=== PATIENT | male | born 1950 | race Caucasian/White ===

== ENCOUNTER 2020-04-14 08:44 | Outpatient (CLI) | payer MEDICARE, SELFPAY | END 2020-04-14 08:45 | disposition home or self-care (01) | LOC: CHSLAB 08:48 | PROVIDERS: PCP Family Medicine; Visit Provider Specialist | DX: C44.629 Squamous cell carcinoma of skin of left upper limb, including shoulder (principal) | CPT/HCPCS: 88305 ==

== ENCOUNTER 2020-05-12 08:43 | Outpatient (CLI) | payer MEDICARE, SELFPAY | END 2020-05-12 08:44 | disposition home or self-care (01) | LOC: CHSLAB 08:45 | PROVIDERS: PCP Family Medicine; Visit Provider Specialist | DX: C44.49 Other specified malignant neoplasm of skin of scalp and neck (principal) | CPT/HCPCS: 88305; 88342 ==

== ENCOUNTER 2020-07-10 10:28 | Outpatient (CLI) | payer MEDICARE, SELFPAY | END 2020-07-10 10:29 | disposition home or self-care (01) | PROVIDERS: PCP Family Medicine; Visit Provider Specialist | DX: C44.622 Squamous cell carcinoma of skin of right upper limb, including shoulder (principal) | CPT/HCPCS: 88305 ==

== ENCOUNTER 2020-11-24 13:17 | Outpatient (CLI) | payer MEDICARE, SELFPAY | END 2020-11-24 13:18 | disposition home or self-care (01) | LOC: CHSLAB 13:20 | PROVIDERS: PCP Family Medicine; Visit Provider Specialist | DX: C44.629 Squamous cell carcinoma of skin of left upper limb, including shoulder (principal) | CPT/HCPCS: 88305 ==

== ENCOUNTER 2021-01-12 12:44 | Outpatient (CLI) | payer MEDICARE, SELFPAY | END 2021-01-12 12:45 | disposition home or self-care (01) | PROVIDERS: PCP Family Medicine; Visit Provider Specialist | DX: C44.629 Squamous cell carcinoma of skin of left upper limb, including shoulder (principal); C44.622 Squamous cell carcinoma of skin of right upper limb, including shoulder | CPT/HCPCS: 88305 ==

== ENCOUNTER 2021-03-30 10:26 | Outpatient (CLI) | payer MEDICARE, SELFPAY | END 2021-03-30 10:27 | disposition home or self-care (01) | LOC: CHSLAB 10:43 | PROVIDERS: PCP Family Medicine; Visit Provider Specialist | DX: C44.629 Squamous cell carcinoma of skin of left upper limb, including shoulder (principal) | CPT/HCPCS: 88305 ==

== ENCOUNTER 2021-05-18 16:34 | Outpatient (CLI) | payer MEDICARE, SELFPAY | END 2021-05-18 16:35 | disposition home or self-care (01) | LOC: CHSOUTPT 16:47 | PROVIDERS: PCP Family Medicine; Visit Provider Specialist | DX: C44.629 Squamous cell carcinoma of skin of left upper limb, including shoulder (principal) | CPT/HCPCS: 88305 ==

== ENCOUNTER 2021-09-14 16:09 | Outpatient (CLI) | payer MEDICARE, SELFPAY | END 2021-09-14 16:10 | disposition home or self-care (01) | LOC: CHSOUTPT 16:11 | PROVIDERS: PCP Family Medicine; Visit Provider Specialist | DX: C44.622 Squamous cell carcinoma of skin of right upper limb, including shoulder (principal) | CPT/HCPCS: 88305 ==

== ENCOUNTER 2021-11-16 16:10 | Outpatient (CLI) | payer MEDICARE, SELFPAY | END 2021-11-16 16:11 | disposition home or self-care (01) | LOC: CHSLAB 16:26 | PROVIDERS: PCP Family Medicine; Visit Provider Specialist | DX: C44.629 Squamous cell carcinoma of skin of left upper limb, including shoulder (principal) | CPT/HCPCS: 88305 ==

== ENCOUNTER 2022-01-11 16:09 | Outpatient (CLI) | payer MEDICARE, SELFPAY | END 2022-01-11 16:10 | disposition home or self-care (01) | LOC: CHSLAB 16:11 | PROVIDERS: PCP Family Medicine; Visit Provider Specialist | DX: C44.622 Squamous cell carcinoma of skin of right upper limb, including shoulder (principal) | CPT/HCPCS: 88305 ==

== ENCOUNTER 2022-08-16 08:49 | Outpatient (CLI) | payer MEDICARE, SELFPAY | END 2022-08-16 08:50 | disposition home or self-care (01) | PROVIDERS: PCP Family Medicine; Visit Provider Specialist | DX: C44.629 Squamous cell carcinoma of skin of left upper limb, including shoulder (principal) | CPT/HCPCS: 88305 ==

== ENCOUNTER 2022-12-27 15:28 | Outpatient (CLI) | payer MEDICARE, SELFPAY | END 2022-12-27 15:29 | disposition home or self-care (01) | LOC: CHSLAB 15:30 | PROVIDERS: PCP Family Medicine; Visit Provider Specialist | DX: L98.8 Other specified disorders of the skin and subcutaneous tissue (principal); L57.0 Actinic keratosis | CPT/HCPCS: 88305 ==

== ENCOUNTER 2023-02-14 15:35 | Outpatient (CLI) | payer MEDICARE, SELFPAY | END 2023-02-14 15:36 | disposition home or self-care (01) | PROVIDERS: PCP Family Medicine; Visit Provider Specialist | DX: C44.622 Squamous cell carcinoma of skin of right upper limb, including shoulder (principal); C44.629 Squamous cell carcinoma of skin of left upper limb, including shoulder | CPT/HCPCS: 88305 ==

== ENCOUNTER 2023-04-18 15:06 | Outpatient (CLI) | payer MEDICARE, SELFPAY | END 2023-04-18 15:07 | disposition home or self-care (01) | LOC: CHSLAB 15:08 | PROVIDERS: PCP Family Medicine; Visit Provider Specialist | DX: C44.629 Squamous cell carcinoma of skin of left upper limb, including shoulder (principal) | CPT/HCPCS: 88305 ==

== ENCOUNTER 2023-05-16 14:42 | Outpatient (CLI) | payer MEDICARE, SELFPAY | END 2023-05-16 14:43 | disposition home or self-care (01) | LOC: CHSLAB 14:46 | PROVIDERS: PCP Family Medicine; Visit Provider Specialist | DX: C44.622 Squamous cell carcinoma of skin of right upper limb, including shoulder (principal) | CPT/HCPCS: 88305 ==

== ENCOUNTER 2023-06-13 15:06 | Outpatient (CLI) | payer MEDICARE, SELFPAY | END 2023-06-13 15:07 | disposition home or self-care (01) | LOC: CHSLAB 15:08 | PROVIDERS: PCP Family Medicine; Visit Provider Specialist | DX: C44.722 Squamous cell carcinoma of skin of right lower limb, including hip (principal) | CPT/HCPCS: 88305 ==

== ENCOUNTER 2023-07-18 14:49 | Outpatient (CLI) | payer MEDICARE, SELFPAY | END 2023-07-18 14:50 | disposition home or self-care (01) | PROVIDERS: PCP Family Medicine; Visit Provider Specialist | DX: C44.622 Squamous cell carcinoma of skin of right upper limb, including shoulder (principal) | CPT/HCPCS: 88305 ==

== ENCOUNTER 2024-02-13 14:23 | Outpatient (CLI) | payer MEDICARE, SELFPAY | END 2024-02-13 14:24 | disposition home or self-care (01) | LOC: CHSLAB 14:28 | PROVIDERS: PCP Family Medicine; Visit Provider Specialist | DX: C44.329 Squamous cell carcinoma of skin of other parts of face (principal); C44.629 Squamous cell carcinoma of skin of left upper limb, including shoulder | CPT/HCPCS: 88305 ==

== ENCOUNTER 2024-09-10 14:53 | Outpatient (CLI) | payer MEDICARE, SELFPAY ==
--- OUTSIDE RECORDS SUMMARY | 2024-09-10 16:25 | XMS_ITS | Encounter Summary ---
Author Name [facility] [place] Organization [facility] [place] Address [address] [place] [address] Care Team Providers Care Mergers And Acquisitions Consultant Name Role Phone BRIGITTE SHI Primary Care Provider Unavailmichael e Insurance Providers: All historical and current Section Date Range: From patient's date of to the date document was created. This section includes the names of all active insurance providers for the patient. Insurance Provider Type of Coverage Plan Name Start of Policy Coverage End of Policy Coverage Group Number Member ID Insurance Provider's Telephone Number Policy Alva's Name Patient's Relationship to Policy Alva [facility] ([facility]) MEDICARE ADVANTAGE MCR ([facility]) Jun 12, 2022 [phone] [id number] REGAN,IVÁN ID [facility]) MEDICARE ADVANTAGE MCR ([facility]) Jun 12, 2022 [id number] [id number] REGAN,IVÁN ID PATIENT Selected Encounter This section includes the information on record at [place] for the Encounter. Date/Time Encounter Type Encounter Description Reason Provider Source Dec 19, 2023 03:00 PM OFFICE O/P EST MOD 30 MIN GERIPACT ICD-10-CM M54.2 Cervicalgia BRIGITTE SHI IHKishore Encounter Template Text not used by [facility] Assessments - Encounter Diagnoses This section includes the primary and secondary diagnoses documented for the Encounter. 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 BRIGITTE SHI [facility] Dec 19, 2023 12:13 PM SECONDARY Depression, unspecified BRIGITTE SHI [facility] Dec 19, 2023 12:13 PM SECONDARY Emphysema, unspecified BRIGITTE SHI [facility] Dec 19, 2023 12:13 PM SECONDARY Essential (primary) hypertension BRIGITTE SHI [facility] Dec 19, 2023 12:13 PM SECONDARY Gastro-esophageal reflux disease without esophagitis BRIGITTE SHI [facility] Dec 19, 2023 12:13 PM SECONDARY Hypothyroidism, unspecified BRIGITTE SHI [facility] Dec 19, 2023 12:13 PM SECONDARY Idiopathic gout, multiple sites BRIGITTE SHI [facility] Dec 19, 2023 12:13 PM SECONDARY Low back pain, unspecified BRIGITTE SHI [facility] Dec 19, 2023 12:13 PM SECONDARY Mild persistent asthma, uncomplicated BRIGITTE SHI [facility] Dec 19, 2023 12:13 PM SECONDARY Other insomnia BRIGITTE SHI [facility] Dec 19, 2023 12:13 PM SECONDARY Personal history of malignant carcinoid tumor of kidney BRIGITTE SHI [facility] Dec 19, 2023 12:13 PM SECONDARY Primary stabbing headache BRIGITTE SHI [facility] Dec 19, 2023 12:13 PM SECONDARY Radiculopathy, cervical region BRIGITTE SHI [facility] Dec 19, 2023 12:13 PM SECONDARY Type 2 diabetes mellitus with diabetic neuropathy, unsp BRIGITTE SHI [facility] Dec 19, 2023 12:13 PM SECONDARY Vitamin D deficiency, unspecified BRIGITTE SHI E [facility] Social History: Smoking Status (Most current) and Tobacco Use (All prior to encounter date) This section includes the most current, and the historical, smoking and tobacco- related health factors from the [place] facility where the Encounter took place. Current Smoking Status This section includes the most current smoking, or tobacco-related health factor, from the [place] facility where the Encounter took place. Date/Time Current Smoking Status Comment Atul styles Aug 04, 2023 09:00 AM VA-TOBACCO FORMER USER [facility] Tobacco Use History This section includes a history of the smoking, or tobacco-related health factors, that were collected on or before the date of the Encounter. The data comes from the [place] facility where the Encounter took place. Date/Time Smoking Status/Tobacco Use Comment Gayle nelson Aug 04, 2023 09:00 AM VA-TOBACCO QUIT 15 YRS OR MORE [facility] Feb 01, 2022 09:00 AM VA-TOBACCO FORMER USER [facility] Feb 01, 2022 09:00 AM VA-TOBACCO QUIT 15 YRS OR MORE [facility] Jan 29, 2021 09:00 AM VA-TOBACCO FORMER USER [facility] Jan 29, 2021 09:00 AM VA-TOBACCO QUIT 15 YRS OR MORE [facility] October 29, 2019 03:20 PM VA-TOBACCO FORMER USER [facility] October 29, 2019 03:20 PM VA-TOBACCO QUIT 15 YRS OR MORE [facility] Mar 12, 2018 01:47 PM VA-TOBACCO FORMER USER [facility] Mar 12, 2018 01:47 PM VA-TOBACCO QUIT 15 YRS OR MORE [facility] Feb 02, 2018 11:02 AM QUIT TOBACCO >7 YEARS AGO [facility] Aug 03, 2017 09:58 AM TOBACCO REFUSED SCREEN V15 [facility] Jan 27, 2017 09:01 AM QUIT TOBACCO >7 YEARS AGO [facility] Jan 21, 2016 09:13 AM QUIT TOBACCO >7 YEARS AGO [facility] Encounter Notes: All associated encounter notes This section contains the clinical notes associated to the Encounter. Date/Time Encounter Note(s) Provider Source Dec 19, 2023 11:13 AM TELEHEALTH NOTE: LOCAL TITLE: GERIPACT VIDEO CONNECT ST STANDARD TITLE: TELEHEALTH NOTE DATE OF NOTE: DEC 19, 2023@11:13 ENTRY DATE: DEC 19, 2023@11:13:58 AUTHOR: BRIGITTE SHI EXP COSIGNER: URGENCY: STATUS: COMPLETED Type of Evaluation: Geriatric Follow-up : Apr KADEN SPEARS was contacted today for a video visit. He agreed to the video visit. CC: Neck pain HPI: KADEN SPEARS is a 73 yo well-groomed functionally independent, cognitively intact MALE who was contacted via video for his medical check up and medication review/renewal: HTN, Type 2 DM, Primary stabbing headache, Asthma/emphysema/pulm nodules/allergies, GERD, ED, Gout, Maddox syndrome, Anemia & Bilateral hearing loss. He continues to follow routinely with his community pcp, principal cloud architect, GI/oncologist, software test manager, warehouse consultant, life skills specialist & day porter. He [facility] also [facility]. C/o today of recent pain from his neck to his shoulders & left arm. The pain is like a mild electrical current but is more shocking type pain w/ certain movements. Rates pain 8/10. He reports having xray w/ osh pcp, was told he has quite a bit of arthritis & maybe an impingement. He is planning to start outpatient PT and has been referred to a local pattern painter. ROS: BP running 110s/50s, denies recio/dizziness/cp/sob/palpitations , denies n/v, reports recent diarrhea that has resolved when he restarted creon, reports increasing heartburn as well despite daily ppi, ambulating w/o difficulty, denies falls, urine stream has improved, nocturia x1-2, denies dysuria or hematuria, reports improvement of depressed mood, sleep and appetite, denies si/hi. PAST SURGICAL HISTORY Left partial nephrectomy, renal cell CA thyroidectomy, thyroid ca head injury/left hand injury war injury left prosthetic eye (war injury) left sinus shrapnel removal right thumb joint replacement left knee replacement lap choley FAMILY HISTORY: Dad CHF Mom brain ca brother lung ca brother colon ca brother pancreatic ca sister cad sister cad sister ovarian cancer son colon cancer son colon cancer son healthy SOCIO-ECONOMIC HISTORY: Had one 1 year tour [place], [employer] Retired, state/[employer] go[employer] employment field Living at home alone, , he remains ind w/ adls tob use quit '82 after 15 pack years etoh, rare illicit drugs, none Cognitive Impairment Warning Signs: none ADL/IADL: independent Adherence to medications: good Allergies/ADR: CARLYN INHIBITORS, FINASTERIDE Last Vitals: BP: 144/70 (08/04/2023 09:32) Pulse: 45 (08/04/2023 08:51) Temp: 97.6 F [36.4 C] (08/04/2023 08:51) RR: 20 (08/04/2023 08:51) Pain: 0 (08/04/2023 08:51) Weight: 187.1 lb [84.87 kg] (08/04/2023 08:51) Height: 71 in [180.3 cm] (08/04/2023 08:51) PHYSICAL EXAMINATION: General: wd/wn male sitting comfortably in his home, nad, AOx3 PSY:cooperative & converses well, pleasant and smiling Assessment and Plan for each problem: 1.Cervicalgia w/ radiculopathy -being worked up by osh pcp -planning to start outpt PT and has appt w/ osh pain management -enc to cont voltaren, apap, heat, topicals/patches 2.Depression/bereavement/insomni a -denies si/hi -completed treatments w/ [facility]y-pact psychologist w/ great results -encouraged him to continue support group w/ his yazdanism -cont mirtazapine 15mg bedtime along w/ melatonin 3.Left shoulder pain -managed by osh ortho 4.Cough/Asthma/emphysema/pulm nodules/allergies -cont singulair, Breo & prn albuterol, zyrtec -fu osh pulm Dr. Rosenthal at [facility] & [facility]sman 5.Primary stabbing headache -05/03/22 CT head: No acute process. Mild age-appropriate volume loss and mild findings of chronic white matter disease. Unchanged posttraumatic findings in the left orbit and left maxillary sinus. 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 -Covid-19 primary prevention/precautions reviewed -Covid-19 vaccination: booster ' -colonoscopy: 08/30: 2 benign polyps, fu due 2022, he is still considering -PSA 1.54 ng/mL 12/18/2023 -Flu shot: 2022 -Prevnar-13: 2015 -Pneumovax 23: 2017 -Tdap: 2016 -Shingrix series: 2020 -Firearm safety -Smoke detectors -Hot water heater to <120-130 degrees F -discussed routine exercise and healthy diet Medications have been reconciled and plan of care has been reviewed with pt/family/caregiver including expected therapeutic benefits and potential side effects of treatments. Pt/caregiver/family verbalizes understanding, concurs with the current plan of care, and agrees to contact this provider or [facility]y-Pact case finisher with any problems prior to next visit. RTC:6mo or sooner prn Time spent: 58 min Active Outpatient Medications (including Supplies): Active Outpatient Medications Status ========= 1) ALLOPURINOL 100MG TAB TAKE ONE TABLET BY MOUTH ONCE A ACTIVE (S) DAY FOR GOUT. TAKE WITH PLENTY OF WATER. 2) AMLODIPINE BESYLATE 2.5MG TAB TAKE ONE TABLET BY ACTIVE (S) MOUTH ONCE A DAY 3) ASPIRIN 81MG EC TAB TAKE ONE TABLET BY MOUTH ONCE A ACTIVE (S) DAY FOR HEART OR CIRCULATION. TAKE WITH FOOD. 4) ATORVASTATIN CALCIUM 10MG TAB TAKE ONE TABLET BY ACTIVE (S) MOUTH EVERY EVENING TO LOWER CHOLESTEROL 5) AZELASTINE 137MCG/SPRAY 200D NASAL INHL SPRAY 2 ACTIVE (S) SPRAYS IN NOSTRIL(S) TWICE DAILY NEEDED FOR ALLERGIC RHINITIS. *PRIME BEFORE USE* 6) BRIMONIDINE 0.2%/BRINZOLAMID 1% OPH SUSP INSTILL 1 ACTIVE DROP IN BOTH EYES THREE TIMES A DAY FOR GLAUCOMA 7) CARBOXYMETHYLCELLULOSE 1% OPH GEL 0.4ML INSTILL 1 ACTIVE (S) DROP INTO LEFT EYE FOUR TIMES A DAY NEEDED 8) CARBOXYMETHYLCELLULOSE NA 1% OPH GEL INSTILL 1 DROP ACTIVE (S) INTO BOTH EYES FOUR TIMES A DAY NEEDED FOR DRY EYES 9) CETIRIZINE HCL 10MG TAB TAKE ONE TABLET BY MOUTH ONCE ACTIVE (S) A DAY FOR ALLERGY SYMPTOMS. 10) CYANOCOBALAMIN 1000MCG/ML INJ INJECT 1000MCG/1ML ACTIVE (S) INTRAMUSCULARLY EVERY MONTH FOR B12 SUPPLEMENTATION 11) LATANOPROST 0.005% OPH SOLN INSTILL 1 DROP IN RIGHT ACTIVE EYE EVERY EVENING KEEP REFRIGERATED UNTIL READY TO USE, THEN STORE AT ROOM TEMPERATURE FOR MAXIMUM OF 42 DAYS. 12) LEVOTHYROXINE NA (SYNTHROID) 112MCG TAB TAKE ONE ACTIVE (S) TABLET BY MOUTH EVERY MORNING BEFORE A MEAL FOR HYPOTHYROIDISM TAKE 30 MINUTES BEFORE FOOD. TAKE SEPARATELY FROM ALL OTHER MEDICATIONS. 13) LIDOCAINE 5% PATCH APPLY 1 PATCH TO SKIN SITE ONCE A ACTIVE DAY APPLY PATCH AND PRESS FIRMLY FOR 10-15 SECONDS. KEEP ON FOR 12 HOURS THEN REMOVE PATCH FOR 12 HOURS. 14) MELATONIN 5MG CAP/TAB TAKE TWO CAP/TAB BY MOUTH AT ACTIVE (S) BEDTIME 15) MIRTAZAPINE 15MG TAB TAKE ONE TABLET BY MOUTH AT ACTIVE (S) BEDTIME FOR MOOD AND SLEEP 16) MONTELUKAST NA 10MG TAB TAKE ONE TABLET BY MOUTH ACTIVE (S) EVERY EVENING 17) MULTIVITAMIN/MINERALS CAP/TAB TAKE 1 CAP/TAB BY MOUTH ACTIVE (S) ONCE A DAY FOR SUPPLEMENTATION. 18) OMEPRAZOLE 40MG EC CAP TAKE ONE CAPSULE BY MOUTH ACTIVE (S) EVERY MORNING BEFORE A MEAL TAKE 30 MINUTES PRIOR TO FOOD. 19) PEG 400 0.4%/PROP GLYCOL 0.3% OPH SOLN INSTILL 1 DROP ACTIVE (S) IN AFFECTED EYE(S) FOUR TIMES A DAY FOR DRY EYE(S) 20) POTASSIUM CL 20MEQ SA TAB (DISPERSIBLE) TAKE ONE ACTIVE (S) TABLET BY MOUTH ONCE A DAY FOR POTASSIUM SUPPLEMENTATION TAKE WITH FOOD 21) SILDENAFIL CITRATE 100MG TAB TAKE ONE TABLET BY MOUTH ACTIVE (S) EVERY WEEK NEEDED FOR ERECTILE DYSFUNCTION (TAKE 60 MINUTES PRIOR TO SEXUAL ACTIVITY) - LIMIT 4 DOSES PER 30 DAYS 22) TUBERCULIN SYRINGE 1ML 25G 5/8IN USE 1 SYRINGE ACTIVE (S) INTRAMUSCULARLY EVERY MONTH FOR INJECTION Active Non-VA Medications Status ========= 1) Non-VA LUTEIN CAP/TAB 1 CAP/TAB BY MOUTH ONCE A DAY ACTIVE 2) Non-VA MAGNESIUM OXIDE 400MG TAB 400MG BY MOUTH ONCE ACTIVE A DAY 3) Non-VA NEBIVOLOL 10MG TAB 10MG BY MOUTH ONCE A DAY ACTIVE 4) Non-VA PROBIOTIC COMBINATION CAP/TAB 1 CAPSULE BY ACTIVE MOUTH ONCE A DAY V15-VA Video Connect/Video to Home: VA Video Connect (VVC)/Video to home template v1.5 Visit conducted by synchronous telehealth. [place] Location/emergency number confirmed. Environment surveyed and all participants identified. Virtual conference room locked. VVC/Video to home appointment information: The following items were reviewed: - The nature of telehealth, its benefits, and risks. - Confidentiality and its limits. - The importance of having a confidential location for the service. - The emergency plan. - The appointment should be treated like an in person appointment (no smoking or driving during session, showing up fully dressed, etc.) *The Virtual Medical Room was locked for this encounter. *A survey of the environment was conducted and it is appropriate to conduct a VVC appointment. *Confirmed [place]'s Non-VA location for this appointment: 's Home [address] [address] Address and phone number verified with [place]. Address: Phone: does not have an emergency contact. *[place] was notified of right to decline Telehealth services and eligibility for other options. consented to be seen via VVC. EMERGENCY PLAN In the event of an emergency, the or family will call emergency services, if capable. The Teleprovider will remain in the virtual medical room until emergency response arrives and handoff to emergency services is complete. If [place] is unable to make emergency call, the Teleprovider is to call the national E911 service at [phone] and ask to be connected to emergency services for the 's location. 's Crisis Line: Dial 988 then press 1, or text [phone] Office of Connected Care Helpdesk (OCC): [phone] or [phone] Verified Provider's location and contact information for this appointment: [address] [phone] Cystatin C with eGFR Screen: The patient has a condition that may benefit from obtaining a Cystatin C test for accurate assessment of renal function. Other reason Cystatin C not ordered: Comment: vvc appt COVID-19 Immunization: Virtual/Telehealth Visit - Patient educated on the need for receiving COVID-19 (SARS-CoV-2) immunization either at [facility] or outside facility. HIV Screening (Routine): Patient has been offered HIV testing and has declined. I have explained that HIV testing is recommended for all adults, even if all risk factors are absent. WHAT MATTERS What Matters was addressed at this visit. Comment: neck pain MEDICATION Medications were addressed at this visit. Comment: reviewed, reconciled MENTATION Depression was addressed at this visit. Comment: sig improvement MENTATION Dementia was addressed at this visit. MOBILITY -------- Mobility was not addressed at this visit. Indicate reason Mobility was not addressed: Other Comment: [facility] appt /es/ BRIGITTE SHI [facility]- NURSE PRACTITIONER, KATY-PACT Signed: 12/19/2023 12:15 BRIGITTE SHI [facility]
--- OUTSIDE RECORDS SUMMARY | 2024-09-10 16:25 | XMS_ITS ---
Author Name [facility] [place] Address [address] [place] [address] Care Team Providers Care City Dispatcher Name Role Phone BRIGITTE SHI Primary Care Provider Latoya hayes Insurance Providers: All historical and current Section Date Range: From patient's date of to the date document was created. This section includes the names of all active insurance providers for the patient. Insurance Provider Type of Coverage Plan Name Start of Policy Coverage End of Policy Coverage Group Number Member ID Insurance Provider's Telephone Number Policy Alva's Name Patient's Relationship to Policy Alva [facility] MEDICARE ADVANTAGE MCR ([facility]) Jun 12, 2022 [phone] [id number] [phone] REGAN,IVÁN ID PATIENT [facility] (WNR) MEDICARE ADVANTAGE [facility] ([facility]) Jun 12, 2022 [id number] [id number] REGAN,IVÁN ID PATIENT Selected Encounter This section includes the information on record at [place] for the Encounter. Date/Time Encounter Type Encounter Description Reason Provider Source Jul 04, 2024 08:52 AM Outpatient Encounter ADMIN PAT ACTIVTIES (MASNONCT) MEGHAN MCCURDY Encounter Template Text not used by [place] Plan of Treatment: Future Appointments (+ 6 months) and Future Tests (+/- 45 days) The Plan of Treatment section includes future care activities for the patient from all VA treatmentfacilities. This section includes future appointments and future orders which are active, pending or scheduled. Future Appointments This section includes appointments that were scheduled to occur 6 months from the date of the Encounter, up to a maximum of 20 appointments. The data comes from all [place] treatment facilities. Appointment Date/Time Appointment Type Appointme nt Facility Name Aug 22, 2024 09:00 AM AMBULATORY - REHAB MEDICIN E [facility] Social History: Smoking Status (Most current) and Tobacco Use (All prior to encounter date) This section includes the most current, and the historical, smoking and tobacco- related health factors from the [place] facility where the Encounter took place. Current Smoking Status This section includes the most current smoking, or tobacco-related health factor, from the [place] facility where the Encounter took place. Date/Time Current Smoking Status Comment Facil ity Aug 04, 2023 09:00 AM VA-TOBACCO FORMER USER [facility] Tobacco Use History This section includes a history of the smoking, or tobacco-related health factors, that were collected on or before the date of the Encounter. The data comes from the [place] facility where the Encounter took place. Date/Time Smoking Status/Tobacco Use Comment F acility Aug 04, 2023 09:00 AM VA-TOBACCO QUIT 15 YRS OR MORE [facility] Feb 01, 2022 09:00 AM VA-TOBACCO FORMER USER [facility] Feb 01, 2022 09:00 AM VA-TOBACCO QUIT 15 YRS OR MORE [facility] Jan 29, 2021 09:00 AM VA-TOBACCO FORMER USER [facility] Jan 29, 2021 09:00 AM VA-TOBACCO QUIT 15 YRS OR MORE [facility] October 29, 2019 03:20 PM VA-TOBACCO FORMER USER [facility] October 29, 2019 03:20 PM VA-TOBACCO QUIT 15 YRS OR MORE [facility] Mar 12, 2018 01:47 PM VA-TOBACCO FORMER USER [facility] Mar 12, 2018 01:47 PM VA-TOBACCO QUIT 15 YRS OR MORE [facility] Feb 02, 2018 11:02 AM QUIT TOBACCO >7 YEARS AGO [facility] Aug 03, 2017 09:58 AM TOBACCO REFUSED SCREEN V15 [facility] Jan 27, 2017 09:01 AM QUIT TOBACCO >7 YEARS AGO [facility] Jan 21, 2016 09:13 AM QUIT TOBACCO >7 YEARS AGO [facility] Encounter Notes: All associated encounter notes This section contains the clinical notes associated to the Encounter. Date/Time Encounter Note(s) Provider Source Jul 04, 2024 08:52 AM PHARMACY MEDICATION MGT DISCHARGE NOTE: LOCAL TITLE: PHARMACY COMMUNITY CARE PRESCRIPTION PROCESSING NOT STANDARD TITLE: PHARMACY MEDICATION MGT DISCHARGE NOTE DATE OF NOTE: JUL 04, 2024@08:52 ENTRY DATE: JUL 04, 2024@08:52:48 AUTHOR: MEGHAN MCCURDY WHI EXP COSIGNER: URGENCY: STATUS: COMPLETED Pharmacy service received prescription(s) via: Inbound ERx ELIGIBILITY: Pharmacy service cannot accept this prescription because the patient is not CCN (Care in the Community) eligible. PRESCRIPTION INFORMATION: Provider Information:MARISABEL FOWLER, [facility], [address] [place] [id number] phone: [phone] fax: [phone] 1) eRx Drug : carboxymethylcellulose sodium 0.5 % eye drops in a dropperette (REFRESH PLUS), SIG : Administer 1 drop into both eyes continuously as needed for dry eyes #180 each, 3 refills DISPOSITION: Ineligible. Pt has actvie RX on file for this medication from [place] provider /sarah/ MEGHAN MCCURDY PharmD [facility] Pharmacist, Pharmacy Signed: 07/04/2024 09:30 MEGHAN MCCURDY [facility]
--- OUTSIDE RECORDS SUMMARY | 2024-09-10 16:25 | XMS_ITS | Clinical Summary ---
Author Organization [facility] Address [address], [place] [address] Phone Care Team Providers Care Scientific Systems Analyst Name Role Phone Zachary Harris MD Primary Care Provider [phone] Allergies Active Allergy Reactions Criticality Noted Date Comments Dhiraj Inhibitors Other (see Comments) 04/22/2015 Medications aspirin EC 81 MG Tablet Delayed Response Take 81 mg by mouth 2 times daily. Active acetaminophen (TYLENOL) 325 MG Tablet Take 1 Tab by mouth every 6 hours as needed for Pain or Fever (for temperature greater than 100.4 F). Do not exceed 4000 mg of acetaminophen in 24 hour from all sources. 5 Active acebutolol (SECTRAL) 200 MG Capsule Take 1 Cap by mouth 2 times daily. 180 Cap 4 6 Active allopurinol (ZYLOPRIM) 100 MG Tablet Take 1 Tab by mouth daily. 90 Tab 4 6 Active omeprazole (PRILOSEC) 20 MG CAPSULE DELAYED RELEASE Take 1 Cap by mouth daily. 90 Cap 4 6 Active azelastine (ASTELIN) 0.1 % Solution 2 Sprays by Nasal route 2 times daily. Use in each nostril as directed 3 Bottle 3 6 Active amLODIPine (NORVASC) 10 MG Tablet Take 1 Tab by mouth daily. 90 Tab 3 6 Active albuterol (PROVENTIL HFA, VENTOLIN HFA) 108 (90 BASE) MCG/ACT Aerosol Solution take 2 Puffs by inhalation every 4 hours as needed for Wheezing. 3 Inhaler 3 6 Active budesonide (PULMICORT FLEXHALER) 180 MCG/ACT AEROSOL POWDER, BREATH ACTIVATED take 1 Puff by inhalation 2 times daily. 3 Each 3 6 Active cetirizine (ZYRTEC ALLERGY) 10 MG Tablet Take 1 Tab by mouth daily as needed for Allergies or Rhinitis. 30 Tab 6 Active HYDROcodone-ac etaminophen (NORCO) 5-325 MG Tablet 6 Active losartan (COZAAR) 100 MG Tablet Take 100 mg by mouth daily. Active mometasone (ASMANEX 120 METERED DOSES) 220 MCG/INH AEROSOL POWDER, BREATH ACTIVATED take 1 Puff by inhalation daily. Active BENICAR HCT 40-25 MG Tablet 6 Active Active Problems Problem Noted Date Diagnosed Date Hyperglycemia 02/22/2016 Malignant neoplasm of left kidney 02/04/2016 Hypokalemia 12/11/2015 Pancreatic cyst 11/17/2015 HTN (hypertension) 08/06/2015 Arthritis 08/06/2015 Asthma 08/06/2015 Chronic gout of multiple sites 08/06/2015 Physical exam 08/06/2015 Otitis externa 08/06/2015 Pain of right sacroiliac joint 04/29/2015 Resolved Problems Problem Noted Date Diagnosed Date Resolved Date Hyponatremia 12/11/2015 12/13/2015 Small bowel obstruction due to postoperative adhesions 12/11/2015 12/13/2015 Small bowel perforation 12/11/2015 07/0 08/2015 Family History Medical History Relation Name Comments Asthma Father Heart Attack Father Hypertension Father Osteoarthritis Father Cancer Mother Osteoarthritis Mother Relation Name Status Comments Father Mother Social History Tobacco Use Types Packs/Day Years Used Date Smoking Tobacco: Former Cigarettes Q uit: 12/10/1981 Smokeless Tobacco: Former Quit: 12/10/1984 Tobacco Cessation:Counseling Given: No Alcohol Use Standard Drinks/Week Comments Yes 0 (1 standard drink = 0.6 oz pur e alcohol) rarely Sex and Gender Information Value Date Recorded Sex Assigned at Not on file Legal Sex Male 10:28 PM CDT Gender Identity Not on file Sexual Orientation Not on file Last Filed Vital Signs Vital Sign Reading Time Taken Comments Blood Pressure 136/74 02/04/2016 9:10 AM CDT Pulse 68 02/04/2016 8:56 AM CDT Temperature 36.9 C (98.4 F) 02/04/2016 8:56 AM CDT Respiratory Rate 18 02/04/2016 8:56 AM CDT Oxygen Saturation 98% 02/04/2016 8:56 AM CDT Inhaled Oxygen Concentration - - Weight 111.6 kg (246 lb) 02/04/2016 8:56 AM CDT Height 177.8 cm (5' 10 ) 02/04/2016 8:56 AM CDT Body Mass Index 35.3 02/04/2016 8:56 AM CDT Plan of Treatment Health Maintenance Due Date Last Done Comments Hepatitis C Virus (HCV) Screening 1950 TdaP Immunization 1950 SARS-COV-2 Immunization (#1) 1954 Pneumococcal Immunization (5 0+ years) (1 of 2 - PCV) 1968 Zoster Immunization (1 of 2) 1968 Colonoscopy 1994 Colorectal Cancer Screening 1994 Cologuard 1999 Immunochemical Fecal Occult Blood 1999 Influenza Immunization (#1) 2024 Respiratory Syncytial Virus (RSV) Immunization (Adult) (1 - 1-dose 75+ series) 2024 AAA Screening Ultrasound Discontinued 03/11/2016 Hepatitis B Immunization Aged Out No longer eligible based on patient's age to complete this topic Meningococcal Immunization (ACWY) Aged Out No longer eligible based on patient's age to complete this topic Rotavirus Immunization Aged Out No lo nger eligible based on patient's age to complete this topic Procedures Procedure Name Priority Date/Time Associated Diagnosis Comments CT ABDOMEN W/WO CONTRAST Routine 03/11/2016 from Last 3 Months or Most Recently Relevant to Health Maintenance Results * CT ABDOMEN W/WO CONTRAST (03/11/2016) Anatomical Region Laterality Modality Abdomen N/A Other us Holly Dumont MD IMG CT ORDERABLES Final Resu lt from Last 3 Months or Most Recently Relevant to Health Maintenance Advance Directives * Full Code (Latest Code Status on File) Date Activated Date Inactivated Comments 12/11/2015 8:43 AM 12/13/2015 3:33 PM CPR-Full Treat ment: FULL ARREST: Attempt Resuscitation/CPR wit intubation and mechanical ventilation. PRE-ARREST: Use entire range of life support measures to stabilize the patient. * Full Code Date Activated Date Inactivated Comments 11/12/2015 2:08 PM 11/13/2015 8:27 PM CPR-Full Treat ment: FULL ARREST: Attempt Resuscitation/CPR wit intubation and mechanical ventilation. PRE-ARREST: Use entire range of life support measures to stabilize the patient. Care Teams Scientific Systems Analyst Relationship Specialty Start Date End Date Zachary [place] [address] PCP - General Internal Medicine 07/23/19
--- OUTSIDE RECORDS SUMMARY | 2024-09-10 16:25 | XMS_ITS | Encounter Summary ---
Author Name [facility] [place] Organization [facility] [place] Address [address] [place] [id number] Care Team Providers Care Junior Manufacturing Engineer Name Role Phone BRIGITTE SHI Primary Care [...] Alva's Name Patient's Relationship to Policy Alva [facility] MEDIC[facility]ANT[facility] ([facility]) Jun 12, 2022 [phone] [id number] REGAN,IVÁN ID PATIENT [facility] ([facility]) MEDICARE ADVANTAGE MCR ([facility]) Jun 12, 2022 [phone] REGAN,IVÁN ID PATIENT Selected Encounter This section includes the information on record at [place] for the Encounter. Date/Time Encounter Type Encounter Description Reason Provider Source October 26, 2023 08:00 AM OFFICE O/P EST MOD 30 MIN NEUROLOGY ICD-10-CM G44.85 Primary stabbing headache RUCHI STOLL Encounter Template Text not used by VA Assessments - Encounter Diagnoses This section includes the primary and secondary diagnoses documented for the Encounter. Date/Time Primary/Secondary Diagnosis Diagnosis Name Provider Source October 26, 2023 08:20 AM PRIMARY Primary stabbing headache ALONZODINO STONE [facility] October 26, 2023 08:20 AM SECONDARY Other insomnia NIKIDINO GIBSON [facility] Plan of Treatment: Future Appointments (+ 6 months) and Future Tests (+/- 45 days) The Plan of Treatment section includes future care activities for the [facility] [place] [facility] This section includes future appointments and future orders which are active, pending or scheduled. Future Appointments This section includes appointments that were scheduled to occur 6 months from the date of the Encounter, up to a maximum of 20 appointments. The data comes from all [facility]. Appointment Date/Time Appointment Type Appointme nt Facility Name October 30, 2023 10:00 AM AMBULATORY - MEDICINE [facility] November 07, 2023 01:00 PM AMBULATORY - MEDICINE [facility] Nov 15, 2023 01:00 PM AMBULATORY - MEDICINE [facility] Nov 28, 2023 01:00 PM AMBULATORY - MEDICINE [facility] Dec 19, 2023 03:00 PM AMBULATORY - REHAB [facility]IC[facility] Encounter Notes: All associated encounter notes This section contains the clinical notes associated to the Encounter. Date/Time Encounter Note(s) Provider Source October 26, 2023 10:11 AM ADDENDUM: LOCAL TITLE: Addendum STANDARD TITLE: ADDENDUM DATE OF NOTE: OCTOBER 26, 2023@10:11:33 ENTRY DATE: OCTOBER 26, 2023@10:11:34 AUTHOR: BRIGITTE SHI COSIGNER: URGENCY: STATUS: COMPLETED Dr. Hein, Can you please reach out to Mr. Avery re: insomnia? Thanks! /sarah/ BRIGITTE SHI [facility]- NURSE PRACTITIONER, MARIAMA-PACT Signed: 10/26/2023 10:12 Receipt Acknowledged By: 10/27/2023 14:41 /sarah/ Annamaria Hein, PhD Psychologist --- Original Document --- 10/26/23 NEUROLOGY OUTPATIENT FOLLOW UP [facility]: Followup of primary stabbing headches. Actually had one very quickly this AM but cannot recall the alst one. They are few and far between. The meletonin continues to work very well. He is very pleased with the meletnin. Taking Meletonin 9mg qHS. He is OK to be d/hollie back to his PCP's care. One issue is that he has been having trouble sleeping. His PCP Rx'ed mirtazapine but it doesn't seem to be helping. The issue is that he has trouble falling asleep. He'll be watching TV and then fall asleep and when he tries to go into his bed he cannot fall asleep. He has tried to medicate himself w/ oxycodoine (from prior surgeryies) which he took w/ a couple of muscle relaxants which puts him out very quickly but he kale't like doing that. He general starts watching TV at about 7pm till 10pm and he falls asleep at 8pm and then sleeps for 30 minutes and continues watching. He takse the meletonin 45 min before bed but then he has too many thought about his passed and he cannot fall asleep. He has never seen a psychologits. His PCP has mentioned this to him but he has not done it. He had a scarry episode several months ago. He went to [employer] and he kept driving and din't know where he was at and was seeing things that were not there, such as a water tower that was not there. This may have been around the time he first started taking the mirtazapine. He has not had any further hallucinations since. 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 ACTIVE VA MEDICATIONS Active Outpatient Medications (including Supplies): Active Outpatient Medications Status ========= 1) ALBUTEROL 90MCG (CFC-F) 200D ORAL INHL INHALE 2 PUFFS ACTIVE BY ORAL INHALATION FOUR TIMES A DAY NEEDED FOR BREATHING. SHAKE WELL. RINSE MOUTHPIECE FREQUENTLY TO PREVENT CLOGGING. 2) ALLOPURINOL 100MG TAB TAKE ONE TABLET BY MOUTH ONCE A ACTIVE DAY FOR GOUT. TAKE WITH PLENTY OF WATER. 3) AMLODIPINE BESYLATE 2.5MG TAB TAKE ONE TABLET BY ACTIVE MOUTH ONCE A DAY 4) ASPIRIN 81MG EC TAB TAKE ONE TABLET BY MOUTH ONCE A ACTIVE DAY FOR HEART OR CIRCULATION. TAKE WITH FOOD. 5) ATORVASTATIN CALCIUM 10MG TAB TAKE ONE TABLET BY ACTIVE MOUTH EVERY EVENING TO LOWER CHOLESTEROL 6) AZELASTINE 137MCG/SPRAY 200D NASAL INHL SPRAY 2 ACTIVE SPRAYS IN NOSTRIL(S) TWICE DAILY NEEDED FOR ALLERGIC RHINITIS. *PRIME BEFORE USE* 7) BRIMONIDINE 0.2%/BRINZOLAMID 1% OPH SUSP INSTILL 1 ACTIVE (S) DROP IN BOTH EYES THREE TIMES A DAY FOR GLAUCOMA 8) CARBOXYMETHYLCELLULOSE 1% OPH GEL 0.4ML INSTILL 1 ACTIVE DROP INTO LEFT EYE FOUR TIMES A DAY NEEDED 9) CARBOXYMETHYLCELLULOSE NA 1% OPH GEL INSTILL 1 DROP ACTIVE INTO BOTH EYES FOUR TIMES A DAY NEEDED FOR DRY EYES 10) CETIRIZINE HCL 10MG TAB TAKE ONE TABLET BY MOUTH ONCE ACTIVE A DAY FOR ALLERGY SYMPTOMS. 11) CHOLECALCIF 50MCG (D3-2,000UNIT) TAB TAKE TWO TABLETS ACTIVE BY MOUTH ONCE A DAY FOR VITAMIN D DEFICIENCY. 12) CYANOCOBALAMIN 1000MCG/ML INJ INJECT 1000MCG/1ML ACTIVE INTRAMUSCULARLY EVERY MONTH FOR B12 SUPPLEMENTATION 13) DICLOFENAC NA 75MG EC TAB TAKE ONE TABLET BY MOUTH ACTIVE EVERY MORNING AND EVENING NEEDED FOR PAIN - TAKE WITH FOOD 14) FLUTIC 200/VILANTEROL 25MCG 30D ORAL INH INHALE 1 ACTIVE PUFF ORAL INHL ONCE A DAY FOR BREATHING. RINSE MOUTH WITH WATER AND SPIT AFTER USE. USE AT SAME TIME EACH DAY. MAX OF 1 PUFF PER 24 HOURS. 15) HCTZ 50/TRIAMTERENE 75MG TAB TAKE ONE-HALF TABLET BY ACTIVE MOUTH EVERY MORNING FOR BLOOD PRESSURE 16) HYDROCORTISONE 10MG TAB TAKE ONE TABLET BY MOUTH ACTIVE TWICE A DAY 17) LATANOPROST 0.005% OPH SOLN INSTILL 1 DROP IN RIGHT ACTIVE (S) EYE EVERY EVENING KEEP REFRIGERATED UNTIL READY TO USE, THEN STORE AT ROOM TEMPERATURE FOR MAXIMUM OF 42 DAYS. 18) LEVOTHYROXINE NA (SYNTHROID) 112MCG TAB TAKE ONE ACTIVE (S) TABLET BY MOUTH EVERY MORNING BEFORE A MEAL FOR HYPOTHYROIDISM TAKE 30 MINUTES BEFORE FOOD. TAKE SEPARATELY FROM ALL OTHER MEDICATIONS. 19) LIDOCAINE 5% PATCH APPLY 1 PATCH TO SKIN SITE ONCE A ACTIVE DAY APPLY PATCH AND PRESS FIRMLY FOR 10-15 SECONDS. KEEP ON FOR 12 HOURS THEN REMOVE PATCH FOR 12 HOURS. 20) MELATONIN 5MG CAP/TAB TAKE TWO CAP/TAB BY MOUTH AT ACTIVE BEDTIME 21) MIRTAZAPINE 15MG TAB TAKE ONE TABLET BY MOUTH AT ACTIVE (S) BEDTIME FOR MOOD AND SLEEP 22) MONTELUKAST NA 10MG TAB TAKE ONE TABLET BY MOUTH ACTIVE EVERY EVENING 23) MULTIVITAMIN/MINERALS CAP/TAB TAKE 1 CAP/TAB BY MOUTH ACTIVE ONCE A DAY FOR SUPPLEMENTATION. 24) OMEPRAZOLE 40MG EC CAP TAKE ONE CAPSULE BY MOUTH ACTIVE EVERY MORNING BEFORE A MEAL TAKE 30 MINUTES PRIOR TO FOOD. 25) PEG 400 0.4%/PROP GLYCOL 0.3% OPH SOLN INSTILL 1 DROP ACTIVE IN AFFECTED EYE(S) FOUR TIMES A DAY FOR DRY EYE(S) 26) POTASSIUM CL 20MEQ SA TAB (DISPERSIBLE) TAKE ONE ACTIVE TABLET BY MOUTH ONCE A DAY FOR POTASSIUM SUPPLEMENTATION TAKE WITH FOOD 27) SILDENAFIL CITRATE 100MG TAB TAKE ONE TABLET BY MOUTH ACTIVE EVERY WEEK NEEDED FOR ERECTILE DYSFUNCTION (TAKE 60 MINUTES PRIOR TO SEXUAL ACTIVITY) - LIMIT 4 DOSES PER 30 DAYS 28) TAMSULOSIN HCL 0.4MG CAP TAKE TWO CAPSULES BY MOUTH ACTIVE EVERY EVENING APPROXIMATELY 30 MINUTES AFTER THE SAME MEAL EACH DAY (FOR PROSTATE) 29) TUBERCULIN SYRINGE 1ML 25G 5/8IN USE 1 SYRINGE ACTIVE INTRAMUSCULARLY EVERY MONTH FOR INJECTION 30) VITAMIN B COMPLEX CAP TAKE 1 CAPSULE BY MOUTH EVERY ACTIVE MORNING FOR VITAMIN SUPPLEMENTATION. Active Non-VA Medications Status ========= 1) Non-VA LUTEIN CAP/TAB 1 CAP/TAB BY MOUTH ONCE A DAY ACTIVE 2) Non-VA MAGNESIUM OXIDE 400MG TAB 400MG BY MOUTH ONCE ACTIVE A DAY 3) Non-VA NEBIVOLOL 10MG TAB 10MG BY MOUTH ONCE A DAY ACTIVE 4) Non-VA PROBIOTIC COMBINATION CAP/TAB 1 CAPSULE BY ACTIVE MOUTH ONCE A DAY 34 Total Medications ON EXAM: Kaden Avery is alert, fluent and oriented. There is no abnormality in speech or language. Cognition and thought process are normal. There is no evidence for dysarthria. There is no dyspnea with speaking. Impression: [place] with primary stabbing headache. He has responded extremely well to melatonin 9 mg nightly. No significant side effects. To his primary, we are discharging him back to your care. You can continue the melatonin 9 mg nightly. This is in order to treat his primary stabbing headache. As an aside, we did discuss the difficulties he has been having falling asleep. These seem to be related to the loss of his as well as his prior experiences in [place]. He did have 1 episode that was sort of a disassociative state with a possible hallucination. No evidence of a primary neurological process. This seems to have been around the time he started the mirtazapine but has not recurred. By the way, he says the mirtazapine is not really helping him. We discussed referring him to mental health and he says that you have suggest this as well. I think he would be willing to see a psychologist or psychiatrist at this point in time. Thank you for allowing me to participate in your patient's care. If you have questions please do not hesitate to ask. I have not scheduled follow-up but should something arise in the future he has our contact information and can schedule an appointment or go through you to reach out to us to have him seen in follow-up. /es/ Dino Stoll MD Neurology Staff Physician Signed: 10/26/2023 08:20 Receipt Acknowledged By: 10/26/2023 10:11 /es/ BRIGITTE SHI [facility] NURSE PRACTITIONER, BRIGITTE [facility] October 26, 2023 08:00 AM NEUROLOGY OUTPATIENT NOTE: LOCAL TITLE: NEUROLOGY OUTPATIENT FOLLOW UP [facility] STANDARD TITLE: NEUROLOGY OUTPATIENT NOTE DATE OF NOTE: OCTOBER 26, 2023@08:00 ENTRY DATE: OCTOBER 26, 2023@08:01:04 AUTHOR: DINO STOLL COSIGNER: URGENCY: STATUS: COMPLETED NEUROLOGY OUTPATIENT FOLLOW UP [facility] Has ADDENDA Followup of primary stabbing headches. Actually had one very quickly this AM but cannot recall the alst one. They are few and far between. The meletonin continues to work very well. He is very pleased with the meletnin. Taking Meletonin 9mg qHS. He is OK to be d/hollie back to his PCP's care. One issue is that he has been having trouble sleeping. His PCP Rx'ed mirtazapine but it doesn't seem to be helping. The issue is that he has trouble falling asleep. He'll be watching TV and then fall asleep and when he tries to go into his bed he cannot fall asleep. He has tried to medicate himself w/ oxycodoine (from prior surgeryies) which he took w/ a couple of muscle relaxants which puts him out very quickly but he kale't like doing that. He general starts watching TV at about 7pm till 10pm and he falls asleep at 8pm and then sleeps for 30 minutes and continues watching. He takse the meletonin 45 min before bed but then he has too many thought about his passed and he cannot fall asleep. He has never seen a psychologits. His PCP has mentioned this to him but he has not done it. He had a scarry episode several months ago. He went to [employer] and he kept driving and din't know where he was at and was seeing things that were not there, such as a water tower that was not there. This may have been around the time he first started taking the mirtazapine. He has not had any further hallucinations since. 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 ACTIVE VA MEDICATIONS Active Outpatient Medications (including Supplies): Active Outpatient Medications Status ========= 1) ALBUTEROL 90MCG (CFC-F) 200D ORAL INHL INHALE 2 PUFFS ACTIVE BY ORAL INHALATION FOUR TIMES A DAY NEEDED FOR BREATHING. SHAKE WELL. RINSE MOUTHPIECE FREQUENTLY TO PREVENT CLOGGING. 2) ALLOPURINOL 100MG TAB TAKE ONE TABLET BY MOUTH ONCE A ACTIVE DAY FOR GOUT. TAKE WITH PLENTY OF WATER. 3) AMLODIPINE BESYLATE 2.5MG TAB TAKE ONE TABLET BY ACTIVE MOUTH ONCE A DAY 4) ASPIRIN 81MG EC TAB TAKE ONE TABLET BY MOUTH ONCE A ACTIVE DAY FOR HEART OR CIRCULATION. TAKE WITH FOOD. 5) ATORVASTATIN CALCIUM 10MG TAB TAKE ONE TABLET BY ACTIVE MOUTH EVERY EVENING TO LOWER CHOLESTEROL 6) AZELASTINE 137MCG/SPRAY 200D NASAL INHL SPRAY 2 ACTIVE SPRAYS IN NOSTRIL(S) TWICE DAILY NEEDED FOR ALLERGIC RHINITIS. *PRIME BEFORE USE* 7) BRIMONIDINE 0.2%/BRINZOLAMID 1% OPH SUSP INSTILL 1 ACTIVE (S) DROP IN BOTH EYES THREE TIMES A DAY FOR GLAUCOMA 8) CARBOXYMETHYLCELLULOSE 1% OPH GEL 0.4ML INSTILL 1 ACTIVE DROP INTO LEFT EYE FOUR TIMES A DAY NEEDED 9) CARBOXYMETHYLCELLULOSE NA 1% OPH GEL INSTILL 1 DROP ACTIVE INTO BOTH EYES FOUR TIMES A DAY NEEDED FOR DRY EYES 10) CETIRIZINE HCL 10MG TAB TAKE ONE TABLET BY MOUTH ONCE ACTIVE A DAY FOR ALLERGY SYMPTOMS. 11) CHOLECALCIF 50MCG (D3-2,000UNIT) TAB TAKE TWO TABLETS ACTIVE BY MOUTH ONCE A DAY FOR VITAMIN D DEFICIENCY. 12) CYANOCOBALAMIN 1000MCG/ML INJ INJECT 1000MCG/1ML ACTIVE INTRAMUSCULARLY EVERY MONTH FOR B12 SUPPLEMENTATION 13) DICLOFENAC NA 75MG EC TAB TAKE ONE TABLET BY MOUTH ACTIVE EVERY MORNING AND EVENING NEEDED FOR PAIN - TAKE WITH FOOD 14) FLUTIC 200/VILANTEROL 25MCG 30D ORAL INH INHALE 1 ACTIVE PUFF ORAL INHL ONCE A DAY FOR BREATHING. RINSE MOUTH WITH WATER AND SPIT AFTER USE. USE AT SAME TIME EACH DAY. MAX OF 1 PUFF PER 24 HOURS. 15) HCTZ 50/TRIAMTERENE 75MG TAB TAKE ONE-HALF TABLET BY ACTIVE MOUTH EVERY MORNING FOR BLOOD PRESSURE 16) HYDROCORTISONE 10MG TAB TAKE ONE TABLET BY MOUTH ACTIVE TWICE A DAY 17) LATANOPROST 0.005% OPH SOLN INSTILL 1 DROP IN RIGHT ACTIVE (S) EYE EVERY EVENING KEEP REFRIGERATED UNTIL READY TO USE, THEN STORE AT ROOM TEMPERATURE FOR MAXIMUM OF 42 DAYS. 18) LEVOTHYROXINE NA (SYNTHROID) 112MCG TAB TAKE ONE ACTIVE (S) TABLET BY MOUTH EVERY MORNING BEFORE A MEAL FOR HYPOTHYROIDISM TAKE 30 MINUTES BEFORE FOOD. TAKE SEPARATELY FROM ALL OTHER MEDICATIONS. 19) LIDOCAINE 5% PATCH APPLY 1 PATCH TO SKIN SITE ONCE A ACTIVE DAY APPLY PATCH AND PRESS FIRMLY FOR 10-15 SECONDS. KEEP ON FOR 12 HOURS THEN REMOVE PATCH FOR 12 HOURS. 20) MELATONIN 5MG CAP/TAB TAKE TWO CAP/TAB BY MOUTH AT ACTIVE BEDTIME 21) MIRTAZAPINE 15MG TAB TAKE ONE TABLET BY MOUTH AT ACTIVE (S) BEDTIME FOR MOOD AND SLEEP 22) MONTELUKAST NA 10MG TAB TAKE ONE TABLET BY MOUTH ACTIVE EVERY EVENING 23) MULTIVITAMIN/MINERALS CAP/TAB TAKE 1 CAP/TAB BY MOUTH ACTIVE ONCE A DAY FOR SUPPLEMENTATION. 24) OMEPRAZOLE 40MG EC CAP TAKE ONE CAPSULE BY MOUTH ACTIVE EVERY MORNING BEFORE A MEAL TAKE 30 MINUTES PRIOR TO FOOD. 25) PEG 400 0.4%/PROP GLYCOL 0.3% OPH SOLN INSTILL 1 DROP ACTIVE IN AFFECTED EYE(S) FOUR TIMES A DAY FOR DRY EYE(S) 26) POTASSIUM CL 20MEQ SA TAB (DISPERSIBLE) TAKE ONE ACTIVE TABLET BY MOUTH ONCE A DAY FOR POTASSIUM SUPPLEMENTATION TAKE WITH FOOD 27) SILDENAFIL CITRATE 100MG TAB TAKE ONE TABLET BY MOUTH ACTIVE EVERY WEEK NEEDED FOR ERECTILE DYSFUNCTION (TAKE 60 MINUTES PRIOR TO SEXUAL ACTIVITY) - LIMIT 4 DOSES PER 30 DAYS 28) TAMSULOSIN HCL 0.4MG CAP TAKE TWO CAPSULES BY MOUTH ACTIVE EVERY EVENING APPROXIMATELY 30 MINUTES AFTER THE SAME MEAL EACH DAY (FOR PROSTATE) 29) TUBERCULIN SYRINGE 1ML 25G 5/8IN USE 1 SYRINGE ACTIVE INTRAMUSCULARLY EVERY MONTH FOR INJECTION 30) VITAMIN B COMPLEX CAP TAKE 1 CAPSULE BY MOUTH EVERY ACTIVE MORNING FOR VITAMIN SUPPLEMENTATION. Active Non-VA Medications Status ========= 1) Non-VA LUTEIN CAP/TAB 1 CAP/TAB BY MOUTH ONCE A DAY ACTIVE 2) Non-VA MAGNESIUM OXIDE 400MG TAB 400MG BY MOUTH ONCE ACTIVE A DAY 3) Non-VA NEBIVOLOL 10MG TAB 10MG BY MOUTH ONCE A DAY ACTIVE 4) Non-VA PROBIOTIC COMBINATION CAP/TAB 1 CAPSULE BY ACTIVE MOUTH ONCE A DAY 34 Total Medications ON EXAM: Kaden Avery is alert, fluent and oriented. There is no abnormality in speech or language. Cognition and thought process are normal. There is no evidence for dysarthria. There is no dyspnea with speaking. Impression: [place] with primary stabbing headache. He has responded extremely well to melatonin 9 mg nightly. No significant side effects. To his primary, we are discharging him back to your care. You can continue the melatonin 9 mg nightly. This is in order to treat his primary stabbing headache. As an aside, we did discuss the difficulties he has been having falling asleep. These seem to be related to the loss of his as well as his prior experiences in [place]. He did have 1 episode that was sort of a disassociative state with a possible hallucination. No evidence of a primary neurological process. This seems to have been around the time he started the mirtazapine but has not recurred. By the way, he says the mirtazapine is not really helping him. We discussed referring him to mental health and he says that you have suggest this as well. I think he would be willing to see a psychologist or psychiatrist at this point in time. Thank you for allowing me to participate in your patient's care. If you have questions please do not hesitate to ask. I have not scheduled follow-up but should something arise in the future he has our contact information and can schedule an appointment or go through you to reach out to us to have him seen in follow-up. /es/ Dino Stoll MD Neurology Staff Physician Signed: 10/26/2023 08:20 Receipt Acknowledged By: 10/26/2023 10:11 /sarah/ [facility] 10/26/2023 ADDENDUM STATUS: COMPLETED Dr. Hein, Can you please reach out to Mr. Avery re: insomnia? Thanks! /sarah/ BRIGITTE CONCEPCION NURSE PRACTITIONER, MARIAMA-STEPHANIE Signed: 10/26/2023 10:12 Receipt Acknowledged By: * AWAITING SIGNATURE * ANNAMARIA HEIN,DINO Lopez [facility]
--- OUTSIDE RECORDS SUMMARY | 2024-09-10 16:25 | XMS_ITS | Continuity of Care Document ---
Author Name [facility] Organization [facility] Care Team Providers Care Band Lining Bander Name Role Phone [facility] Unavailable Unavailable Problems Combined list of problems from Department of Defense and Veterans Affairs facilities. It does not include entries that were removed or entered in error. Problem Status Onset Date Problem Type Date of Resolution Comments Source Avulsion of eye (SNOMED CT [id number]) Active Condition [facility] Benign essential hypertension Active Condition [facility] Benign prostatic hyperplasia Active Condition [facility] Bilateral hearing loss Active Condition [facility] Chronic back pain Active Condition [facility] Chronic pain Active Condition [facility] Depression Active Condition [facility] Emphysema of lung Active Condition [facility] Erectile dysfunction (SNOMED CT [id number]) Active Condition [facility] Exposure to potentially hazardous substance Active Condition [facility] Gastroesophageal reflux disease without esophagitis Active Condition [facility] Gout Active Condition [facility] History of eye enucleation Active Condition [facility] Hypothyroidism Active Condition [facility] Idiopathic stabbing headache Active Condition [facility] Insomnia Active Condition [facility] Mild persistent allergic asthma controlled Active Condition [facility] Multiple nodules of lung Active Condition [facility] Pancreatic cyst Active Condition Mar 12, 2018 Entered By: CAREY AN Comment: see [facility] for report [facility] Papillary thyroid carcinoma Active Condition Mar 13, 2018 Entered By: CAREY AN Comment: s/p thyroidectomy [facility] Renal cell carcinoma Active Condition [facility] Type 2 diabetes mellitus without complication Active Condition [facility] Vitamin D Deficiency ([facility] [id number]) Active Condition [facility] Malignant neoplasms of independent Inactive Condition 10/31/2022 [facility] Diagnosis: ICD-10-CM R00.1 Bradycardia, unspecified Active Diagnosis [facility] Diagnosis: ICD-10-CM M54.2 Cervicalgia Active Diagnosis [facility] Diagnosis: ICD-10-CM G47.09 Other insomnia Active Diagnosis [facility] Diagnosis: ICD-10-CM G44.85 Primary stabbing headache Active Diagnosis [facility] Diagnosis: ICD-10-CM F32.A Depression, unspecified Active Diagnosis [facility] Diagnosis: ICD-10-CM H40.1212 Low-tension glaucoma, right eye, moderate stage Active Diagnosis [facility] Diagnosis: ICD-10-CM H40.013 Open angle with borderline findings, low risk, bilateral Active Diagnosis [facility] Medications Combined list of outpatient medications from Department of Defense and [facility] facilities.Medications provided include 1) outpatient medications from the last 15 months, and 2) patient-reported medications. Medication Details Route Status Patient Instructions Prescription Expires Prescription Number Last Dispense Date Ordering Provider Order Date Order Qty Source ALBUTEROL SO4 90MCG/ACTUA T (CFC-F) INHL,ORAL,8 .5GM INHALE 2 PUFFS BY ORAL INHALATI ON FOUR TIMES A DAY NEEDED FOR BREATHIN G. SHAKE WELL. RINSE MOUTHPIE CE FREQUENT LY TO PREVENT CLOGGING . RESPIR ATORY (INHAL ATION) SUSPEND ED 08/23/2025 [id number] Shira SHI E 2024 3 [facility] ALBUTEROL SO4 90MCG/ACTUA T (CFC-F) INHL,ORAL,8 .5GM INHALE 2 PUFFS BY ORAL INHALATI ON FOUR TIMES A DAY NEEDED FOR BREATHIN G. SHAKE WELL. RINSE MOUTHPIE CE FREQUENT LY TO PREVENT CLOGGING . RESPIR ATORY (INHAL ATION) DISCONT INUED 12/19/2024 [id number] 5 Shira SHI 2023 1 [facility] DIV[facility]IO N ALBUTEROL SO4 90MCG/ACTUA T (CFC-F) INHL,ORAL,8 .5GM INHALE 2 PUFFS BY ORAL INHALATI ON FOUR TIMES A DAY NEEDED FOR BREATHIN G. SHAKE WELL. RINSE MOUTHPIE CE FREQUENT LY TO PREVENT CLOGGING . RESPIR ATORY (INHAL ATION) DISCONT INUED 11/01/2023 [id number] 4 Shira SHI 2022 1 [facility] N ALLOPURINOL 100MG TAB TAKE ONE TABLET BY MOUTH ONCE A DAY FOR GOUT. TAKE WITH PLENTY OF WATER. ORAL SUSPEND ED 08/23/2025 [id number] 5 Shira SHI 2024 90 [facility] N ALLOPURINOL 100MG TAB TAKE ONE TABLET BY MOUTH ONCE A DAY FOR GOUT. TAKE WITH PLENTY OF WATER. ORAL DISCONT INUED 11/17/2024 [id number] 5 ZURI MCKEE ACE 2023 90 [facility] N ALLOPURINOL 100MG TAB TAKE ONE TABLET BY MOUTH ONCE A DAY FOR GOUT. TAKE WITH PLENTY OF WATER. ORAL DISCONT INUED 11/01/2023 [id number] 4 Shira SHI 2022 90 [facility] N AMLODIPINE BESYLATE 2.5MG TAB TAKE ONE TABLET BY MOUTH ONCE A DAY ORAL SUSPEND ED 08/23/2025 [id number] 5 Shira SHI [address] [place] [address] DIVISIO N AMLODIPINE BESYLATE 2.5MG TAB TAKE ONE TABLET BY MOUTH ONCE A DAY ORAL DISCONT INUED 07/03/2025 [id number] 5 Shira SHI 2024 90 [facility] N AMLODIPINE BESYLATE 2.5MG TAB TAKE ONE TABLET BY MOUTH ONCE A DAY ORAL DISCONT INUED 08/04/2024 [id number] 4 Shira SHI 2023 90 [facility] N AMYLASE 180,000UNIT /LIPASE 36,000UNIT/ PROTEAS 114,000UNIT CAP,EC TAKE 2 CAPSULES BY MOUTH THREE TIMES A DAY BEFORE MEALS AND TAKE 1 CAPSULE THREE TIMES A DAY NEEDED FOR PANCREAT IC ENZYME REPLACEM ENT. TAKE WITH FOOD DIRECTED . ORAL DISCONT INUED BY FORREST R 12/19/2024 [id number] 4 Shira SHI 2023 800 [facility] DIVISIO N ASPIRIN 81MG TAB,EC TAKE ONE TABLET BY MOUTH ONCE A DAY FOR HEART OR CIRCULAT ION. TAKE WITH FOOD. ORAL ACTIVE 08/23/2025 [id number] 5 Shira SHI 2024 120 [facility] N ASPIRIN 81MG TAB,EC TAKE ONE TABLET BY MOUTH ONCE A DAY FOR HEART OR CIRCULAT ION. TAKE WITH FOOD. ORAL DISCONT INUED 11/17/2024 [id number] 4 ZURI MCKEE ACE 2023 120 [facility] N ASPIRIN 81MG TAB,EC TAKE ONE TABLET BY MOUTH ONCE A DAY FOR HEART OR CIRCULAT ION. TAKE WITH FOOD. ORAL DISCONT INUED 11/01/2023 [id number] 4 Shira HSI 2022 120 [facility] DIVISIO N ATORVASTATI N CA 10MG TAB TAKE ONE TABLET BY MOUTH EVERY EVENING TO LOWER CHOLESTE ROL ORAL ACTIVE 08/23/2025 [id number] 5 Shira SHI 2024 90 [facility] DIV[facility] N ATORVASTATI N CA 10MG TAB TAKE ONE TABLET BY MOUTH EVERY EVENING TO LOWER CHOLESTE ROL ORAL DISCONT INUED 11/16/2024 [id number] 5 ZURI MCKEE CARLYN M 2023 90 [facility] DIVISIO N ATORVASTATI N CA 10MG TAB TAKE ONE TABLET BY MOUTH EVERY EVENING TO LOWER CHOLESTE ROL ORAL DISCONT INUED 11/01/2023 [id number] 4 Shira SHI 2022 90 [facility] N AZELASTINE HCL 137MCG/SPRA Y INHL,NASAL, 30ML SPRAY 2 SPRAYS IN NOSTRIL( S) TWICE DAILY NEEDED FOR ALLERGIC RHINITIS . *PRIME BEFORE USE* NASAL PROVIDE R HOLD 11/17/2024 [id number] 5 ZURI MCKEE ACE M 2023 3 [facility] N AZELASTINE HCL 137MCG/SPRA Y INHL,NASAL, 30ML SPRAY 2 SPRAYS IN NOSTRIL( S) TWICE DAILY NEEDED FOR ALLERGIC RHINITIS . *PRIME BEFORE USE* NASAL DISCONT INUED 11/01/2023 [id number] 4 Shira SHI 2022 3 [facility] N BRIMONIDINE 0.2%/BRINZO LAMIDE 1% SUSP,OPH INSTILL 1 DROP IN BOTH EYES THREE TIMES A DAY FOR GLAUCOMA OPHTHA LMIC DISCONT INUED BY PROVIDE R 02/25/2024 [id number] 4 Tay SCOTT 2022 32 [facility] DIV[facility] N CARBOXYMETH YLCELLULOSE NA 0.5% (PF) SOLN,OPH,UD INSTILL 2 DROPS IN BOTH EYES FOUR TIMES A DAY NEEDED FOR DRY EYE(S) OPHTHA LMIC ACTIVE 07/03/2025 [id number] 5 Shira SHI 2024 150 [facility] DIVISIO N CARBOXYMETH YLCELLULOSE NA 0.5% (PF) SOLN,OPH,UD INSTILL 1 DROP IN RIGHT EYE FOUR TIMES A DAY NEEDED FOR DRY EYE(S) OPHTHA LMIC DISCONT INUED (EDIT) 02/02/2025 [id number] 4 Shira SHI [address] [place] [address] DIVISIO N CARBOXYMETH YLCELLULOSE NA 1% GEL,OPH INSTILL 1 DROP INTO BOTH EYES FOUR TIMES A DAY NEEDED FOR DRY EYES OPHTHA LMIC DISCONT INUED BY PROVIDE R 11/17/2024 [id number] 4 RYLEE,HOR CARLYN M [address] [place] [address] DIVISIO N CARBOXYMETH YLCELLULOSE NA 1% GEL,OPH INSTILL 1 DROP INTO BOTH EYES FOUR TIMES A DAY NEEDED FOR DRY EYES OPHTHA LMIC DISCONT INUED 11/01/2023 [id number] 4 Shira SHI [address] [place] [address] DIVISIO N CARBOXYMETH YLCELLULOSE NA 1% GEL,OPH 0.4ML INSTILL 1 DROP INTO LEFT EYE FOUR TIMES A DAY NEEDED OPHTHA LMIC DISCONT INUED BY PROVIDE R 11/17/2024 [id number] 4 RYLEE,HOR CARLYN M [address] [place] [address] DIVISIO N CARBOXYMETH YLCELLULOSE NA 1% GEL,OPH 0.4ML INSTILL 1 DROP INTO LEFT EYE FOUR TIMES A DAY NEEDED OPHTHA LMIC DISCONT INUED 11/01/2023 [id number] 4 Shira SHI [address] [place] [address] DIVISIO N CETIRIZINE HCL 10MG TAB TAKE ONE TABLET BY MOUTH ONCE A DAY FOR ALLERGY SYMPTOMS . ORAL SUSPEND ED 08/23/2025 [id number] 5 Shira SHI [address] [place] [address] DIVISIO N CETIRIZINE HCL 10MG TAB TAKE ONE TABLET BY MOUTH ONCE A DAY FOR ALLERGY SYMPTOMS . ORAL DISCONT INUED 11/17/2024 [id number] 5 RYLEE,HOR CARLYN M [address] [place] [address] DIVISIO N CETIRIZINE HCL 10MG TAB TAKE ONE TABLET BY MOUTH ONCE A DAY FOR ALLERGY SYMPTOMS . ORAL DISCONT INUED 11/01/2023 [id number] 4 Shira SHI 2022 90 [facility] DIVISIO N CHOLECALCIF NIXON 50MCG (2,000UNIT) TAB TAKE TWO TABLETS BY MOUTH ONCE A DAY FOR VITAMIN D DEFICIEN CY. ORAL ACTIVE 08/23/2025 [id number] 5 Shira SHI 2024 200 [facility] DIVISIO N CHOLECALCIF NIXON 50MCG (2,000UNIT) TAB TAKE TWO TABLETS BY MOUTH ONCE A DAY FOR VITAMIN D DEFICIEN CY. ORAL DISCONT INUED 12/19/2024 [id number] 5 Shira SHI 2023 200 [facility] DIVISIO N CHOLECALCIF NIXON 50MCG (2,000UNIT) TAB TAKE TWO TABLETS BY MOUTH ONCE A DAY FOR VITAMIN D DEFICIEN CY. ORAL DISCONT INUED 11/01/2023 [id number] 4 Shira SHI 2022 200 [facility] DIVISIO N CYANOCOBALA MIN 1000MCG/ML INJ INJECT 1000MCG/ 1ML INTRAMUS CULARLY EVERY MONTH FOR B12 SUPPLEME NTATION INTRAM USCULA R ACTIVE 08/23/2025 [id number] 5 Shira SHI 2024 3 [facility] DIVISIO N CYANOCOBALA MIN 1000MCG/ML INJ INJECT 1000MCG/ 1ML INTRAMUS CULARLY EVERY MONTH FOR B12 SUPPLEME NTATION INTRAM USCULA R DISCONT INUED 11/27/2024 [id number] 5 Shira SHI 2023 3 [facility] DIV[facility] N CYANOCOBALA MIN 1000MCG/ML INJ INJECT 1000MCG/ 1ML INTRAMUS CULARLY EVERY MONTH FOR B12 SUPPLEME NTATION INTRAM USCULA R DISCONT INUED 11/01/2023 [id number] 4 Shira SHI 2022 3 [facility] DIVISIO N DICLOFENAC NA 75MG TAB,EC TAKE ONE TABLET BY MOUTH EVERY MORNING AND EVENING NEEDED FOR PAIN - TAKE WITH FOOD ORAL ACTIVE 08/23/2025 [id number] 5 Shira SHI E 2024 180 [facility] DIVISIO N DICLOFENAC NA 75MG TAB,EC TAKE ONE TABLET BY MOUTH EVERY MORNING AND EVENING NEEDED FOR PAIN - TAKE WITH FOOD ORAL DISCONT INUED 12/19/2024 [id number] 5 Shira SHI 2023 180 [facility] DIVISIO N DICLOFENAC NA 75MG TAB,EC TAKE ONE TABLET BY MOUTH EVERY MORNING AND EVENING NEEDED FOR PAIN - TAKE WITH FOOD ORAL DISCONT INUED 11/01/2023 [id number] 4 Shira SHI 2022 180 [facility] DIVISIO N FLUTICASONE 200MCG/TAMERA NTEROL 25MCG INHL,ORAL,3 0D INHALE 1 PUFF ORAL INHL ONCE A DAY FOR BREATHIN G. RINSE MOUTH WITH WATER AND SPIT AFTER USE. USE AT SAME TIME EACH DAY. MAX OF 1 PUFF PER 24 HOURS. RESPIR ATORY (INHAL ATION) ACTIVE 08/23/2025 [id number] 5 Shira SHI 2024 3 [facility] DIVISIO N FLUTICASONE 200MCG/TAMERA NTEROL 25MCG INHL,ORAL,3 0D INHALE 1 PUFF ORAL INHL ONCE A DAY FOR BREATHIN G. RINSE MOUTH WITH WATER AND SPIT AFTER USE. USE AT SAME TIME EACH DAY. MAX OF 1 PUFF PER 24 HOURS. RESPIR ATORY (INHAL ATION) DISCONT INUED 12/19/2024 [id number] 5 Shira SHI 2023 3 [facility] DIVISIO N FLUTICASONE 200MCG/TAMERA NTEROL 25MCG INHL,ORAL,3 0D INHALE 1 PUFF ORAL INHL ONCE A DAY FOR BREATHIN G. RINSE MOUTH WITH WATER AND SPIT AFTER USE. USE AT SAME TIME EACH DAY. MAX OF 1 PUFF PER 24 HOURS. RESPIR ATORY (INHAL ATION) DISCONT INUED 11/01/2023 [id number] 4 Shira SHI E 2022 3 [facility] DIVISIO N HYDROCHLORO THIAZIDE 50MG/TRIAMT ERENE 75MG TAB TAKE ONE-HALF TABLET BY MOUTH EVERY MORNING FOR BLOOD PRESSURE ORAL ACTIVE 08/23/2025 [id number] 5 Shira SHI E 2024 45 [facility] DIVISIO N HYDROCHLORO THIAZIDE 50MG/TRIAMT ERENE 75MG TAB TAKE ONE-HALF TABLET BY MOUTH EVERY MORNING FOR BLOOD PRESSURE ORAL DISCONT INUED 12/19/2024 [id number] 4 Shira SHI 2023 45 [facility] DIVISIO N HYDROCHLORO THIAZIDE 50MG/TRIAMT ERENE 75MG TAB TAKE ONE-HALF TABLET BY MOUTH EVERY MORNING FOR BLOOD PRESSURE ORAL DISCONT INUED 11/01/2023 [id number] 4 Shira SHI 2022 45 [facility] DIVISIO N HYDROCORTIS ONE 10MG TAB TAKE ONE TABLET BY MOUTH TWICE A DAY ORAL ACTIVE 08/23/2025 [id number] 5 Shira SHI E 2024 180 [facility] DIVISIO N HYDROCORTIS ONE 10MG TAB TAKE ONE TABLET BY MOUTH TWICE A DAY ORAL DISCONT INUED 12/19/2024 [id number] 5 Shira SHI E 2023 180 [facility] DIVISIO N HYDROCORTIS ONE 10MG TAB TAKE ONE TABLET BY MOUTH TWICE A DAY ORAL DISCONT INUED 11/01/2023 [id number] 4 Shira SHI 2022 180 [facility] DIV[facility]IO N LATANOPROST 0.005% SOLN,OPH INSTILL 1 DROP IN RIGHT EYE EVERY EVENING KEEP REFRIGER ATED UNTIL READY TO USE, THEN STORE AT ROOM TEMPERAT URE FOR MAXIMUM OF 42 DAYS. OPHTHA LMIC ACTIVE 08/23/2025 [id number] 5 Shira SHI E 2024 10 [facility] DIVISIO N LATANOPROST 0.005% SOLN,OPH INSTILL 1 DROP IN RIGHT EYE EVERY EVENING KEEP REFRIGER ATED UNTIL READY TO USE, THEN STORE AT ROOM TEMPERAT URE FOR MAXIMUM OF 42 DAYS. OPHTHA LMIC DISCONT INUED 10/09/2024 [id number] Winifred SCHNEIDER 2023 10 [facility] DIVISIO N LEVOTHYROXI NE NA 112MCG TAB TAKE ONE TABLET BY MOUTH EVERY MORNING BEFORE A MEAL FOR HYPOTHYR OIDISM TAKE 30 MINUTES BEFORE FOOD. TAKE SEPARATE LY FROM ALL OTHER MEDICATI ONS. ORAL ACTIVE 08/23/2025 [id number] 5 Shira SHI 2024 90 [facility] DIVISIO N LEVOTHYROXI NE NA 112MCG TAB TAKE ONE TABLET BY MOUTH EVERY MORNING BEFORE A MEAL FOR HYPOTHYR OIDISM TAKE 30 MINUTES BEFORE FOOD. TAKE SEPARATE LY FROM ALL OTHER MEDICATI ONS. ORAL DISCONT INUED 09/08/2024 [id number] Shira SHI 2023 90 [facility] DIVISIO N LEVOTHYROXI NE NA 125MCG TAB (SYNTHROID) TAKE ONE TABLET BY MOUTH EVERY MORNING BEFORE A MEAL FOR HYPOTHYR OIDISM TAKE 30 MINUTES BEFORE FOOD. TAKE SEPARATE LY FROM ALL OTHER MEDICATI ONS. ORAL DISCONT INUED (EDIT) 09/28/2023 [id number] Shira SHI 2022 90 [facility] DIVISIO N LIDOCAINE 5% PATCH APPLY 1 PATCH TO SKIN SITE ONCE A DAY APPLY PATCH AND PRESS FIRMLY FOR 10-15 SECONDS. KEEP ON FOR 12 HOURS THEN REMOVE PATCH FOR 12 HOURS. TRANSD ERMAL ACTIVE 08/23/2025 [id number] 5 Shira SHI 2024 30 [facility] DIV[facility] N LIDOCAINE 5% PATCH APPLY 1 PATCH TO SKIN SITE ONCE A DAY APPLY PATCH AND PRESS FIRMLY FOR 10-15 SECONDS. KEEP ON FOR 12 HOURS THEN REMOVE PATCH FOR 12 HOURS. TRANSD ERMAL DISCONT INUED 09/08/2024 [id number] Shira SHI 2023 30 [facility] DIVISIO N MAGNESIUM OXIDE 400MG TAB TAKE ONE TABLET BY MOUTH ONCE A DAY ORAL ACTIVE Shira SHI 2022 [facility] DIVISIO N MELATONIN 5MG CAP/TAB TAKE TWO CAP/TAB BY MOUTH AT BEDTIME ORAL ACTIVE 08/23/2025 [id number] 5 Shira SHI 2024 180 [facility] DIVISIO N MELATONIN 5MG CAP/TAB TAKE TWO CAP/TAB BY MOUTH AT BEDTIME ORAL 2024 [id number] 4 JOSE JARQUIN 2023 180 [facility] DIVISIO N MIRTAZAPINE 15MG TAB TAKE ONE TABLET BY MOUTH AT BEDTIME FOR MOOD AND SLEEP ORAL ACTIVE 08/23/2025 [id number] 5 Shira SHI 2024 90 [facility] DIVISIO N MIRTAZAPINE 15MG TAB TAKE ONE TABLET BY MOUTH AT BEDTIME FOR MOOD AND SLEEP ORAL DISCONT INUED 09/08/2024 [id number] Shira SHI 2023 90 [facility] DIVISIO N MIRTAZAPINE 15MG TAB TAKE ONE-HALF TABLET BY MOUTH AT BEDTIME ORAL DISCONT INUED (EDIT) 08/04/2024 [id number] 4 Shira SHI 2023 15 [facility] DIVISIO N MONTELUKAST NA 10MG TAB TAKE ONE TABLET BY MOUTH EVERY EVENING ORAL SUSPEND ED 08/23/2025 [id number] 5 Shira SHI 2024 90 [facility] DIVISIO N MONTELUKAST NA 10MG TAB TAKE ONE TABLET BY MOUTH EVERY EVENING ORAL DISCONT INUED 11/17/2024 [id number] 5 ZURI MCKEE CARLYN M 2023 90 [facility] DIVISIO N MONTELUKAST NA 10MG TAB TAKE ONE TABLET BY MOUTH EVERY EVENING ORAL DISCONT INUED 11/01/2023 [id number] 4 Shira SHI 2022 90 [facility] DIVISIO N MULTIVITAMI NS W/MINERALS CAP/TAB TAKE 1 CAP/TAB BY MOUTH ONCE A DAY FOR SUPPLEME NTATION. ORAL ACTIVE 08/23/2025 [id number] 5 Shira SHI 2024 100 [facility] DIVISIO N MULTIVITAMI NS W/MINERALS CAP/TAB TAKE 1 CAP/TAB BY MOUTH ONCE A DAY FOR SUPPLEME NTATION. ORAL DISCONT INUED 11/17/2024 [id number] 5 ZURI MCKEE CARLYN M 2023 100 [facility] DIVISIO N MULTIVITAMI NS W/MINERALS CAP/TAB TAKE 1 CAP/TAB BY MOUTH ONCE A DAY FOR SUPPLEME NTATION. ORAL DISCONT INUED 11/01/2023 [id number] 4 Shira SHI 2022 130 [facility] DIVISIO N NEBIVOLOL 10MG TAB TAKE ONE TABLET BY MOUTH ONCE A DAY ORAL ACTIVE Shira SHI 2022 [facility] DIVISIO N OMEPRAZOLE 40MG CAP,EC TAKE ONE CAPSULE BY MOUTH TWO TIMES A DAY BEFORE MEALS TAKE 30 MINUTES PRIOR TO FOOD. ORAL SUSPEND ED 08/23/2025 [id number] 5 Shira SHI 2024 180 [facility] DIVISIO N OMEPRAZOLE 40MG CAP,EC TAKE ONE CAPSULE BY MOUTH TWO TIMES A DAY BEFORE MEALS TAKE 30 MINUTES PRIOR TO FOOD. ORAL DISCONT INUED 12/19/2024 [id number] 5 Shira SHI E 2023 180 [facility] DIVISIO N OMEPRAZOLE 40MG CAP,EC TAKE ONE CAPSULE BY MOUTH EVERY MORNING BEFORE A MEAL TAKE 30 MINUTES PRIOR TO FOOD. ORAL DISCONT INUED (EDIT) 11/17/2024 [id number] 4 ZURI MCKEE CARLYN M 2023 90 [facility] DIVISIO N OMEPRAZOLE 40MG CAP,EC TAKE ONE CAPSULE BY MOUTH EVERY MORNING BEFORE A MEAL TAKE 30 MINUTES PRIOR TO FOOD. ORAL DISCONT INUED 11/01/2023 [id number] Shira SHI E 2022 90 [facility] DIVISIO N PEG-400 0.4%/PROPYL IBIS GLYCOL 0.3% SOLN,OPH INSTILL 1 DROP IN AFFECTED EYE(S) FOUR TIMES A DAY FOR DRY EYE(S) OPHTHA LMIC DISCONT INUED BY PROVIDE R 11/17/2024 [id number] 4 ZURI MCKEE ACE M 2023 45 [facility] DIVISIO N PEG-400 0.4%/PROPYL IBIS GLYCOL 0.3% SOLN,OPH INSTILL 1 DROP IN AFFECTED EYE(S) FOUR TIMES A DAY FOR DRY EYE(S) OPHTHA LMIC DISCONT INUED 12/24/2023 [id number] Tay SCOTT 2022 45 [facility] DIVISIO N POTASSIUM CHLORIDE 20MEQ TAB,SA (DISPERSIBL E) TAKE ONE TABLET BY MOUTH ONCE A DAY FOR ABBIE M SUPPLEME NTATION TAKE WITH FOOD ORAL SUSPEND ED 08/23/2025 [id number] 5 Shira SHI 2024 90 [facility] DIVISIO N POTASSIUM CHLORIDE 20MEQ TAB,SA (DISPERSIBL E) TAKE ONE TABLET BY MOUTH ONCE A DAY FOR POTASSIU M SUPPLEME NTATION TAKE WITH FOOD ORAL DISCONT INUED 11/17/2024 [id number] 5 ZURI MCKEE CARLYN M 2023 90 [facility] DIVISIO N POTASSIUM CHLORIDE 20MEQ TAB,SA (DISPERSIBL E) TAKE ONE TABLET BY MOUTH ONCE A DAY FOR POTASSIU M SUPPLEME NTATION TAKE WITH FOOD ORAL DISCONT INUED 11/01/2023 [id number] 4 [facility]I 2022 90 [facility] CAP/TAB TAKE 1 CAPSULE BY MOUTH ONCE A DAY ORAL ACTIVE Shira SHI 2021 [facility] DIVISIO N SILDENAFIL CITRATE 100MG TAB TAKE ONE TABLET BY MOUTH ONE HOUR PRIOR TO SEXUAL ACTIVITY - LIMIT 6 DOSES PER 30 DAYS ORAL ACTIVE 08/23/2025 [id number] 5 Shira SHI 2024 18 [facility] DIVISIO N SILDENAFIL CITRATE 100MG TAB TAKE ONE TABLET BY MOUTH EVERY WEEK NEEDED FOR ERECTILE DYSFUNCT ION (TAKE 60 MINUTES PRIOR TO SEXUAL ACTIVITY ) - LIMIT 4 DOSES PER 30 DAYS ORAL DISCONT INUED (EDIT) 08/23/2025 [id number] 5 Shira SHI 2024 18 [facility] DIVISIO N SILDENAFIL CITRATE 100MG TAB TAKE ONE TABLET BY MOUTH EVERY WEEK NEEDED FOR ERECTILE DYSFUNCT ION (TAKE 60 MINUTES PRIOR TO SEXUAL ACTIVITY ) - LIMIT 4 DOSES PER 30 DAYS ORAL DISCONT INUED 11/17/2024 [id number] 5 ZURI MCKEE CARLYN M 2023 18 [facility] DIVISIO N SILDENAFIL CITRATE 100MG TAB TAKE ONE TABLET BY MOUTH EVERY WEEK NEEDED FOR ERECTILE DYSFUNCT ION (TAKE 60 MINUTES PRIOR TO SEXUAL ACTIVITY ) - LIMIT 4 DOSES PER 30 DAYS ORAL DISCONT INUED 11/01/2023 [id number] 4 Shira SHI 2022 18 [facility] DIVISIO N TAMSULOSIN HCL 0.4MG CAP TAKE TWO CAPSULES BY MOUTH EVERY EVENING APPROXIM ATELY 30 MINUTES AFTER THE SAME MEAL EACH DAY (FOR PROSTATE ) ORAL ACTIVE 08/23/2025 [id number] 5 Shira SHI 2024 180 [facility] DIVISIO N TAMSULOSIN HCL 0.4MG CAP TAKE TWO CAPSULES BY MOUTH EVERY EVENING APPROXIM ATELY 30 MINUTES AFTER THE SAME MEAL EACH DAY (FOR PROSTATE ) ORAL DISCONT INUED 12/19/2024 [id number] 5 Shira SHI 2023 180 [facility] DIVISIO N TAMSULOSIN HCL 0.4MG CAP TAKE TWO CAPSULES BY MOUTH EVERY EVENING APPROXIM ATELY 30 MINUTES AFTER THE SAME MEAL EACH DAY (FOR PROSTATE ) ORAL DISCONT INUED 11/01/2023 [id number] 4 Shira SHI 2023 180 [facility] TAMSULOSIN HCL 0.4MG CAP TAKE TWO CAPSULES BY MOUTH EVERY EVENING APPROXIM ATELY 30 MINUTES AFTER THE SAME MEAL EACH DAY (FOR PROSTATE ) ORAL DISCONT INUED 11/01/2023 [id number] Shira SHI 2022 60 [facility] VITAMIN B COMPLEX CAP TAKE 1 CAPSULE BY MOUTH EVERY MORNING FOR VITAMIN SUPPLEME NTATION. ORAL ACTIVE 08/23/2025 [id number] 5 Shira SHI 2024 100 [facility] VITAMIN B COMPLEX CAP TAKE 1 CAPSULE BY MOUTH EVERY MORNING FOR VITAMIN SUPPLEME NTATION. ORAL DISCONT INUED 12/19/2024 [id number] 5 Sh[facility]I 2023 [facility] TAKE 1 CAPSULE BY MOUTH EVERY MORNING FOR VITAMIN SUPPLEME NTATION. ORAL DISCONT INUED 11/01/2023 [id number] 4 Shira SHI ARRY E 2022 100 [facility] Allergies, Adverse Reactions, Alerts Combined list of allergies from Department of Defense and Veterans Affairs facilities. It does not include entries that were removed or entered in error. Substance Category Reaction Severity Reaction type Status Date Reported Comments Source CARLYN INHIBITORS Propensity to adverse reactions to drug (finding) Cough active 6 [facility] FINASTERIDE Propensity to adverse reactions to drug (finding) Gynecomasti a active 3 [facility] Immunizations Combined list of available immunizations from the Department of Defense and Veterans Affairs facilities. Immunization Series Date Given Administered By Site Reaction Lot Number CVX Code Drug Dietetic Tech Status Comments Source INFLUENZA, UNSPECIFIED FORMULATION 2023 88 complet ed [facility] INFLUENZA, UNSPECIFIED FORMULATION 2023 88 complet ed [facility] INFLUENZA, UNSPECIFIED FORMULATION 2022 88 complet ed [facility] INFLUENZA, UNSPECIFIED FORMULATION 2021 88 complet ed [facility] COVID-19 ([employer]), MRNA, LNP-S, PF, 30 MCG/0.3 ML DOSE 2020 208 complet ed [facility] INFLUENZA, UNSPECIFIED FORMULATION 2020 88 complet ed [facility] COVID-[facility] ([employer]), MRNA, LNP-S, PF, 30 MCG/0.3 ML DOSE 2 2020 208 complet ed PFR; [id number]; 1 [facility] COVID-19 ([employer]), MRNA, LNP-S, PF, 30 MCG/0.3 ML DOSE 1 2020 208 complet ed PFR; [id number]; 1 [facility] [facility] INFLUENZA, UNSPECIFIED FORMULATION 2019 88 complet ed [facility] ZOSTER RECOMBINANT 2 2019 187 complet ed PER PT REPORT [facility] INFLUENZA, UNSPECIFIED FORMULATION 2018 88 complet ed high dose [facility] ZOSTER RECOMBINANT 1 2018 187 complet ed [facility] INFLUENZA, UNSPECIFIED FORMULATION 2018 88 complet ed [facility] PNEUMOCOCCAL CONJUGATE PCV 13 2 2018 133 complet ed [facility] INFLUENZA, INJECTABLE, QUADRIVALENT, PRESERVATIVE FREE 2017 150 complet ed [facility] INFLUENZA, UNSPECIFIED FORMULATION 1 2016 88 complet ed [facility] INFLUENZA, INJECTABLE, QUADRIVALENT, PRESERVATIVE FREE 2016 150 complet ed [facility] PNEUMOCOCCAL POLYSACCHARID E PPV23 2016 33 complet ed [facility] INFLUENZA, UNSPECIFIED FORMULATION 2015 88 complet ed [facility] TDAP 2015 115 complet ed Right Deltoid [facility] LIVE 2015 121 complet ed [facility] TDAP 1 2015 115 complet ed [facility] PNEUMOCOCCAL POLYSACCHARID E PPV23 1 2014 33 complet ed [facility] INFLUENZA, UNSPECIFIED FORMULATION 2014 88 complet ed [facility] PNEUMOCOCCAL CONJUGATE PCV 13 2014 133 complet ed VERBAL [facility] Results Combined list of recent chemistry, hematology and other laboratory results from Department of Defense and [facility], ranging from 15 months to all on record, depending upon the facility. Order Name Results Value Reference Range Date Interpretation Specimen Comments Source TSH (MA-PB) THYROTROPIN [UNITS/VOLU ME] IN SERUM OR PLASMA 1.849 u[IU]/ mL 0.470 - 5.000 08/22 Specimen Type: SERUM Comment: The listed sex of this patient may not be a typical indication for this test. Therefore, reference ranges or interpretiv e criteria listed may not be valid. Clinical correlation suggested. Ordering Provider: SHAN SHI Report Released Date/Time: Jul 02, 2024 03:35 PM Reporting Lab: [facility] [place] [address] Performing Lab: [facility] DIVISION PROST. SPECIFIC AG.(PB-ST L) PROSTATE SPECIFIC AG [MASS/VOLUM E] IN SERUM OR PLASMA 1.807 ng/mL 0.000 - 4.000 08/22 Specimen Type: SERUM Comment: The listed sex of this patient may not be a typical indication for this test. Therefore, reference ranges or interpretiv e criteria listed may not be valid. Clinical correlation suggested. Ordering Provider: SHAN SHI Report Released Date/Time: Jul 02, 2024 03:35 PM Reporting Lab: [facility] [place] [address] Performing Lab: [facility] DIVISION HGA1C HEMOGLOBIN A1C/HEMOGLO BIN.TOTAL IN BLOOD 5.8 4.0 - 6.0 08/22 Specimen Type: BLOOD No comment entered. Ordering Provider: SHAN SHI Report Released Date/Time: Jul 02, 2024 03:35 PM Reporting Lab: [facility] [place] [address] Performing Lab: [facility] DIVISION LIPID PANEL (STL) CHOLESTEROL [MASS/VOLUM E] IN SERUM OR PLASMA 113 mg/dL 0 - 200 08/22 Specimen Type: PLASMA Comment: No hemolysis noted. Ordering Provider: SHAN SHI Report Released Date/Time: Jul 02, 2024 03:35 PM Reporting Lab: [facility] [place] [address] Performing Lab: [facility] DIVISION LIPID PANEL (STL) TRIGLYCERID E [MASS/VOLUM E] IN SERUM OR PLASMA 72 mg/dL 0 - 150 08/22 Specimen Type: PLASMA Comment: No hemolysis noted. Ordering Provider: SHAN SIH Report Released Date/Time: Jul 02, 2024 03:35 PM Reporting Lab: [facility] [place] [address] Performing Lab: [facility] LIPID PANEL (STL) CHOLESTEROL IN LDL [MASS/VOLUM E] IN SERUM OR PLASMA BY CALCULATION 48 mg/dL 08/22 Specimen Type: PLASMA Comment: No hemolysis noted. Ordering Provider: SHAN SHI Report Released Date/Time: Jul 02, 2024 03:35 PM Reporting Lab: [facility] [place] [address] Performing Lab: [facility] LIPID PANEL (STL) CHOLESTEROL IN HDL [MASS/VOLUM E] IN SERUM OR PLASMA 51 mg/dL 40 08/22 Specimen Type: PLASMA Comment: No hemolysis noted. Ordering Provider: SHAN SHI Report Released Date/Time: Jul 02, 2024 03:35 PM Reporting Lab: [facility] [place] [address] Performing Lab: [facility] URIC ACID URATE [MASS/VOLUM E] IN SERUM OR PLASMA 6.7 mg/dL 3.5 - 7.2 08/22 Specimen Type: PLASMA Comment: No hemolysis noted. Ordering Provider: SHAN SHI Report Released Date/Time: Jul 02, 2024 03:35 PM Reporting Lab: [facility] [place] [address] Performing Lab: [facility] MAGNESIUM MAGNESIUM [MASS/VOLUM E] IN SERUM OR PLASMA 2.1 mg/dL 1.6 - 2.6 08/22 Specimen Type: PLASMA Comment: No hemolysis noted. Ordering Provider: SHAN SHI Report Released Date/Time: Jul 02, 2024 03:35 PM Reporting Lab: [facility] [place] [address] Performing Lab: [facility] B12 COBALAMIN (VITAMIN B12) [MASS/VOLUM E] IN SERUM OR PLASMA 447 pg/mL 213 - 816 08/22 Specimen Type: SERUM Comment: The listed sex of this patient may not be a typical indication for this test. Therefore, reference ranges or interpretiv e criteria listed may not be valid. Clinical correlation suggested. Ordering Provider: SHAN SHI Report Released Date/Time: Jul 02, 2024 03:35 PM Reporting Lab: [facility] [place] [address] Performing Lab: [facility] VITAMIN D, 25-HYDROX Y 25-HYDROXYV ITAMIN D3 [MASS/VOLUM E] IN SERUM OR PLASMA 37.3 ng/mL 30 - 96 08/22 Specimen Type: SERUM Comment: The listed sex of this patient may not be a typical indication for this test. Therefore, reference ranges or interpretiv e criteria listed may not be valid. Clinical correlation suggested. Ordering Provider: SHAN SHI Report Released Date/Time: Jul 02, 2024 03:35 PM Reporting Lab: [facility] [place] [address] Performing Lab: [facility] DIVISION COMPREHEN SIVE METABOLIC PANEL CREATININE [MASS/VOLUM E] IN SERUM OR PLASMA 1.38 mg/dL 0.70 - 1.30 08/22 H Specimen Type: PLASMA Comment: No hemolysis noted. Ordering Provider: SHAN SHI Report Released Date/Time: Jul 02, 2024 03:35 PM Reporting Lab: [facility] [place] [address] Performing Lab: [facility] DIVISION COMPREHEN SIVE METABOLIC PANEL UREA NITROGEN [MASS/VOLUM E] IN SERUM OR PLASMA 30.2 mg/dL 9.0 - 25.0 08/22 H Specimen Type: PLASMA Comment: No hemolysis noted. Ordering Provider: SHAN SHI Report Released Date/Time: Jul 02, 2024 03:35 PM Reporting Lab: [facility] [place] [address] Performing Lab: [facility] DIVISION COMPREHEN SIVE METABOLIC PANEL GLUCOSE [MASS/VOLUM E] IN SERUM OR PLASMA 133 mg/dL 72 - 99 08/22 H Specimen Type: PLASMA Comment: No hemolysis noted. Ordering Provider: SHAN SHI Report Released Date/Time: Jul 02, 2024 03:35 PM Reporting Lab: [facility] [place] [address] Performing Lab: [facility] DIVISION COMPREHEN SIVE METABOLIC PANEL SODIUM [MOLES/VOLU ME] IN SERUM OR PLASMA 141 meq/L 136 - 145 08/22 Specimen Type: PLASMA Comment: No hemolysis noted. Ordering Provider: SHAN SHI Report Released Date/Time: Jul 02, 2024 03:35 PM Reporting Lab: [facility] [place] [address] Performing Lab: [facility] DIVISION COMPREHEN SIVE METABOLIC PANEL POTASSIUM [MOLES/VOLU ME] IN SERUM OR PLASMA 3.9 meq/L 3.5 - 5.0 08/22 Specimen Type: PLASMA Comment: No hemolysis noted. Ordering Provider: SHAN SHI Report Released Date/Time: Jul 02, 2024 03:35 PM Reporting Lab: [facility] [place] [address] Performing Lab: [facility] DIVISION COMPREHEN SIVE METABOLIC PANEL CHLORIDE [MOLES/VOLU ME] IN SERUM OR PLASMA 103 meq/L 98 - 107 08/22 Specimen Type: PLASMA Comment: No hemolysis noted. Ordering Provider: SHAN SHI Report Released Date/Time: Jul 02, 2024 03:35 PM Reporting Lab: [facility] [place] [address] Performing Lab: [facility] DIVISION COMPREHEN SIVE METABOLIC PANEL CARBON DIOXIDE, TOTAL [MOLES/VOLU ME] IN SERUM OR PLASMA 29 meq/L 22 - 31 08/22 Specimen Type: PLASMA Comment: No hemolysis noted. Ordering Provider: SHAN SHI Report Released Date/Time: Jul 02, 2024 03:35 PM Reporting Lab: [facility] [place] [address] Performing Lab: [facility] DIVISION COMPREHEN SIVE METABOLIC PANEL CALCIUM [MASS/VOLUM E] IN SERUM OR PLASMA 9.2 mg/dL 8.4 - 10.4 08/22 Specimen Type: PLASMA Comment: No hemolysis noted. Ordering Provider: SHAN SHI Report Released Date/Time: Jul 02, 2024 03:35 PM Reporting Lab: [facility] [place] [address] Performing Lab: [facility] COMPREHEN SIVE METABOLIC PANEL PROTEIN [MASS/VOLUM E] IN SERUM OR PLASMA 7.2 g/dL 6.0 - 8.6 08/22 Specimen Type: PLASMA Comment: No hemolysis noted. Ordering Provider: SHAN SHI Report Released Date/Time: Jul 02, 2024 03:35 PM Reporting Lab: [facility] [place] [address] Performing Lab: [facility] COMPREHEN SIVE METABOLIC PANEL ALBUMIN [MASS/VOLUM E] IN SERUM OR PLASMA 4.1 g/dL 3.4 - 5.0 08/22 Specimen Type: PLASMA Comment: No hemolysis noted. Ordering Provider: SHAN SHI Report Released Date/Time: Jul 02, 2024 03:35 PM Reporting Lab: [facility] [place] [address] Performing Lab: [facility] COMPREHEN SIVE METABOLIC PANEL BILIRUBIN.T OTAL [MASS/VOLUM E] IN SERUM OR PLASMA 0.5 mg/dL 0.2 - 1.2 08/22 Specimen Type: PLASMA Comment: No hemolysis noted. Ordering Provider: SHAN SHI Report Released Date/Time: Jul 02, 2024 03:35 PM Reporting Lab: [facility] [address] Performing Lab: [facility] DIVISION COMPREHEN SIVE METABOLIC PANEL ALKALINE PHOSPHATASE [ENZYMATIC ACTIVITY/VO LUME] IN SERUM OR PLASMA 89 U/L 40 - 150 08/22 Specimen Type: PLASMA Comment: No hemolysis noted. Ordering Provider: SHAN SHI Report Released Date/Time: Jul 02, 2024 03:35 PM Reporting Lab: [facility] [place] [address] Performing Lab: [facility] DIVISION COMPREHEN SIVE METABOLIC PANEL ASPARTATE AMINOTRANSF ERASE [ENZYMATIC ACTIVITY/VO LUME] IN SERUM OR PLASMA 29 U/L 5 - 34 08/22 Specimen Type: PLASMA Comment: No hemolysis noted. Ordering Provider: SHAN SHI Report Released Date/Time: Jul 02, 2024 03:35 PM Reporting Lab: [facility] [place] [phone] Performing Lab: [facility] [phone] [place] [address] DIVISION COMPREHEN SIVE METABOLIC PANEL ALANINE AMINOTRANSF ERASE [ENZYMATIC ACTIVITY/VO LUME] IN SERUM OR PLASMA 21 U/L 8 - 40 08/22 Specimen Type: PLASMA Comment: No hemolysis noted. Ordering Provider: SHAN SHI Report Released Date/Time: Jul 02, 2024 03:35 PM Reporting Lab: [facility] [place] [address] Performing Lab: [facility] [id number] [place] [address] DIVISION COMPREHEN SIVE METABOLIC PANEL GLOMERULAR FILTRATION RATE/1.73 SQ M.PREDICTED [VOLUME RATE/AREA] IN SERUM, PLASMA OR BLOOD BY CREATININE- BASED FORMULA (CKD-EPI 2020) 53.33 60 08/22 Specimen Type: PLASMA Comment: No hemolysis noted. Ordering Provider: SHAN SHI Report Released Date/Time: Jul 02, 2024 03:35 PM Reporting Lab: [facility] [place] [address] Performing Lab: [facility] CBC LEUKOCYTES [#/VOLUME] IN BLOOD BY AUTOMATED COUNT 9.4 10*3/u L 3.6 - 11.2 08/22 Specimen Type: BLOOD No comment entered. Ordering Provider: SHAN SHI Report Released Date/Time: Jul 02, 2024 03:35 PM Reporting Lab: [facility] [place] [address] Performing Lab: [facility] CBC ERYTHROCYTE S [#/VOLUME] IN BLOOD BY AUTOMATED COUNT 4.52 10*6/u L 4.10 - 5.70 08/22 Specimen Type: BLOOD No comment entered. Ordering Provider: SHAN SHI Report Released Date/Time: Jul 02, 2024 03:35 PM Reporting Lab: [facility] [place] [address] Performing Lab: [facility] CBC HEMOGLOBIN [MASS/VOLUM E] IN BLOOD 14.1 g/dL 13.1 - 16.8 08/22 Specimen Type: BLOOD No comment entered. Ordering Provider: SHAN SHI Report Released Date/Time: Jul 02, 2024 03:35 PM Reporting Lab: [facility] [place] [address] Performing Lab: [facility] [phone] DIVISION CBC HEMATOCRIT [VOLUME FRACTION] OF BLOOD 42.5 38.2 - 48.4 08/22 Specimen Type: BLOOD No comment entered. Ordering Provider: SHAN SHI Report Released Date/Time: Jul 02, 2024 03:35 PM Reporting Lab: [facility] [place] [address] Performing Lab: [facility] CBC MCV [ENTITIC VOLUME] BY AUTOMATED COUNT 94.0 fL 80.0 - 100.0 08/22 Specimen Type: BLOOD No comment entered. Ordering Provider: SHAN SHI Report Released Date/Time: Jul 02, 2024 03:35 PM Reporting Lab: [facility] [place] [address] Performing Lab: [facility] DIVISION CBC MCH [ENTITIC MASS] BY AUTOMATED COUNT 31.2 pg 27.0 - 34.0 08/22 Specimen Type: BLOOD No comment entered. Ordering Provider: SHAN SHI Report Released Date/Time: Jul 02, 2024 03:35 PM Reporting Lab: [facility] [place] [address] Performing Lab: [facility] DIVISION CBC MCHC [MASS/VOLUM E] BY AUTOMATED COUNT 33.2 g/dL 33.0 - 36.0 08/22 Specimen Type: BLOOD No comment entered. Ordering Provider: SHAN SHI Report Released Date/Time: Jul 02, 2024 03:35 PM Reporting Lab: [facility] [place] [address] Performing Lab: [facility] [phone] DIVISION CBC PLATELETS [#/VOLUME] IN BLOOD BY AUTOMATED COUNT 227 10*3/u L 150 - 400 08/22 Specimen Type: BLOOD No comment entered. Ordering Provider: SHAN SIH Report Released Date/Time: Jul 02, 2024 03:35 PM Reporting Lab: [facility] [place] [address] Performing Lab: [facility] DIVISION CBC PLATELET MEAN VOLUME [ENTITIC VOLUME] IN BLOOD BY AUTOMATED COUNT 11.1 fL 7.5 - 11.2 08/22 Specimen Type: BLOOD No comment entered. Ordering Provider: SHAN SHI Report Released Date/Time: Jul 02, 2024 03:35 PM Reporting Lab: [facility] [place] [address] Performing Lab: [facility] CBC ERYTHROCYTE DISTRIBUTIO N WIDTH [RATIO] BY AUTOMATED COUNT 14.9 11.8 - 15.1 08/22 Specimen Type: BLOOD No comment entered. Ordering Provider: SHAN SHI Report Released Date/Time: Jul 02, 2024 03:35 PM Reporting Lab: [facility] [place] [address] Performing Lab: [facility] DIVISION CBC LYMPHOCYTES /100 LEUKOCYTES IN BLOOD BY AUTOMATED COUNT 14 08/22 Specimen Type: BLOOD No comment entered. Ordering Provider: SHAN SHI Report Released Date/Time: Jul 02, 2024 03:35 PM Reporting Lab: [facility] [place] [address] Performing Lab: [facility] CBC MONOCYTES/1 00 LEUKOCYTES IN BLOOD BY AUTOMATED COUNT 8 08/22 Specimen Type: BLOOD No comment entered. Ordering Provider: SHAN SHI Report Released Date/Time: Jul 02, 2024 03:35 PM Reporting Lab: [facility] [place] [address] Performing Lab: [facility] DIVISION CBC NEUTROPHILS /100 LEUKOCYTES IN BLOOD BY AUTOMATED COUNT 75 08/22 Specimen Type: BLOOD No comment entered. Ordering Provider: SHAN SHI Report Released Date/Time: Jul 02, 2024 03:35 PM Reporting Lab: [facility] [place] [address] Performing Lab: [facility] DIVISION CBC EOSINOPHILS /100 LEUKOCYTES IN BLOOD BY AUTOMATED COUNT 2 08/22 Specimen Type: BLOOD No comment entered. Ordering Provider: SHAN SHI Report Released Date/Time: Jul 02, 2024 03:35 PM Reporting Lab: [facility] [place] [address] Performing Lab: [facility] CBC BASOPHILS/1 00 LEUKOCYTES IN BLOOD BY AUTOMATED COUNT 1 08/22 Specimen Type: BLOOD No comment entered. Ordering Provider: SHAN SHI Report Released Date/Time: Jul 02, 2024 03:35 PM Reporting Lab: [facility] [place] [address] Performing Lab: [facility] CBC LYMPHOCYTES [#/VOLUME] IN BLOOD BY AUTOMATED COUNT 1.34 10*3/u L 0.77 - 4.50 08/22 Specimen Type: BLOOD No comment entered. Ordering Provider: SHAN SHI Report Released Date/Time: Jul 02, 2024 03:35 PM Reporting Lab: [facility] [place] [address] Performing Lab: [facility] CBC MONOCYTES [#/VOLUME] IN BLOOD BY AUTOMATED COUNT 0.78 10*3/u L 0.19 - 0.80 08/22 Specimen Type: BLOOD No comment entered. Ordering Provider: SHAN SHI Report Released Date/Time: Jul 02, 2024 03:35 PM Reporting Lab: [facility] [place] [address] Performing Lab: [facility] CBC NEUTROPHILS [#/VOLUME] IN BLOOD BY AUTOMATED COUNT 7.04 10*3/u L 2.10 - 8.00 08/22 Specimen Type: BLOOD No comment entered. Ordering Provider: SHAN SHI Report Released Date/Time: Jul 02, 2024 03:35 PM Reporting Lab: [facility] [place] [address] Performing Lab: [facility] CBC EOSINOPHILS [#/VOLUME] IN BLOOD BY AUTOMATED COUNT 0.14 10*3/u L 0.00 - 0.60 08/22 Specimen Type: BLOOD No comment entered. Ordering Provider: SHAN SHI Report Released Date/Time: Jul 02, 2024 03:35 PM Reporting Lab: [facility] [place] [address] Performing Lab: [facility] [place] [facility] CBC BASOPHILS [#/VOLUME] IN BLOOD BY AUTOMATED COUNT 0.08 10*3/u L 0.00 - 0.20 08/22 Specimen Type: BLOOD No comment entered. Ordering Provider: SHAN SHI Report Released Date/Time: Jul 02, 2024 03:35 PM Reporting Lab: [facility] [address] Performing Lab: [facility] [phone] [place] [address] Vital Signs Combined list of inpatient and outpatient Vital Signs from Department of [facility] and [facility], ranging from 12 months to all on record, depending upon the facility. Vital Sign Value Date Comments Source SYSTOLIC BLOOD PRESSURE 181 08/22/2024 09:09:07 [facility] DIASTOLIC BLOOD PRESSURE 85 08/22/2024 09:09:07 [facility] PULSE OXIMETRY 98 08/22/2024 09:09:07 [facility] WEIGHT 201.1 08/22/2024 09:09:07 [facility] BMI 28 kg/m2 08/22/2024 09:09:07 [facility] PAIN 0 08/22/2024 09:09:07 [facility] HEIGHT 71 08/22/2024 09:09:07 [facility] TEMPERATURE 98 08/22/2024 09:09:07 [facility] PULSE 45 08/22/2024 09:09:07 [facility] RESPIRATION 18 08/22/2024 09:09:07 [facility] Encounters Combined list of: 1) Encounters from [facility] facilities going backup to the last 18 months, not all [place] inpatient encounters are included; 2) Encounters from the Department of [facility] facilities going backup to 280 months. Location Location Details Encounter Type Encounter Number Reason For Visit Attending Provider ADM Date DC Date Status Disposition Source [facility] Outpatient Encounter [id number] 03/12 [facility] OFFICE O/P EST MOD 30-39 MIN [id number] Diagnos is: ICD-10- CM H40.013 Open angle with borderl ine finding s, low risk, bilater al JAVY SCHNEIDER TTHEW C 03/29 [facility] DIVISION OFFICE O/P EST MOD 30-39 MIN [id number] Diagnos is: ICD-10- CM G44.85 Primary stabbin g trae e JOSE JARQUIN 04/17 [facility] Outpatient Encounter [id number] 06/12 [facility] Outpatient Encounter [id number] ALAN ORTEZ D 08/02 [facility] Outpatient Encounter [id number] 08/04 [facility] OFFICE O/P EST MOD 30 MIN [id number] Diagnos is: ICD-10- CM F32.A Depress ion, unspeci iván SHI BA RRY E 08/04 [facility] Outpatient Encounter [id number] 08/07 [facility] Outpatient Encounter [id number] Tor[facility] BRUNER 08[facility] En[facility] [id number] Tori BRUNER A 08/13 [facility] Outpatient Encounter [id number] 1 08/15 [facility] Outpatient Encounter [id number] DELLA DENISE 08/16 [facility] Outpatient Encounter [id number] CANDACE FIGUEROA 08/21 [facility] OFF[facility] O/P EST MOD 30 MIN [id number] Diagnos is: ICD-10- CM 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, right eye, moderat e stage JAVY SCHNEIDER TTHEW C 09/05 [facility] Outpatient Encounter [id number] ALAN ORTEZ 09/05 [facility] Outpatient Encounter [id number] ELPIDIO FORREST 09/07 [facility] OFF[facility] O/P EST LOW 20 [place] [id number] Diagnos is: ICD-10- CM F32.A Depress ion, unspeci fikody SHI BA RRMigdalia E 09/07 [facility] Outpatient Encounter [id number] CANDACE FIGUEROA 09/07 [facility] Outpatient Encounter [id number] 09/10 [facility] Outpatient Encounter [id number] ELPIDIO FORREST Indira 09/14 [facility] Outpatient Encounter [id number] CANDACE FIGUEROA 09/19 [facility] Outpatient Encounter [id number] CANDACE FIGUEROA 09/28 [facility] Outpatient Encounter [id number] ADRIANE, ELPIDIO L 10/08 [facility] Outpatient Encounter [id number] ELPIDIO FORREST Indira 10/08 [facility] OFFICE O/P EST MOD 30 MIN [id number] Diagnos is: ICD-10- CM G44.85 Primary stabbin g JOSE Higgins 10/25 [facility] PSYTX W PT 30 MINUTES [id number] Diagnos is: ICD-10- CM G47.09 Other insomni ELBA Hare NT 10/29 [facility] PSYTX W PT 30 MINUTES [id number] Diagnos is: ICD-10- CM G47.09 Other insomni LEBA Hare NT 11/06 [facility] PSYTX W PT 30 MINUTES [id number] Diagnos is: ICD-10- CM G47.09 Other insomni a LINDQUISTELBA NT 11/14 [facility] Outpatient Encounter [id number] CANDACE FIGUEROA 11/15 [facility] Outpatient Encounter [id number] CANDACE FIGUEROA 11/26 [facility] PSYTX W PT 30 MINUTES [id number] Diagnos is: ICD-10- CM G47.09 Other insomni a ELBA LINDQUIST NT 11/27 [facility] Outpatient Encounter [id number] DAVID JACKSON 12/17 [facility] Outpatient Encounter [id number] ALAN ORTEZ 12/17 [facility] OFFICE O/P EST MOD 30 MIN [id number] Diagnos is: ICD-10- CM M54.2 Cervica jamariia SAM SHI 12/18 [facility] Outpatient Encounter [id number] 75JIGAR OCAMPO 02/01 [facility] Outpatient Encounter [id number] 02/01 [facility] Outpatient Encounter [id number] 02/10 [facility] Outpatient Encounter [id number] ELPIDIO FORREST 04/16 [facility] Outpatient Encounter [id number] ELPIDIO FORREST 04/29 [facility] Outpatient Encounter [id number] Tay GUIDRY MARY SONIA 05/08 [facility] Outpatient Encounter [id number] CANDACE FIGUEROA 05/23 [facility] Outpatient Encounter [id number] Lisandra RAMOS 06/06 [facility] Outpatient Encounter [id number] 06/10 [facility] Outpatient Encounter [id number] 06/12 [facility] Outpatient Encounter [id number] SHANA COATES 06/17 [facility] Outpatient Encounter [id number] CANDACE FIGUEROA 07/02 [facility] Outpatient Encounter [id number] JIGAR MCCURDY 07/04 [facility] Outpatient Encounter [id number] JIGAR MCCURDY 07/04 [facility] Outpatient Encounter [id number] ALAN ORTEZ DA D 08/15 [facility] OFFICE O/P EST HI 40 MIN [id number] Diagnos is: ICD-10- CM R00.1 Bradyca rdia, unspeci fied SAM SHI RRY E 08/22 [facility] Outpatient Encounter [id number] SAM SHI RRY E 08/22 [facility] Social History Combined list of available smoking, tobacco, and other social history from Department of Defense and [facility] facilities. Social History Type Response Date Comment [facility] e Tobacco smoking status NHIS VA-TOBACCO USE FORMER CIGARETTES 08/22/2024 [facility] History of tobacco use VA-TOBACCO NEVER USED OTHER TYPE 08/22/2024 [facility] History of tobacco use VA-TOBACCO FORMER USER 08/04/2023 [facility] History of tobacco use VA-TOBACCO FORMER USER 02/01/2022 [facility] History of tobacco use VA-TOBACCO FORMER USER 01/29/2021 [facility] History of tobacco use VA-TOBACCO QUIT 15 YRS OR MORE 10/29/2019 [facility] History of tobacco use VA-TOBACCO FORMER USER 03/12/2018 [facility] History of tobacco use QUIT TOBACCO >7 YEARS AGO 02/02/2018 [facility] History of tobacco use TOBACCO REFUSED SCREEN V15 08/03/2017 [facility] History of tobacco use QUIT TOBACCO >7 YEARS AGO 01/27/2017 [facility] History of tobacco use QUIT TOBACCO >7 YEARS AGO 01/21/2016 [facility] Plan of Care List of future care activities from Department of [facility] facilities. Additional future care activities may be listed in the Assessment and Plan section. Date/Time Care Activity Care Activity Detail Facili ty 02/21/2025 AMBULATORY - REHAB MEDICINE AMBULATORY - REHAB MEDICINE [facility]
--- OUTSIDE RECORDS SUMMARY | 2024-09-10 16:25 | XMS_ITS ---
Author Name [facility] [place] [facility] [place] Address [address] [place] [address] Care Team Providers Care Mica Sizer Name Role Phone BRIGITTE SHI Primary Care [...] Alva's Name Patient's Relationship to Policy Alva [facility] ([facility]) MEDICARE ADVANTAGE MCR ([facility]) Jun 12, 2022 [id number] REGAN,IVÁN ID PATIENT [facility] (R[facility] MEDICARE ADVANTAGE [facility] ([facility]) Jun 12, 2022 [phone] [id number] REGAN,IVÁN ID PATIENT Selected Encounter This section includes the information on record at [place] for the Encounter. Date/Time Encounter Type Encounter Description Reason Provider Source Feb 02, 2024 10:51 AM Outpatient Encounter ADMIN PAT ACTIVTIES (MASNONCT) MEGHAN MCCURDY Encounter Template Text not used by [place] Social History: Smoking Status (Most current) and Tobacco Use (All prior to encounter date) This section includes the most current, and the historical, smoking and tobacco- related health factors from the [place] facility where the Encounter took place. Current Smoking Status This section includes the most current smoking, or tobacco-related health factor, from the [place] facility where the Encounter took place. Date/Time Current Smoking Status Comment Atul styles Aug 04, 2023 09:00 AM VA-TOBACCO FORMER USER [facility] Tobacco Use History This section includes a history of the smoking, or tobacco-related health factors, that were collected on or before the date of the Encounter. The data comes from the [place] facility where the Encounter took place. Date/Time Smoking Status/Tobacco Use Comment Gayle nelson Aug 04, 2023 09:00 AM VA-TOBACCO QUIT 15 YRS OR MORE [facility] Feb 01, 2022 09:00 AM VA-TOBACCO FORMER USER [facility] Feb 01, 2022 09:00 AM VA-TOBACCO QUIT 15 YRS OR MORE [facility] Jan 29, 2021 09:00 AM VA-TOBACCO FORMER USER [facility] Jan 29, 2021 09:00 AM VA-TOBACCO QUIT 15 YRS OR MORE [facility] October 29, 2019 03:20 PM VA-TOBACCO FORMER USER [facility] October 29, 2019 03:20 PM VA-TOBACCO QUIT 15 YRS OR MORE [facility] Mar 12, 2018 01:47 PM VA-TOBACCO FORMER USER [facility] Mar 12, 2018 01:47 PM VA-TOBACCO QUIT 15 YRS OR MORE [facility] Feb 02, 2018 11:02 AM QUIT TOBACCO >7 YEARS AGO [facility] Aug 03, 2017 09:58 AM TOBACCO REFUSED SCREEN V15 [facility] Jan 27, 2017 09:01 AM QUIT TOBACCO >7 YEARS AGO [facility] Jan 21, 2016 09:13 AM QUIT TOBACCO >7 YEARS AGO [facility] Encounter Notes: All associated encounter notes This section contains the clinical notes associated to the Encounter. Date/Time Encounter Note(s) Provider Source Feb 02, 2024 10:51 AM PHARMACY MEDICATION MGT DISCHARGE NOTE: LOCAL TITLE: PHARMACY COMMUNITY CARE PRESCRIPTION PROCESSING NOT STANDARD TITLE: PHARMACY MEDICATION MGT DISCHARGE NOTE DATE OF NOTE: FEB 02, 2024@10:51 ENTRY DATE: FEB 02, 2024@10:51:30 AUTHOR: MEGHAN MCCURDY WHI EXP COSIGNER: URGENCY: STATUS: COMPLETED Pharmacy service received prescription(s) via: Inbound ERx ELIGIBILITY: Pharmacy service cannot accept this prescription because the patient is not CCN (Care in the Community) eligible. PRESCRIPTION INFORMATION: Provider Information: MARISABEL FOWLER, [facility], [address] [place] [id number] phone: [phone] fax: [phone] 1) carboxymethylcellulose sodium 0.5 % eye drops in a dropperette (REFREsh plus), Administer 1 drop into the right eye 4 (four) times a day as needed for dry eyes (more frequently as needed) #90 each, 3 refills PT HAS ACTIVE RXS FOR 2 DIFFERENT VERSIONS OF CARBOXYMETHYLCELLULOSE DISPOSITION: Ineligible. Please considering prescribing the above medication(s) for the patient. If declining to prescribe, please comment and add RX to non-VA medication list. /sarah/ MEGHAN MCCURDY PharmD Community Care Pharmacist, Pharmacy Signed: 02/02/2024 10:54 Receipt Acknowledged By: 02/02/2024 13:18 /sarah/ BRIGITTE CORONADO- NURSE PRACTITIONER, MEGHAN MONTOYA [facility]
--- OUTSIDE RECORDS SUMMARY | 2024-09-10 16:25 | XMS_ITS | Encounter Summary ---
Author Name [facility] [place] Organization [facility] [place] Address [address] [place] [address] Care Team Providers Care Crate Maker Name Role Phone BRIGITTE SHI Primary Care Provider Latoya e Insurance Providers: All historical and current [...] Alva's Name Patient's Relationship to Policy Alva [facility] (R) MEDICARE ADVANTAGE MCR ([facility]) Jun 12, 2022 [phone] [id number] BENNIE,IVÁN ID PATIENT [facility] ([facility]) MEDICARE ADVANTAGE MCR ([facility]) Jun 12, 2022 [phone] [id number] BENNIE,IVÁN ID PATIENT Selected Encounter This section includes the information on record at [place] for the Encounter. Date/Time Encounter Type Encounter Description Reason Provider Source Aug 22, 2024 09:00 AM OFFICE O/P EST HI 40 MIN GERIPACT ICD-10-CM R00.1 Bradycardia, unspecified BRIGITTE SHI IHKishore Encounter Template Text not used by [facility] Assessments - Encounter Diagnoses This section includes the primary and secondary diagnoses documented for the Encounter. Date/Time Primary/Secondary Diagnosis Diagnosis Name Provider Source Aug 22, 2024 10:34 AM PRIMARY Bradycardia, unspecified BRIGITTE SHI 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 BRIGITTE SHI [facility] Aug 22, 2024 10:34 AM SECONDARY Depression, unspecified BRIGITTE SHI [facility] Aug 22, 2024 10:34 AM SECONDARY Emphysema, unspecified BRIGITTE SHI [facility] Aug 22, 2024 10:34 AM SECONDARY Essential (primary) hypertension BRIGITTE SHI [facility] Aug 22, 2024 10:34 AM SECONDARY Gastro-esophageal reflux disease without esophagitis BRIGITTE SHI [facility] Aug 22, 2024 10:34 AM SECONDARY Hypothyroidism, unspecified BRIGITTE SHI [facility] Aug 22, 2024 10:34 AM SECONDARY Idiopathic gout, multiple sites BRIGITTE SHI [facility] Aug 22, 2024 10:34 AM SECONDARY Low back pain, unspecified BRIGITTE SHI [facility] Aug 22, 2024 10:34 AM SECONDARY Male erectile dysfunction, unspecified BRIGITTE SHI [facility] Aug 22, 2024 10:34 AM SECONDARY Mild persistent asthma, uncomplicated BRIGITTE SHI [facility] Aug 22, 2024 10:34 AM SECONDARY Other chronic pain BRIGITTE SHI [facility] Aug 22, 2024 10:34 AM SECONDARY Other insomnia BRIGITTE SHI [facility] Aug 22, 2024 10:34 AM SECONDARY Personal history of malignant carcinoid tumor of kidney BRIGITTE SHI [facility] Aug 22, 2024 10:34 AM SECONDARY Primary stabbing headache BRIGITTE SHI [facility] Aug 22, 2024 10:34 AM SECONDARY Type 2 diabetes mellitus with diabetic neuropathy, unsp BRIGITTE SHI [facility] Aug 22, 2024 10:34 AM SECONDARY Unspecified hearing loss, bilateral YURIDIABRIGITTE E [facility] Aug 22, 2024 10:34 AM SECONDARY Vitamin D deficiency, unspecified GOYOBRIGITTE PETER [facility] Plan of Treatment: Future Appointments (+ 6 months) and Future Tests (+/- 45 days) The Plan of Treatment section includes future care activities for the patient from all [facility]. This section includes future appointments and future orders which are active, pending or scheduled. Future Appointments This section includes appointments that were scheduled to occur 6 months from the date of the Encounter, up to a maximum of 20 appointments. The data comes from all [facility] facilities. Appointment Date/Time Appointment Type Appointme nt Facility Name Feb 21, 2025 02:00 PM AMBULATORY - REHAB MEDICIN E [facility] Lab Results: +/- 30 days of the encounter This section includes the Chemistry and Hematology Lab Results on record with [place] for the patient. Radiology Reports and Pathology Reports are provided separately, in subsequent sections. Lab Results This section contains the Chemistry/Hematology Results that were resulted 30 days before or 30 daysafter the date of the Encounter. Date/Time Source Result Type Result - Unit Interpretation Reference Range Comment Aug 22, 2024 10:22 AM [facility] PROST. SPECIFIC AG.(PB-STL) Specimen Type: SERUM Comment: The listed sex of this patient may not be a typical indication for this test. Therefore, reference ranges or interpretive criteria listed may not be valid. Clinical correlation suggested. Ordering Provider: BRIGITTE SHI Report Released Date/Time: Jul 02, 2024 03:35 PM Reporting Lab: [facility] [id number] Performing Lab: [facility] [phone] PROST. SPECIFIC AG.(PB-STL) 1.807 ng/mL 0.000-4.000 Aug 22, 2024 10:22 AM [facility] TSH (MA-PB) Specimen Type: SERUM Comment: The listed sex of this patient may not be a typical indication for this test. Therefore, reference ranges or interpretive criteria listed may not be valid. Clinical correlation suggested. Ordering Provider: BRIGITTE SHI Report Released Date/Time: Jul 02, 2024 03:35 PM Reporting Lab: [facility] [place] [address] Performing Lab: [facility] [place] [address] TSH 1.849 u[IU]/mL 0.470-5.000 Aug 22, 2024 10:22 AM [facility] HGA1C Specimen Type: BLOOD No comment entered. Ordering Provider: BRIGITTE SHI Report Released Date/Time: Jul 02, 2024 03:35 PM Reporting Lab: [facility] [place] [address] Performing Lab: [facility] [place] [address] HGA1C 5.8 4.0-6.0 Aug 22, 2024 10:22 AM [facility] LIPID PANEL (STL) Specimen Type: PLASMA Comment: No hemolysis noted. Ordering Provider: BRIGITTE SHI Report Released Date/Time: Jul 02, 2024 03:35 PM Reporting Lab: [facility] [place] [address] Performing Lab: [facility] [place] [address] CHOLESTEROL 113 mg/dL 0-200 TRIGLYCERIDE 72 mg/dL 0-150 CALCULATED LDL 48 mg/dL See Interp HDL(New) 51 mg/dL > 40 Aug 22, 2024 10:22 AM [facility] MAGNESIUM Specimen Type: PLASMA Comment: No hemolysis noted. Ordering Provider: BRIGITTE SHI Report Released Date/Time: Jul 02, 2024 03:35 PM Reporting Lab: [facility] [phone] Performing Lab: [facility] [phone] MAGNESIUM 2.1 mg/dL 1.6-2.6 Aug 22, 2024 10:22 AM [facility] URIC ACID Specimen Type: PLASMA Comment: No hemolysis noted. Ordering Provider: BRIGITTE SHI Report Released Date/Time: Jul 02, 2024 03:35 PM Reporting Lab: [facility] [phone] Performing Lab: [facility] [phone] URIC ACID 6.7 mg/dL 3.5-7.2 Aug 22, 2024 10:22 AM [facility] B12 Specimen Type: SERUM Comment: The listed sex of this patient may not be a typical indication for this test. Therefore, reference ranges or interpretive criteria listed may not be valid. Clinical correlation suggested. Ordering Provider: BRIGITTE SHI Report Released Date/Time: Jul 02, 2024 03:35 PM Reporting Lab: [facility] [phone] Performing Lab: [facility] [phone] B12 447 pg/mL 213-816 Aug 22, 2024 10:22 AM [facility] VITAMIN D, 25-HYDROXY Specimen Type: SERUM Comment: The listed sex of this patient may not be a typical indication for this test. Therefore, reference ranges or interpretive criteria listed may not be valid. Clinical correlation suggested. Ordering Provider: BRIGITTE SHI Report Released Date/Time: Jul 02, 2024 03:35 PM Reporting Lab: [facility] [phone] Performing Lab: [facility] [phone] VITAMIN D, 25-HYDROXY 37.3 ng/mL 30-96 Aug 22, 2024 10:22 AM [facility] COMPREHENSIVE METABOLIC PANEL Specimen Type: PLASMA Comment: No hemolysis noted. Ordering Provider: BRIGITTE SHI Report Released Date/Time: Jul 02, 2024 03:35 PM Reporting Lab: [facility] [phone] Performing Lab: [facility] [phone] CREATININE 1.38 mg/dL H 0.70-1.30 UREA NITROGEN 30.2 mg/dL H 9.0-25.0 GLUCOSE 133 mg/dL H 72-99 SODIUM 141 meq/L 136-145 POTASSIUM 3.9 meq/L 3.5-5.0 CHLORIDE 103 meq/L 98-107 CARBON DIOXIDE 29 meq/L 22-31 CALCIUM 9.2 mg/dL 8.4-10.4 PROTEIN 7.2 g/dL 6.0-8.6 ALBUMIN 4.1 g/dL 3.4-5.0 TOTAL BILIRUBIN 0.5 mg/dL 0.2-1.2 ALKALINE PHOSPHATASE 89 U/L 40-150 AST/SGOT 29 U/L 5-34 ALT/SGPT 21 U/L 8-40 EGFR (CKD-EPI 2020) 53.33 >60 Aug 22, 2024 10:22 AM [facility] MICRAL/CREAT PROFILE (STL) Specimen Type: URINE Comment: Unable to calculate due to Microalbumin <5 mg/L Ordering Provider: BRIGITTE SHI Report Released Date/Time: Jul 02, 2024 03:35 PM Reporting Lab: [facility] [phone] Performing Lab: [facility] [phone] URINE ALBUMIN (PB-STL) <5 mg/L No range refer to micral/crea t ratio uACR (STL) comment mg/g 0-29 CREATININE URINE/OTHERS 23.1 mg/dL L 63.0-166.0 Aug 22, 2024 10:[address] [facility] CBC Specimen Type: BLOOD No comment entered. Ordering Provider: BRIGITTE SHI Report Released Date/Time: Jul 02, 2024 03:35 PM Reporting Lab: [facility] [phone] Performing Lab: [facility] [phone] WBC 9.4 10*3/uL 3.6-11.2 RBC 4.52 10*6/uL 4.10-5.70 HGB 14.1 g/dL 13.1-16.8 HCT 42.5 38.2-48.4 MCV 94.0 fL 80.0-100.0 MCH 31.2 pg 27.0-34.0 MCHC 33.2 g/dL 33.0-36.0 PLT 227 10*3/uL 150-400 MPV 11.1 fL 7.5-11.2 RDW 14.9 11.8-15.1 LYMPHOCYTES, AUTO % 14 MONOCYTES, AUTO % 8 NEUTROPHILS, AUTO % 75 EOSINOPHILS, AUTO % 2 BASOPHILS, AUTO % 1 LYMPHOCYTES, ABSOLUTE 1.34 10*3/uL 0.77-4.50 MONOCYTES, ABSOLUTE 0.78 10*3/uL 0.19-0.80 NEUTROPHILS, ABSOLUTE 7.04 10*3/uL 2.10-8.00 EOSINOPHILS, ABSOLUTE 0.14 10*3/uL 0.00-0.60 BASOPHILS, ABSOLUTE 0.08 10*3/uL 0.00-0.20 Vital Signs: All taken on the encounter date This section contains inpatient and outpatient Vital Signs collected on the date of the Encounter. Date/Time Temperature Pulse Blood Pressure Respiratory Rate SP02 Pain Height Weight Body Mass Index Source Aug 22, 2024 09:47 AM 160/72 [facility] Aug 22, 2024 09:09 AM 182/75 [facility] Aug 22, 2024 09:09 AM 98 45 181/85 18 98 0 71 201.1 28 [facility] Social History: Smoking Status (Most current) and Tobacco Use (All prior to encounter date) This section includes the most current, and the historical, smoking and tobacco- related health factors from the [place] facility where the Encounter took place. Current Smoking Status This section includes the most current smoking, or tobacco-related health factor, from the [place] facility where the Encounter took place. Date/Time Current Smoking Status Comment Atul styles Aug 22, 2024 09:00 AM VA-TOBACCO USE FOR ELIZABETH CIGARETTES [facility] Tobacco Use History This section includes a history of the smoking, or tobacco-related health factors, that were collected on or before the date of the Encounter. The data comes from the [place] facility where the Encounter took place. Date/Time Smoking Status/Tobacco Use Comment Gayle nelson Aug 22, 2024 09:00 AM VA-TOBACCO USE FOR ELIZABETH CIGARETTES [facility] Aug 04, 2023 09:00 AM VA-TOBACCO FORMER USER [facility] Aug 04, 2023 09:00 AM VA-TOBACCO QUIT 15 YRS OR MORE [facility] Feb 01, 2022 09:00 AM VA-TOBACCO FORMER USER [facility] Feb 01, 2022 09:00 AM VA-TOBACCO QUIT 15 YRS OR MORE [facility] Jan 29, 2021 09:00 AM VA-TOBACCO FORMER USER [facility] Jan 29, 2021 09:00 AM VA-TOBACCO QUIT 15 YRS OR MORE [facility] October 29, 2019 03:20 PM VA-TOBACCO FORMER USER [facility] October 29, 2019 03:20 PM VA-TOBACCO QUIT 15 YRS OR MORE [facility] Mar 12, 2018 01:47 PM VA-TOBACCO FORMER USER [facility] Mar 12, 2018 01:47 PM VA-TOBACCO QUIT 15 YRS OR MORE [facility] Feb 02, 2018 11:02 AM QUIT TOBACCO >7 YEARS AGO [facility] Aug 03, 2017 09:58 AM TOBACCO REFUSED SCREEN V15 [facility] Jan 27, 2017 09:01 AM QUIT TOBACCO >7 YEARS AGO [facility] Jan 21, 2016 09:13 AM QUIT TOBACCO >7 YEARS AGO [facility] Encounter Notes: All associated encounter notes This section contains the clinical notes associated to the Encounter. Date/Time Encounter Note(s) Provider Source Aug 23, 2024 09:21 AM LETTERS: LOCAL TITLE: TEST RESULT GERIATRIC LETTER STL STANDARD TITLE: LETTERS DATE OF NOTE: AUG 23, 2024@09:21 ENTRY DATE: AUG 23, 2024@09:21:50 AUTHOR: BRIGITTE SHI COSIGNER: URGENCY: STATUS: COMPLETED [facility] [address] [place] [address] AUG 23, 2024 KADEN SPEARS [address] [place], [place] [address] Dear Mr. Russell Bennie, I would like to update you on your recent test results from your last geriatric clinic visit. LIPID PROFILE - High cholesterol and triglycerides (lipids) are risk factors for heart disease. Your cholesterol should fall between 140 and 200, and your triglycerides levels should be less than or equal to 150. HDL is the good cholesterol and should ideally be greater than 40. LDL is the bad cholesterol and optimal levels should be less than 100 (near optimal is between 100 and 129). TRIGLYCERIDE 72 mg/dL 08/22/2024 10:22 CHOLESTEROL 113 mg/dL 08/22/2024 10:22 HDL(New) 51 mg/dL 08/22/2024 10:22 CALCULATED LDL 48 mg/dL 08/22/2024 10:22 These readings are within normal limits. -------- Uric Acid - A uric acid blood test measures how much uric acid is in your blood. It can help diagnose gout, kidney stones, and other conditions related to high or low uric acid levels. COLLECTION DATE RESULT VERIFY DATE URIC ACID 08/22/2024@1022 6.7 NOT FOUND These readings are within normal limits. -------- UACR/Creatinine - The urine albumin-creatinine ratio (uACR) shows whether you have albumin in your urine. Albumin is a type of protein that's normally found in the blood. uACR (STL) comment mg/g 08/22/2024 10:22 URINE ALBUMIN (PB-STL) <5 mg/L 08/22/2024 10:22 CREATININE URINE/OTHERS 23.1 L mg/dL 08/22/2024 10:22 These readings are within normal limits. -------- HEMOGLOBIN A1C - Gives us information about your diabetes (sugar or glucose) control over the past 3 months. Your target is to keep your A1C below 7.5%. HGA1C 5.8 % 08/22/2024 10:22 These readings are within normal limits. CBC - A complete blood count (CBC) gives important information about the kinds and numbers of cells in the blood, especially red blood cells, white blood cells, and platelets. HGB 14.1 g/dL 08/22/2024 10:22 HEMATOCRIT 42.5 % (08/22/24 10:22) PLT 227 10*3/uL 08/22/2024 10:22 WHITE BLOOD COUNT 9.4 10*3/uL (08/22/24 10:22) These readings are within normal limits. B12 - Helps maintain healthy nerve cells, red blood cells, and is also needed to make DNA. B12 447 pg/mL 08/22/2024 10:22 These readings are within normal limits. -------- Magnesium - Magnesium is a mineral found in the earth's crust, and in your body. It's needed for healthy bones, heart, muscles, and nerves. It helps your body control energy, blood sugar, blood pressure, and many other processes. 08/22/2024 10:22 PLASMA MAGNESIUM 2.1 mg/dL These readings are within normal limits. -------- CHEM 7 - This is important information about the current status of your kidneys, liver, and electrolyte and acid/base balance as well as of your blood sugar and blood proteins. SODIUM 141 mEq/L 08/22/2024 10:22 POTASSIUM 3.9 mEq/L 08/22/2024 10:22 CHLORIDE 103 mEq/L 08/22/2024 10:22 UREA NITROGEN 30.2 H mg/dL 08/22/2024 10:22 CREATININE 1.38 H mg/dL 08/22/2024 10:22 CALCIUM 9.2 mg/dL 08/22/2024 10:22 CARBON DIOXIDE 29 mEq/L 08/22/2024 10:22 GLUCOSE 133 H mg/dL 08/22/2024 10:22 EGFR (CKD-EPI 2020) 53.33 08/22/2024 10:22 These results are abnormal. Maintain good control of your blood pressure and blood sugar. Stay hydrated. Avoid nsaids (ibuprofen, aleve, motrin). Avoid herbal supplements. LIVER FUNCTION PANEL - These are tests for liver function: PROTEIN 7.2 g/dL 08/22/2024 10:22 ALBUMIN 4.1 g/dL 08/22/2024 10:22 TOTAL BILIRUBIN 0.5 mg/dL 08/22/2024 10:22 ALKALINE PHOSPHATASE 89 U/L 08/22/2024 10:22 AST/SGOT 29 U/L 08/22/2024 10:22 ALT/SGPT 21 U/L 08/22/2024 10:22 These readings are within normal limits. PSA - Prostate-specific antigen is a protein produced by cells of the prostate gland. The PSA test measures the level of PSA in the blood. PROST. SPECIFIC AG.(PB-STL) 1.807 ng/mL 08/22/2024 10:22 These readings are within normal limits. --------- TSH - Thyroid-stimulating hormone (also known as TSH or thyrotropin) is a peptide hormone synthesized and secreted by thyrotrope cells in the anterior pituitary gland, which regulates the endocrine function of the thyroid gland. TSH 1.849 uIU/mL 08/22/2024 10:22 These readings are within normal limits. --------- VITAMIN D - Helps promote the proper utilization of calcium and phosphorus, thereby producing proper bone maintenance. VITAMIN D, 25-HYDROXY 37.3 ng/mL 08/22/2024 10:22 These readings are within normal limits. -------- PLAN Please continue your treatment as we discussed during your visit & phone. If you have any questions please call your manager of case management. I look forward to seeing you at your next clinic appointment. Thank you for choosing the [facility] for your healthcare. -------- FUTURE APPOINTMENTS: 02/21/2025 14:00 [facility] PACT [facility] NP4 Sincerely, BRIGITTE SHI [facility] NURSE PRACTITIONER, [facility]-PACT KADEN SPEARS [facility]ARRY [facility] Aug 22, 2024 09:11 AM GERIATRIC MEDICINE NOTE: LOCAL TITLE: GERIATRIC PACT CLINIC [facility] STANDARD TITLE: GERIATRIC MEDICINE NOTE DATE OF NOTE: AUG 22, 2024@09:11 ENTRY DATE: AUG 22, 2024@09:11:56 AUTHOR: BRIGITTE SHI EXP COSIGNER: URGENCY: STATUS: COMPLETED Type of Evaluation: Geriatric Follow-up : Apr CC: chronic pain, htn HPI:KADEN SPEARS is a 74 yo well-groomed, functionally independent, cognitively intact MALE presenting to the [facility] for his medical evaluation and medication review/renewal:HTN, Type 2 DM, Primary stabbing headache, asthma/ emphysema/pulm nodules/allergies, GERD, ED, Gout, Maddox syndrome, Anemia & Bilateral hearing loss. 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 Reports he had left wrist/thumb surgery late May due to ongoing pain. Reports he is recovering well. Denies pain. He continues w/ outpatient PT. Planning to fu w/ pain management for chronic low back pain next week. Reports h/o si joint injections and cervical injections. ROS: BP running 120-130/70s, denies recio/dizziness/cp/sob/palpitations , denies n/v/d/c, off creon and controlling w/ diet, heartburn controlled, ambulating w/ minimal difficulty, reports one fall last summer off ladder, denies sig injury, head injury or loc, urine stream is good once started, nocturia x1-2, denies dysuria or hematuria, mood is srtable, sleep and appetite, denies si/hi. PAST SURGICAL [...] one 1 year tour [place], [employer] Retired, [employer] employment field Living at home alone, , he remains ind w/ adls tob use quit '82 after 15 pack years etoh, rare illicit drugs, none Cognitive Impairment Warning Signs: none ADL/IADL: independent Adherence to medications: good Allergies/ADR: CARLYN INHIBITORS, FINASTERIDE Vitals: BP: 160/72 (08/22/2024 09:09) Pulse: 45 (08/22/2024 09:09) Temp: 98 F [36.7 C] (08/22/2024 09:09) RR: 18 (08/22/2024 09:09) Pain: 0 (08/22/2024 09:09) Weight: 201.1 lb [91.22 kg] (08/22/2024 09:09) Height: 71 in [180.3 cm] (08/22/2024 09:09) PHYSICAL EXAMINATION: General: wd/wn male, nad NECK: Supple, no bruits CHEST: cta bilat, no wheezing or crackles, chest symmetrical, breath sounds in all lobes, normal respirations HEART: RRR, no murmur ABDOMEN: ND, BS+ 4 quads EXTREMITIES: trace bilat ankle edema, post tibial pulses intact bilaterally, ambulates with limp, gait is steady Assessment and Plan for each problem: 1.Bradycardia, HTN -denies dizziness or lightheadedness, but admits to fatigue -rec decreasing bystolic and increasing amlodipine -pt wishes to discuss w/ osh key worker who is prescribing bystolic 2.Cervicalgia w/ radiculopathy -s/p ANEUDY w/ improvement -enc to cont voltaren, apap, heat, topicals/patches -fu osh pain management 3.Depression/bereavement/insomni a -denies si/hi -declined need to fu w/ [facility] psychologist at present time -continue support group w/ his restorationism -cont mirtazapine 15mg, melatonin 4.Left shoulder pain -managed by osh ortho 5.Cough/Asthma/emphysema/pulm nodules/allergies -cont singulair, Breo & prn albuterol, zyrtec -fu osh pulm Dr. Rosenthal at [facility] & drapery installer 6.Primary stabbing headache -05/03/22 CT head: No acute process. Mild age-appropriate volume loss and mild findings of chronic white matter disease. Unchanged posttraumatic findings in the left orbit and left maxillary sinus. 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 -fu prosthetics eye 16.Bph -cont tamsulosin 0.8mg daily -adr to finasteride -avoid taking tamsulosin within 4 hours of viagra -avoid caffeine -sit to urinate -check psa 17.chronic hip/back pain -cont ice/heat/prn nsaid -cont injections w/ osh pain management 18.hypothyroidism -cont synthroid -check tsh 19.HM -Covid-19 vaccination: declined -colonoscopy: fall, benign polyps, fu due considering -PSA 1.54 ng/mL 12/18/2023 -Flu shot: 2023 -Prevnar-13: 2015 -Pneumovax 23: 2017 -Tdap: 2016 -Shingrix series: 2019 -discussed routine exercise and healthy diet Medications have been reconciled and plan of care has been reviewed with pt/family/caregiver including expected therapeutic benefits and potential side effects of treatments; current, written medication profile has been sent home with patient. Pt/caregiver/family verbalizes understanding, concurs with the current plan of care, and agrees to contact this provider or [place] manager of case management with any problems prior to next visit. RTC:6mo vc or sooner prn Time spent: 1 hour 15 min Active Outpatient Medications (including Supplies): Active Outpatient Medications Status 1) ALBUTEROL 90MCG (CFC-F) 200D ORAL INHL INHALE 2 PUFFS BY ACTIVE ORAL INHALATION FOUR TIMES A DAY NEEDED FOR BREATHING. SHAKE WELL. RINSE MOUTHPIECE FREQUENTLY TO PREVENT CLOGGING. 2) ALLOPURINOL 100MG TAB TAKE ONE TABLET BY MOUTH ONCE A DAY ACTIVE FOR GOUT. TAKE WITH PLENTY OF WATER. 3) AMLODIPINE BESYLATE 2.5MG TAB TAKE ONE TABLET BY MOUTH ONCE ACTIVE (S) A DAY Indication: FOR HIGH BLOOD PRESSURE 4) ASPIRIN 81MG EC TAB TAKE ONE TABLET BY MOUTH ONCE A DAY FOR ACTIVE (S) HEART OR CIRCULATION. TAKE WITH FOOD. 5) ATORVASTATIN CALCIUM 10MG TAB TAKE ONE TABLET BY MOUTH EVERY ACTIVE (S) EVENING TO LOWER CHOLESTEROL 6) AZELASTINE 137MCG/SPRAY 200D NASAL INHL SPRAY 2 SPRAYS IN HOLD NOSTRIL(S) TWICE DAILY NEEDED FOR ALLERGIC RHINITIS. *PRIME BEFORE USE* 7) CARBOXYMETHYLCELLULOSE 0.5%(PF)OP EMILE UD INSTILL 2 DROPS IN ACTIVE (S) BOTH EYES FOUR TIMES A DAY NEEDED Indication: FOR DRY EYE(S) 8) CETIRIZINE HCL 10MG TAB TAKE ONE TABLET BY MOUTH ONCE A DAY ACTIVE FOR ALLERGY SYMPTOMS. 9) CHOLECALCIF 50MCG (D3-2,000UNIT) TAB TAKE TWO TABLETS BY ACTIVE (S) MOUTH ONCE A DAY FOR VITAMIN D DEFICIENCY. 10) VITAMIN B COMPLEX CAP TAKE 1 CAPSULE BY MOUTH EVERY MORNING ACTIVE (S) FOR VITAMIN SUPPLEMENTATION.11) CYANOCOBALAMIN 1000MCG/ML INJ INJECT 1000MCG/1ML ACTIVE (S) INTRAMUSCULARLY EVERY MONTH FOR B12 SUPPLEMENTATION 12) DICLOFENAC NA 75MG EC TAB TAKE ONE TABLET BY MOUTH EVERY ACTIVE (S) MORNING AND EVENING NEEDED FOR PAIN - TAKE WITH FOOD 13) FLUTIC 200/VILANTEROL 25MCG 30D ORAL INH INHALE 1 PUFF ORAL ACTIVE (S) INHL ONCE A DAY FOR BREATHING. RINSE MOUTH WITH WATER AND SPIT AFTER USE. USE AT SAME TIME EACH DAY. MAX OF 1 PUFF PER 24 HOURS. 14) HCTZ 50/TRIAMTERENE 75MG TAB TAKE ONE-HALF TABLET BY MOUTH ACTIVE (S) EVERY MORNING FOR BLOOD PRESSURE 15) HYDROCORTISONE 10MG TAB TAKE ONE TABLET BY MOUTH TWICE A DAY ACTIVE (S) 16) LATANOPROST 0.005% OPH SOLN INSTILL 1 DROP IN RIGHT EYE ACTIVE EVERY EVENING KEEP REFRIGERATED UNTIL READY TO USE, THEN STORE AT ROOM TEMPERATURE FOR MAXIMUM OF 42 DAYS. Indication: FOR ELEVATED INTRAOCULAR PRESSURE 17) LEVOTHYROXINE NA 112MCG TAB TAKE ONE TABLET BY MOUTH EVERY ACTIVE MORNING BEFORE A MEAL TAKE 30 MINUTES BEFORE FOOD. TAKE SEPARATELY FROM ALL OTHER MEDICATIONS. Indication: FOR HYPOTHYROIDISM 18) LIDOCAINE 5% PATCH APPLY 1 PATCH TO SKIN SITE ONCE A DAY ACTIVE APPLY PATCH AND PRESS FIRMLY FOR 10-15 SECONDS. KEEP ON FOR 12 HOURS THEN REMOVE PATCH FOR 12 HOURS. Indication: FOR LOCAL ANESTHESIA 19) MIRTAZAPINE 15MG TAB TAKE ONE TABLET BY MOUTH AT BEDTIME ACTIVE Indication: FOR MOOD AND SLEEP 20) MONTELUKAST NA 10MG TAB TAKE ONE TABLET BY MOUTH EVERY ACTIVE EVENING 21) MULTIVITAMIN/MINERALS CAP/TAB TAKE 1 CAP/TAB BY MOUTH ONCE A ACTIVE (S) DAY FOR SUPPLEMENTATION. 22) OMEPRAZOLE 40MG EC CAP TAKE ONE CAPSULE BY MOUTH TWO TIMES A ACTIVE DAY BEFORE MEALS TAKE 30 MINUTES PRIOR TO FOOD. Indication: FOR GASTROESOPHAGEAL REFLUX DISEASE 23) POTASSIUM CL 20MEQ SA TAB (DISPERSIBLE) TAKE ONE TABLET BY ACTIVE MOUTH ONCE A DAY FOR POTASSIUM SUPPLEMENTATION TAKE WITH FOOD 24) SILDENAFIL CITRATE 100MG TAB TAKE ONE TABLET BY MOUTH EVERY ACTIVE (S) WEEK NEEDED FOR ERECTILE DYSFUNCTION (TAKE 60 MINUTES PRIOR TO SEXUAL ACTIVITY) - LIMIT 4 DOSES PER 30 DAYS 25) TAMSULOSIN HCL 0.4MG CAP TAKE TWO CAPSULES BY MOUTH EVERY ACTIVE (S) EVENING APPROXIMATELY 30 MINUTES AFTER THE SAME MEAL EACH DAY (FOR PROSTATE) 26) TUBERCULIN SYRINGE 1ML 25G 5/8IN USE 1 SYRINGE ACTIVE (S) INTRAMUSCULARLY EVERY MONTH Indication: FOR INJECTION Active Non-VA Medications Status 1) Non-VA LUTEIN CAP/TAB 1 CAP/TAB BY MOUTH ONCE A DAY ACTIVE 2) Non-VA MAGNESIUM OXIDE 400MG TAB 400MG BY MOUTH ONCE A DAY ACTIVE 3) Non-VA NEBIVOLOL 10MG TAB 10MG BY MOUTH ONCE A DAY ACTIVE 4) Non-VA PROBIOTIC COMBINATION CAP/TAB 1 CAPSULE BY MOUTH ONCE ACTIVE A DAY Influenza Immunization - L,N,P,PH,U: The patient has received the seasonal influenza vaccine for the current season at another location. Documented: INFLUENZA, UNSPECIFIED FORMULATION Historical Date Administered: Feb 2024 Exact date unknown Outside Location: [facility] Information Source: SOURCE UNSPECIFIED Eye Care At-Risk Screen - L,N,PH,U: Patient identified to be at risk for the following eye condition(s): DIABETIC RETINOPATHY: Diabetes Diagnosis Information: Encounter Diagnosis: 12/19/2023@15:00 E11.40 (ICD-10-CM) Type 2 Diabetes Mellitus with Diabetic Neuropathy, unspecified rank: SECONDARY Prov. Narr. - Type 2 diabetes mellitus without complication ([facility] [id number]) * GLAUCOMA: Glaucoma Risk Factors Information: Encounter Diagnosis: 09/06/2023@08:30 H40.1212 (ICD-10-CM) Low-Tension Glaucoma, right Eye, Moderate Stage rank: PRIMARY Prov. Narr. - Low-Tension Glaucoma, right Eye, Moderate Stage Action: No Referral Ordered: Eye exam completed elsewhere by an Cycle Director or Military Source Operations Specialist Diabetic retinal exam result: Results Unknown (recommended that patient proceed with eye care request or obtain outside retinal exam result within 90 days) Date: June, ? Exact date is unknown Location: [facility] Foot Check - L,N,P,PH,PO,PT,U: Patient indicates foot exam (including monofilament test for sensation) was performed in the past year in the private sector: Date: September, ? Exact date is unknown Result: Abnormal: neuropathy HTN Assess for Elevated BP>=140/90 - N,P,PH: Repeat blood pressure: 160/72 The patient's medication regimen was adjusted to improve blood pressure control. Comment: [facility] am[facility], pt wishes to discuss w/ osh cardioloigist The patient was counseled on the importance of regular exercise and/or physical activity in the control of blood pressure. The patient was instructed to try to participate in 120 minutes of aerobic exercise per week if possible and that any increase in physical activity may be useful in controlling blood pressure. The patient was counseled on the importance of diet and weight loss/ control in the regulation of blood pressure. The contribution of dietary sodium to elevated blood pressure was reviewed. The patient was counseled to have a goal sodium intake of 1500mg per day, with no more than 2300mg per day. The patient was counseled that a diet low in dietary saturated and trans fats is beneficial in lowering blood pressure. The patient was counseled that a diet rich in fresh fruits, vegetables and whole grains is beneficial in lowering blood pressure. WHAT MATTERS What Matters was addressed at this visit. Comment: chronic pain, htn, bradycardia, wil MEDICATION Medications were addressed at this visit. Comment: reviewed, reconciled MENTATION Depression was addressed at this visit. Comment: wishes to cont current treatment MENTATION Dementia was not addressed at this visit. Indicate reason Dementia was not addressed: No dementia warning signs observed or reported. MOBILITY -------- Mobility was addressed at this visit. Comment: TUG 8 seconds /es/ BRIGITTE SHI [facility]- NURSE PRACTITIONER, KATY-PACT Signed: 08/22/2024 10:38 BRIGITTE SHI [facility] Aug 22, 2024 09:11 AM NURSING NOTE: LOCAL TITLE: 5 PACT FACE TO FACE NOTE ST STANDARD TITLE: NURSING NOTE DATE OF NOTE: AUG 22, 2024@09:11 ENTRY DATE: AUG 22, 2024@09:11:46 AUTHOR: ADELINA ORTEZ EXP COSIGNER: URGENCY: STATUS: COMPLETED Provider Visit: Patient Identifiers : Full Name Date of Reason for visit: Established Follow-Up Routine visit Mode of Arrival: Ambulatory Allergy Review: CARLYN INHIBITORS, FINASTERIDE Allergy list reviewed and remains current. Recent Vital Signs: Temperature: 98 F [36.7 C] (08/22/2024 09:09) Pulse: 45 (08/22/2024 09:09) Respiration: 18 (08/22/2024 09:09) B/P: 182/75 (08/22/2024 09:09) Pain: 0 (08/22/2024 09:09) Wt: 201.1 lb [91.22 kg] (08/22/2024 09:09) Ht: 71 in [180.3 cm] (08/22/2024 09:09) BMI: 28.1 POX: 98% (08/22/2024 09:09) Would you like to discuss any personal problem, family problem, alcohol use, drug use, or a mental or emotional illness? No Contact provided Primary Care phone number and encouraged to call if any questions or concerns. Review that after hours nurse line [phone] and emergency room are available 02/01 for patient use. Contact verbalized good understanding. Suicide Screen - V: C-SSRS Screening [place] Suicide Severity Rating Scale (C-SSRS) screener 1. Over the past month, have you wished you were or wished you could go to sleep and not wake up? No 2. Over the past month, have you had any actual thoughts of killing yourself? No 3. Over the past month, have you been thinking about how you might do this? Response not required due to responses to other questions. 4. Over the past month, have you had these thoughts and had some intention of acting on them? Response not required due to responses to other questions. 5. Over the past month, have you started to work out or worked out the details of how to kill yourself? Response not required due to responses to other questions. 6. If yes, at any time in the past month did you intend to carry out this plan? Response not required due to responses to other questions. 7. In your lifetime, have you ever done anything, started to do anything, or prepared to do anything to end your life (for example, collected pills, obtained a gun, gave away valuables, went to the roof but didn't jump)? No 8. If YES, was this within the past 3 months? Response not required due to responses to other questions. Alcohol Use Screen (AUDIT-C) - V: Alcohol Screen: SCREEN FOR ALCOHOL (AUDIT-C) An alcohol screening test (AUDIT-C) was negative (score=1). 1. How often did you have a drink containing alcohol in the past year? Consider a drink to be a 12 ounce can or bottle of regular beer, 8 ounces of malt liquor, a 5 ounce glass of table wine, or a 1.5 ounce shot of liquor (like scotch, gin, or vodka). Monthly or less 2. How many drinks containing alcohol did you have on a typical day when you were drinking in the past year? One or two drinks 3. How often did you have six or more drinks on one occasion in the past year? Never Depression Screening - V: Perform PHQ-2 A PHQ-2 screen was performed. The score was 0 which is a negative screen for depression. Over the past two weeks, how often have you been bothered by the following problems? 1. Little interest or pleasure in doing things Not at all 2. Feeling down, depressed, or hopeless Not at all Homelessness/Food Insecurity Screen - DI,L,N,P,PH,PS,S,U: In the past 2 months, have you been living in stable housing that you own, rent, or stay in as part of a household? Yes - Living in stable housing. Are you worried or concerned that in the next 2 months you may NOT have stable housing that you own, rent, or stay in as part of a household? No - Not worried about housing near future [facility] reports the following: Within the past 12 months, you worried whether your food would run out before you got money to buy more. Never true Within the past 12 months, the food you bought just didn't last and you didn't have money to get more. Never true Influenza Immunization - L,N,P,PH,U: The patient has received the seasonal influenza vaccine for the current season at another location. Documented: INFLUENZA, UNSPECIFIED FORMULATION Historical Date Administered: 2023 Exact date unknown Outside Location: [facility] Information Source: FROM PATIENT'S RECALL Tobacco Use Screening - AT,DE,L,M,N,P,PH,PS,RT,S,U: The patient is a former cigarette smoker. Quit smoking GREATER THAN OR EQUAL to 15 years. The patient has never used other types of tobacco. Frail/Elderly Screen: ADL Screen - [place] Index of [place] in Activities of Daily Living Bathing: (3 Points) Receives no assistance (gets in and out of tub by self, if tub is usual means of bathing) Dressing: (3 Points) Gets clothes and gets completely dressed without assistance. Toileting: (3 Points) Goes to toilet room , cleans self, and arranges clothes without assistance (may use object for support such as cane, walker, or wheelchair, and may manage own night bedpan or commode, emptying same next morning) Transferring: (3 Points) Moves in and out of bed and in and out of chair without assistance (may be using object for support, such as cane or walker) Continence: (3 Points) Controls urination and bowel movement completely by self Feeding: (3 Points) Feeds self without assistance Total Score: 18 Points 18 = High (patient independent) 6 = Low (patient very dependent) IADL Screen - [place] Instrumental Activities of Daily Living Scale Ability to use telephone: (1 point) Operates Telephone on own initiative; looks up and dials numbers. Shopping: (1 point) Takes care of all shopping needs independently. Food preparation: (1 point) Plans, prepares, and serves adequate meals independently. Housekeeping: (1 point) Performs light daily tasks such as dishwashing, bed making. Laundry: (1 point) Does personal laundry completely. Mode of transportation: (1 point) Travels independently on public transportation or drives own car. Responsibility for own medications: (1 point) Is responsible for taking medications in correct dosages at correct times. Ability to handle finances: (1 point) Manages financial matters independently (budgets, writes checks, pays rent and bills, goes to bank); collects and keeps track of income. Total score: 8 points 8 = High function, independent 0 = Low function, dependent Falls Screen: Two or more falls within the last 12 months. Incontinence Screen: No incontinence. Learning Assessment: - * This patient's learning ABILITIES, BARRIERS to learning, CULTURAL and MU-ISM beliefs, and learning PREFERENCES were assessed. Following are findings of note: Patient reads well. Patient has the following hearing/auditory barrier(s) to consider when teaching: Hard of hearing. Patient has the following speech barrier to consider when teaching: No speech barrier identified. LANGUAGE Patient reports that Welsh is preferred language for healthcare. Patient has the following language barrier to consider when teaching: No language barrier has been identified. Patient has the following vision barrier(s) to consider when teaching: No vision barrier has been identified. Patient has the following dexterity/mobility barrier(s) to consider when teaching: No dexterity/mobility barrier has been identified. Patient has the following cognitive/memory barrier(s) to consider when teaching: No cognitive/memory barrier has been identified. Patient has the following emotional/psychological barrier(s) to consider when teaching: No emotional/psychosocial barrier has been identified. Patient has the following social support deficit(s) to consider when teaching: No social support issues have been identified. Patient reports learning preference is to refer to handouts. Patient reports learning preference is attending one-to-one or group demonstrations. Patient reports learning preference is looking at pictures or viewing videos. * COVID-19 Immunization - L,N,P,PH,U: Refused Pfizer Monovalent COVID-19 vaccine Immunization: COVID-19 (PFIZER), MRNA, LNP-S, PF, GERTRUDE-SUCROSE, 30 MCG/0.3 ML (AGES 12+ YEARS) Refusal Reason: PATIENT DECISION Patient refuses all immunization(s) in the COVID-19 group Date Documented: 08/22/24 09:17 /sarah/ ADELINA ORTEZ LPN LICENSED PRACTICAL NURSE Signed: 08/22/2024 09:18 ADELINA ORTEZ [facility]
== END 2024-09-10 14:54 | disposition home or self-care (01) ==
LOC: CHSLAB 14:54
PROVIDERS: PCP Family Medicine; Visit Provider Specialist
DX: C43.62 Malignant melanoma of left upper limb, including shoulder (principal)
CPT/HCPCS: 88305; 88342

== ENCOUNTER 2024-10-15 14:29 | Outpatient (CLI) | payer MEDICARE, SELFPAY ==
--- OUTSIDE RECORDS SUMMARY | 2024-10-15 14:37 | XMS_ITS | Clinical Summary ---
Author Organization [facility] Address [address], [place] [address] Phone Care Team Providers Care Claims Technician Name Role Phone Zachary Harris MD Primary Care Provider [phone] Allergies Active Allergy Reactions Criticality Noted Date [...] measures to stabilize the patient. Care Teams Claims Technician Relationship Specialty Start Date End Date Zachary [place] [address] PCP - General Internal Medicine 07/23/19
--- OUTSIDE RECORDS SUMMARY | 2024-10-15 14:37 | XMS_ITS ---
Author Name [facility] [place] Address [address] [place] [address] Care Team Providers Care Bioinformatics Developer Name Role Phone BRIGITTE SHI Primary Care [...] Alva's Name Patient's Relationship to Policy Alva [facility] (R) MEDICARE ADVANTAGE MCR ([facility]) Jun 12, 2022 [phone] [id number] [phone] REGAN,IVÁN ID PATIENT [facility] (WNR) MEDICARE ADVANTAGE [facility] ([facility]) Jun 12, 2022 [id number] [phone] [id number] REGAN,IVÁN ID PATIENT Selected Encounter This section includes the information on record at [place] for the Encounter. Date/Time Encounter Type Encounter Description Reason Provider Source Jul 04, 2024 08:52 AM Outpatient Encounter ADMIN PAT ACTIVTIES (MASNONCT) MEGHAN MCCURDY Encounter Template Text not used by [place] Plan of Treatment: Future Appointments (+ 6 [...] 20 appointments. The data comes from all [place] treatment facilities. Appointment Date/Time Appointment Type Appointme nt Facility Name Aug 22, 2024 09:00 AM AMBULATORY - REHAB MEDICIN E [facility] Social History: Smoking Status (Most current) and Tobacco Use (All prior to encounter date) This section includes the most current, and the historical, smoking and tobacco- related health factors from the [place] facility where the Encounter took place. Current Smoking Status This section includes the most current smoking, or tobacco-related health factor, from the [place] facility where the Encounter took place. Date/Time Current Smoking Status Comment Facil ity Aug 04, 2023 09:00 AM VA-TOBACCO FORMER USER [facility] Tobacco Use History This section includes a history of the smoking, or tobacco-related health factors, that were collected on or before the date of the Encounter. The data comes from the [place] facility where the Encounter took place. Date/Time Smoking Status/Tobacco Use Comment F acility Aug 04, 2023 09:00 AM VA-TOBACCO QUIT 15 YRS OR MORE [facility] Feb 01, 2022 09:00 AM VA-TOBACCO FORMER USER [facility] Feb 01, 2022 09:00 AM VA-TOBACCO QUIT 15 YRS OR MORE [facility] Jan 29, 2021 09:00 AM VA-TOBACCO FORMER USER [facility] Jan 29, 2021 09:00 AM VA-TOBACCO QUIT 15 YRS OR MORE [facility] October 29, 2019 03:20 PM VA-TOBACCO FORMER USER [facility] October 29, 2019 03:20 PM VA-TOBACCO QUIT 15 YRS OR MORE [facility] Mar 12, 2018 01:47 PM VA-TOBACCO FORMER USER [facility] Mar 12, 2018 01:47 PM VA-TOBACCO QUIT 15 YRS OR MORE [facility] Feb 02, 2018 11:02 AM QUIT TOBACCO >7 YEARS AGO [facility] Aug 03, 2017 09:58 AM TOBACCO REFUSED SCREEN V15 [facility] Jan 27, 2017 09:01 AM QUIT [...] Community) eligible. PRESCRIPTION INFORMATION: Provider Information:MARISABEL FOWLER, [facility], [address] [place] [id number] phone: [phone] fax: [phone] 1) eRx Drug : carboxymethylcellulose sodium 0.5 % eye drops in a dropperette (REFRESH PLUS), SIG : Administer 1 drop into both eyes continuously as needed for dry eyes #180 each, 3 refills DISPOSITION: Ineligible. Pt has actvie RX on file for this medication from [place] provider /sarah/ MEGHAN MCCURDY PharmD [facility] Pharmacist, Pharmacy Signed: 07/04/2024 09:30 MEGHAN MCCURDY [facility]
--- OUTSIDE RECORDS SUMMARY | 2024-10-15 14:37 | XMS_ITS | Encounter Summary ---
Author Organization [facility] Address [address] [place] [address] Phone Care Team Providers Care World History Teacher Name Role Phone Zachary Harris MD Primary Care Provider [phone] Jennifer Adame RN Unavailable Un available Teodoro Aviles MD Unavailable Luis M Chinchilla MD PhD Unavailable [phone] Alejandro Aly MD Unavailable Long Montemayor MD Unavailable [phone] Rachel Tran MD Unavailable [phone] Tisha Garza PT Unavailable Unavailable Reason for Visit * Dermatology (Routine) - Authorized Specialty Diagnoses / Procedures Referred By Contbrock t Referred To Contact Diagnoses 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) Procedures Mohs surgery - Tristan Schuster MD [address] [facility] [address] [place] [address] Phone: tel: fax: Susy Sifuentes MD [address] [facility], [facility] [address] [place] [address] Phone: tel: fax: Referral ID Status Reason Start Date Expiration Date V isits Requested Visits Authorized [id number] Authorized 09/26/2024 12/26/2024 3 3 Encounter Details Date Type Department Care Team (Latest Contact Info) Description 10/15/2024 10:30 AM CDT Procedure visit [facility] Dermatology [address] [place] [address] [address] [place] [id number] Melanoma of left upper arm (HCC) (Primary Dx) Social History Tobacco Use Types Packs/Day Years Used Date Smoking Tobacco: Former Cigarettes 1 15 1 06/17/1966 - 1982 Passive Smoke Exposure: Never Smokeless Tobacco: Former Snuff Quit: 06/12/1983 Alcohol Use Standard Drinks/Week Comments Not Currently 0 (1 standard drink = 0.6 oz pur e alcohol) nothing recently AUDIT-C Answer Date Recorded Q1: How often do you have a drink containing alc ohol? 2-4 times a month 06/06/2024 Q2: How many drinks containi ng alcohol do you have on a typical day when you are drinking? 1 or 2 06/06/2024 Q3: How often do you have si x or more drinks on one occasion? Never 06/06/2024 PHQ-2 Answer Date Recorded PHQ-2 Total Score (If total score is 3 or more points, staff should administer the PHQ-9) 1 08/27/2024 PHQ-9 Answer Date Recorded PHQ-9 Total Score 2 08/27/2024 Personal Safety Answer Date Recorded Have you ever been in or are you currently in a harmful physical or emotional relationship or is someone making you feel afraid or unsafe? Denies 06/06/2024 Education Answer Date Recorded What is the highest level of school you have completed or the highest degree you have received? 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 Patient has no complaints. O: Alert and oriented times four. Suture line is clean, dry and intact, with excellent epidermal approximation. There is appropriate erythema, edema and minimal bruising. There is no evidence of hematoma, infection or dehiscence. A/P: Two weeks s/p Excision. Healing well. Photos obtained. Healing well RTC 4-6 weeks for additional scar evaluation if desired Sunscreen and sun protection briefly discussed. F/u with general construction lineman at least twice yearly Patient seen and examined by attending, who agrees with plan of care. Their edits noted prior to cosigning. documented in this encounter Plan of Treatment Scheduled Procedures Name Priority Associated Diagnoses Date/Ti wi COLONOSCOPY Open Access Adenocarcinoma of small bowel (HCC) documented as of this encounter Goals Goal Patient Goal Type Associated Problems Recent Progress Patient-Stated? Author <enter goal here> General Yes Jennifer Adame, BEVERLY Note: Bending Walking Stooping documented as of this encounter Visit Diagnoses Diagnosis Melanoma of left upper arm (HCC)- Primary documented in this encounter Care Teams World History Teacher Relationship Specialty Start Date End Date Zachary Harris MD [address] [place] [address] PCP - General 03/23/17 Jennifer Adame, RN Registered Nurse 09/07/17 Teodoro Aviles MD Fish And Wildlife Biologist Gastroenterology 07/02/19 Luis M Chinchilla MD PhD Referring Physician Cardiology 07/26/19 Alejandro Aly MD Referring Physician General Surgery 10/16/19 Long Montemayor MD Medical Oncologist/Senior Qa Analyst Medical Oncology 10/16/19 Rachel Tran MD [address] [facility] [address] [place] [address] Consulting Physician Medical Oncology 11/02/23 Tisha Garza, PT Physical Therapist Physical Therapy 12/22/23 documented as of this encounter
--- OUTSIDE RECORDS SUMMARY | 2024-10-15 14:37 | XMS_ITS | Continuity of Care Document ---
Author Name [facility] Organization [facility] Care Team Providers Care Certified Hearing Instrument Dispenser Name Role Phone [facility] Unavailable Unavailable Problems Combined list of problems from Department of Defense and Veterans Affairs facilities. It does not include entries that were removed or entered in error. Problem Status Onset Date Problem Type Date of Resolution Comments Source Avulsion of eye (SNOMED CT 89109694) Active Condition [facility] Benign essential hypertension Active Condition [facility] Benign prostatic hyperplasia Active Condition [facility] Bilateral hearing loss Active Condition [facility] Chronic back pain Active Condition [facility] Chronic pain Active Condition [facility] Depression Active Condition [facility] Emphysema of lung Active Condition [facility] Erectile dysfunction (SNOMED CT 856828780) Active Condition [facility] Exposure to potentially hazardous substance Active Condition [facility] Gastroesophageal reflux disease without esophagitis Active Condition [facility] Gout Active Condition [facility] History of eye enucleation Active Condition [facility] Hypothyroidism Active Condition [facility] Idiopathic stabbing headache Active Condition [facility] Insomnia Active Condition [facility] Mild persistent allergic asthma controlled Active Condition [facility] Multiple nodules of lung Active Condition [facility] Pancreatic cyst Active Condition Mar 12, 2018 Entered By: CAREY AN Comment: see [facility] for report [facility] Papillary thyroid carcinoma Active Condition Mar 13, 2018 Entered By: CAREY AN Comment: s/p thyroidectomy [facility] Renal cell carcinoma Active Condition [facility] Type 2 diabetes mellitus without complication Active Condition [facility] Vitamin D Deficiency (RUST [id number]) Active Condition [facility] Malignant neoplasms of independent Inactive Condition 10/31/2022 [facility] Diagnosis: ICD-10-CM R00.1 Bradycardia, unspecified Active Diagnosis [facility] Diagnosis: ICD-10-CM M54.2 Cervicalgia Active Diagnosis [facility] Diagnosis: ICD-10-CM G47.09 Other insomnia Active Diagnosis [facility] Diagnosis: ICD-10-CM G44.85 Primary stabbing headache Active Diagnosis [facility] Diagnosis: ICD-10-CM F32.A Depression, unspecified Active Diagnosis [facility] Diagnosis: ICD-10-CM H40.1212 Low-tension glaucoma, right eye, moderate stage Active Diagnosis [facility] Medications Combined list of outpatient medications from Department of Defense and [facility] Affairs facilities.Medications provided include 1) outpatient medications from the last 15 months, and 2) patient-reported medications. Medication Details Route Status Patient Instructions Prescription Expires Prescription Number Last Dispense Date Ordering Provider Order Date Order Qty Source Acetylcyste ine 200mg/mL, Solution, Inhalation INSTILL 1 DROP IN AFFECTED EYE(S) FOUR TIMES A DAY FOR DRY EYE(S) Active 11/17/2024 [id number] CALLY MCKEE 2023 45 [facility] ALBUTEROL SO4 90MCG/ACTUA T (CFC-F) INHL,ORAL,8 .5GM INHALE 2 PUFFS BY ORAL INHALATI ON FOUR TIMES A DAY NEEDED FOR BREATHIN G. SHAKE WELL. RINSE MOUTHPIE CE FREQUENT LY TO PREVENT CLOGGING . RESPIR ATORY (INHAL ATION) ACTIVE 08/23/2025 [id number] 5 Shira SHI E 2024 3 [facility] N ALBUTEROL SO4 90MCG/ACTUA T (CFC-F) INHL,ORAL,8 .5GM INHALE 2 PUFFS BY ORAL INHALATI ON FOUR TIMES A DAY NEEDED FOR BREATHIN G. SHAKE WELL. RINSE MOUTHPIE CE FREQUENT LY TO PREVENT CLOGGING . RESPIR ATORY (INHAL ATION) DISCONT INUED 12/19/2024 [id number] 5 Shira SHI E 2023 1 [facility] N ALBUTEROL SO4 90MCG/ACTUA T (CFC-F) INHL,ORAL,8 .5GM INHALE 2 PUFFS BY ORAL INHALATI ON FOUR TIMES A DAY NEEDED FOR BREATHIN G. SHAKE WELL. RINSE MOUTHPIE CE FREQUENT LY TO PREVENT CLOGGING . RESPIR ATORY (INHAL ATION) DISCONT INUED 11/01/2023 [id number] 4 Shira SHI E 2022 1 [facility] N Allopurinol (Alloprim) Tablet 100 mg Oral TAKE ONE TABLET BY MOUTH ONCE A DAY FOR GOUT. TAKE WITH PLENTY OF WATER. Active 11/17/2024 [id number] 4 CALLY MCKEE M 2023 90 [facility] Allopurinol (Alloprim) Tablet 100 mg Oral TAKE ONE TABLET BY MOUTH ONCE A DAY FOR GOUT. TAKE WITH PLENTY OF WATER. Active 11/17/2024 [id number] 4 CALLY MCKEE M 2023 90 [facility] Div[facility] n ALLOPURINOL 100MG TAB TAKE ONE TABLET BY MOUTH ONCE A DAY FOR GOUT. TAKE WITH PLENTY OF WATER. ORAL SUSPEND ED 08/23/2025 [id number] 5 Shira SHI E 2024 90 [facility] N ALLOPURINOL 100MG TAB TAKE ONE TABLET BY MOUTH ONCE A DAY FOR GOUT. TAKE WITH PLENTY OF WATER. ORAL DISCONT INUED 11/17/2024 [id number] 5 ZURI MCKEE ACE M 2023 90 [facility] N ALLOPURINOL 100MG TAB TAKE ONE TABLET BY MOUTH ONCE A DAY FOR GOUT. TAKE WITH PLENTY OF WATER. ORAL DISCONT INUED 11/01/2023 [id number] 4 Shira SHI [address] [place] [address] DIVISIO N amLODIPine 2.5 MG ORAL TAB TAKE ONE TABLET BY MOUTH ONCE A DAY 08/04/2024 [id number] 4 BRIGITTE SHI [address] [place] [address] Divisio n amLODIPine 2.5 MG ORAL TAB TAKE ONE TABLET BY MOUTH ONCE A DAY 08/04/2024 [id number] 4 BRIGITTE SHI [address] [place] [address] Divisio n AMLODIPINE BESYLATE 2.5MG TAB TAKE ONE TABLET BY MOUTH ONCE A DAY ORAL ACTIVE 08/23/2025 [id number] 5 Shira SHI [address] [place] [address] DIVISIO N AMLODIPINE BESYLATE 2.5MG TAB TAKE ONE TABLET BY MOUTH ONCE A DAY ORAL DISCONT INUED 07/03/2025 [id number] 5 Shira SHI [address] [place] [address] DIVISIO N AMLODIPINE BESYLATE 2.5MG TAB TAKE ONE TABLET BY MOUTH ONCE A DAY ORAL DISCONT INUED 08/04/2024 [id number] 4 Shira SHI 2023 90 [facility] DIVISIO N AMYLASE 180,000UNIT /LIPASE 36,000UNIT/ PROTEAS 114,000UNIT CAP,EC TAKE 2 CAPSULES BY MOUTH THREE TIMES A DAY BEFORE MEALS AND TAKE 1 CAPSULE THREE TIMES A DAY NEEDED FOR PANCREAT IC ENZYME REPLACEM ENT. TAKE WITH FOOD DIRECTED . ORAL DISCONT INUED BY FORREST Mittal 12/19/2024 [id number] 4 Shira SHI 2023 800 [facility] DIVISIO N ASPIRIN 81MG TAB,EC TAKE ONE TABLET BY MOUTH ONCE A DAY FOR HEART OR CIRCULAT ION. TAKE WITH FOOD. ORAL ACTIVE 08/23/2025 [id number] 5 Shira SHI E 2024 120 [facility] N ASPIRIN 81MG TAB,EC TAKE ONE TABLET BY MOUTH ONCE A DAY FOR HEART OR CIRCULAT ION. TAKE WITH FOOD. ORAL DISCONT INUED 11/17/2024 [id number] 4 RYLEEZURI CARLYN M 2023 120 [facility] N ASPIRIN 81MG TAB,EC TAKE ONE TABLET BY MOUTH ONCE A DAY FOR HEART OR CIRCULAT ION. TAKE WITH FOOD. ORAL DISCONT INUED 11/01/2023 [id number] 4 Shira SHI E 2022 120 [facility] DIV[facility] N ASPIRIN EC (U/D) 81 MG ORAL TBEC TAKE ONE TABLET BY MOUTH ONCE A DAY FOR HEART OR CIRCULAT ION. TAKE WITH FOOD. Active 11/17/2024 [id number] RYLEE CALLY M 2023 120 [facility] Divisio n atorvastati n (U/D) 10 MG ORAL TAB TAKE ONE TABLET BY MOUTH EVERY EVENING TO LOWER CHOLESTE ROL Active 11/16/2024 [id number] CALLY MCKEE M 2023 90 [facility] Divisio n ATORVASTATI N CA 10MG TAB TAKE ONE TABLET BY MOUTH EVERY EVENING TO LOWER CHOLESTE ROL ORAL ACTIVE 08/23/2025 [id number] 5 Shira SHI E 2024 90 [facility] DIVISIO N ATORVASTATI N CA 10MG TAB TAKE ONE TABLET BY MOUTH EVERY EVENING TO LOWER CHOLESTE ROL ORAL DISCONT INUED 11/16/2024 [id number] 5 ZURI MCKEE CARLYN M 2023 90 [facility] DIVISIO N ATORVASTATI N CA 10MG TAB TAKE ONE TABLET BY MOUTH EVERY EVENING TO LOWER CHOLESTE ROL ORAL DISCONT INUED 11/01/2023 [id number] 4 Shira SHI 2022 90 [facility] N AZELASTINE 0.1 % HERBERT SPRP [30 ML] SPRAY 2 SPRAYS IN NOSTRIL( S) TWICE DAILY NEEDED FOR ALLERGIC RHINITIS . *PRIME BEFORE USE* Active 11/17/2024 [id number] 4 CALLY MCKEE M 2023 3 [facility] Div[facility] n AZELASTINE HCL 137MCG/SPRA Y INHL,NASAL, 30ML SPRAY 2 SPRAYS IN NOSTRIL( S) TWICE DAILY NEEDED FOR ALLERGIC RHINITIS . *PRIME BEFORE USE* NASAL PROVIDE R HOLD 11/17/2024 [id number] 5 ZURI MCKEE ACE M 2023 3 [facility] N AZELASTINE HCL 137MCG/SPRA Y INHL,NASAL, 30ML SPRAY 2 SPRAYS IN NOSTRIL( S) TWICE DAILY NEEDED FOR ALLERGIC RHINITIS . *PRIME BEFORE USE* NASAL DISCONT INUED 11/01/2023 [id number] 4 Shira SHI 2022 3 [facility] N Brimonidine 0.2% + Brinzolamid e 1% Suspension, Ophthalmic INSTILL 1 DROP IN BOTH EYES THREE TIMES A DAY FOR GLAUCOMA 02/25/2024 [id number] NORAH SCOTT 2023 32 [facility] Divis[facility] n BRIMONIDINE 0.2%/BRINZO LAMIDE 1% SUSP,OPH INSTILL 1 DROP IN BOTH EYES THREE TIMES A DAY FOR GLAUCOMA OPHTHA LMIC DISCONT INUED BY FORREST Mittal 02/25/2024 [id number] 4 Tay SCOTT 2022 32 [facility] N Carboxymeth ylcellulose 1% Gel/Jelly, Ophthalmic INSTILL 1 DROP INTO LEFT EYE FOUR TIMES A DAY NEEDED Active 11/17/2024 [id number] 4 CALLY MCKEE M 2023 90 [facility] Divis[facility] n Carboxymeth ylcellulose 1% Gel/Jelly, Ophthalmic INSTILL 1 DROP INTO BOTH EYES FOUR TIMES A DAY NEEDED FOR DRY EYES Active 11/17/2024 [id number] 4 CALLY [facility]CKEE M 2023 [facility] Carboxymeth ylcellulose 1% Gel/Jelly, Ophthalmic INSTILL 1 DROP INTO LEFT EYE FOUR TIMES A DAY NEEDED Active 11/17/2024 [id number] 4 CALLY MCKEE M 2023 90 [facility] Divis[facility] n CARBOXYMETH YLCELLULOSE NA 0.5% (PF) SOLN,OPH,UD INSTILL 2 DROPS IN BOTH EYES FOUR TIMES A DAY NEEDED FOR DRY EYE(S) OPHTHA LMIC ACTIVE 07/03/2025 [id number] 5 Shira SHI 2024 150 [facility] DIVISIO N CARBOXYMETH YLCELLULOSE NA 0.5% (PF) SOLN,OPH,UD INSTILL 1 DROP IN RIGHT EYE FOUR TIMES A DAY NEEDED FOR DRY EYE(S) OPHTHA LMIC DISCONT INUED (EDIT) 02/02/2025 [id number] 4 Shira SHI 2023 90 [facility] DIVISIO N CARBOXYMETH YLCELLULOSE NA 1% GEL,OPH INSTILL 1 DROP INTO BOTH EYES FOUR TIMES A DAY NEEDED FOR DRY EYES OPHTHA LMIC DISCONT INUED BY PROVIDE R 11/17/2024 [id number] 4 RYLEEZURI CARLYN M 2023 45 [facility] DIVISIO N CARBOXYMETH YLCELLULOSE NA 1% GEL,OPH INSTILL 1 DROP INTO BOTH EYES FOUR TIMES A DAY NEEDED FOR DRY EYES OPHTHA LMIC DISCONT INUED 11/01/2023 [id number] 4 Shira SHI 2022 45 [facility] DIVISIO N CARBOXYMETH YLCELLULOSE NA 1% GEL,OPH 0.4ML INSTILL 1 DROP INTO LEFT EYE FOUR TIMES A DAY NEEDED OPHTHA LMIC DISCONT INUED BY FORREST Mittal 11/17/2024 [id number] 4 ZURI MCKEE ACE M 2023 90 [facility] DIVISIO N CARBOXYMETH YLCELLULOSE NA 1% GEL,OPH 0.4ML INSTILL 1 DROP INTO LEFT EYE FOUR TIMES A DAY NEEDED OPHTHA LMIC DISCONT INUED 11/01/2023 [id number] 4 Shira SHI 2022 90 [facility] DIV[facility] N CETIRIZINE (U/D) 10 MG ORAL TAB TAKE ONE TABLET BY MOUTH ONCE A DAY FOR ALLERGY SYMPTOMS . Active 11/17/2024 [id number] CALLY MCKEE M [address] [place] [address] Divisio n CETIRIZINE (U/D) 10 MG ORAL TAB TAKE ONE TABLET BY MOUTH ONCE A DAY FOR ALLERGY SYMPTOMS . Active 11/17/2024 [id number] 4 CALLY MCKEE 2023 90 [facility] Divisio n CETIRIZINE HCL 10MG TAB TAKE ONE TABLET BY MOUTH ONCE A DAY FOR ALLERGY SYMPTOMS . ORAL SUSPEND ED 08/23/2025 [id number] 5 Shira SHI [address] [place] [address] DIVISIO N CETIRIZINE HCL 10MG TAB TAKE ONE TABLET BY MOUTH ONCE A DAY FOR ALLERGY SYMPTOMS . ORAL DISCONT INUED 11/17/2024 [id number] 5 ZURI MCKEE ACE M [address] [place] [address] DIVISIO N CETIRIZINE HCL 10MG TAB TAKE ONE TABLET BY MOUTH ONCE A DAY FOR ALLERGY SYMPTOMS . ORAL DISCONT INUED 11/01/2023 [id number] 4 Shira SHI 2022 90 [facility] DIVISIO N CHOLECALCIF NIXON 50MCG (2,000UNIT) TAB TAKE TWO TABLETS BY MOUTH ONCE A DAY FOR VITAMIN D DEFICIEN CY. ORAL ACTIVE 08/23/2025 [id number] 5 Shira SHI E 2024 200 [facility] DIVISIO N CHOLECALCIF NIXON 50MCG (2,000UNIT) TAB TAKE TWO TABLETS BY MOUTH ONCE A DAY FOR VITAMIN D DEFICIEN CY. ORAL DISCONT INUED 12/19/2024 [id number] 5 Shira SHI E 2023 200 [facility] DIVISIO N CHOLECALCIF NIXON 50MCG (2,000UNIT) TAB TAKE TWO TABLETS BY MOUTH ONCE A DAY FOR VITAMIN D DEFICIEN CY. ORAL DISCONT INUED 11/01/2023 [id number] 4 Shira SHI 2022 200 [facility] DIVISIO N CYANOCOBALA MIN 1000MCG/ML INJ INJECT 1000MCG/ 1ML INTRAMUS CULARLY EVERY MONTH FOR B12 SUPPLEME NTATION INTRAM USCULA R ACTIVE 08/23/2025 [id number] 5 Shira SHI 2024 3 [facility] DIV[facility] N CYANOCOBALA MIN 1000MCG/ML INJ INJECT 1000MCG/ 1ML INTRAMUS CULARLY EVERY MONTH FOR B12 SUPPLEME NTATION INTRAM USCULA R DISCONT INUED 11/27/2024 [id number] 5 Shira SHI 2023 3 [facility] DIV[facility] N CYANOCOBALA MIN 1000MCG/ML INJ INJECT 1000MCG/ 1ML INTRAMUS CULARLY EVERY MONTH FOR B12 SUPPLEME NTATION INTRAM USCULA R DISCONT INUED 11/01/2023 [id number] 4 Shira SHI 2022 3 [facility] N Cyanocobala min 1mg/mL Solution, Intravenous INJECT 1000MCG/ 1ML INTRAMUS CULARLY EVERY MONTH FOR B12 SUPPLEME NTATION Active 11/27/2024 [id number] 4 BRIGITTE SHI 2023 3 [facility] Divisio n DICLOFENAC NA 75MG TAB,EC TAKE ONE TABLET BY MOUTH EVERY MORNING AND EVENING NEEDED FOR PAIN - TAKE WITH FOOD ORAL ACTIVE 08/23/2025 [id number] 5 Shira SHI 2024 180 [facility] DIVISIO N DICLOFENAC NA 75MG TAB,EC TAKE ONE TABLET BY MOUTH EVERY MORNING AND EVENING NEEDED FOR PAIN - TAKE WITH FOOD ORAL DISCONT INUED 12/19/2024 [id number] 5 Shira SHI 2023 180 [facility] DIVISIO N DICLOFENAC NA 75MG TAB,EC TAKE ONE TABLET BY MOUTH EVERY MORNING AND EVENING NEEDED FOR PAIN - TAKE WITH FOOD ORAL DISCONT INUED 11/01/2023 [id number] 4 Shira SHI 2022 180 [facility] DIV[facility]IO N FLOMAX (BRAND) 0.4 MG ORAL CAP TAKE TWO CAPSULES BY MOUTH EVERY EVENING APPROXIM ATELY 30 MINUTES AFTER THE SAME MEAL EACH DAY (FOR PROSTATE ) 11/01/2023 [id number] 4 BRIGITTE SHI 2023 180 [facility] Divisio n FLOMAX (BRAND) 0.4 MG ORAL CAP TAKE TWO CAPSULES BY MOUTH EVERY EVENING APPROXIM ATELY 30 MINUTES AFTER THE SAME MEAL EACH DAY (FOR PROSTATE ) 11/01/2023 [id number] BRIGITTE SHI 2023 180 [facility] Divisio n FLOMAX (BRAND) 0.4 MG ORAL CAP TAKE TWO CAPSULES BY MOUTH EVERY EVENING APPROXIM ATELY 30 MINUTES AFTER THE SAME MEAL EACH DAY (FOR PROSTATE ) 11/01/2023 [id number] 4 BRIGITTE SHI 2023 60 [facility] Divisio n FLUTICASONE 200MCG/TAMERA NTEROL 25MCG INHL,ORAL,3 0D INHALE 1 PUFF ORAL INHL ONCE A DAY FOR BREATHIN G. RINSE MOUTH WITH WATER AND SPIT AFTER USE. USE AT SAME TIME EACH DAY. MAX OF 1 PUFF PER 24 HOURS. RESPIR ATORY (INHAL ATION) ACTIVE 08/23/2025 [id number] 5 Shira SHI 2024 3 [facility] DIV[facility] N FLUTICASONE 200MCG/TAMERA NTEROL 25MCG INHL,ORAL,3 0D INHALE 1 PUFF ORAL INHL ONCE A DAY FOR BREATHIN G. RINSE MOUTH WITH WATER AND SPIT AFTER USE. USE AT SAME TIME EACH DAY. MAX OF 1 PUFF PER 24 HOURS. RESPIR ATORY (INHAL ATION) DISCONT INUED 12/19/2024 [id number] 5 Shira SHI 2023 3 [facility] DIVISIO N FLUTICASONE 200MCG/TAMERA NTEROL 25MCG INHL,ORAL,3 0D INHALE 1 PUFF ORAL INHL ONCE A DAY FOR BREATHIN G. RINSE MOUTH WITH WATER AND SPIT AFTER USE. USE AT SAME TIME EACH DAY. MAX OF 1 PUFF PER 24 HOURS. RESPIR ATORY (INHAL ATION) DISCONT INUED 11/01/2023 [id number] 4 Shira SHI 2022 3 [facility] DIVISIO N HYDROCHLORO THIAZIDE 50MG/TRIAMT ERENE 75MG TAB TAKE ONE-HALF TABLET BY MOUTH EVERY MORNING FOR BLOOD PRESSURE ORAL ACTIVE 08/23/2025 [id number] 5 Shira SHI 2024 45 [facility] DIVISIO N HYDROCHLORO THIAZIDE 50MG/TRIAMT ERENE 75MG TAB TAKE ONE-HALF TABLET BY MOUTH EVERY MORNING FOR BLOOD PRESSURE ORAL DISCONT INUED 12/19/2024 [id number] 4 Shira SHI 2023 45 [facility] DIVISIO N HYDROCHLORO THIAZIDE 50MG/TRIAMT ERENE 75MG TAB TAKE ONE-HALF TABLET BY MOUTH EVERY MORNING FOR BLOOD PRESSURE ORAL DISCONT INUED 11/01/2023 [id number] 4 Shira SHI 2022 45 [facility] DIVISIO N HYDROCORTIS ONE 10MG TAB TAKE ONE TABLET BY MOUTH TWICE A DAY ORAL ACTIVE 08/23/2025 [id number] 5 Shira SHI 2024 180 [facility] DIVISIO N HYDROCORTIS ONE 10MG TAB TAKE ONE TABLET BY MOUTH TWICE A DAY ORAL DISCONT INUED 12/19/2024 [id number] 5 Shira SHI 2023 180 [facility] DIVISIO N HYDROCORTIS ONE 10MG TAB TAKE ONE TABLET BY MOUTH TWICE A DAY ORAL DISCONT INUED 11/01/2023 [id number] 4 Shira SHI 2022 180 [facility] DIV[facility] N IRX: Sildenafil 100 mg/Placebo Tablet Oral TAKE ONE TABLET BY MOUTH EVERY WEEK NEEDED FOR ERECTILE DYSFUNCT ION (TAKE 60 MINUTES PRIOR TO SEXUAL ACTIVITY ) - LIMIT 4 DOSES PER 30 DAYS Active 11/17/2024 [id number] 4 CALLY MCKEE 2023 18 [facility] Divisio n IRX: Sildenafil 100 mg/Placebo Tablet Oral TAKE ONE TABLET BY MOUTH EVERY WEEK NEEDED FOR ERECTILE DYSFUNCT ION (TAKE 60 MINUTES PRIOR TO SEXUAL ACTIVITY ) - LIMIT 4 DOSES PER 30 DAYS Discont inued 11/01/2023 [id number] 4 BRIGITTE SHI 2023 18 [facility] Divisio n Latanoprost (Xalatan Eq.) Solution 0.005% Optical INSTILL 1 DROP IN RIGHT EYE EVERY EVENING KEEP REFRIGER ATED UNTIL READY TO USE, THEN STORE AT ROOM TEMPERAT URE FOR MAXIMUM OF 42 DAYS. 10/09/2024 [id number] 4 CESAR SCHNEIDER 2023 10 [facility] Divisio n Latanoprost (Xalatan Eq.) Solution 0.005% Optical INSTILL 1 DROP IN RIGHT EYE EVERY EVENING KEEP REFRIGER ATED UNTIL READY TO USE, THEN STORE AT ROOM TEMPERAT URE FOR MAXIMUM OF 42 DAYS. 10/09/2024 [id number] 4 CESAR SCHNEIDER 2023 10 [facility] Divisio n LATANOPROST 0.005% SOLN,OPH INSTILL 1 DROP IN RIGHT EYE EVERY EVENING KEEP REFRIGER ATED UNTIL READY TO USE, THEN STORE AT ROOM TEMPERAT URE FOR MAXIMUM OF 42 DAYS. OPHTHA LMIC ACTIVE 08/23/2025 [id number] 5 Shira SHI 2024 10 [facility] DIV[facility]IO N LATANOPROST 0.005% SOLN,OPH INSTILL 1 DROP IN RIGHT EYE EVERY EVENING KEEP REFRIGER ATED UNTIL READY TO USE, THEN STORE AT ROOM TEMPERAT URE FOR MAXIMUM OF 42 DAYS. OPHTHA LMIC DISCONT INUED 10/09/2024 [id number] 5 Winifred SCHNEIDER 2023 10 [facility] DIVISIO N LEVOTHYROXI NE NA 112MCG TAB TAKE ONE TABLET BY MOUTH EVERY MORNING BEFORE A MEAL FOR HYPOTHYR OIDISM TAKE 30 MINUTES BEFORE FOOD. TAKE SEPARATE LY FROM ALL OTHER MEDICATI ONS. ORAL ACTIVE 08/23/2025 [id number] 5 Shira SHI 2024 90 [facility] DIVISIO N LEVOTHYROXI NE NA 112MCG TAB TAKE ONE TABLET BY MOUTH EVERY MORNING BEFORE A MEAL FOR HYPOTHYR OIDISM TAKE 30 MINUTES BEFORE FOOD. TAKE SEPARATE LY FROM ALL OTHER MEDICATI ONS. ORAL DISCONT INUED 09/08/2024 [id number] 4 Shira SHI 2023 90 [facility] DIVISIO N Lidocaine (Lidoderm Eq.) Transdermal System 5% Topical APPLY 1 PATCH TO SKIN SITE ONCE A DAY APPLY PATCH AND PRESS FIRMLY FOR 10-15 SECONDS. KEEP ON FOR 12 HOURS THEN REMOVE PATCH FOR 12 HOURS. 09/08/2024 [id number] 4 BRIGITTE SHI 2023 30 [facility] Divisio n LIDOCAINE 5% PATCH APPLY 1 PATCH TO SKIN SITE ONCE A DAY APPLY PATCH AND PRESS FIRMLY FOR 10-15 SECONDS. KEEP ON FOR 12 HOURS THEN REMOVE PATCH FOR 12 HOURS. TRANSD ERMAL ACTIVE 08/23/2025 [id number] 5 Shira SHI 2024 30 [facility] DIV[facility] N LIDOCAINE 5% PATCH APPLY 1 PATCH TO SKIN SITE ONCE A DAY APPLY PATCH AND PRESS FIRMLY FOR 10-15 SECONDS. KEEP ON FOR 12 HOURS THEN REMOVE PATCH FOR 12 HOURS. TRANSD ERMAL DISCONT INUED 09/08/2024 [id number] 4 Shira SHI 2023 30 [facility] DIVISIO N MAGNESIUM OXIDE 400MG TAB TAKE ONE TABLET BY MOUTH ONCE A DAY ORAL ACTIVE Shira SHI 2022 [facility] DIV[facility] N MELATONIN 5MG CAP/TAB TAKE TWO CAP/TAB BY MOUTH AT BEDTIME ORAL ACTIVE 08/23/2025 [id number] 5 Shira SHI 2024 180 [facility] DIVIS[facility] N MELATONIN 5MG CAP/TAB TAKE TWO CAP/TAB BY MOUTH AT BEDTIME ORAL 2024 [id number] 4 JOSE JARQUIN 2023 180 [facility] DIVISIO N Mirtazapine (Remeron Eq.) Tablet 15mg Oral TAKE ONE TABLET BY MOUTH AT BEDTIME FOR MOOD AND SLEEP 09/08/2024 [id number] 4 BRIGITTE SHI 2023 90 [facility] Divisio n Mirtazapine (Remeron Eq.) Tablet 15mg Oral TAKE ONE TABLET BY MOUTH AT BEDTIME FOR MOOD AND SLEEP 09/08/2024 [id number] 4 BRIGITTE SHI [address] [place] [address] n Mirtazapine (Remeron Eq.) Tablet 15mg Oral TAKE ONE-HALF TABLET BY MOUTH AT BEDTIME Discont inued 08/04/2024 [id number] 4 BRIGITTE SHI [address] [place] [address] [facility] MIRTAZAPINE 15MG TAB TAKE ONE TABLET BY MOUTH AT BEDTIME FOR MOOD AND SLEEP ORAL ACTIVE 08/23/2025 [id number] 5 Shira SHI [address] [place] [address] DIVISIO N MIRTAZAPINE 15MG TAB TAKE ONE TABLET BY MOUTH AT BEDTIME FOR MOOD AND SLEEP ORAL DISCONT INUED 09/08/2024 [id number] 4 Shira SHI [address] [place] [address] [facility] MIRTAZAPINE 15MG TAB TAKE ONE-HALF TABLET BY MOUTH AT BEDTIME ORAL DISCONT INUED (EDIT) 08/04/2024 [id number] 4 Shira SHI [address] [place] [address] DIVISIO N MONTELUKAST (U/D) 10 MG ORAL TAB TAKE ONE TABLET BY MOUTH EVERY EVENING Active 11/17/2024 [id number] CALLY MCKEE M [address] [place] [address] Divisio n MONTELUKAST (U/D) 10 MG ORAL TAB TAKE ONE TABLET BY MOUTH EVERY EVENING Active 11/17/2024 [id number] 4 CALLY MCKEE M [address] [place] [address] Divis n MONTELUKAST NA 10MG TAB TAKE ONE TABLET BY MOUTH EVERY EVENING ORAL SUSPEND ED 08/23/2025 [id number] 5 Shira SHI 2024 90 [facility] DIVISIO N MONTELUKAST NA 10MG TAB TAKE ONE TABLET BY MOUTH EVERY EVENING ORAL DISCONT INUED 11/17/2024 [id number] 5 ZURI MCKEE ACE M 2023 90 [facility] DIVISIO N MONTELUKAST NA 10MG TAB TAKE ONE TABLET BY MOUTH EVERY EVENING ORAL DISCONT INUED 11/01/2023 [id number] 4 Shira SHI E 2022 90 [facility] DIVISIO N MULTIVITAMI NS W/MINERALS CAP/TAB TAKE 1 CAP/TAB BY MOUTH ONCE A DAY FOR SUPPLEME NTATION. ORAL ACTIVE 08/23/2025 [id number] 5 Shira SHI E 2024 100 [facility] DIVISIO N MULTIVITAMI NS W/MINERALS CAP/TAB TAKE 1 CAP/TAB BY MOUTH ONCE A DAY FOR SUPPLEME NTATION. ORAL DISCONT INUED 11/17/2024 [id number] 5 ZURI MCKEE ACE M 2023 100 [facility] DIVISIO N MULTIVITAMI NS W/MINERALS CAP/TAB TAKE 1 CAP/TAB BY MOUTH ONCE A DAY FOR SUPPLEME NTATION. ORAL DISCONT INUED 11/01/2023 [id number] 4 Shira SHI 2022 130 [facility] DIVISIO N NEBIVOLOL 10MG TAB TAKE ONE TABLET BY MOUTH ONCE A DAY ORAL ACTIVE Shira SHI 2022 [facility] DIVISIO N Omeprazole (Prilosec Eq.) Capsule Conventiona l 40 mg Oral TAKE ONE CAPSULE BY MOUTH EVERY MORNING BEFORE A MEAL TAKE 30 MINUTES PRIOR TO FOOD. Active 11/17/2024 [id number] 4 CALLY MCKEE 2023 90 [facility] Divisio n OMEPRAZOLE 40MG CAP,EC TAKE ONE CAPSULE BY MOUTH TWO TIMES A DAY BEFORE MEALS TAKE 30 MINUTES PRIOR TO FOOD. ORAL SUSPEND ED 08/23/2025 [id number] 5 Shira SHI 2024 180 [facility] DIVISIO N OMEPRAZOLE 40MG CAP,EC TAKE ONE CAPSULE BY MOUTH TWO TIMES A DAY BEFORE MEALS TAKE 30 MINUTES PRIOR TO FOOD. ORAL DISCONT INUED 12/19/2024 [id number] Shira SHI E 2023 180 [facility] N OMEPRAZOLE 40MG CAP,EC TAKE ONE CAPSULE BY MOUTH EVERY MORNING BEFORE A MEAL TAKE 30 MINUTES PRIOR TO FOOD. ORAL DISCONT INUED (EDIT) 11/17/2024 [id number] 4 ZURI MCKEE CARLYN M 2023 90 [facility] OMEPRAZOLE 40MG CAP,EC TAKE ONE CAPSULE BY MOUTH EVERY MORNING BEFORE A MEAL TAKE 30 MINUTES PRIOR TO FOOD. ORAL DISCONT INUED 11/01/2023 [id number] 4 Shira SHI E 2022 90 [facility] PEG-400 0.4%/PROPYL IBIS GLYCOL 0.3% SOLN,OPH INSTILL 1 DROP IN AFFECTED EYE(S) FOUR TIMES A DAY FOR DRY EYE(S) OPHTHA LMIC DISCONT INUED BY PROVIDE R 11/17/2024 [id number] 4 ZURI MCKEE ACE M 2023 45 [facility] PEG-400 0.4%/PROPYL IBIS GLYCOL 0.3% SOLN,OPH INSTILL 1 DROP IN AFFECTED EYE(S) FOUR TIMES A DAY FOR DRY EYE(S) OPHTHA LMIC DISCONT INUED 12/24/2023 [id number] Tay SCOTT 2022 45 [facility] POTASSIUM CHLORIDE 20MEQ TAB,SA (DISPERSIBL E) TAKE ONE TABLET BY MOUTH ONCE A DAY FOR ABBIE M SUPPLEME NTATION TAKE WITH FOOD ORAL SUSPEND ED 08/23/2025 [id number] 5 Shira SHI 2024 90 [facility] POTASSIUM CHLORIDE 20MEQ TAB,SA (DISPERSIBL E) TAKE ONE TABLET BY MOUTH ONCE A DAY FOR ABBIE Vitale SUPPLEME NTATION TAKE WITH FOOD ORAL DISCONT INUED 11/17/2024 [id number] 5 ZURI MCKEE CARLYN M 2023 90 [facility] N POTASSIUM CHLORIDE 20MEQ TAB,SA (DISPERSIBL E) TAKE ONE TABLET BY MOUTH ONCE A DAY FOR ABBIE M SUPPLEME NTATION TAKE WITH FOOD ORAL DISCONT INUED 11/01/2023 [id number] 4 Shira SHI 2022 90 [facility] Potassium Chloride, Microencaps ulated (K-Dur Eq.) Tablet Controlled Release 20 mEq Oral TAKE ONE TABLET BY MOUTH ONCE A DAY FOR ABBIE M SUPPLEME NTATION TAKE WITH FOOD Active 11/17/2024 [id number] RYLEE CALLY M 2023 90 [facility] n Potassium Chloride, Microencaps ulated (K-Dur Eq.) Tablet Controlled Release 20 mEq Oral TAKE ONE TABLET BY MOUTH ONCE A DAY FOR ABBIE M SUPPLEME NTATION TAKE WITH FOOD Active 11/17/2024 [id number] RYLEE CALLY M [address] [facility] PROBIOTIC COMBINATION CAP/TAB TAKE 1 CAPSULE BY MOUTH ONCE A DAY ORAL ACTIVE Shira SHI 2021 [facility] SILDENAFIL CITRATE 100MG TAB TAKE ONE TABLET BY MOUTH ONE HOUR PRIOR TO SEXUAL ACTIVITY - LIMIT 6 DOSES PER 30 DAYS ORAL ACTIVE 08/23/2025 [id number] 5 Shira SHI 2024 18 [facility] SILDENAFIL CITRATE 100MG TAB TAKE ONE TABLET BY MOUTH EVERY WEEK NEEDED FOR ERECTILE DYSFUNCT ION (TAKE 60 MINUTES PRIOR TO SEXUAL ACTIVITY ) - LIMIT 4 DOSES PER 30 DAYS ORAL DISCONT INUED (EDIT) 08/23/2025 [id number] 5 Shira SHI 2024 18 [facility] N SILDENAFIL CITRATE 100MG TAB TAKE ONE TABLET BY MOUTH EVERY WEEK NEEDED FOR ERECTILE DYSFUNCT ION (TAKE 60 MINUTES PRIOR TO SEXUAL ACTIVITY ) - LIMIT 4 DOSES PER 30 DAYS ORAL DISCONT INUED 11/17/2024 [id number] 5 ZURI MCKEE ACE 2023 18 [facility] N SILDENAFIL CITRATE 100MG TAB TAKE ONE TABLET BY MOUTH EVERY WEEK NEEDED FOR ERECTILE DYSFUNCT ION (TAKE 60 MINUTES PRIOR TO SEXUAL ACTIVITY ) - LIMIT 4 DOSES PER 30 DAYS ORAL DISCONT INUED 11/01/2023 [id number] Shira SHI 2022 18 [facility] N TAMSULOSIN HCL 0.4MG CAP TAKE TWO CAPSULES BY MOUTH EVERY EVENING APPROXIM ATELY 30 MINUTES AFTER THE SAME MEAL EACH DAY (FOR PROSTATE ) ORAL ACTIVE 08/23/2025 [id number] 5 Shira SHI 2024 180 [facility] TAMSULOSIN HCL 0.4MG CAP TAKE TWO CAPSULES BY MOUTH EVERY EVENING APPROXIM ATELY 30 MINUTES AFTER THE SAME MEAL EACH DAY (FOR PROSTATE ) ORAL DISCONT INUED 12/19/2024 [id number] 5 Shira SHI 2023 180 [facility] N TAMSULOSIN HCL 0.4MG CAP TAKE TWO CAPSULES BY MOUTH EVERY EVENING APPROXIM ATELY 30 MINUTES AFTER THE SAME MEAL EACH DAY (FOR PROSTATE ) ORAL DISCONT INUED 11/01/2023 [id number] 4 Shira SHI 2023 180 [facility] N TAMSULOSIN HCL 0.4MG CAP TAKE TWO CAPSULES BY MOUTH EVERY EVENING APPROXIM ATELY 30 MINUTES AFTER THE SAME MEAL EACH DAY (FOR PROSTATE ) ORAL DISCONT INUED 11/01/2023 [id number] Shira SHI E 2022 60 [facility] N VITAMIN B COMPLEX CAP TAKE 1 CAPSULE BY MOUTH EVERY MORNING FOR VITAMIN SUPPLEME NTATION. ORAL ACTIVE 08/23/2025 [id number] 5 Shira SHI E 2024 100 [facility] VITAMIN B COMPLEX CAP TAKE 1 CAPSULE BY MOUTH EVERY MORNING FOR VITAMIN SUPPLEME NTATION. ORAL DISCONT INUED 12/19/2024 [id number] 5 Shira SHI E 2023 100 [facility] N VITAMIN B COMPLEX CAP TAKE 1 CAPSULE BY MOUTH EVERY MORNING FOR VITAMIN SUPPLEME NTATION. ORAL DISCONT INUED 11/01/2023 [id number] 4 Shira SHI E 2022 100 [facility] Allergies, Adverse Reactions, Alerts Combined list of allergies from Department of Defense and Veterans Affairs facilities. It does not include entries that were removed or entered in error. Substance Category Reaction Severity Reaction type Status Date Reported Comments Source CARLYN INHIBITORS Propensity to adverse reactions to drug (finding) Cough active 6 [facility] FINASTERIDE Propensity to adverse reactions to drug (finding) Gynecomasti a active 3 [facility] Immunizations Combined list of available immunizations from the Department of Defense and Veterans Affairs facilities. Immunization Series Date Given Administered By Site Reaction Lot Number CVX Code Drug Pipeline Dispatcher Status Comments Source INFLUENZA, UNSPECIFIED FORMULATION 2023 88 complet ed HISTORICA L INFORMATI ON - SOURCE UNSPECIFI ED, [facility] INFLUENZA, UNSPECIFIED FORMULATION 2023 88 complet ed HISTORICA L INFORMATI ON - FROM PATIENT'S RECALL, [facility] INFLUENZA, UNSPECIFIED FORMULATION 2022 88 complet ed HISTORICA L INFORMATI ON - FROM PATIENT'S RECALL, [facility] INFLUENZA, UNSPECIFIED FORMULATION 2021 88 complet ed HISTORICA L INFORMATI ON - SOURCE UNSPECIFI ED, [facility] COVID-19 (Tuicool), MRNA, LNP-S, PF, 30 MCG/0.3 ML DOSE 2020 208 complet ed Booster for Series, [facility] INFLUENZA, UNSPECIFIED FORMULATION 2020 88 complet ed [facility] COVID-19 (Tuicool), MRNA, LNP-S, PF, 30 MCG/0.3 ML DOSE 2 2020 208 complet ed PFR; [id number]; 1 [facility] COVID-19 (Tuicool), MRNA, LNP-S, PF, 30 MCG/0.3 ML DOSE 1 2020 208 complet ed PFR; [id number]; 1 [facility] INFLUENZA, UNSPECIFIED FORMULATION 2019 88 complet ed [facility] ZOSTER RECOMBINANT 2 2019 187 complet ed PER PT REPORT [facility] INFLUENZA, UNSPECIFIED FORMULATION 2018 88 complet ed high dose [facility] ZOSTER RECOMBINANT 1 2018 187 complet ed [facility] INFLUENZA, UNSPECIFIED FORMULATION 2018 88 complet ed [facility] N PNEUMOCOCCAL CONJUGATE PCV 13 2 2018 133 complet ed HISTORICA L INFORMATI ON - FROM OTHER REGISTRY, [facility] INFLUENZA, INJECTABLE, QUADRIVALENT, PRESERVATIVE FREE 2017 150 complet ed [facility] INFLUENZA, UNSPECIFIED FORMULATION 1 2016 88 complet ed HISTORICA L INFORMATI ON - FROM OTHER REGISTRY, [facility] INFLUENZA, INJECTABLE, QUADRIVALENT, PRESERVATIVE FREE 2016 150 complet ed [facility] PNEUMOCOCCAL POLYSACCHARID E PPV23 2016 33 complet ed [facility] INFLUENZA, UNSPECIFIED FORMULATION 2015 88 complet ed [facility] N TDAP 2015 115 complet ed Right Deltoid [facility] N ZOSTER LIVE 2015 121 complet ed [facility] TDAP 1 2015 115 complet ed HISTORICA L INFORMATI ON - FROM OTHER REGISTRY, [facility] N PNEUMOCOCCAL POLYSACCHARID E PPV23 1 2014 33 complet ed HISTORICA L INFORMATI ON - FROM OTHER REGISTRY, [facility] INFLUENZA, UNSPECIFIED FORMULATION 2014 88 complet ed [facility] PNEUMOCOCCAL CONJUGATE PCV 13 2014 133 complet ed VERBAL [facility] Results Combined list of recent chemistry, hematology and other laboratory results from Department of Defense and Veterans Affairs, ranging from 15 months to all on record, depending upon the facility. Order Name Results Value Reference Range Date Interpretation Specimen Comments Source B12 COBALAMIN (VITAMIN B12) [MASS/VOLUM E] IN [...] Jul 02, 2024 03:35 PM Reporting Lab: [facility] [phone] Performing Lab: [facility] [phone] [facility] CBC LEUKOCYTES [#/VOLUME] IN BLOOD BY AUTOMATED COUNT 9.4 10*3/u L 3.6 - 11.2 08/22 Specimen Type: BLOOD No comment entered. Ordering Provider: SHAN SHI Report Released Date/Time: Jul 02, 2024 03:35 PM Reporting Lab: [facility] [place] [address] Performing Lab: [facility] CBC ERYTHROCYTE S [#/VOLUME] IN BLOOD BY AUTOMATED COUNT 4.52 10*6/u L 4.10 - 5.70 08/22 Specimen Type: BLOOD No comment entered. Ordering Provider: SHAN SHI Report Released Date/Time: Jul 02, 2024 03:35 PM Reporting Lab: [facility] [place] [address] Performing Lab: [facility] CBC HEMOGLOBIN [MASS/VOLUM E] IN BLOOD 14.1 g/dL 13.1 - 16.8 08/22 Specimen Type: BLOOD No comment entered. Ordering Provider: SHAN SHI Report Released Date/Time: Jul 02, 2024 03:35 PM Reporting Lab: [facility] [place] [address] Performing Lab: [facility] CBC HEMATOCRIT [VOLUME FRACTION] OF BLOOD 42.5 38.2 - 48.4 08/22 Specimen Type: BLOOD No comment entered. Ordering Provider: SHAN SHI Report Released Date/Time: Jul 02, 2024 03:35 PM Reporting Lab: [facility] [place] [address] Performing Lab: [facility] CBC MCV [ENTITIC VOLUME] BY AUTOMATED COUNT 94.0 fL 80.0 - 100.0 08/22 Specimen Type: BLOOD No comment entered. Ordering Provider: SHAN SHI Report Released Date/Time: Jul 02, 2024 03:35 PM Reporting Lab: [facility] [place] [address] Performing Lab: [facility] DIVISION CBC MCH [ENTITIC MASS] BY AUTOMATED COUNT 31.2 pg 27.0 - 34.0 08/22 Specimen Type: BLOOD No comment entered. Ordering Provider: SHAN SHI Report Released Date/Time: Jul 02, 2024 03:35 PM Reporting Lab: [facility] [place] [address] Performing Lab: [facility] CBC MCHC [MASS/VOLUM E] BY AUTOMATED COUNT 33.2 g/dL 33.0 - 36.0 08/22 Specimen Type: BLOOD No comment entered. Ordering Provider: SHAN SHI Report Released Date/Time: Jul 02, 2024 03:35 PM Reporting Lab: [facility] [place] [address] Performing Lab: [facility] DIVISION CBC PLATELETS [#/VOLUME] IN BLOOD BY AUTOMATED COUNT 227 10*3/u L 150 - 400 08/22 Specimen Type: BLOOD No comment entered. Ordering Provider: SHAN SHI Report Released Date/Time: Jul 02, 2024 03:35 PM Reporting Lab: [facility] [place] [address] Performing Lab: [facility] CBC PLATELET MEAN VOLUME [ENTITIC VOLUME] IN BLOOD BY AUTOMATED COUNT 11.1 fL 7.5 - 11.2 08/22 Specimen Type: BLOOD No comment entered. Ordering Provider: SHAN SHI Report Released Date/Time: Jul 02, 2024 03:35 PM Reporting Lab: [facility]1 [place] [address] Performing Lab: [facility] DIVISION CBC ERYTHROCYTE DISTRIBUTIO N WIDTH [RATIO] BY AUTOMATED COUNT 14.9 11.8 - 15.1 08/22 Specimen Type: BLOOD No comment entered. Ordering Provider: SHAN SHI Report Released Date/Time: Jul 02, 2024 03:35 PM Reporting Lab: [facility] [place] [address] Performing Lab: [facility] CBC LYMPHOCYTES /100 LEUKOCYTES IN BLOOD BY AUTOMATED COUNT 14 08/22 Specimen Type: BLOOD No comment entered. Ordering Provider: SHAN SHI Report Released Date/Time: Jul 02, 2024 03:35 PM Reporting Lab: [facility] [place] [address] Performing Lab: [facility] DIVISION CBC MONOCYTES/1 00 LEUKOCYTES IN BLOOD BY AUTOMATED COUNT 8 08/22 Specimen Type: BLOOD No comment entered. Ordering Provider: SHAN SHI Report Released Date/Time: Jul 02, 2024 03:35 PM Reporting Lab: [facility] [place] [address] Performing Lab: [facility] DIVISION CBC NEUTROPHILS /100 LEUKOCYTES IN BLOOD BY AUTOMATED COUNT 75 08/22 Specimen Type: BLOOD No comment entered. Ordering Provider: SHAN SHI Report Released Date/Time: Jul 02, 2024 03:35 PM Reporting Lab: [facility]1 [place] [phone] Performing Lab: [facility]1 [facility] [phone] DIVISION CBC EOSINOPHILS /100 LEUKOCYTES IN BLOOD BY AUTOMATED COUNT 2 08/22 Specimen Type: BLOOD No comment entered. Ordering Provider: SHAN SHI Report Released Date/Time: Jul 02, 2024 03:35 PM Reporting Lab: [facility]1 [place] [address] Performing Lab: [facility] CBC BASOPHILS/1 00 LEUKOCYTES IN BLOOD BY AUTOMATED COUNT 1 08/22 Specimen Type: BLOOD No comment entered. Ordering Provider: SHAN SHI Report Released Date/Time: Jul 02, 2024 03:35 PM Reporting Lab: [facility]1 [place] [address] Performing Lab: [facility] DIVISION CBC LYMPHOCYTES [#/VOLUME] IN BLOOD BY AUTOMATED COUNT 1.34 10*3/u L 0.77 - 4.50 08/22 Specimen Type: BLOOD No comment entered. Ordering Provider: SHAN SHI Report Released Date/Time: Jul 02, 2024 03:35 PM Reporting Lab: [facility]1 [place] [address] Performing Lab: [facility] CBC MONOCYTES [#/VOLUME] IN BLOOD BY AUTOMATED COUNT 0.78 10*3/u L 0.19 - 0.80 08/22 Specimen Type: BLOOD No comment entered. Ordering Provider: SHAN SHI Report Released Date/Time: Jul 02, 2024 03:35 PM Reporting Lab: [facility] [place] [address] Performing Lab: [facility] DIVISION CBC NEUTROPHILS [#/VOLUME] IN BLOOD BY AUTOMATED COUNT 7.04 10*3/u L 2.10 - 8.00 08/22 Specimen Type: BLOOD No comment entered. Ordering Provider: SHAN SHI Report Released Date/Time: Jul 02, 2024 03:35 PM Reporting Lab: [facility] [place] [address] Performing Lab: [facility] CBC EOSINOPHILS [#/VOLUME] IN BLOOD BY AUTOMATED COUNT 0.14 10*3/u L 0.00 - 0.60 08/22 Specimen Type: BLOOD No comment entered. Ordering Provider: SHAN SHI Report Released Date/Time: Jul 02, 2024 03:35 PM Reporting Lab: [facility] [place] [address] Performing Lab: [facility] CBC BASOPHILS [#/VOLUME] IN BLOOD BY AUTOMATED COUNT 0.08 10*3/u L 0.00 - 0.20 08/22 Specimen Type: BLOOD No comment entered. Ordering Provider: SHAN SHI Report Released Date/Time: Jul 02, 2024 03:35 PM Reporting Lab: [facility]1 [place] [address] Performing Lab: [facility] DIVISION COMPREHEN SIVE METABOLIC PANEL CREATININE [MASS/VOLUM E] IN SERUM OR PLASMA 1.38 mg/dL 0.70 - 1.30 08/22 H Specimen Type: PLASMA Comment: No hemolysis noted. Ordering Provider: SHAN SHI Report Released Date/Time: Jul 02, 2024 03:35 PM Reporting Lab: [facility] [place] [address] Performing Lab: [facility] DIVISION COMPREHEN SIVE METABOLIC PANEL UREA NITROGEN [MASS/VOLUM E] IN SERUM OR PLASMA 30.2 mg/dL 9.0 - 25.0 08/22 H Specimen Type: PLASMA Comment: No hemolysis noted. Ordering Provider: SHAN SHI Report Released Date/Time: Jul 02, 2024 03:35 PM Reporting Lab: [facility] [place] [address] Performing Lab: [facility] DIVISION COMPREHEN SIVE METABOLIC PANEL GLUCOSE [MASS/VOLUM E] IN SERUM OR PLASMA 133 mg/dL 72 - 99 08/22 H Specimen Type: PLASMA Comment: No hemolysis noted. Ordering Provider: SHAN SHI Report Released Date/Time: Jul 02, 2024 03:35 PM Reporting Lab: [facility]1 [place] [address] Performing Lab: [facility] DIVISION COMPREHEN SIVE METABOLIC PANEL SODIUM [MOLES/VOLU ME] IN SERUM OR PLASMA 141 meq/L 136 - 145 08/22 Specimen Type: PLASMA Comment: No hemolysis noted. Ordering Provider: SHAN SHI Report Released Date/Time: Jul 02, 2024 03:35 PM Reporting Lab: [facility] [place] [address] Performing Lab: [facility] DIVISION COMPREHEN SIVE METABOLIC PANEL POTASSIUM [MOLES/VOLU ME] IN SERUM OR PLASMA 3.9 meq/L 3.5 - 5.0 08/22 Specimen Type: PLASMA Comment: No hemolysis noted. Ordering Provider: SHAN SHI Report Released Date/Time: Jul 02, 2024 03:35 PM Reporting Lab: [facility] [place] [address] Performing Lab: [facility] DIVISION COMPREHEN SIVE METABOLIC PANEL CHLORIDE [MOLES/VOLU ME] IN SERUM OR PLASMA 103 meq/L 98 - 107 08/22 Specimen Type: PLASMA Comment: No hemolysis noted. Ordering Provider: SHAN SHI Report Released Date/Time: Jul 02, 2024 03:35 PM Reporting Lab: [facility] [place] [address] Performing Lab: [facility] DIVISION COMPREHEN SIVE METABOLIC PANEL CARBON DIOXIDE, TOTAL [MOLES/VOLU ME] IN SERUM OR PLASMA 29 meq/L 22 - 31 08/22 Specimen Type: PLASMA Comment: No hemolysis noted. Ordering Provider: SHAN SHI Report Released Date/Time: Jul 02, 2024 03:35 PM Reporting Lab: [facility] [place] [address] Performing Lab: [facility] DIVISION COMPREHEN SIVE METABOLIC PANEL CALCIUM [MASS/VOLUM E] IN SERUM OR PLASMA 9.2 mg/dL 8.4 - 10.4 08/22 Specimen Type: PLASMA Comment: No hemolysis noted. Ordering Provider: SHAN SHI Report Released Date/Time: Jul 02, 2024 03:35 PM Reporting Lab: [facility] [place] [address] Performing Lab: [facility] [place] [address] COMPREHEN SIVE METABOLIC PANEL PROTEIN [MASS/VOLUM E] IN SERUM OR PLASMA 7.2 g/dL 6.0 - 8.6 08/22 Specimen Type: PLASMA Comment: No hemolysis noted. Ordering Provider: SHAN SHI Report Released Date/Time: Jul 02, 2024 03:35 PM Reporting Lab: [facility] [place] [address] Performing Lab: [facility] COMPREHEN SIVE METABOLIC PANEL ALBUMIN [MASS/VOLUM E] IN SERUM OR PLASMA 4.1 g/dL 3.4 - 5.0 08/22 Specimen Type: PLASMA Comment: No hemolysis noted. Ordering Provider: SHAN SHI Report Released Date/Time: Jul 02, 2024 03:35 PM Reporting Lab: [facility] [place] [address] Performing Lab: [facility] COMPREHEN SIVE METABOLIC PANEL BILIRUBIN.T OTAL [MASS/VOLUM E] IN SERUM OR PLASMA 0.5 mg/dL 0.2 - 1.2 08/22 Specimen Type: PLASMA Comment: No hemolysis noted. Ordering Provider: SHAN SHI Report Released Date/Time: Jul 02, 2024 03:35 PM Reporting Lab: [facility] [place] [address] Performing Lab: [facility] COMPREHEN SIVE METABOLIC PANEL ALKALINE PHOSPHATASE [ENZYMATIC ACTIVITY/VO LUME] IN SERUM OR PLASMA 89 U/L 40 - 150 08/22 Specimen Type: PLASMA Comment: No hemolysis noted. Ordering Provider: SHAN SHI Report Released Date/Time: Jul 02, 2024 03:35 PM Reporting Lab: [facility] [place] [phone] Performing Lab: [facility] DIVISION COMPREHEN SIVE METABOLIC PANEL ASPARTATE AMINOTRANSF ERASE [ENZYMATIC ACTIVITY/VO LUME] IN SERUM OR PLASMA 29 U/L 5 - 34 08/22 Specimen Type: PLASMA Comment: No hemolysis noted. Ordering Provider: SHAN SHI Report Released Date/Time: Jul 02, 2024 03:35 PM Reporting Lab: [facility] [place] [address] Performing Lab: [facility] DIVISION COMPREHEN SIVE METABOLIC PANEL ALANINE AMINOTRANSF ERASE [ENZYMATIC ACTIVITY/VO LUME] IN SERUM OR PLASMA 21 U/L 8 - 40 08/22 Specimen Type: PLASMA Comment: No hemolysis noted. Ordering Provider: SHAN SHI Report Released Date/Time: Jul 02, 2024 03:35 PM Reporting Lab: [facility] [place] [address] Performing Lab: [facility] DIVISION COMPREHEN SIVE METABOLIC PANEL GLOMERULAR FILTRATION RATE/1.73 SQ M.PREDICTED [VOLUME RATE/AREA] IN SERUM, PLASMA OR BLOOD BY CREATININE- BASED FORMULA (CKD-EPI 2020) 53.33 60 08/22 Specimen Type: PLASMA Comment: No hemolysis noted. Ordering Provider: SHAN SHI Report Released Date/Time: Jul 02, 2024 03:35 PM Reporting Lab: [facility] [place] [address] Performing Lab: [facility] DIVISION HGA1C HEMOGLOBIN A1C/HEMOGLO BIN.TOTAL IN BLOOD 5.8 4.0 - 6.0 08/22 Specimen Type: BLOOD No comment entered. Ordering Provider: SHAN SHI Report Released Date/Time: Jul 02, 2024 03:35 PM Reporting Lab: [facility] [place] [address] Performing Lab: [facility] LIPID PANEL (STL) CHOLESTEROL [MASS/VOLUM E] IN SERUM OR PLASMA 113 mg/dL 0 - 200 08/22 Specimen Type: PLASMA Comment: No hemolysis noted. Ordering Provider: SHAN SHI Report Released Date/Time: Jul 02, 2024 03:35 PM Reporting Lab: [facility] [place] [address] Performing Lab: [facility] LIPID PANEL (STL) TRIGLYCERID E [MASS/VOLUM E] IN SERUM OR PLASMA 72 mg/dL 0 - 150 08/22 Specimen Type: PLASMA Comment: No hemolysis noted. Ordering Provider: SHAN SHI Report Released Date/Time: Jul 02, 2024 03:35 PM Reporting Lab: [facility] [place] [address] Performing Lab: [facility] LIPID PANEL (STL) CHOLESTEROL IN LDL [MASS/VOLUM E] IN SERUM OR PLASMA BY CALCULATION 48 mg/dL 08/22 Specimen Type: PLASMA Comment: No hemolysis noted. Ordering Provider: SHAN SHI Report Released Date/Time: Jul 02, 2024 03:35 PM Reporting Lab: [facility] [place] [address] Performing Lab: [facility] DIVISION LIPID PANEL (STL) CHOLESTEROL IN HDL [MASS/VOLUM E] IN SERUM OR PLASMA 51 mg/dL 40 08/22 Specimen Type: PLASMA Comment: No hemolysis noted. Ordering Provider: SHAN SHI Report Released Date/Time: Jul 02, 2024 03:35 PM Reporting Lab: [facility] [place] [address] Performing Lab: [facility] MAGNESIUM MAGNESIUM [MASS/VOLUM E] IN SERUM OR PLASMA 2.1 mg/dL 1.6 - 2.6 08/22 Specimen Type: PLASMA Comment: No hemolysis noted. Ordering Provider: SHAN SHI Report Released Date/Time: Jul 02, 2024 03:35 PM Reporting Lab: [facility] [place] [address] Performing Lab: [facility] PROST. SPECIFIC AG.(PB-ST L) PROSTATE SPECIFIC AG [...] Jul 02, 2024 03:35 PM Reporting Lab: [facility] [place] [address] Performing Lab: [facility] TSH (MA-PB) THYROTROPIN [UNITS/VOLU ME] IN SERUM [...] Jul 02, 2024 03:35 PM Reporting Lab: [facility] [address] Performing Lab: [facility] URIC ACID URATE [MASS/VOLUM E] IN SERUM OR PLASMA 6.7 mg/dL 3.5 - 7.2 08/22 Specimen Type: PLASMA Comment: No hemolysis noted. Ordering Provider: SHAN SHI Report Released Date/Time: Jul 02, 2024 03:35 PM Reporting Lab: [facility] [address] Performing Lab: [facility] VITAMIN D, 25-HYDROX Y 25-HYDROXYV ITAMIN [...] Jul 02, 2024 03:35 PM Reporting Lab: [facility] [address] Performing Lab: [facility] Vital Signs Combined list of inpatient and outpatient Vital Signs from Department of Defense and Veterans Affairs, ranging from 12 months to all on record, depending upon the facility. Vital Sign Value Date Comments Source SYSTOLIC BLOOD PRESSURE 181 08/22/2024 09:09:07 [facility] DIASTOLIC BLOOD PRESSURE 85 08/22/2024 09:09:07 [facility] PULSE OXIMETRY 98 08/22/2024 09:09:07 [facility] WEIGHT 201.1 08/22/2024 09:09:07 [facility] BMI 28 kg/m2 08/22/2024 09:09:07 [facility] PAIN 0 08/22/2024 09:09:07 [facility] HEIGHT 71 08/22/2024 09:09:07 [facility] TEMPERATURE 98 08/22/2024 09:09:07 [facility] PULSE 45 08/22/2024 09:09:07 [facility] RESPIRATION 18 08/22/2024 09:09:07 [facility] Encounters Combined list of: 1) Encounters from Department of [facility] Affairs facilities going backup to the last 18 months, not all CT inpatient encounters are included; 2) Encounters from the Department of [facility] facilities going backup to 280 months. Location Location Details Encounter Type Encounter Number Reason For Visit Attending Provider ADM Date DC Date Status Disposition Source [facility] OFFICE O/P EST MOD 30-39 MIN [id number] Diagnos is: ICD-10- CM G44.85 Primary stabbin JOSE Jo 04/17 [facility] Outpatient Encounter [id number] 06/12 [facility] N [facility] Outpatient Encounter [id number] ALAN ORTEZ 08/02 [facility] Outpatient Encounter [id number] 08/04 [facility] OFF[facility] O/P EST MOD 30 MIN [id number] Diagnos is: ICD-10- CM F32.A Depress ion, unspeci fied SAM SHI RRY E 08/04 [facility] Outpatient Encounter [id number] 08/07 [facility] Outpatient Encounter [id number] Tori BRUNER A 08/13 [facility] Outpatient Encounter [id number] Tori BRUNER A 08/13 [facility] Outpatient Encounter [id number] 08/15 [facility] Outpatient Encounter [id number] DELLA DENISE 08/16 [facility] Outpatient Encounter [id number] CANDACE FIGUEROA 08/21 [facility] OFFICE O/P EST MOD 30 MIN [id number] Diagnos is: ICD-10- CM 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 Outpatient Encounter [id number] ALAN ORTEZ D 09/05 [facility] Outpatient Encounter [id number] ELPIDIO FORREST Indira 09/07 [facility]P EST LOW 20 MIN [id number] Diagnos is: ICD-10- CM F32.A Depress ion, unspeci iván SHI,SAM RRY E 09/07 [facility] Outpatient Encounter [id number] CANDACE FIGUEROA 09/07 [facility] Outpatient Encounter [id number] 09/10 [facility] Outpatient Encounter [id number] ADRIANEELPIDIO MUNIZ Indira 09/[address] [facility] Outpatient Encounter [id number] CANDACE FIGUEROA 09/19 [facility] Outpatient Encounter [id number] CANDACE FIGUEROA 09/[address] [facility] Outpatient Encounter [id number] ELPIDIO FORREST Indira 10/[address] [facility] Outpatient Encounter [id number] ELPIDIO FORREST Indira 10/08 [facility] O/P EST MOD 30 MIN [id number] Diagnos is: ICD-10- CM G44.85 Primary stabbin g JOSE Higgins 10/25 [facility] PSYTX W PT 30 MINUTES [id number] Diagnos is: ICD-10- CM G47.09 Other insomni a LINDQUIST,GRA NT 10/29 [facility] PSYTX W PT 30 MINUTES [id number] Diagnos is: ICD-10- CM G47.09 Other insomni a LINDQUIST,GRA NT 11/06 [facility] PSYTX W PT 30 MINUTES [id number] Diagnos is: ICD-10- CM G47.09 Other insomni a LINDQUIST,GRA NT 11/14 [facility] Outpatient Encounter [id number] [facility]OA [facility] Encounter [id number] CANDACE FIGUEROA 11/26 [facility] PSYTX W PT 30 MINUTES [id number] Diagnos is: ICD-10- CM G47.09 Other insomni a LINDQUIST,GRA NT 11/27 [facility] Outpatient Encounter [id number] DAVID JACKSON 12/17 [facility] Outpatient Encounter [id number] ALAN ORTEZ 12[facility]17 [facility] O/P EST MOD 30 MIN [id number] Diagnos is: ICD-10- CM M54.2 Cervica SAM Orozco E 12/18 [facility] Outpatient Encounter [id number] JIGAR MCCURDY 02/01 [facility] Outpatient Encounter [id number] 02/01 [facility] Outpatient Encounter [id number] 02/10 [facility] N [facility] Outpatient Encounter [id number] ELPIDIO FORREST 04[facility]16 [facility] Outpatient Encounter [id number] ELPIDIO FORREST 04/29 [facility] Outpatient Encounter [id number] Tay GUIDRY 05/08 [facility] Outpatient [facility]counter [id number] CANDACE FIGUEROA 05/23 [facility] Outpatient Encounter [id number] Lisandra RAMOS 06/06 [facility] Outpatient Encounter [id number] 06/[address] [facility] [address] [facility] Outpatient Encounter [id number] 06/12 [facility] N [facility] Outpatient Encounter [id number] SHANA COATES 06/17 [facility] Outpatient Encounter [id number] CANDACE FIGUEROA 07/02 [facility] Out[facility] Encounter [id number] JIGAR MCCURDY 07/04 [facility] N [facility] Outpatient Encounter [id number] JIGAR MCCURDY 07/04 [facility] N [facility] Outpatient Encounter [id number] ALAN ORTEZ 08/15 [facility] OFF[facility] O/P EST HI 40 MIN [id number] Diagnos is: ICD-10- CM R00.1 Bradyca rdia, unspeci fied SAM SHI RRY E 08/22 [facility] N [facility] Outpatient Encounter [id number] SAM SHI RRY E 08/22 [facility] N Social History Combined list of available smoking, tobacco, and other social history from Department of Defense and Veterans Affairs facilities. Social History Type Response Date Comment Sourc e Tobacco smoking status NHIS VA-TOBACCO NEVER USED OTHER TYPE 08/22/2024 [facility] History of tobacco use VA-TOBACCO USE FORMER CIGARETTES 08/22/2024 [facility] History of tobacco use VA-TOBACCO FORMER USER 08/04/2023 [facility] History of tobacco use VA-TOBACCO FORMER USER 02/01/2022 [facility] History of tobacco use VA-TOBACCO FORMER USER 01/29/2021 [facility] History of tobacco use VA-TOBACCO QUIT 15 YRS OR MORE 10/29/2019 [facility] History of tobacco use VA-TOBACCO QUIT 15 YRS OR MORE 03/12/2018 [facility] History of tobacco use QUIT TOBACCO >7 YEARS AGO 02/02/2018 [facility] History of tobacco use TOBACCO REFUSED SCREEN V15 08/03/2017 [facility] History of tobacco use QUIT TOBACCO >7 YEARS AGO 01/27/2017 [facility] History of tobacco use QUIT TOBACCO >7 YEARS AGO 01/21/2016 [facility] This section is an empty social history section. DoD Plan of Care List of future care activities from Department of Veterans Affairs facilities. Additional future care activities may be listed in the Assessment and Plan section. Date/Time Care Activity Care Activity Detail Facili ty 02/21/2025 AMBULATORY - REHAB MEDICINE AMBULATORY - REHAB MEDICINE [facility]
--- OUTSIDE RECORDS SUMMARY | 2024-10-15 14:37 | XMS_ITS | Encounter Summary ---
Author Organization [facility] Address [address] [place] [address] Phone Care Team Providers Care Cytopathology Technologist Name Role Phone Zachary Harris MD Primary Care Provider [phone] Jennifer Adame RN Unavailable Un available Teodoro Aviles MD Unavailable [phone] Luis M Chinchilla MD PhD Unavailable [phone] Alejandro Aly MD Unavailable Long Montemayor MD Unavailable [phone] Rachel Tran MD Unavailable [phone] Tisha Garza PT Unavailable Unavailable Encounter Details Date Type Department Care Team (Late st Contact Info) Description 10/07/2024 Results Follow-Up [facility] Dermatology [address] [place] [address] [address] [place] [id number] Maria, Susy Jackson MD [address] [place] [address] [address] [place] [address] Social History Tobacco Use Types Packs/Day Years [...] on file Legal Sex Male 3:44 AM PERSONNEL OFFICER Gender Identity Male 07/04/2020 6:23 AM PERSONNEL OFFICER Sexual Orientation Straight 11/12/2018 6: 56 AM CDT 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 Job End Date [employer] Not on file Not on file Not on file [employer]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 Author <enter goal here> General Yes Jennifer Adame, BEVERLY Note: Bending Walking Stooping documented as of this encounter Visit Diagnoses Not on filedocumented in this encounter Care Teams Cytopathology Technologist Relationship Specialty Start Date End Date Zachary Harris MD [address] [place] [address] PCP - General 03/23/17 Jennifer Adame, RN Registered Nurse 09/07/17 Teodoro Aviles MD Forestry Foreman Gastroenterology 07/02/19 Luis M Chinchilla MD PhD Referring Physician Cardiology 07/26/19 Alejandro Aly MD Referring Physician General Surgery 10/16/19 Long Montemayor MD Medical Oncologist/Consolidator Medical Oncology 10/16/19 Rachel Tran MD [facility] [address] [place] [address] Consulting Physician Medical Oncology 11/02/23 Tisha Garza, PT Physical Therapist Physical Therapy 12/22/23 documented as of this encounter
--- OUTSIDE RECORDS SUMMARY | 2024-10-15 14:38 | XMS_ITS | Encounter Summary ---
Author Name [facility] [place] Organization [facility] [place] Address [address] [place] [address] Care Team Providers Care Staff Research Scientist Name Role Phone BRIGITTE SHI Primary Care [...] Alva's Name Patient's Relationship to Policy Alva [facility] ([facility] MEDIC[facility] ADVANT[facility] MCR ([facility]) Jun 12, 2022 [phone] [id number] REGAN,IVÁN ID PATIENT [facility] ([facility]) MEDICARE ADVANTAGE MCR ([facility]) Jun 12, 2022 [id number] [phone] [id number] REGAN,IVÁN ID PATIENT Selected Encounter This section includes the information on record at [place] for the Encounter. 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 BRIGITTE SHI [facility] Aug 22, 2024 10:34 AM SECONDARY Depression, unspecified BRIGITTE SIH [facility] Aug 22, 2024 10:34 AM SECONDARY Emphysema, unspecified BRIGITTE SHI [facility] Aug 22, 2024 10:34 AM SECONDARY Essential (primary) hypertension BRIGITTE SHI [facility] Aug 22, 2024 10:34 AM SECONDARY Gastro-esophageal reflux disease without esophagitis BRIGITTE SHI [facility] Aug 22, 2024 10:34 AM SECONDARY Hypothyroidism, unspecified BRIGITTE SHI [facility] Aug 22, 2024 10:34 AM SECONDARY Idiopathic gout, multiple sites BRIGITTE SHI [facility] Aug 22, 2024 10:34 AM SECONDARY Low back pain, unspecified BRIGITTE SHI [facility] Aug 22, 2024 10:34 AM SECONDARY Male erectile dysfunction, unspecified BRIGITTE SHI [facility] Aug 22, 2024 10:34 AM SECONDARY Mild persistent asthma, uncomplicated BRIGITTE SHI [facility] Aug 22, 2024 10:34 AM SECONDARY Other chronic pain BRIGITTE SHI [facility] Aug 22, 2024 10:34 AM SECONDARY Other insomnia BRIGITTE SHI [facility] Aug 22, 2024 10:34 AM SECONDARY Personal history of malignant carcinoid tumor of kidney BRIGITTE SHI [facility] Aug 22, 2024 10:34 AM SECONDARY Primary stabbing headache YURIDIABRIGITTE Novak [facility] Aug 22, 2024 10:34 AM SECONDARY Type 2 diabetes mellitus with diabetic neuropathy, unsp BRIGITTE SHI [facility] Aug 22, 2024 10:34 AM SECONDARY Unspecified hearing loss, bilateral BRIGITTE SHI [facility] Aug 22, 2024 10:34 AM SECONDARY Vitamin D deficiency, unspecified BRIGITTE SHI Kishore [facility] Plan of Treatment: Future Appointments (+ 6 months) and Future Tests (+/- 45 days) The Plan of Treatment section includes future care activities for the patient from all [place] [facility]. This section includes future appointments and future orders which are active, pending or scheduled. Future Appointments This section includes appointments that were scheduled to occur 6 months from the date of the Encounter, up to a maximum of 20 appointments. The data comes from all [facility] facilities. Appointment Date/Time Appointment Type Appointme nt Facility Name Feb 21, 2025 02:00 PM AMBULATORY - REHAB MEDICIN E [facility] Lab Results: +/- 30 days of the encounter This section includes the Chemistry and Hematology Lab Results on record with [place] for the patient. Radiology Reports and Pathology Reports are provided separately, in subsequent sections. Lab Results This section contains the Chemistry/Hematology Results that were resulted 30 days before or 30 daysafter the date of the Encounter. Date/Time Source Result Type Result - Unit Interpretation Reference Range Specimen Type Comment Aug 22, 2024 10:22 AM [facility] HGA1C BLOOD Specimen Type: BLOOD No comment entered. Ordering Provider: BRIGITTE SHI Report Released Date/Time: Jul 02, 2024 03:35 PM Reporting Lab: [facility] [address] Performing Lab: [facility] [address] HGA1C 5.8 4.0-6.0 Aug 22, 2024 10:22 AM [facility] TSH (MA-PB) SERUM Specimen Type: SERUM Comment: The listed sex of this patient may not be a typical indication for this test. Therefore, reference ranges or interpretive criteria listed may not be valid. Clinical correlation suggested. Ordering Provider: BRIGITTE SHI Report Released Date/Time: Jul 02, 2024 03:35 PM Reporting Lab: [facility] [place] [address] Performing Lab: [facility] [place] [address] TSH 1.849 u[IU]/mL 0.470-5.000 Aug 22, 2024 10:22 AM [facility] PROST. SPECIFIC AG.(PB-STL) SERUM Specimen Ty pe: SERUM Comment: The listed sex of this patient may not be a typical indication for this test. Therefore, reference ranges or interpretive criteria listed may not be valid. Clinical correlation suggested. Ordering Provider: BRIGITTE SHI Report Released Date/Time: Jul 02, 2024 03:35 PM Reporting Lab: [facility] [place] [address] Performing Lab: [facility] [place] [address] PROST. SPECIFIC AG.(PB-STL) 1.807 ng/mL 0.000-4.000 Aug 22, 2024 10:22 AM [facility] LIPID PANEL (STL) PLASMA Specimen Type: PLASM A Comment: No hemolysis noted. Ordering Provider: BRIGITTE SHI Report Released Date/Time: Jul 02, 2024 03:35 PM Reporting Lab: [facility] [place] [address] Performing Lab: [facility] [place] [address] CHOLESTEROL 113 mg/dL 0-200 TRIGLYCERIDE 72 mg/dL 0-150 CALCULATED LDL 48 mg/dL See Interp HDL(New) 51 mg/dL > 40 Aug 22, 2024 10:22 AM [facility] MAGNESIUM PLASMA Specimen Type: PLASM A Comment: No hemolysis noted. Ordering Provider: BRIGITTE SHI Report Released Date/Time: Jul 02, 2024 03:35 PM Reporting Lab: [facility] [place] [address] Performing Lab: [facility] [place] [address] MAGNESIUM 2.1 mg/dL 1.6-2.6 Aug 22, 2024 10:22 AM [facility] URIC ACID PLASMA Specimen Type: PLASM A Comment: No hemolysis noted. Ordering Provider: BRIGITTE SHI Report Released Date/Time: Jul 02, 2024 03:35 PM Reporting Lab: [facility] [place] [address] Performing Lab: [facility] [place] [address] URIC ACID 6.7 mg/dL 3.5-7.2 Aug 22, 2024 10:22 AM [facility] B12 SERUM Specimen Type: SERUM Comment: The listed sex of this patient may not be a typical indication for this test. Therefore, reference ranges or interpretive criteria listed may not be valid. Clinical correlation suggested. Ordering Provider: BRIGITTE SHI Report Released Date/Time: Jul 02, 2024 03:35 PM Reporting Lab: [facility] [place] [address] Performing Lab: [facility] [place] [address] B12 447 pg/mL 213-816 Aug 22, 2024 10:22 AM [facility] VITAMIN D, 25-HYDROXY SERUM Specimen Type: SE RUM Comment: The listed sex of this patient may not be a typical indication for this test. Therefore, reference ranges or interpretive criteria listed may not be valid. Clinical correlation suggested. Ordering Provider: BRIGITTE SHI Report Released Date/Time: Jul 02, 2024 03:35 PM Reporting Lab: [facility] [place] [address] Performing Lab: [facility] [address] VITAMIN D, 25-HYDROXY 37.3 ng/mL 30-96 Aug 22, 2024 10:22 AM [facility] COMPREHENSIVE METABOLIC PANEL PLASMA Specimen Type: PLASMA Comment: No hemolysis noted. Ordering Provider: BRIGITTE SHI Report Released Date/Time: Jul 02, 2024 03:35 PM Reporting Lab: [facility] [address] Performing Lab: [facility] [address] CREATININE 1.38 mg/dL H 0.70-1.30 UREA NITROGEN [...] 53.33 >60 Aug 22, 2024 10:22 AM [facility] CBC BLOOD Specimen Type: BLOOD No comment entered. Ordering Provider: BRIGITTE SHI Report Released Date/Time: Jul 02, 2024 03:35 PM Reporting Lab: [facility] [address] Performing Lab: [facility] [address] WBC 9.4 10*3/uL 3.6-11.2 RBC 4.52 10*6/uL 4.10-5.70 HGB 14.1 g/dL 13.1-16.8 HCT 42.5 38.2-48.4 MCV 94.0 fL 80.0-100.0 MCH 31.2 pg 27.0-34.0 MCHC 33.2 g/dL 33.0-36.0 PLT 227 10*3/uL 150-400 MPV 11.1 fL 7.5-11.2 RDW 14.9 11.8-15.1 LYMPHOCYTES, AUTO % 14 MONOCYTES, AUTO % 8 NEUTROPHILS, AUTO % 75 EOSINOPHILS, AUTO % 2 BASOPHILS, AUTO % 1 LYMPHOCYTES, ABSOLUTE 1.34 10*3/uL 0.77- 4.50 MONOCYTES, ABSOLUTE 0.78 10*3/uL 0.19-0. 80 NEUTROPHILS, ABSOLUTE 7.04 10*3/uL 2.10- 8.00 EOSINOPHILS, ABSOLUTE 0.14 10*3/uL 0.00- 0.60 BASOPHILS, ABSOLUTE 0.08 10*3/uL 0.00-0. 20 Aug 22, 2024 10:22 AM [facility] MICRAL/CREAT PROFILE (STL) URINE Specimen Typ e: URINE Comment: Unable to calculate due to Microalbumin <5 mg/L Ordering Provider: BRIGITTE SHI Report Released Date/Time: Jul 02, 2024 03:35 PM Reporting Lab: [facility] [address] Performing Lab: [facility] [address] URINE ALBUMIN (PB-STL) <5 mg/L No range refer to micral/creat ratio uACR (STL) comment mg/g 0-29 CREATININE URINE/OTHERS 23.1 mg/dL L 63.0- 166.0 Vital Signs: All taken on the encounter date This section contains inpatient and outpatient Vital Signs collected on the date of the Encounter. Date/Time Temperature Pulse Blood Pressure Respiratory Rate SP02 Pain Height Weight Body Mass Index Source Aug 22, 2024 09:47 AM 160/72 [facility] Aug 22, 2024 09:09 AM 182/75 [facility] Aug 22, 2024 09:09 AM 98 45 181/85 18 98 0 71 201.1 28 [facility] Social History: Smoking Status (Most current) and Tobacco Use (All prior to encounter date) This section includes the most current, and the historical, smoking and tobacco- related health factors from the [place] facility where the Encounter took place. Current Smoking Status This section includes the most current smoking, or tobacco-related health factor, from the [place] facility where the Encounter took place. Date/Time Current Smoking Status Comment Atul styles Aug 22, 2024 09:00 AM VA-TOBACCO NEVER U SED OTHER TYPE [facility] Tobacco Use History This section includes a history of the smoking, or tobacco-related health factors, that were collected on or before the date of the Encounter. The data comes from the [place] facility where the Encounter took place. Date/Time Smoking Status/Tobacco Use Comment Gayle nelson Aug 22, 2024 09:00 AM VA-TOBACCO USE FOR ELIZABETH CIGARETTES [facility] Aug 04, 2023 09:00 AM VA-TOBACCO FORMER USER [facility] Aug 04, 2023 09:00 AM VA-TOBACCO QUIT 15 YRS OR MORE [facility] Feb 01, 2022 09:00 AM VA-TOBACCO FORMER USER [facility] Feb 01, 2022 09:00 AM VA-TOBACCO QUIT 15 YRS OR MORE [facility] Jan 29, 2021 09:00 AM VA-TOBACCO FORMER USER [facility] Jan 29, 2021 09:00 AM VA-TOBACCO QUIT 15 YRS OR MORE [facility] October 29, 2019 03:20 PM VA-TOBACCO FORMER USER [facility] October 29, 2019 03:20 PM VA-TOBACCO QUIT 15 YRS OR MORE [facility] Mar 12, 2018 01:47 PM VA-TOBACCO FORMER USER [facility] Mar 12, 2018 01:47 PM VA-TOBACCO QUIT 15 YRS OR MORE [facility] Feb 02, 2018 11:02 AM QUIT TOBACCO >7 YEARS AGO [facility] Aug 03, 2017 09:58 AM TOBACCO REFUSED SCREEN V15 [facility] Jan 27, 2017 09:01 AM QUIT TOBACCO >7 YEARS AGO [facility] Jan 21, 2016 09:13 AM QUIT TOBACCO >7 YEARS AGO [facility] Encounter Notes: All associated encounter notes This section contains the clinical notes associated to the Encounter. Date/Time Encounter Note(s) Provider Source Aug 23, 2024 09:21 AM LETTERS: LOCAL TITLE: TEST RESULT GERIATRIC LETTER STL STANDARD TITLE: LETTERS DATE OF NOTE: AUG 23, 2024@09:21 ENTRY DATE: AUG 23, 2024@09:21:50 AUTHOR: BRIGITTE SHI COSIGNER: URGENCY: STATUS: COMPLETED [facility] [address] [place] [address] AUG 23, 2024 KADEN AVERY [address] [place], [place] [address] Dear Mr. Kaden Avery, I would like to update you on [...] you have any questions please call your binder caser. I look forward to seeing you at your next clinic appointment. Thank you for choosing the [facility] for your healthcare. -------- FUTURE APPOINTMENTS: 02/21/2025 14:00 [facility] PACT KATY NP4 Sincerely, BRIGITTE SHI [facility] NURSE PRACTITIONER, [facility] KADEN AVERY BARRY E [facility] Aug 22, 2024 09:11 AM GERIATRIC MEDICINE NOTE: LOCAL TITLE: GERIATRIC PACT CLINIC [facility] STANDARD TITLE: GERIATRIC MEDICINE NOTE DATE OF NOTE: AUG 22, 2024@09:11 ENTRY DATE: AUG 22, 2024@09:11:56 AUTHOR: BRIGITTE SHI EXP COSIGNER: URGENCY: STATUS: COMPLETED Type of Evaluation: Geriatric Follow-up : Apr CC: chronic pain, htn HPI:KADEN AVERY is a 74 yo well-groomed, functionally independent, cognitively intact MALE presenting to the [facility] for his medical evaluation and medication review/renewal:HTN, Type 2 DM, Primary stabbing headache, asthma/ emphysema/pulm nodules/allergies, GERD, ED, Gout, Maddox syndrome, Anemia & Bilateral hearing loss. He continues to follow routinely with his community pcp, system software programmer, GI/oncologist, jowl trimmer, fourdrinier wire weaver, student counselor & carton stapler. 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 -h/o precancerous lesion on pancreas -h/o kidney cancer w/ partial left nephrectomy 2015 -h/o thyroid cancer s/p throidectomy 2017 -cont synthroid 13.Anemia -managed by osh hematology [...] agrees to contact this provider or [facility] binder caser with any problems prior to next visit. [...] - Type 2 diabetes mellitus without complication ([facility] [id number]) * GLAUCOMA: Glaucoma Risk Factors Information: Encounter Diagnosis: 09/06/2023@08:30 H40.1212 (ICD-10-CM) Low-Tension Glaucoma, right Eye, Moderate Stage rank: PRIMARY Prov. Narr. - Low-Tension Glaucoma, right Eye, Moderate Stage Action: No Referral Ordered: Eye exam completed elsewhere by an Gaming Worker or Quality Assurance Monitor Diabetic retinal exam result: Results Unknown (recommended that patient proceed with eye care request or obtain outside retinal exam result within 90 days) Date: June, ? Exact date is unknown Location: [facility] Foot Check - L,N,P,PH,PO,PT,U: Patient indicates foot exam (including monofilament test for sensation) was performed in the past year in the private sector: Date: September, ? Exact date is unknown Result: Abnormal: neuropathy HTN Assess for Elevated BP>=140/90 - N,P,PH: Repeat blood pressure: 160/72 The patient's medication regimen was adjusted to improve blood pressure control. Comment: rec rei dhaliwalolic, inc amlodipine, pt wishes to discuss w/ [...] Comment: TUG 8 seconds /es/ BRIGITTE SHI [facility] NURSE PRACTITIONER, [facility] Signed: 08/22/2024 10:38 BRIGITTE SHI [facility] Aug 22, 2024 09:11 AM NURSING NOTE: LOCAL TITLE: [facility] PACT FACE TO FACE NOTE ST STANDARD [...] concerns. Review that after hours nurse line [phone] and emergency room are available 02/01 for patient use. Contact verbalized good understanding. Suicide Screen - V: C-SSRS Screening [place] Suicide Severity Rating Scale (C-SSRS) screener 1. [...] Not worried about housing near future The reports the following: Within the past 12 [...] Administered: 2023 Exact date unknown Outside Location: [facility] Information Source: FROM PATIENT'S RECALL Tobacco Use Screening - AT,DE,L,M,N,P,PH,PS,RT,S,U: The patient is a former cigarette smoker. Quit smoking GREATER THAN OR EQUAL to 15 years. The patient has never used other types of tobacco. Frail/Elderly Screen: ADL Screen - Newman Index of [place] in Activities of Daily Living Bathing: (3 [...] Low (patient very dependent) IADL Screen - [place] Instrumental Activities of Daily Living Scale Ability [...] learning ABILITIES, BARRIERS to learning, CULTURAL and MANDAEN beliefs, and learning PREFERENCES were assessed. Following are findings of note: Patient reads well. Patient has the following hearing/auditory barrier(s) to consider when teaching: Hard of hearing. Patient has the following speech barrier to consider when teaching: No speech barrier identified. LANGUAGE Patient reports that Kuwaiti is preferred language for healthcare. Patient has [...]
--- OUTSIDE RECORDS SUMMARY | 2024-10-15 14:38 | XMS_ITS | Encounter Summary ---
Author Organization [facility] Address [address] [place] [address] Phone Care Team Providers Care Clerk Of Works Name Role Phone Zachary Harris MD Primary Care Provider [phone] Zachary Harris MD Primary Care Provider [phone] Zachary Harris MD Primary Care Provider [phone] Zachary Harris MD Primary Care Provider [phone] Zachary Harris MD Primary Care Provider [phone] Jose Davis MD Primary Care Provider + Zachary Harris MD Primary Care Provider [phone] Jose Davis MD Primary Care Provider + Jose Davis MD Primary Care Provider + Zachary Harris MD Primary Care Provider [phone] Jose Davis MD Primary Care Provider + Zachary Harris MD Primary Care Provider [phone] Jennifer Adame RN Unavailable Un available Teodoro Aviles MD Unavailable [phone] Luis M Chinchilla MD PhD Unavailable [phone] Alejandro Aly MD Unavailable Long Montemayor MD Unavailable [phone] Kristin Marquez MD Unavailable Rachel Tran MD Unavailable Tisha Garza PT Unavailable Unavailable Encounter Details Date Type Department Care Team (Latest Contact Info) Description 02/17/2016 Orders Only [facility] Scanning, Provider Social History Tobacco Use Types Packs/Day Years Used Date Smoking Tobacco: Never Assessed Sex and Gender Information Value Date Recorded Sex Assigned at Not on file Legal Sex Male 3:44 AM TOOL COORDINATOR Gender Identity Male 07/04/2020 6:23 AM TOOL COORDINATOR Sexual Orientation Straight 11/12/2018 6: 56 AM CDT documented as of this encounter Plan of Treatment Scheduled Procedures Name Priority Associated Diagnoses Date/Ti me COLONOSCOPY Open Access Adenocarcinoma of small bowel (HCC) documented as of this encounter Procedures Procedure Name Priority Date/Time Associated Diagnosis Comments CARDIOLOGY DOCUMENT SCAN 02/17/2016 documented in this encounter Results * SCAN - CARDIOLOGY (02/17/2016) Anatomical Region Laterality Modality Other Provider Scanning CV CARDIAC SERVICES PROCEDURES Edited Result - Final documented in this encounter Visit Diagnoses Not on filedocumented in this encounter Additional Health Concerns Infection Onset Date Last Indicated Resolved Time COVID: Suspected 09/20/2019 09/20/2019 09/22/2019 12:10 PM CDT Respiratory Infection (JAYSHREE), contact + droplet Comment:Automatically added due to negative COVID-19 result. 09/22/2019 09/22/2019 10/06/2019 3:0 5 AM CDT COVID: Suspected 07/20/2023 07/20/2023 07/20/2023 6:17 PM TOOL COORDINATOR COVID19 07/20/2023 07/20/2023 07/30/2023 3:05 AM TOOL COORDINATOR COVID: Recovered Comment:Added based on recent COVID infection. 07/30/2023 08/06/2023 10/28/2023 3:05 AM C DT documented as of this encounter Care Teams Clerk Of Works Relationship Specialty Start Date End Date Zachary Harris MD [address] [place] [address] PCP - General 09/09/16 09/27/16 Zachary Harris MD [address] [place] [address] PCP - General 07/28/16 09/08/16 Zachary Harris MD [address] [place] [address] PCP - General 06/30/16 07/27/16 Zachary Harris MD [address] [place] [address] PCP - General 06/17/16 06/29/16 Zachary Harris MD [address] [place] [address] PCP - General 03/19/15 06/16/16 Jose Davis MD [address] [facility] [address] [address] PCP - General 09/28/16 09/29/16 Zachary Harris MD [address] [place] [address] PCP - General 09/30/16 10/09/16 Jose Davis MD [address] [facility] [address] [address] PCP - General 10/10/16 10/16/16 Jose Davis MD [address] [address] PCP - General 10/17/16 10/17/16 Zachary Harris MD [address] [place] [address] PCP - General 10/18/16 03/16/17 Jose Davis MD [address] [address] [facility] General 03/17/17 03/22/17 Zachary Harris MD [address] [place] [address] [facility] - General 03/23/17 Jennifer Adame, RN Registered Nurse 09/07/17 Teodoro Aviles MD Industrial Laborer Gastroenterology 07/02/19 Luis M Chinchilla MD PhD Referring Physician Cardiology 07/26/19 Alejandro Aly MD Referring Physician General Surgery 10/16/19 Long Montemayor MD Medical Oncologist/Apiculturist Medical Oncology 10/16/19 Kristin Marquez MD Medical Oncologist/Apiculturist Medical Oncology 07/16/20 11/01/23 Rachel Tran MD [address] [facility], [facility] [address] [place] [address] Consulting Physician Medical Oncology 11/02/23 Tisha Garza, PT Physical Therapist Physical Therapy 12/22/23 documented as of this encounter
--- OUTSIDE RECORDS SUMMARY | 2024-10-15 14:38 | XMS_ITS | Encounter Summary ---
Author Organization [facility] Address [address] [place] [address] Phone Care Team Providers Care Cognos Tm1 Developer Name Role Phone Zachary Harris MD Primary Care Provider [phone] Jennifer Adame RN Unavailable Un available Teodoro Aviles MD Unavailable Luis M Chinchilla MD PhD Unavailable [phone] Alejandro Aly MD Unavailable [phone] Long Montemayor MD Unavailable [phone] Rachel Tran MD Unavailable [phone] Tisha Garza PT Unavailable Unavailable Encounter Details Date Type Department Care Team (Latest Contact Info) Description 02/20/2024 Orders Only [facility] Scanning, Provider Social History Tobacco Use Types [...] containing alc ohol? 2-4 times a month 06/01/2023 Q2: How many drinks containi ng alcohol do you have on a typical day when you are drinking? 1 or 2 06/01/2023 Q3: How often do you have si x or more drinks on one occasion? Never 06/01/2023 PHQ-2 Answer Date Recorded PHQ-2 Total Score (If total score is 3 or more points, staff should administer the PHQ-9) 0 02/06/2024 PHQ-9 Answer Date Recorded PHQ-9 Total Score 6 02/06/2024 Personal Safety Answer Date Recorded Have you ever been in or are you currently in a harmful physical or emotional relationship or is someone making you feel afraid or unsafe? Denies 11/23/2023 Education Answer Date Recorded What is the highest level of school you have completed or the highest degree you have received? 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 Not on file Not [...] Walking Stooping documented as of this encounter Procedures Procedure Name Priority Date/Time Associated Diagnosis Comments SCAN - PATHOLOGY 02/20/2024 documented in this encounter Results * SCAN - PATHOLOGY (02/20/2024) us Provider Scanning Final Result documented in this encounter Visit Diagnoses Not on filedocumented in this encounter Care Teams Cognos Tm1 Developer Relationship Specialty Start Date End [place] [address] PCP - General 03/23/17 Jennifer Adame, RN Registered Nurse 09/07/17 Teodoro Aviles MD Pyrotechnic Mixer Gastroenterology 07/02/19 Luis M Chinchilla MD PhD Referring Physician Cardiology 07/26/19 Alejandro Aly MD Referring Physician General Surgery 10/16/19 Long Montemayor MD Medical Oncologist/Sawsmith Medical Oncology 10/16/19 Rachel Tran MD [address] [facility], [address] [place] [address] Consulting Physician Medical Oncology 11/02/23 Tisha Garza, PT Physical Therapist Physical Therapy 12/22/23 documented as of this encounter
--- OUTSIDE RECORDS SUMMARY | 2024-10-15 14:38 | XMS_ITS | Encounter Summary ---
Author Name [facility] Address [address] [place] [address] Care Team Providers Care Model Dresser Name Role Phone BRIGITTE SHI Primary Care [...] Alva's Name Patient's Relationship to Policy Alva [facility] (R) MEDICARE ADVANTAGE MCR ([facility]) Jun 12, 2022 [phone] [id number] REGAN,IVÁN ID PATIENT [facility] (R) MEDICARE ADVANTAGE [facility] ([facility]) Jun 12, 2022 [phone] [id number] [phone] REGAN,IVÁN ID PATIENT Selected Encounter This section includes the information on record at [facility] for the Encounter. Date/Time Encounter Type Encounter Description Reason Provider Source Feb 02, 2024 10:51 AM Outpatient Encounter ADMIN PAT ACTIVTIES (MASNONCT) MEGHAN MCCURDY Encounter Template Text not used by NH Social History: Smoking Status (Most current) and Tobacco Use (All prior to encounter date) This section includes the most current, and the historical, smoking and tobacco- related health factors from the NH facility where the Encounter took place. Current Smoking Status This section includes the most current smoking, or tobacco-related health factor, from the NH facility where the Encounter took place. Date/Time Current Smoking Status Comment Atul styles Aug 04, 2023 09:00 AM VA-TOBACCO QUIT 15 YRS OR MORE [facility] Tobacco Use History This section includes a history of the smoking, or tobacco-related health factors, that were collected on or before the date of the Encounter. The data comes from the [place] facility where the Encounter took place. Date/Time Smoking Status/Tobacco Use Comment Gayle nelson Aug 04, 2023 09:00 AM VA-TOBACCO QUIT 15 YRS OR MORE [facility] Feb 01, 2022 09:00 AM VA-TOBACCO FORMER USER [facility] Feb 01, 2022 09:00 AM VA-TOBACCO QUIT 15 YRS OR MORE [facility] Jan 29, 2021 09:00 AM VA-TOBACCO FORMER USER [facility] Jan 29, 2021 09:00 AM VA-TOBACCO QUIT 15 YRS OR MORE [facility] October 29, 2019 03:20 PM VA-TOBACCO FORMER USER [facility] October 29, 2019 03:20 PM VA-TOBACCO QUIT 15 YRS OR MORE [facility] Mar 12, 2018 01:47 PM VA-TOBACCO FORMER USER [facility] Mar 12, 2018 01:47 PM VA-TOBACCO QUIT 15 YRS OR MORE [facility] Feb 02, 2018 11:02 AM QUIT TOBACCO >7 YEARS AGO [facility] Aug 03, 2017 09:58 AM TOBACCO REFUSED SCREEN V15 [facility] Jan 27, 2017 09:01 AM QUIT TOBACCO >7 YEARS AGO [facility] Jan 21, 2016 09:13 AM QUIT TOBACCO >7 YEARS AGO [facility] Encounter Notes: All associated encounter notes [...] eligible. PRESCRIPTION INFORMATION: Provider Information: MARISABEL FOWLER, [facility], [address] [place] [address] phone: [phone] fax: [phone] 1) carboxymethylcellulose sodium 0.5 % eye drops [...] non-VA medication list. /sarah/ MEGHAN MCCURDY PharmD [facility] Pharmacist, Pharmacy Signed: 02/02/2024 10:54 Receipt Acknowledged By: 02/02/2024 13:18 /sarah/ BRIGITTE CORONADO- NURSE PRACTITIONER, MEGHAN MONTOYA [facility]
--- OUTSIDE RECORDS SUMMARY | 2024-10-15 14:38 | XMS_ITS | Encounter Summary ---
Author Organization [facility] Address [address] [place] [address] Phone Care Team Providers Care Planning Analyst Name Role Phone Zachary Harris MD Primary Care Provider [phone] Zachary Harris MD Primary Care Provider [phone] Zachary Harris MD Primary Care Provider [phone] Zachary Harris MD Primary Care Provider [phone] Zachary Harris MD Primary Care Provider [phone] Zachary Harris MD Primary Care Provider [phone] Zachary Harris MD Primary Care Provider [phone] Jose Davis MD Primary Care Provider + Zachary Harris MD Primary Care Provider [phone] Jose Davis MD Primary Care Provider + Jose Davis MD Primary Care Provider + Zachary Harris MD Primary Care Provider [phone] Jose Davis MD Primary Care Provider + Zachary Harris MD Primary Care Provider [phone] Jennifer Adame RN Unavailable Un available Teodoro Aviles MD Unavailable [phone] Luis M Chinchilla MD PhD Unavailable [phone] Alejandro Aly MD Unavailable Long Montemayor MD Unavailable Kristin Marquez MD Unavailable Rachel Tran MD Unavailable [phone] Tisha Garza PT Unavailable Unavailable Encounter Details Date Type Department Care Team (Latest Contact Info) Description 08/15/2013 Orders Only [facility] Scanning, Provider Social History Tobacco Use Types Packs/Day Years Used Date Smoking Tobacco: Never Assessed Sex and Gender Information Value Date Recorded Sex Assigned at Not on file Legal Sex Male 3:44 AM SLAT 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 MAKER HELPER 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 Gender Identity Male 07/04/2020 6:23 AM SLAT BASKET MAKER HELPER MACHINE Sexual Orientation Straight 11/12/2018 6: 56 AM CDT documented as of this encounter Plan of Treatment Scheduled Procedures Name Priority Associated Diagnoses Date/Ti me COLONOSCOPY Open Access Adenocarcinoma of small bowel (HCC) documented as of this encounter Procedures Procedure Name Priority Date/Time Associated Diagnosis Comments CARDIOLOGY DOCUMENT SCAN 08/15/2013 documented in this encounter Results * SCAN - CARDIOLOGY (08/15/2013) Anatomical Region Laterality Modality Other us Provider Scanning CV CARDIAC SERVICES PROCEDURES Final Result documented in this encounter Visit Diagnoses Not on filedocumented in this encounter Additional Health Concerns Infection Onset Date Last Indicated Resolved Time COVID: Suspected 09/20/2019 09/20/2019 09/22/2019 12:10 PM CDT Respiratory Infection (JAYSHREE), contact + droplet Comment:Automatically added due to negative COVID-19 result. 09/22/2019 09/22/2019 10/06/2019 3:0 5 AM CDT COVID: Suspected 07/20/2023 07/20/2023 07/20/2023 6:17 PM SLAT BASKET MAKER HELPER MACHINE COVID19 07/20/2023 07/20/2023 07/30/2023 3:05 AM SLAT BASKET MAKER HELPER MACHINE COVID: Recovered Comment:Added based on recent COVID infection. 07/30/2023 08/06/2023 10/28/2023 3:05 AM C DT documented as of this encounter Care Teams Planning Analyst Relationship Specialty Start Date End Date Zachary Harris MD [address] [place] [address] PCP - General 09/09/16 09/27/16 Zachary Harris MD [address] [place] [address] PCP - General 07/28/16 09/08/16 Zachary Harris MD [address] [place] [address] PCP - General 06/30/16 07/27/16 Zachary Harris MD [address] [place] [address] PCP - General 06/17/16 06/29/16 Zachary Harris MD [address] [place] [address] PCP - General 03/19/15 06/16/16 Zachary Harris MD [address] [place] [address] PCP - General 02/18/15 03/18/15 Zachary Harris MD [address] [place] [address] PCP - General 01/20/15 02/17/15 Jose Davis MD [address] [facility] [address] [address] PCP - General 09/28/16 09/29/16 Zachary Harris MD [address] [place] [address] PCP - General 09/30/16 10/09/16 Jose Davis MD 2 [facility] [address] [address] PCP - General 10/10/16 10/16/16 Jose Davis MD [address] [address] PCP - General 10/17/16 10/17/16 Zachary Harris MD [address] [place] [address] PCP - General 10/18/16 03/16/17 Jose Davis MD 2 [facility] [address] [address] PCP - General 03/17/17 03/22/17 Zachary Harris MD [address] [place] [address] PCP - General 03/23/17 Jennifer Adame, BEVERLY Registered Nurse 09/07/17 Teodoro Aviles MD Farm Contractor Gastroenterology 07/02/19 Luis M Chinchilla MD PhD Referring Physician Cardiology 07/26/19 Alejandro Aly MD Referring Physician General Surgery 10/16/19 Long Montemayor MD Medical Oncologist/Mixer Diamond Powder Medical Oncology 10/16/19 Kristin Marquez MD Medical Oncologist/Mixer Diamond Powder Medical Oncology 07/16/20 11/01/23 Rachel Tran MD [address] [facility] MED[facility] ON[facility]Y, [address] [place] [address] Consulting Physician Medical Oncology 11/02/23 Tisha Garza, PT Physical Therapist Physical Therapy 12/22/23 documented as of this encounter
--- OUTSIDE RECORDS SUMMARY | 2024-10-15 14:38 | XMS_ITS | Encounter Summary ---
Author Organization [facility] Address [address] [place] [address] Phone Care Team Providers Care Workers Compensation Adjuster Name Role Phone Zachary Harris MD Primary Care Provider [phone] Jennifer Adame RN Unavailable Un available Teodoro Aviles MD Unavailable [phone] Luis M Chinchilla MD PhD Unavailable [phone] Alejandro Aly MD Unavailable Long Montemayor MD Unavailable [phone] Rachel Tran MD Unavailable [phone] Tisha Garza PT Unavailable Unavailable Encounter Details Date Type Department Care Team (Latest Contact Info) Description 03/06/2024 Orders Only [facility] Scanning, Provider [...] on file Legal Sex Male 3:44 AM GEOMORPHOLOGY TEACHER Gender Identity Male 07/04/2020 6:23 AM GEOMORPHOLOGY TEACHER Sexual Orientation Straight 11/12/2018 6: 56 AM CDT 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 Job 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 on file Not on file Not [...] Date/Time Associated Diagnosis Comments SCAN - PATHOLOGY 03/06/2024 11:08 AM CDT documented in this encounter Results * SCAN - PATHOLOGY (03/06/2024 11:08 AM CDT) us Provider Scanning Final Result documented in this encounter Visit Diagnoses Not on filedocumented in this encounter Care Teams Workers Compensation Adjuster Relationship Specialty Start Date End Date Zachary Harris MD [address] [place] [address] PCP - General 03/23/17 Jennifer Adame, RN Registered Nurse 09/07/17 Teodoro Aviles MD Trimmer Helper Gastroenterology 07/02/19 Luis M Chinchilla MD PhD Referring Physician Cardiology 07/26/19 Alejandro Aly MD Referring Physician General Surgery 10/16/19 Long Montemayor MD Medical Oncologist/Metal Bonder Medical Oncology 10/16/19 Rachel Tran MD [address] [facility], [address] [place] [address] Consulting Physician Medical Oncology 11/02/23 Tisha Garza, PT Physical Therapist Physical Therapy 12/22/23 documented as of this encounter
--- OUTSIDE RECORDS SUMMARY | 2024-10-15 14:38 | XMS_ITS | Encounter Summary ---
Author Organization [facility] Address [address] [place] [address] Phone Care Team Providers Care Sales Promotion Officer Name Role Phone Zachary Harris MD Primary Care Provider [phone] Jennifer Adame RN Unavailable Un available Teodoro Aviles MD Unavailable Luis M Chinchilla MD PhD Unavailable [phone] Alejandro Aly MD Unavailable [phone] Long Montemayor MD Unavailable Rachel Tran MD Unavailable [phone] Tisha Garza PT Unavailable Unavailable Encounter Details Date Type Department Care Team (Latest Contact Info) Description 08/19/2024 Orders Only [facility] Scanning, Provider [...] points, staff should administer the PHQ-9) 0 07/29/2024 PHQ-9 Answer Date Recorded PHQ-9 Total Score [...] on file Legal Sex Male 3:44 AM PROPERTY CLERK Gender Identity Male 07/04/2020 6:23 AM PROPERTY CLERK Sexual Orientation Straight 11/12/2018 6: 56 AM CDT 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 Job End Date 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 on file 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 Not on file Not on file Not [...] Date/Time Associated Diagnosis Comments SCAN - PATHOLOGY 08/19/2024 documented in this encounter Results * SCAN - PATHOLOGY (08/19/2024) us Provider Scanning Final Result documented in this encounter Visit Diagnoses Not on filedocumented in this encounter Care Teams Sales Promotion Officer Relationship Specialty Start Date End [place] [address] PCP - General 03/23/17 Jennifer Adame, RN Registered Nurse 09/07/17 Teodoro Aviles MD Ep Technologist Gastroenterology 07/02/19 Luis M Chinchilla MD PhD Referring Physician Cardiology 07/26/19 Alejandro Aly MD Referring Physician General Surgery 10/16/19 Long Montemayor MD Medical Oncologist/It Security Consultant Medical Oncology 10/16/19 Rachel Tran MD [address] [facility] MEDICAL ONCOLOGY, [address] [place] [address] Consulting Physician Medical Oncology 11/02/23 Tisha Garza, PT Physical Therapist Physical Therapy 12/22/23 documented as of this encounter
--- OUTSIDE RECORDS SUMMARY | 2024-10-15 14:38 | XMS_ITS | Encounter Summary ---
Author Organization [facility] Address [address] [place] [address] Phone Care Team Providers Care Director Of Collections And Archives Name Role Phone Zachary Harris MD Primary Care Provider [phone] Zachary Harris MD Primary Care Provider [phone] Zachary Harris MD Primary Care Provider [phone] Zachary Harris MD Primary Care Provider [phone] Zachary Harris MD Primary Care Provider [phone] Jose Davis MD Primary Care Provider + Zachary Harris MD Primary Care Provider [phone] Jose Davis MD Primary Care Provider + Jose Davis MD Primary Care Provider + Zachary Harris MD Primary Care Provider [phone] Jose Davis MD Primary Care Provider + Zachary Harris MD Primary Care Provider [phone] Jennifer Adame RN Unavailable Un available Teodoro Aviles MD Unavailable [phone] Luis M Chinchilla MD PhD Unavailable [phone] Alejandro Aly MD Unavailable Long Montemayor MD Unavailable Kristin Marquez MD Unavailable [phone] Rachel Tran MD Unavailable Tisha Garza PT Unavailable Unavailable Encounter Details Date Type Department Care Team (Latest Contact Info) Description 11/12/2015 Orders Only [facility] Scanning, Provider Social History Tobacco Use Types Packs/Day Years Used Date Smoking Tobacco: Never Assessed Sex and Gender Information Value Date Recorded Sex Assigned at Not on file Legal Sex Male 3:44 AM WASHROOM OPERATOR Gender Identity Male 07/04/2020 6:23 AM WASHROOM OPERATOR Sexual Orientation Straight 11/12/2018 6: 56 AM CDT documented as of this encounter Plan of Treatment Scheduled Procedures Name Priority Associated Diagnoses Date/Ti me COLONOSCOPY Open Access Adenocarcinoma of small bowel (HCC) documented as of this encounter Procedures Procedure Name Priority Date/Time Associated Diagnosis Comments CARDIOLOGY DOCUMENT SCAN 11/12/2015 documented in this encounter Results * SCAN - CARDIOLOGY (11/12/2015) Anatomical Region Laterality Modality Other Provider Scanning CV CARDIAC SERVICES PROCEDURES Final [...] COVID: Suspected 07/20/2023 07/20/2023 07/20/2023 6:17 PM WASHROOM OPERATOR COVID19 07/20/2023 07/20/2023 07/30/2023 3:05 AM WASHROOM OPERATOR COVID: Recovered Comment:Added based on recent COVID infection. 07/30/2023 08/06/2023 10/28/2023 3:05 AM C DT documented as of this encounter Care Teams Director Of Collections And Archives Relationship Specialty Start Date End Date Zachary Harris MD [address] [place] [address] PCP - General 09/09/16 09/27/16 Zachary Harris MD [address] [place] [address] PCP - General 07/28/16 09/08/16 Zachary Harris MD [address] [place] [address] PCP - General 06/30/16 07/27/16 Zachary Harris MD [address] [place] [address] PCP - General 06/17/16 06/29/16 Zachary Harris MD [address] [place] [address] PCP - General 03/19/15 06/16/16 Jose Davis MD [address] [facility] [address] [address] PCP - General 09/28/16 09/29/16 Zachary Harris MD [address] [place] [address] PCP - General 09/30/16 10/09/16 Jose Davis MD [address] [facility] [address] [address] PCP - General 10/10/16 10/16/16 Jose Davis MD [address] [facility] [address] [address] PCP - General 10/17/16 10/17/16 Zachary Harris MD [address] [place] [address] PCP - General 10/18/16 03/16/17 Jose Davis MD [address] [facility] [address] [address] [facility] - General 03/17/17 03/22/17 Zachary Harris MD [address] [place] [address] PCP - General 03/23/17 Jennifer Adame, RN Registered Nurse 09/07/17 Teodoro Aviles MD Chemist Water Purification Gastroenterology 07/02/19 Luis M Chinchilla MD PhD Referring Physician Cardiology 07/26/19 Alejandro Aly MD Referring Physician General Surgery 10/16/19 Long Montemayor MD Medical Oncologist/Hook And Eye Attacher Medical Oncology 10/16/19 Kristin Marquez MD Medical Oncologist/Hook And Eye Attacher Medical Oncology 07/16/20 11/01/23 Rachel Tran MD [address] [facility] MEDICAL ONCOLOGY, [address] [place] [address] Consulting Physician Medical Oncology 11/02/23 Tisha Garza, PT Physical Therapist Physical Therapy 12/22/23 documented as of this encounter
--- OUTSIDE RECORDS SUMMARY | 2024-10-15 14:38 | XMS_ITS ---
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 anti-inflammatory medications. These inujections prove impactful on patient function, symptom control and quality of life. Assessment & Plan (12/04/2023 9:01 AM CDT): Stable. Continue following with specialist. 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 Other Current Plans CORTROSYN STIMULATION TEST - HIGH DOSE (250 MCG)* Plan Start Date:06/15/2021 Plan Provider:Kristin Marquez MD Linked Problems Endocrine function study abn ormality Treatment Medications No medications scheduled. Past Treatment and Therapy Plans Oncology Chemotherapy Treatment Plan Name Start Date Discontinue Date Treatment Medications Discontinue Reason Plan Provider Cycles Nivolumab 3 mg/kg / Ipilimumab 1 mg/kg 21 Day Cycles Followed by Nivolumab 480 mg 28 Day Cycles - Sarcoma 1 02/15/2022 ipilimumab (YERVOY) IVPB in 50 mLnivolumab (OPDIVO)nivolu mab (OPDIVO) in 50 mL IVPB Stable Disease Kristin Marquez MD 6 of 12 cycles started Lifetime Dose Tracking * Chemical Lifetime Dose Automatic Entry Manual Entr y Fluoro Time 12.318 minutes 12.318 minutes 0 minutes Air kerma at the reference point (Ka,r) 608.091 mGy 4 41.091 mGy 167 mGy DLP 11,614 mGycm 11,614 mGycm 0 mGycm Resolved Problems Problem Noted Date Diagnosed Date Resolved Date Obesity (BMI 30.0-34.9) 07/31/202409/10 Assessment & Plan (07/31/2024 10:32 AM SENIOR DATABASE ADMINISTRATOR): As above. Left shoulder pain 05/16/2024 Assessment & Plan (05/16/2024 9:41 AM SENIOR DATABASE ADMINISTRATOR): Recent increase in pain. Will do short course of Tramadol and Tizanidine. Neck pain 12/04/2023 09/25/2024 Assessment & Plan (05/16/2024 9:38 AM SENIOR DATABASE ADMINISTRATOR): Tizanidine and Tramadol ordered for pain relief. Will continue to monitor. Assessment & Plan (12/04/2023 9:02 AM CDT): Continue with p.r.n. muscle relaxer. Will obtain imaging and refer for physical therapy. Will monitor response. Essential hypertension 12/04/202305/16 Assessment & Plan (12/04/2023 9:02 AM CDT): Normotensive. Continue amlodipine, Bystolic triamterene/hydrochlorothiazide. Reviewed lifestyle recommendations. Will continue to monitor. Open angle with borderline findings, low risk 06/01/20 23 11/23/2023 Type 2 diabetes mellitus wit h diabetic neuropathy, unspecified 03/28/2023 07/31/2024 Assessment & Plan (12/04/2023 9:00 AM CDT): Well controlled with lifestyle. No changes. Will continue to monitor. Assessment & Plan (06/01/2023 8:34 AM SENIOR DATABASE ADMINISTRATOR): A1C 6.3%. Will continue to monitor. Left leg pain 10/30/2020 09/25/2024 Chronic left-sided low back pain without sciatica 10/23/2020 09/25/2024 Insomnia secondary to chronic pain 10/23/2020 09/25/2024 Small bowel anastomotic leak 10/15/2019 08/03/2020 Severe malnutrition 10/11/2019 05/16/20 Assessment & Plan (09/21/2021 9:58 AM CDT): 32 lb weight loss since 03/2021 May have malabsorption as well Notified Dl Carreno with nutrition to reach out to patient Intra-abdominal abscess 10/10/201907/14 Severe obesity (BMI 35.0-39. 9) with comorbidity (CMS/HCC) 07/03/2019 08/09/2021 Localized swelling on left hand 05/17/2019 08/03/2020 Assessment & Plan (05/17/2019 3:29 PM SENIOR DATABASE ADMINISTRATOR): Labs ordered; will contact w/results once rec'd. Prednisone taper sent. Aware to NOT take any other NSAIDs while taking. Discussed compression wraps, ice to L hand. To keep elevated at/above heart level. Discussed gentle ROM to fingers. Reviewed red flags. Pes anserinus bursitis of left knee 10/18/2018 09/25/2024 Aftercare following left kne e joint replacement surgery 05/07/2018 05/17/2019 Primary osteoarthritis of left knee 03/27/2018 05/07/2018 Multinodular goiter (nontoxic) 10/16/2017 11/10/2017 Assessment & Plan (10/16/2017 9:00 AM CDT): Patient is noted to have thyromegaly with multinodular goiter. Patient has a dominant nodule in the right lobe measuring over 4 cm. A dominant nodule in the left lobe measures 1.6 cm. Patient is experiencing local compressive symptoms with chronic right-sided globus sensation with dysphagia solid foods localized to the level of the nodular mass within the right thyroid lobe. There was no palpable cervical lymphadenopathy. CT imaging did not demonstrate any pathologically enlarged lymphadenopathy. Based on patient's history, my physical findings and results of diagnostic imaging patient meets indications to undergo a total thyroidectomy with continuous recurrent laryngeal nerve monitoring. A thorough discussion took place today with the patient regarding treatment recommendations. I elaborated on the recurrent laryngeal nerve and parathyroid glands in relationship to their anatomical position and potential functional disability that could occur should the structures be injured. All questions were answered to what appeared to be patient's understanding and satisfaction. After the procedure was explained in full the potential risk, complications, benefits and alternatives patient would like to proceed. Patient will be scheduled in a timely fashion. Prior to surgery who we will review his ultrasound and thyroid chemistry. Aftercare following surgery 06/20/2017 11/30/2017 Cyst of joint of hand, left 06/01/2017 05/17/2019 Foreign body of left hand 06/01/2017 Lesion of stomach 03/31/2017 12/31/2020 S/P left knee arthroscopy 02/24/2017 Cough 06/30/2016 05/17/2019 Overview (09/15/2016): Cough Tobacco use 06/17/2016 06/01/2023 Overview (09/15/2016): Tobacco use Hyperglycemia 02/22/2016 06/01/2023 Hypokalemia 12/11/2015 05/17/2019 Urinary tract infection 11/27/2015 1211/2018 Arthritis 08/06/2015 06/01/2023 Neuralgia 06/03/2014 09/25/2024
--- OUTSIDE RECORDS SUMMARY | 2024-10-15 14:38 | XMS_ITS | Encounter Summary ---
Author Organization [facility] Address [address] [place] [address] Phone Care Team Providers Care Telecommunications Cable Jointer Name Role Phone Zachary Harris MD Primary Care Provider [phone] Zachary Harris MD Primary Care Provider [phone] Zachary Harris MD Primary Care Provider [phone] Zachary Harris MD Primary Care Provider [phone] Zachary Harris MD Primary Care Provider [phone] Jose Davis MD Primary Care Provider + Zachary Harris MD Primary Care Provider [phone] Jose Davis MD Primary Care Provider + Jose Davis MD Primary Care Provider + Zachary Harris MD Primary Care Provider [phone] Jose Davis MD Primary Care Provider + Zachary Harris MD Primary Care Provider [phone] Jennifer Adame RN Unavailable Un available Teodoro Aviles MD Unavailable [phone] Luis M Chinchilla MD PhD Unavailable [phone] Alejandro Aly MD Unavailable [phone] Long Montemayor MD Unavailable [phone] Kristin Marquez MD Unavailable Rachel Tran MD Unavailable Tisha Garza PT Unavailable Unavailable Encounter Details Date Type Department Care Team (Latest Contact Info) Description 02/07/2016 Orders Only [facility] Scanning, Provider Social History Tobacco Use Types Packs/Day Years Used Date Smoking Tobacco: Never Assessed Sex and Gender Information Value Date Recorded Sex Assigned at Not on file Legal Sex Male 3:44 AM BOOM OPERATOR Gender Identity Male 07/04/2020 6:23 AM BOOM OPERATOR Sexual Orientation Straight 11/12/2018 6: 56 AM CDT documented as of this encounter Plan of Treatment Scheduled Procedures Name Priority Associated Diagnoses Date/Ti me COLONOSCOPY Open Access Adenocarcinoma of small bowel (HCC) documented as of this encounter Procedures Procedure Name Priority Date/Time Associated Diagnosis Comments CARDIOLOGY DOCUMENT SCAN 02/07/2016 documented in this encounter Results * SCAN - CARDIOLOGY (02/07/2016) Anatomical Region Laterality Modality Other Provider Scanning [...] COVID: Suspected 07/20/2023 07/20/2023 07/20/2023 6:17 PM BOOM OPERATOR COVID19 07/20/2023 07/20/2023 07/30/2023 3:05 AM BOOM OPERATOR COVID: Recovered Comment:Added based on recent COVID infection. 07/30/2023 08/06/2023 10/28/2023 3:05 AM C DT documented as of this encounter Care Teams Telecommunications Cable Jointer Relationship Specialty Start Date End Date Zachary Harris MD [address] [place] [address] PCP - General 09/09/16 09/27/16 Zachary Harris MD [address] [place] [address] PCP - General 07/28/16 09/08/16 Zachary Harris MD [address] [place] [address] PCP - General 06/30/16 07/27/16 Zachary Harris MD [address] [place] [address] PCP - General 06/17/16 06/29/16 Zachary Harris MD [address] [place] [address] PCP - General 03/19/15 06/16/16 Jose Davis MD [address] [facility] [address] [address] PCP - General 09/28/16 09/29/16 Zachary Harris MD [address] [place] [address] PCP - General 09/30/16 10/09/16 Jose Davis MD [address] [facility] [address] [address] PCP - General 10/10/16 10/16/16 Jose Davis MD [address] [facility] [address] PCP - General 10/17/16 10/17/16 Zachary Harris MD [address] [place] [address] PCP - General 10/18/16 03/16/17 Jose Davis MD [address] [facility] [address] [facility] - General 03/17/17 03/22/17 Zachary Harris MD [address] [place] [address] PCP - General 03/23/17 Jennifer Adame, RN Registered Nurse 09/07/17 Teodoro Aviles MD Electric Well Logging Operator Gastroenterology 07/02/19 Luis M Chinchilla MD PhD Referring Physician Cardiology 07/26/19 Alejandro Aly MD Referring Physician General Surgery 10/16/19 Long Montemayor MD Medical Oncologist/Examining Officer Medical Oncology 10/16/19 Kristin Marquez MD Medical Oncologist/Examining Officer Medical Oncology 07/16/20 11/01/23 Rachel Tran MD [address] [facility] [address] [place] [address] Consulting Physician Medical Oncology 11/02/23 Tisha Garza, PT Physical Therapist Physical Therapy 12/22/23 documented as of this encounter
--- OUTSIDE RECORDS SUMMARY | 2024-10-15 14:38 | XMS_ITS | Encounter Summary ---
Author Organization [facility] Address [address] [place] [address] Phone Care Team Providers Care Puppet Maker Name Role Phone Zachary Harris MD Primary Care Provider [phone] Zachary Harris MD Primary Care Provider [phone] Zachary Harris MD Primary Care Provider [phone] Zachary Harris MD Primary Care Provider [phone] Zachary Harris MD Primary Care Provider [phone] Zachary Harris MD Primary Care Provider [phone] Zachary Harris MD Primary Care Provider [phone] Jose Davis MD Primary Care Provider + Zachary Harris MD Primary Care Provider [phone] Jose Davis MD Primary Care Provider + Jose Davis MD Primary Care Provider + Zachary Harris MD Primary Care Provider [phone] Jose Davis MD Primary Care Provider + Zachary Harris MD Primary Care Provider [phone] Jennifer Adame RN Unavailable Un available Teodoro Aviles MD Unavailable [phone] Luis M Chinchilla MD PhD Unavailable [phone] Alejandro Aly MD Unavailable Long Montemayor MD Unavailable [phone] Kristin Marquez MD Unavailable Rachel Tran MD Unavailable [phone] Tisha Garza PT Unavailable Unavailable Encounter Details Date Type Department Care Team (Latest Contact Info) Description 08/06/2013 Orders Only [facility] Scanning, Provider Social History Tobacco Use Types Packs/Day Years Used Date Smoking Tobacco: Never Assessed Sex and Gender Information Value Date Recorded Sex Assigned at Not on file Legal Sex Male 3:44 AM HUB LEAD Gender Identity Male 07/04/2020 6:23 AM HUB LEAD Sexual Orientation Straight 11/12/2018 6: 56 AM CDT documented as of this encounter Plan of Treatment Scheduled Procedures Name Priority Associated Diagnoses Date/Ti me COLONOSCOPY Open Access Adenocarcinoma of small bowel (HCC) documented as of this encounter Procedures Procedure Name Priority Date/Time Associated Diagnosis Comments CARDIOLOGY DOCUMENT SCAN 08/06/2013 documented in this encounter Results * SCAN - CARDIOLOGY (08/06/2013) Anatomical Region Laterality Modality Other us Provider [...] COVID: Suspected 07/20/2023 07/20/2023 07/20/2023 6:17 PM HUB LEAD COVID19 07/20/2023 07/20/2023 07/30/2023 3:05 AM HUB LEAD COVID: Recovered Comment:Added based on recent COVID infection. 07/30/2023 08/06/2023 10/28/2023 3:05 AM C DT documented as of this encounter Care Teams Puppet Maker Relationship Specialty Start Date End Date Zachary Harris MD [address] [place] [address] PCP - General 09/09/16 09/27/16 Zachary Harris MD [address] [place] [address] PCP - General 07/28/16 09/08/16 Zachary Harris MD [address] [place] [address] PCP - General 06/30/16 07/27/16 Zachary Harris MD [address] [place] [address] PCP - General 06/17/16 06/29/16 Zachary Harris MD [address] [place] [address] PCP - General 03/19/15 06/16/16 Zachary Harrsi MD [address] [place] [address] PCP - General 02/18/15 03/18/15 Zachary Harris MD [address] [place] [address] PCP - General 01/20/15 02/17/15 Jose Davis MD [address] [facility] [address] [address] PCP - General 09/28/16 09/29/16 Zachary Harris MD [address] [place] [address] PCP - General 09/30/16 10/09/16 Jose Davis MD 2 [facility] [address] PCP - General 10/10/16 10/16/16 Jose Davis MD [address] [address] PCP - General 10/17/16 10/17/16 Zachary Harris MD [address] [place] [address] PCP - General 10/18/16 03/16/17 Jose Davis MD 2 [facility] [address] PCP - General 03/17/17 03/22/17 Zachary Harris MD [address] [place] [address] PCP - General 03/23/17 Jennifer Adame, BEVERLY Registered Nurse 09/07/17 Teodoro Aviles MD Automotive Glass Installer Gastroenterology 07/02/19 Luis M Chinchilla MD PhD Referring Physician Cardiology 07/26/19 Alejandro Aly MD Referring Physician General Surgery 10/16/19 Long Montemayor MD Medical Oncologist/System Specialist Medical Oncology 10/16/19 Kristin Marquez MD Medical Oncologist/System Specialist Medical Oncology 07/16/20 11/01/23 Rachel Tran MD [address] [facility], [address] [place] [address] Consulting Physician Medical Oncology 11/02/23 Tisha Garza, PT Physical Therapist Physical Therapy 12/22/23 documented as of this encounter
--- OUTSIDE RECORDS SUMMARY | 2024-10-15 14:38 | XMS_ITS | Referral Summary ---
Author Organization [facility] Address [address] [place] [address] Care Team Providers Care Ceo And Founder Name Role Phone Zachary Harris MD Primary Care Provider [phone] Jennifer Adame RN Unavailable Un available Teodoro Aviles MD Unavailable [phone] Luis M Chinchilla MD PhD Unavailable [phone] Alejandro Aly MD Unavailable Long Montemayor MD Unavailable [phone] Susan Tran MD Unavailable [phone] Tisha Garza PT Unavailable Unavailable Encounters Date Type Department Care Team Description 10/15/2024 10:30 AM CDT Procedure visit [facility] Dermatology [address] [place] [address] [address] [place] [address] Melanoma of left upper arm (HCC) (Primary Dx) 10/08/2024 4:00 PM CDT Office Visit [facility] Surgery [address] [place] [address] [facility] 6th [place] [address] Carline Rivera MD PhD Arthritis of left wrist (Primary Dx); Arthritis of carpometacarpal (CMC) joint of left thumb 10/07/2024 Results Follow-Up [facility] Dermatology [address] [place] [address] [address] [place] [address] Susy Sifuentes MD 10/04/2024 2:00 PM CDT Office Visit [facility] Ophthalmology [address] [facility] [address] [place] [address] Akhil Brina Nieto Hickey, OD Primary open angle glaucoma (POAG) of right eye, moderate stage (Primary Dx); History of eye enucleation; Pseudophakia of right eye; Type 2 diabetes mellitus without complication, without long-term current use of insulin (HCC); Choroidal nevus of right eye; Posterior vitreous detachment of right eye 10/02/2024 Orders Only [facility] [address] [place] [address] Susy Sifuentes MD Melanoma of left upper arm (HCC) 10/01/2024 12:30 PM CDT Procedure visit [facility] Dermatology [address] [facility] [address] [place] [address] Susy Sifunetes MD Melanoma of left upper arm (HCC) (Primary Dx) 09/27/2024 9:15 AM CDT Therapy [facility] Occupational Therapy [address] [place] [address] Ava Arroyo OT Arthritis of carpometacarpal (CMC) joint of left thumb (Primary Dx) 09/25/[address] [facility] Health Information Management [address] [place] [address] Scanning, Provider 09/25/2024 10:35 AM CDT Lab [facility] [address] [place], [place] Night sweats 09/25/2024 1:07 PM CDT - 09/25/2024 11:59 PM CDT Hospital Encounter [facility] [address] [facility] [address] [place] [address] Dmitry Garcia MD Greater trochanteric bursitis of both hips (Primary Dx) Discharge Disposition: Discharge to home or self care 09/20/2024 Orders Only [facility] [address] [phone] Zachary Harris MD Night sweats (Primary Dx) 09/20/2024 9:15 AM CDT Therapy [facility] Occupational Therapy [address] [place] [address] Jackeline Irvin OT Arthritis of carpometacarpal (CMC) joint of left thumb (Primary Dx); Left wrist pain; Arthritis of left wrist 09/13/2024 9:15 AM CDT Therapy [facility] Occupational Therapy [address] [place] [address] Jackeline Irvin OT Arthritis of carpometacarpal (CMC) joint of left thumb (Primary Dx); Left wrist pain; Arthritis of left wrist 09/10/2024 [facility] [address] [place] [address] Shannan Haney 09/06/2024 8:30 AM CDT Therapy [facility] Occupational Therapy [address] [place] [address] Jackeline Irvin OT Arthritis of carpometacarpal (CMC) joint of left thumb (Primary Dx); Left wrist pain; Arthritis of left wrist 09/03/2024 3:46 PM CDT - 09/03/2024 11:59 PM CDT Hospital Encounter [facility] [address] [facility] [address], [place] [place] [address] Dmitry Garcia MD Sacroiliitis (Primary Dx); Greater trochanteric bursitis of both hips Discharge Disposition: Discharge to home or self care 09/03/2024 2:30 PM CDT Office Visit [facility] Cardiology [address] [place] [phone] Galo Cisneros MD Lipid screening (Primary Dx); Coronary artery calcification seen on CAT scan; Essential (primary) hypertension; Mixed hyperlipidemia; PVC's (premature ventricular contractions); Palpitations 08/30/2024 8:30 AM CDT Therapy [facility] Occupational Therapy [address] [place] [address] Jackeline Irvin OT Arthritis of carpometacarpal (CMC) joint of left thumb (Primary Dx); Left wrist pain; Arthritis of left wrist 08/27/2024 8:45 AM CDT - 08/27/2024 11:59 PM CDT Hospital Encounter [facility] [address] [facility] [address], [place] [place] [address] Dmitry Garcia MD Greater trochanteric bursitis of both hips (Primary Dx) Discharge Disposition: Discharge to home or self care 08/19/2024 Orders Only [facility] Scanning, Provider 08/19/2024 10:00 AM CDT Office Visit [facility] Oncology [address] [facility] [address] [place] [address] Susan Tran MD Malignant neoplasm of body of stomach (HCC) (Primary Dx); Bradycardia 08/19/2024 8:45 AM CDT Lab [facility] [address] [place] [address] Malignant neoplasm of body of stomach (HCC) 08/16/2024 Telephone [facility] Imaging Center [address] [place] [address] Heather Nieto RN 08/16/2024 9:50 AM DAIRY LAB TECHNICIAN Therapy [facility] Occupational Therapy [address] [place] [address] [facility] 6th [place] [address] [place] [address] Carmela Mckenna OT Arthritis of carpometacarpal (CMC) joint of left thumb (Primary Dx) 08/16/2024 8:23 AM DAIRY LAB TECHNICIAN - 08/16/2024 11:59 PM DAIRY LAB TECHNICIAN Hospital Encounter [facility] [address] [place] [address] Carline Rivera MD PhD Arthritis of carpometacarpal (CMC) joint of left thumb Discharge Disposition: Discharge to home or self care 08/16/2024 8:45 AM DAIRY LAB TECHNICIAN Office Visit [facility] Surgery [address] [place] [address] [facility] 6th [place] [address] Carline Rivera MD PhD Arthritis of carpometacarpal (CMC) joint of left thumb (Primary Dx); Arthritis of left wrist 08/14/2024 10:15 AM DAIRY LAB TECHNICIAN Therapy [facility] Occupational Therapy [address] [place] [address] Nancy Ricci OT Arthritis of carpometacarpal (CMC) joint of left thumb (Primary Dx); Left wrist pain; Arthritis of left wrist 08/13/2024 8:22 AM DAIRY LAB TECHNICIAN - 08/13/2024 11:59 PM [facility] Hospital Encounter [facility] Imaging [address] [facility] Medical Office Building [address] [place] [address] Malignant neoplasm of body of stomach (HCC) Discharge Disposition: Discharge to home or self care 08/12/2024 Telephone [facility] Cardiology [address] [place] [phone] Galo Cisneros MD 08/07/2024 10:15 AM DAIRY LAB TECHNICIAN Therapy [facility] Occupational Therapy [address] [place] [address] Nancy Ricci OT Arthritis of carpometacarpal (CMC) joint of left thumb (Primary Dx); Left wrist pain; Arthritis of left wrist 07/31/2024 11:00 AM DAIRY LAB TECHNICIAN Therapy [facility] Occupational Therapy [address] [place] [address] Carline Vincent OT Arthritis of carpometacarpal (CMC) joint of left thumb (Primary Dx) 07/29/2024 2:45 PM DAIRY LAB TECHNICIAN Office Visit [facility] [address] [phone] Zachary Harris MD Sacroiliitis (Primary Dx); Basal cell carcinoma (BCC) of left side of nose; Rivas syndrome; BMI 30.0-30.9,adult; 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); Pulmonary emphysema, unspecified emphysema type (HCC); Paroxysmal atrial fibrillation (HCC); Obesity (BMI 30.0-34.9) 07/24/2024 11:00 AM DAIRY LAB TECHNICIAN Therapy [facility] Occupational Therapy [address] [place] [address] Hauschild, Nancy, OT Arthritis of carpometacarpal (CMC) joint of left thumb (Primary Dx); Left wrist pain; Arthritis of left wrist 07/19/2024 8:30 AM DAIRY LAB TECHNICIAN Therapy [facility] Occupational Therapy [address] [place] [address] Jackeline Irvin, CAIO Arthritis of carpometacarpal (CMC) joint of left thumb (Primary Dx); Left wrist pain; Arthritis of left wrist from Last 3 Months Allergies Active Allergy Reactions Criticality Noted Date Comments Dhiraj Inhibitors Cough Low 04/22/2015 Finasteride Other (See comments),Unknown Low 2022 Gynecomastia Medications cetirizine (ZyrTEC) 10 mg tabletIndications :Allergic Rhinitis Take 1 tablet (10 mg total) by mouth every morning 016 Active albuterol HFA (PROVENTIL HFA,VENTOLIN HFA) 90 mcg/actuation inhalerIndication s:Bronchospasm Prevention Inhale 2 puffs daily before breakfast Active azelastine (ASTELIN) 137 mcg (0.1 %) nasal spray Administer 2 sprays into affected nostril(s) as needed for rhinitis 016 Active montelukast (SINGULAIR) 10 mg tabletIndications :Maintenance Therapy for Asthma Take 1 tablet (10 mg total) by mouth every morning Active cholecalciferol (VITAMIN D-3) 5,000 unit tabletIndications :Vitamin D Deficiency Take 1 tablet (5,000 Units total) by mouth every morning 017 Active allopurinol (ZYLOPRIM) 100 mg tabletIndications :prevention of acute gout attack Take 1 tablet (100 mg total) by mouth every morning Active fluticasone furoate-vilantero L (BREO ELLIPTA) 200-25 mcg/dose diskus inhalerIndication s:Maintenance Therapy for Asthma Inhale 1 puff every morning 017 Active sildenafiL (VIAGRA) 100 mg tabletIndications :Erectile Dysfunction Take 1 tablet (100 mg total) by mouth as needed Active tamsulosin (FLOMAX) 0.4 mg extended release capsuleIndication s:Urolithiasis,be nign prostatic hyperplasia with lower urinary tract sx Take 1 capsule (0.4 mg total) by mouth 2 (two) times a day Active multivitamin/iron /folic acid (CENTRUM COMPLETE ORAL)Indications: health Take 1 tablet by mouth daily before breakfast 020 Active triamterene-hydro CHLOROthiazide (triamterene-hydr oCHLOROthiazide) 37.5-25 mg per tablet/capsuleInd ications:blood pressure Take 1 tablet/capsule by mouth daily before breakfast Active aspirin 81 mg enteric coated tabletIndications :Precordial pain,Coronary artery calcification seen on CAT scan Take 1 tablet (81 mg total) by mouth daily 30 tablet 11 021 Active syringe with needle 3 mL 25 gauge x 1 syringe Use to inject Vitamin B12 every 30 days 12 each 021 Active L.acidophilus-B.b ifidum,longum (Probiotic Colon Support) 240 mg (3 billion cell) capsuleIndication s:health Take 1 tablet by mouth daily before breakfast qd 021 Active omeprazole (PriLOSEC) 40 mg capsuleIndication s:Treatment of Non-Bleeding Gastric Disorder Take 1 capsule (40 mg total) by mouth 2 (two) times a day qd 006 Active cyanocobalamin (Vitamin B-12) 1,000 mcg/mL injection INJECT 1 ML SUBCUTANEOUSLY EVERY 30 DAYS 1 mL 022 Active potassium chloride ER 20 mEq CR tabletIndications :health Take 1 tablet (20 mEq total) by mouth daily before breakfast 023 Active melatonin 3 mg tablet,disintegra tingIndications:s leep Take 6 mg by mouth nightly 023 Active amLODIPine (NORVASC) 2.5 mg tabletIndications :Primary hypertension Take 1 tablet (2.5 mg total) by mouth daily 90 tablet 3 023 Active levothyroxine (SYNTHROID) 112 mcg tabletIndications :Postsurgical hypothyroidism Take 1 tablet (112 mcg total) by mouth daily 30 tablet 11 024 Active latanoprost (XALATAN) 0.005 % ophthalmic solution Administer 1 drop into the right eye nightly 2.5 mL 11 024 Active fluticasone propionate (FLONASE) 50 mcg/actuation nasal spray USE 2 SPRAY(S) IN EACH NOSTRIL ONCE DAILY 024 Active mirtazapine (REMERON) 15 mg tabletIndications :Post Traumatic Stress Disorder Take 1 tablet (15 mg total) by mouth nightly 024 Active atorvastatin (LIPITOR) 10 mg tabletIndications :Coronary artery calcification seen on CAT scan Take 1 tablet (10 mg total) by mouth daily 90 tablet 3 024 Active magnesium gluconate (MAGONATE) 500 mg (27 mg elemental) tabletIndications :health Take 1 tablet (500 mg total) by mouth daily before breakfast qd Active hydrocortisone (CORTEF) 10 mg tabletIndications :Adrenal Cortical Insufficiency Take 1 tablet (10 mg total) by mouth 2 (two) times a day Active vitamin B complex capsuleIndication s:Vitamin Deficiency Prevention Take 1 capsule by mouth daily before breakfast Active acetaminophen (TYLENOL) 500 mg tablet Take 2 tablets (1,000 mg total) by mouth every 6 (six) hours 60 tablet 3 025 Active Additional Information Patient not taking.Reported on 09/03/2024 carboxymethylcell ulose (REFRESH PLUS) 0.5 % dropperette Administer 1 drop into both eyes continuously as needed for dry eyes 180 each 3 025 Active fluocinonide (LIDEX) 0.05 % ointment APPLY OINTMENT TOPICALLY ONCE DAILY FOR ITCHING ON THE BODY Active nebivoloL (BYSTOLIC) 10 mg tablet Take 1 tablet by mouth once daily 100 tablet 025 Active nebivoloL (BYSTOLIC) 10 mg tablet Take 1 tablet (10 mg total) by mouth daily 100 tablet 025 2024 Discontinued cephalexin (KEFLEX) 500 mg capsule Take 1 capsule (500 mg total) by mouth 3 (three) times a day for 7 days 21 capsule 025 2024 Active Problems Problem Noted Date Diagnosed Date Greater trochanteric bursitis of both hips 09/25 BMI 30.0-30.9,adult 07/31/2024 Assessment & Plan (07/31/2024 10:32 AM DAIRY LAB TECHNICIAN): Encourage 150min/week aerobic exercise. Heatlhy food choices. Arthritis of carpometacarpal (CMC) joint of left thumb 05/24/2024 Arthritis of left wrist 05/24/2024 Palpitations 04/30/2024 Adenocarcinoma of small bowel 02/29/2024 Depression 12/20/2023 Open-angle glaucoma of right eye, moderate stage 10/06/2023 Overview (10/04/2024): -Previously treated at the [facility]; here for a second opinion -IOP [...] drusen -Along [place] arc[place] -Extensive h/o cancer- Rivas syndrome -Recently had melanoma removed from left [...] Hx of metastatic adeno to lymph nodes. (+)Rivas syndrome. Hx left partial nephrectomy ('16); path [...] 06/01 Assessment & Plan (05/16/2024 9:40 AM DAIRY LAB TECHNICIAN): In regard to health maintenance, Colonoscopy- declined [...] healthier, we can set up appointment with incendiaries supervisor/upholstery tech. Have an active lifestyle, strive for 30 [...] man. Assessment & Plan (06/01/2023 9:23 AM DAIRY LAB TECHNICIAN): Visit preventive in nature. We reviewed medications, chronic conditions, risk factors, lifestyle recommendations. Reviewed immunization recommendations. Follow-up in 6 months for chronic conditions and 1 year for annual wellness. Asthma due to seasonal allergies 06/01/2023 Assessment & Plan (06/01/2023 9:24 AM DAIRY LAB TECHNICIAN): Currently stable without exacerbation. Will place referral to computer lab assistant. Appreciate their expertise. Mixed hyperlipidemia 06/01/2023 Assessment & Plan (05/16/2024 9:38 AM DAIRY LAB TECHNICIAN): Lipid panel ordered. Stable and well controlled. Will continue to monitor. Will continue on Atorvastatin. Assessment & Plan (12/04/2023 9:01 AM CDT): Well controlled on atorvastatin. No changes. Will continue to monitor. Assessment & Plan (06/01/2023 9:24 AM DAIRY LAB TECHNICIAN): Recent lipid panel reviewed. Will continue atorvastatin. Tolerating without side effects. BMI 28.0-28.9,adult 06/01/2023 Assessment & Plan (06/01/2023 9:24 AM DAIRY LAB TECHNICIAN): His weight is good. Avulsion of eye 03/28/2023 Benign prostatic hyperplasia 03/28/2023 Assessment & Plan (05/16/2024 9:37 AM DAIRY LAB TECHNICIAN): Stable and well controlled. Will continue on [...] 03/28/2023 Assessment & Plan (07/31/2024 10:32 AM DAIRY LAB TECHNICIAN): COntinues on prn albuterol and breo ellipta. Reviewed pulmonary toilet. Assessment & Plan (05/16/2024 9:37 AM DAIRY LAB TECHNICIAN): Stable and well controlled. No recent exacerbations [...] DFE. Assessment & Plan (05/16/2024 9:38 AM DAIRY LAB TECHNICIAN): Lab Results Component Value Date HGBA1C 5.8 [...] 08/01/2022 Assessment & Plan (08/01/2022 2:00 PM DAIRY LAB TECHNICIAN): - Likely due to finasteride - He [...] treatable. 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 Doing fine without creon. F/up in 6 months. Assessment & Plan (02/06/2023 1:54 PM CDT): I think this was from immunotherapy. It has resolved now. Weight is stable. No diarrhea. It may come back if he goes back on immunotherapy but we can restart Creon. Assessment & Plan (08/08/2022 10:49 AM DAIRY LAB TECHNICIAN): Likely due to immunotherapy. Gained weight on [...] months. Assessment & Plan (08/01/2022 1:56 PM DAIRY LAB TECHNICIAN): He held his pancreatic enzymes due to [...] (08/19/2021): Added automatically from request for surgery [id number] Assessment & Plan (09/14/2021 3:41 PM CDT): [...] 08/09/2021 Assessment & Plan (07/31/2024 10:31 AM DAIRY LAB TECHNICIAN): No increaed palpitations. No shortness of breath, no increaed work of breathing. Assessment & Plan (05/16/2024 9:36 AM DAIRY LAB TECHNICIAN): HR stable and normal. Will continue on Metoprolol and ASA. Will continue to follow with Cardiology. Adrenal insufficiency 07/17/2021 Assessment & Plan (11/13/2022 11:41 AM CDT): - Continue hydrocortisone - Doublet he dose if sick/fever Assessment & Plan (08/01/2022 1:57 PM DAIRY LAB TECHNICIAN): Due to weight gain, he will decrease [...] routes Assessment & Plan (07/17/2021 1:42 PM DAIRY LAB TECHNICIAN): Did not stim by >10 on cosyntropin [...] 02/09/20 Assessment & Plan (07/31/2024 10:31 AM DAIRY LAB TECHNICIAN): As above. Coronary artery calcification seen on CAT scan 0 10/30/2020 Chest pain 10/30/2020 Former smoker 10/30/2020 Elevated CEA 07/07/2020 Overview (07/07/2020): Added automatically from request for surgery [id number] Encounter for follow-up surveillance of gastric cancer 07/07/2020 Overview (07/07/2020): Added automatically from request for surgery [id number] Dysgeusia 02/24/2020 Hypophosphatemia 10/15/2019 Bradycardia 10/02/2019 Small bowel cancer 08/06/2019 Cancer Staging:Pathologic stage from 07/19/2019:Stage IIA(pT3, pN0, cM0) - Signed by Kristin Marquez MD on 12/31/2020 Arrhythmia 07/26/2019 Malignant neoplasm of body of stomach 07/10/2019 Cancer Staging:Pathologic stage from 07/19/2019:Stage IA(pT1a, pN0, cM0) - Signed by Kristin Marquez MD on 12/31/2020 BMI 29.0-29.9,adult 05/17/2019 Assessment & Plan (05/16/2024 9:36 AM DAIRY LAB TECHNICIAN): Weight appropriate for patient. Assessment & Plan (05/17/2019 3:28 PM DAIRY LAB TECHNICIAN): Reviewed need to lose weight, reviewed health benefits. Reviewed recommendations for daily intake & activity 20-30 minutes/day. Discussed healthy diet and importance of regular physical activity. Squamous cell carcinoma of foot, right toe 05/13 Gastroesophageal reflux disease 05/02/2019 Assessment & Plan (05/16/2024 9:35 AM DAIRY LAB TECHNICIAN): Stable and well controlled. Will continue on Omeprazole Encounter for screening colonoscopy 01/22/2019 Overview (01/22/2019): Added automatically from request for surgery [id number] History of colonic polyps 01/22/2019 Overview (01/22/2019): Added automatically from request for surgery [id number] Assessment & Plan (02/06/2023 1:55 PM CDT): He is not interested in further colonoscopy at this time. Had a friend from a screening colon perforation. History of arthroplasty of left knee 10/17/2018 PVC's (premature ventricular contractions) 08/24 Normocytic anemia 07/26/2018 Basal cell carcinoma (BCC) of left side of nose 02/28/2018 Assessment & Plan (07/31/2024 10:31 AM DAIRY LAB TECHNICIAN): COntinue f/u with dermatology. 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 Assessment & Plan (06/01/2023 9:23 AM DAIRY LAB TECHNICIAN): History of multiple cancers. He does continue to follow closely with Oncology and will continue to do so. Assessment & Plan (08/08/2022 10:47 AM DAIRY LAB TECHNICIAN): Multiple malignancies, including recent skin ca. He is not sure he wants to continue colon cancer screening. I discussed that age 74 is when we consider stopping in patients without rivas syndrome. 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 Completely excised. No further treatment is required at this time. Postsurgical hypothyroidism 11/10/2017 Assessment & Plan (05/16/2024 9:35 AM DAIRY LAB TECHNICIAN): Euthyroid. Will continue on Synthroid and following with specialist. Assessment & Plan (11/13/2022 11:41 AM CDT): - Continue current thyroid hormone replacement -TSH at goal earlier this month - Repeat labs with oncology labs 01/10 to ensure stability Assessment & Plan (08/01/2022 1:58 PM DAIRY LAB TECHNICIAN): Clinically and biochemically euthyroid Continue current thyroid [...] month Assessment & Plan (07/17/2021 1:40 PM DAIRY LAB TECHNICIAN): Exacerbated by immunotherapy - Continue 125 mcg [...] is currently under the care of the cash register operator. Thyroid hormone supplementation will be managed and adjusted as needed per Dr. Jauregui. Sacroiliitis 09/08/2017 Assessment & Plan (07/31/2024 10:30 AM DAIRY LAB TECHNICIAN): Patient with benefit of SI joint injection [...] 06/03/2014 Assessment & Plan (05/16/2024 9:35 AM DAIRY LAB TECHNICIAN): Blood pressures stable and well controlled. Will continue on Amlodipine and Nebivolol Bronchial asthma 06/03/2014 Resolved Problems Problem Noted Date Diagnosed Date Resolved Date Obesity (BMI 30.0-34.9) 07/31/202409/10 Assessment & Plan (07/31/2024 10:32 AM DAIRY LAB TECHNICIAN): As above. Left shoulder pain 05/16/2024 Assessment & Plan (05/16/2024 9:41 AM DAIRY LAB TECHNICIAN): Recent increase in pain. Will do short course of Tramadol and Tizanidine. Neck pain 12/04/2023 09/25/2024 Assessment & Plan (05/16/2024 9:38 AM DAIRY LAB TECHNICIAN): Tizanidine and Tramadol ordered for pain relief. Will continue to monitor. Assessment & Plan (12/04/2023 9:02 AM CDT): Continue with p.r.n. muscle relaxer. Will obtain imaging and refer for physical therapy. Will monitor response. Essential hypertension 12/04/202305/16 Assessment & Plan (12/04/2023 9:02 AM CDT): Normotensive. Continue amlodipine, Bystolic triamterene/hydrochlorothiazide. Reviewed lifestyle recommendations. Will continue to monitor. Open angle with borderline findings, low risk 06/01/2011/23/2023 Type 2 diabetes mellitus wit h diabetic neuropathy, unspecified 03/28/2023 07/31/2024 Assessment & Plan (12/04/2023 9:00 AM CDT): Well controlled with lifestyle. No changes. Will continue to monitor. Assessment & Plan (06/01/2023 8:34 AM DAIRY LAB TECHNICIAN): A1C 6.3%. Will continue to monitor. Left leg pain 10/30/2020 09/25/2024 Chronic left-sided low back pain without sciatica 10/23/2020 09/25/2024 Insomnia secondary to chronic pain 10/23/2020 09/25/2024 Small bowel anastomotic leak 10/15/2019 08/03/2020 Severe malnutrition 10/11/2019 05/16/20 24 Assessment & Plan (09/21/2021 9:58 AM CDT): 32 lb weight loss since 03/2021 May have malabsorption as well Notified Dl Carreno with nutrition to reach out to patient Intra-abdominal abscess 10/10/201907/14 Severe obesity (BMI 35.0-39. 9) with comorbidity (CMS/HCC) 07/03/2019 08/09/2021 Localized swelling on left hand 05/17/2019 08/03/2020 Assessment & Plan (05/17/2019 3:29 PM DAIRY LAB TECHNICIAN): Labs ordered; will contact w/results once rec'd. [...] 1211/2018 Arthritis 08/06/2015 06/01/2023 Neuralgia 06/03/2014 09/25/2024 Immunizations Immunization Administration Dates Next Due Influenza, Quad, Adjuvantate d, Intramuscular 03/27/2023 Influenza, Quadrivalent, Hig h Dose, Preservative Free, Intrr 04/13/2022,02/17/2021,03/16/2020 Influenza, Quadrivalent, Spl it, Intramuscular 03/19/2015 Influenza, Quadrivalent, Spl it, Preservative Free, Intramuscular 03/12/2018,03/07/2017,04/13/2016 Influenza, Trivalent, High D ose, Split, Preservative Free, Intramuscular 04/02/2024,04/02/2019,03/20/2018,04/29 Influenza, Unspecified 03/12/2022,2020,04/08/2020,04/03,03/18/2019,03/27/2017,03/27/2017 ,03/12/2016,03/12/2015 Pfizer SARS-CoV-2 Monovalent Vaccination (12+ Yrs) PURPLE 02/17/2021,07/24/2020,07/04/2020 Pneumococcal Conjugate PCV 13 08/03/2018, 015 Pneumococcal Polysaccharide PPV23 07/29/2016,,04/29/2015 Tdap 01/21/2016,12/11/2015,12/11/2015 ZOSTER LIVE 01/21/2016 ZOSTER Recombinant 07/03/2019,06/12/2019, 019 Social History Tobacco Use Types Packs/Day Years Used Date Smoking Tobacco: Former Cigarettes 1 15 1 06/17/1966 - 1982 Passive Smoke Exposure: Never Smokeless Tobacco: Former Snuff Quit: 06/12/1983 Tobacco Cessation:Counseling Given: Not Answered Alcohol Use Standard Drinks/Week Comments Not Currently [...] on file Legal Sex Male 3:44 AM DAIRY LAB TECHNICIAN Gender Identity Male 07/04/2020 6:23 AM DAIRY LAB TECHNICIAN Sexual Orientation Straight 11/12/2018 6: 56 AM CDT 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 Job End Date [employer] Not on file 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 Not on file Not on file Last Filed Vital Signs Vital Sign Reading Time Taken Comments Blood Pressure 168/76 09/25/2024 1:16 PM CDT Pulse 50 09/25/2024 1:16 PM CDT Temperature 36.4 C (97.5 F) 09/03/2024 3:56 PM CDT Respiratory Rate 16 09/25/2024 1:16 PM CDT Oxygen Saturation 96% 09/25/2024 1:16 PM CDT Inhaled Oxygen Concentration - - Weight 90.7 kg (200 lb) 09/03/2024 2:07 PM CDT Height 177.8 cm (5' 10 ) 09/03/2024 2:07 PM CDT Body Mass Index 28.7 09/03/2024 2:07 PM CDT Plan of Treatment Scheduled Procedures Name Priority Associated Diagnoses Date/Ti ne COLONOSCOPY Open Access Adenocarcinoma of small bowel (HCC) Goals Goal Patient Goal Type Associated Problems Recent Progress Patient-Stated? Author <enter goal here> General Yes Jennifer Adame, RN Note: Bending Walking Stooping Medical Devices Implanted Type Area Shopper Marketing Manager Device Identifier Shelf Expiration Date Model / Serial / Lot Palacos R & G Radiopaque Bone Cement Implanted:Qty: 1 on 04/23/2018 by Lucho Carrion MD at [facility] Bone Cement Left: Knee Heraeus [employer] Inc C1713 01/09/2021 / / [id number] Arthrex Inc Suture [place] Knotless Fibertak Resorbable Gw7130-Xe - S0 - [id number] Implanted:Qty: 1 on 06/06/2024 by Carline Rivera MD PhD at [facility] Other - see comments Left: Hand Arthrex Inc [id number] 02/09/2029 [id number] / 0 / [id number] Arthrex Inc Corkscrew Fiberwire 2.2mm 4mm 17.9mm 2 Needle Wire Foot Ankle 2-0 Ar-1318ft - S0 - [id number] Implanted:Qty: 1 on 06/06/2024 by Carline Rivera MD PhD at [facility] Other - see comments Left: Hand Arthrex Inc [id number] 03/11/2029 AR-1318FT / 0 / [id number] Arthrex Inc Internalbrace Kit Hand Wrist Set Implant Ligament Augmentation Ar-8978-Cp - S0 - [id number] Implanted:Qty: 1 on 06/06/2024 by Carline Rivera MD PhD at [facility] Other - see comments Left: Hand Arthrex Inc [id number] 10/09/2028 AR-8978-CP / 0 / [id number] Bonesupport Inc Filler Bone Void Cerament Y9977-20 - S0 - [id number] Implanted:Qty: 1 on 06/06/2024 by Carline Rivera MD PhD at [facility] Other - see comments Left: Hand BONESUPPORT INC 05/04/2027 N8649-81 / 0 / [id number] Medartis Inc Plate Bone Locking 2.5 Short Bend 16 Hole Wrist Aptus Trilock 110mm Ti A-4760.06 - S0 - [id number] Implanted:Qty: 1 on 06/06/2024 by Carline Rivera MD PhD at [facility] Plate Left: Hand Medartis Inc 06/10/2029 A-4760.06 / 0 / Medartis Inc Aptus 2.5mm 16mm Cortical Screw Bone A-5700.16 - S0 - [id number] Implanted:Qty: 1 on 06/06/2024 by Carline Rivera MD PhD at [facility] Screw Left: Hand Medartis Inc 05/31/2029 A-5700.16 / 0 / Medartis Inc 2.5mm 12mm Lock Cortical Screw Bone A-5750.12 - S0 - [id number] Implanted:Qty: 3 on 06/06/2024 by Carline Rivera MD PhD at [facility] Screw Left: Hand Medartis Inc 05/31/2029 A-5750.12 / 0 / Medartis Inc 2.5mm 20mm Lock Cortical Screw Bone A-5750.20 - S0 - [id number] Implanted:Qty: 3 on 06/06/2024 by Carline Rivera MD PhD at [facility] Screw Left: Hand Medartis Inc 05/31/2029 A-5750.20 / 0 / Medartis Inc Aptus 2.5mm 24mm Lock Cortical Screw Bone A-5750.24 - S0 - [id number] Implanted:Qty: 1 on 06/06/2024 by Carline Rivera MD PhD at [facility] Screw Left: Hand Medartis Inc 05/31/2029 A-5750.24 / 0 / Medartis Inc Aptus 2.5mm 18mm Cortical Screw Bone Titanium A-5700.18 - S0 - [id number] Implanted:Qty: 1 on 06/06/2024 by Carline Rivera MD PhD at [facility] Screw Left: Hand Medartis Inc 05/31/2029 A-5700.18 / 0 / Medartis Inc Aptus 2.5mm 32mm Hexadrive Cortical 7 Screw Bone Titanium A-5700.32/1 - S0 - [id number] Implanted:Qty: 1 on 06/06/2024 by Carline Rivera MD PhD at [facility] Screw Left: Hand Medartis Inc 05/31/2029 A-5700.32/ 1 / 0 / Medartis Inc 2.5mm 18mm Lock Cortical Screw Bone A-5750.18 - S0 - [id number] Implanted:Qty: 2 on 06/06/2024 by Carline Rivera MD PhD at [facility] Screw Left: Hand Medartis Inc [id number] 05/31/2029 A-5750.18 / 0 / [id number] Palacos R [employer] G Radiopaque Bone Cement Implanted:Qty: 1 on 04/23/2018 by Lucho Carrion MD at [facility] Left: Knee Marquee Medical Inc C1713 01/09/2021 / / [id number] Depuy Orthopaedics Inc [id number] Attune 38mm Cemented Medialize Knee Dome Patellar Aox Sterile - [id number] Implanted:Qty: 1 on 04/23/2018 by Lucho Carrion MD at [facility] Left: Knee Depuy Orthopaedics Inc 03/11/2023 [id number] / / [id number] Depuy Orthopaedics Inc [id number] Attune Cemented Posterior Stabilize Knee Left 7 Component Femoral - [id number] Implanted:Qty: 1 on 04/23/2018 by Lucho Carrion MD at [facility] Left: Knee Depuy Orthopaedics Inc 05/11/2027 [id number] / / [id number] Depuy Orthopaedics Inc [id number] Attune S+ Cement Fix Bearing Knee 6 Baseplate Tibial - [id number] Implanted:Qty: 1 on 04/23/2018 by Lucho Carrion MD at [facility] Left: Knee Depuy Orthopaedics Inc 10/10/2027 [id number] / / [id number] Depuy Orthopaedics Inc [id number] Attune 8mm Posterior Stabilize Fix Bearing Knee 7 Insert Tibial - [id number] Implanted:Qty: 1 on 04/23/2018 by Lucho Carrion MD at [facility] Left: Knee Depuy Orthopaedics Inc 11/09/2022 [id number] / / [id number] Dinuba Scientific Michele 4014 8.5fr 250cm Tube Temporary Rapid Exchange Nasal Stent Biliary - [id number] Implanted:Qty: 1 on 10/11/2019 by Ric Kenney MD at [facility] Left: Jejunum Din[employer] Scientific Michele 08/18/2022 4014 / / [id number] Daig Michele [id number] Device Closure Angio-Seal Vip Bondek-Plus Polyglyd L70 Cm Od6 Fr Odsec.035 In Vascular - [id number] Implanted:Qty: 1 on 11/11/2020 by Shruti Lai MD at [facility] [employer] [id number] / / Explanted Type Area Shopper Marketing Manager Device Identifier Shelf Expiration Date Model / Serial / Lot Dinuba Scientific Michele 3204 C-Flex 10fr 5cm Gastrointestine 2 Pigtail Curve Stent Biliary - [id number] Implanted:Qty: 1 on 10/11/2019 by Ric Kenney MD at [facility] Explanted:Qty: 1 on 11/12/2019 by Teodoro Aviles MD at [facility] Left: Jejunum Din[employer] Michele 08/22/2022 3204 / / [id number] Description:abscess Dinuba Scientific Michele 3204 C-Flex 10fr 5cm Gastrointestine 2 Pigtail Curve Stent Biliary - [id number] Implanted:Qty: 1 on 10/11/2019 by Ric Kenney MD at [facility] Explanted:Qty: 1 on 11/12/2019 by Teodoro Aviles MD at [facility] Left: Jejunum Dinuba Scientific Michele 08/22/2022 3204 / / [id number] Procedures Procedure Name Priority Date/Time Associated Diagnosis Comments OCT, OPTIC NERVE - OD - RIGHT EYE Routine 10/04/2024 2:35 PM CDT Primary open angle glaucoma (POAG) of right eye, moderate stage SURGICAL PATHOLOGY Routine 10/01/2024 12:00 AM CDT Melanoma of left upper arm (HCC) EGFR Routine 09/25/2024 10:34 AM CDT Night sweats DIFFERENTIAL AUTO Routine 09/25/2024 10:34 AM CDT Night sweats CBC WITH AUTO DIFFERENTIAL Routine 09/25/2024 10:34 AM CDT Night sweats COMPREHENSIVE METABOLIC PANEL Routine 09/25/2024 10:34 AM CDT Night sweats TSH Routine 09/25/2024 10:34 AM CDT Night sweats T4, FREE Routine 09/25/2024 10:34 AM CDT Night sweats URINALYSIS AND REFLEX TO MICROSCOPIC AND CULTURE Routine 09/25/2024 10:34 AM CDT Night sweats SCAN - RADIOLOGY/IMAGING 09/25/2024 PAIN MGMT IMAGING ULTRASOUND SHOULDER, HIP, KNEE JOINT/BURSA INJ BILATERAL Schedule Routine, Read Routine (OP Routine) 09/03/2024 3:46 PM CDT Greater trochanteric bursitis of both hips POCT LIPID PANEL Routine 09/03/2024 2:10 PM CDT Lipid screening EGFR Routine 08/19/2024 9:00 AM CDT Malignant neoplasm of body of stomach (HCC) DIFFERENTIAL AUTO Routine 08/19/2024 9:0 0 AM CDT Malignant neoplasm of body of stomach (HCC) CANCER ANTIGEN 19-9 Routine 08/19/2024 9 :00 AM CDT Malignant neoplasm of body of stomach (HCC) CBC WITH AUTO DIFFERENTIAL Routine 08/19/2024 9:00 AM CDT Malignant neoplasm of body of stomach (HCC) COMPREHENSIVE METABOLIC PANEL Routine 08/19/2024 9:00 AM CDT Malignant neoplasm of body of stomach (HCC) SIGNATERA ONLY Routine 08/19/2024 8:53 AM CDT Malignant neoplasm of body of stomach (HCC) SCAN - PATHOLOGY 08/19/2024 XR HAND LEFT 3 OR MORE VIEWS Schedule Routine, Read Routine (OP Routine) 08/16/2024 8:52 AM DAIRY LAB TECHNICIAN Arthritis of carpometacarpal (CMC) joint of left thumb PET/CT FDG SKULL TO THIGH Schedule Routine, Read Routine (OP Routine) 08/13/2024 9:53 AM DAIRY LAB TECHNICIAN Malignant neoplasm of body of stomach (HCC) CT CHEST ABDOMEN PELVIS W CONTRAST Schedule Routine, Read Routine (OP Routine) 05/17/2024 8:35 AM DAIRY LAB TECHNICIAN Malignant neoplasm of body of stomach (HCC) COLONOSCOPY 03/26/2024 9:49 AM CDT HEMOGLOBIN A1C Routine 11/27/2023 8:09 AM CDT Type 2 diabetes mellitus with diabetic neuropathy, without long-term current use of insulin (HCC) Mixed hyperlipidemia Essential hypertension ALBUMIN CREATININE RATIO, URINE Routine 06/01/2023 8:45 AM DAIRY LAB TECHNICIAN Type 2 diabetes mellitus with diabetic neuropathy, without long-term current use of insulin (HCC) from Last 3 Months or Most Recently Relevant to Health Maintenance Results * OCT, Optic Nerve - OD - Right Eye (10/04/2024 2:35 PM CDT) RNFL OD 69 micrometers CONTINUUM Anatomical Region Laterality Modality Head Optical Coherenc e Tomography Narrative 10/04/2024 2:35 PM CDT Reliability was good. Temporal thickness was normal. Superior thickness was normal. Nasal thickness was normal. Inferior thickness was showing abnormal thinning. Average RNFL thickness 69 micrometers. Notes Polar thinning inf>sup Stable to prev GCC 60 Inferior thinning w/ temporal rafae sign Brina Nieto Hickeylen Landaverde OD OPHTH TOMOGRAPHY Final Result * Surgical pathology (10/01/2024 12:00 AM CDT) Tissue (Skin, excision) 10/01/2024 10/02/2024 5:44 AM CDT Narrative [facility] - 10/07/2024 1:06 PM CDT EPIC results best viewed via link to PDF [facility], [address], [place] [address] [email or web address] Note to Patients: This report may contain a detailed description of human tissue sent by a health care provider to the laboratory for pathologic evaluation. The content of this report is essential for diagnosis and may provide important critical findings. This information may be unfamiliar to patients to review without a medical professional present. It is advised that the patient review this report in the presence of a health care provider who can answer questions and explain the details. FINAL REPORT Patient Information: PATIENT NAME: KADEN AVERY SEX: M : [id number] (Age: 74) Specimen Information: COLLECTED: 10/01/2024 RECEIVED: 10/02/2024 REPORTED: 10/07/2024 Submitting Physician Information: Juan David Sifuentes M.D. [facility], [address] [place] [address], [address] [place] [phone], [phone] DERMATOPATHOLOGY REPORT RESULTS DIAGNOSIS: SKIN, LEFT UPPER ARM, EXCISION: - RESIDUAL MALIGNANT MELANOMA IN SITU, SUPERFICIAL SPREADING TYPE - SCAR FROM A PREVIOUS PROCEDURE Note: The residual melanoma in situ does not extend to the margins of the sections examined in this multiply-sectioned specimen. A MART-1 immunohistochemical stain was performed to assess the distribution of melanocytes in the lesion and confirms the histologic impression. dh/spng By this signature, I attest that the above diagnosis is based upon my personal examination of the slides(and/or other material indicated in the diagnosis). Tomás Man MD, PhD Report Electronically Reviewed and Signed Out By Tomás Man MD, PhD 10/07/2024 13:06:14 CLINICAL INFORMATION MELANOMA SPECIMEN DATA MICROSCOPIC DESCRIPTION: There is a poorly circumscribed proliferation of atypical melanocytes arranged as solitary units and as nests within the epidermis, at all levels of the epidermis. Multiple deeper sections fail to reveal an invasive component. There is a proliferation of fibroblasts aligned parallel to the skin surface interposed among linearly arranged, thickened collagen bundles and small blood vessels. (D03.9, L90.5) GROSS DESCRIPTION: Received in a formalin-containing bottle is an elliptical piece of edwards, wrinkled, hair-bearing skin and adipose tissue measuring 6.3 by 4.4 by 1.0 cm. An orienting notch is present and the suture is placed in the 12:00 position. The 12:00-6:00 surgical margin is inked black. The 6:00-12:00 surgical margin is inked blue. The specimen bears a centrally located, pink-edwards, scaly area measuring 2.8 by 2.5 cm. The specimen is sectioned into 28 pieces and submitted in 28 cassettes. The tip with the notch is submitted in the first cassette. The opposite tip is submitted in the second cassette. The tips are tagged orange for orienting purposes. Due to shrinkage, measurements may be different than those at time of procedure. tremaine/mxf ICD-9 A; ZSD.1387 ZSD.1055 Clerical Data A; 82114, 53043-VC The characteristics of special, immunohistochemical, and immunofluorescence stains and in-situ hybridization tests performed by the [facility] were deemed acceptable in ongoing quality control tester measures and in compliance with regulations drawn from the Clinical Laboratory Improvement Act zf9253 (CLIA '88). Control reactions for all stains performed were deemed adequate and appropriate by a pathologist prior to evaluation of patient tissue. Some diagnoses were rendered with the assistance of laboratory-developed tests utilizing analyte-specific reagents; the performance characteristic of these tests were determined by [facility] and are not cleared or approved by the US Food an Drug administration. Laboratory developed test may only be performed in a facility that is certified by the [facility] as a high-complexity laboratory under CLIA '88. These tests are used for clinical purposes and are not investigational. Susy Sifuentes MD LAB PATHOLOGY ORDERABLE S Final Result [facility] [address] [place] [id number] * eGFR (09/25/2024 10:34 AM CDT) eGFR 60 >=60 mL/min/1. 73 m2 Comment: Interpretive Data Reference Interval Normal >/= 90 mL/min/1.73m2 Mildly decreased* 60 - 89 mL/min/1.73m2 Mildly to moderately decreased 45 - 59 mL/min/1.73m2 Moderately to severely decreased 30 - 44 mL/min/1.73m2 Severely decreased 15 - 29 mL/min/1.73m2 Kidney Failure < 15 mL/min/1.73m2 *Relative to young adult level Estimated glomerular filtration rate is determined by the 2020 CKD-EPI equation recommended by the National Kidney Foundation (A Unifying Approach to GFR Estimation: Recommendations of the NKF-ASK Task Force on Reassessing the Inclusion of Race in Diagnosing Kidney Disease, JASN 2020). The CKD-EPI equation should not be used for patients with unstable renal function and has not been validated in children and those over 70. Current interpretive data was last reviewed 2021. Blood 09/25/2024 10:3 4 AM CDT 09/25/2024 1:04 PM CDT us Zachary Harris MD LAB BLOOD ORDERABLES Vero sarah Result [facility] ([facility]) 1 [facility] Department [place] [address] * (ABNORMAL) Differential, auto (09/25/2024 10:34 AM CDT) Neutrophil abs 9.26(H) 1.50 - 6.50 K/cumm Imm gran abs 0.09 0.00 - 0.10 K/cumm [facility] ([facility]) Lymphocyte abs 1.10 0.80 - 3.30 K/cumm [facility] ([facility]) Monocyte abs 0.77 0.20 - 0.80 K/cumm [facility] ([facility]) Eosinophil abs 0.09 0.00 - 0.50 K/cumm [facility] ([facility]) Basophil abs 0.05 0.00 - 0.10 K/cumm [facility] ([facility]) Neutrophil pct 81.5 % [facility] ([facility]) Comment: Interpretive Data Percent cell count reference ranges are not reported, since discordance with absolute values may lead to misinterpretation of CBC data. Current Interpretive Data was last revised on 2017. Imm gran pct 0.8 % [facility] ([facility]) Comment: Interpretive Data Percent cell count reference ranges are not reported, since discordance with absolute values may lead to misinterpretation of CBC data. Current Interpretive Data was last revised on 2017. Lymphocyte pct 9.7 % [facility] ([facility]) Comment: Interpretive Data Percent cell count reference ranges are not reported, since discordance with absolute values may lead to misinterpretation of CBC data. Current Interpretive Data was last revised on 2017. Monocyte pct 6.8 % [facility] ([facility]) Comment: Interpretive Data Percent cell count reference ranges are not reported, since discordance with absolute values may lead to misinterpretation of CBC data. Current Interpretive Data was last revised on 2017. Eosinophil pct 0.8 % [facility] ([facility]) Comment: Interpretive Data Percent cell count reference ranges are not reported, since discordance with absolute values may lead to misinterpretation of CBC data. Current Interpretive Data was last revised on 2017. Basophil pct 0.4 % [facility] ([facility]) Comment: Interpretive Data Percent cell count reference ranges are not reported, since discordance with absolute values may lead to misinterpretation of CBC data. Current Interpretive Data was last revised on 2017. Blood 09/25/2024 10:3 4 AM CDT 09/25/2024 1:04 PM CDT us Zachary Harris MD LAB BLOOD ORDERABLES Vero smith Result [facility] ([facility]) 1 [facility] Department [place] [address] * Urinalysis reflex to microscopic and culture Urine (09/25/2024 10:34 AM CDT) Color, ur Yellow Yellow Clarity, ur Clear Clear [facility] (ANOOP) Specific gravity, ur 1.018 1.003 - 1.030 [facility] ([facility]) pH, urine 5.5 [facility] ([facility]) Comment: Interpretive Data U rine pH is affected by diet, medications, systemic acid-base disturbances, and renal tubular function. pH may affect urinary stone formation. For example, urine pH below 6.0 may help reduce the tendency for calcium phosphate stones and pH greater than 6.0 may reduce the tendency for uric acid stone formation. Source: [facility] [employer] Current Interpretive Data was last revised on 2017 Protein, ur ql Negative Negative [facility] ([facility]) Glucose, ur ql Negative Negative [facility] ([facility]) Ketones, ur Negative Negative [facility] ([facility]) Bilirubin, ur Negative Negative [facility] ([facility]) Blood, ur Negative Negative [facility] ([facility]) Urobilinogen, ur <2.0 <2.0 mg/dL [facility] ([facility]) Nitrite, ur Negative Negative [facility] ([facility]) Leukocyte esterase, ur Negative Negative [facility] ([facility]) UA reflex comment Reflex conditions for microscopic UA and culture not met. [facility] ([facility]) Urine 09/25/2024 10:3 4 AM CDT 09/25/2024 1:04 PM CDT us Zachary Harris MD LAB MICROBIOLOGY - GENERA L ORDERABLES Final Result Performing Organization Address City/[facility]/ZIP Co de Phone Number [facility] ([facility]) 1 [facility] [employer] [place] [address] * (ABNORMAL) CBC with auto differential (09/25/2024 10:34 AM CDT) WBC 11.36(H) 3.80 - 9.90 K/cumm Hgb 13.3 13.0 - 17.5 g/dL [facility] ([facility]) Hct 39.7 38.9 - 50.3 % [facility] ([facility]) Plt 197 150 - 400 K/cumm [facility] ([facility]) MPV 10.9 9.1 - 12.3 fL [facility] ([facility]) RBC 4.17(L) 4.30 - 5.80 M/cumm [facility] ([facility]) MCV 95.2 81.3 - 96.4 fL [facility] ([facility]) MCH 31.9 27.1 - 33.3 pg [facility] ([facility]) MCHC 33.5 32.3 - 35.7 g/dL [facility] ([facility]) RDW CV 16.7(H) 11.1 - 14.9 % [facility] ([facility]) RDW SD 58.4(H) 35.7 - 48.1 fL [facility] ([facility]) NRBC abs 0.00 0.00 - 0.01 K/cumm [facility] ([facility]) Blood 09/25/2024 10:3 4 AM CDT 09/25/2024 1:04 PM CDT us Zachary Harris MD LAB BLOOD ORDERABLES Vero l Result Performing Organization Address City/[facility]/ZIP Co de Phone Number [facility] ([facility]) 1 [facility] [place] [place] [address] * TSH (09/25/2024 10:34 AM CDT) Pathologist [facility] Thyroid Stimulating Hormone 3.43 0.30 - 4.20 mcIUnit/mL Blood 09/25/2024 10:3 4 AM CDT 09/25/2024 1:04 PM CDT Zachary Harris MD LAB BLOOD ORDERABLES Vero l Result [facility] ([facility]) [address] [place] [address] * T4, free (09/25/2024 10:34 AM CDT) [facility] Free T4 1.58 0.90 - 1.70 ng/dL Blood 09/25/2024 10:3 4 AM CDT 09/25/2024 1:04 PM CDT Zachary Harris MD LAB BLOOD ORDERABLES Vero l Result [facility] ([facility] [address] [place] [address] * (ABNORMAL) Comprehensive metabolic panel (09/25/2024 10:34 AM CDT) [facility] Sodium 138 135 - 145 mmol/L Potassium, pl 3.9 3.3 - 4.9 mmol/L [facility] ([facility]) Chloride 101 97 - 110 mmol/L [facility] ([facility]) CO2 23 22 - 32 mmol/L [facility] ([facility]) Anion gap 14 2 - 15 mmol/L [facility] ([facility]) BUN 20 6 - 25 mg/dL [facility] ([facility]) Creatinine 1.25 0.80 - 1.30 mg/dL [facility] ([facility]) Glucose 114 70 - 199 mg/dL [facility] ([facility]) Comment: Interpretive Data Fasting glucose >/= 126 mg/dl is diagnostic for diabetes. Fasting is defined as no caloric intake for at least 8 hours. Fasting glucose between 100 mg/dl to 125 mg/dl is diagnostic of prediabetes. In a patient with classic symptoms of hyperglycemia or hyperglycemic crisis, a random glucose >/= 200 mg/dl is diagnostic for diabetes. In the absence of unequivocal hyperglycemia, results should be confirmed by repeat testing. The classification and Diagnosis of Diabetes Diabetes Care 2021; 46: S19-S40. Current interpretive data was last revised 2022. Calcium 8.7 8.5 - 10.3 mg/dL [facility] ([facility]) Bilirubin, total 0.6 0.1 - 1.2 mg/dL [facility] ([facility]) Protein, pl 6.3(L) 6.5 - 8.5 g/dL [facility] ([facility]) Albumin 3.9 3.5 - 5.0 g/dL [facility] ([facility]) Alk phos 83 40 - 130 Units/L [facility] ([facility]) ALT 36 7 - 55 Units/L [facility] ([facility]) AST 38 10 - 50 Units/L [facility] ([facility]) Blood 09/25/2024 10:3 4 AM CDT 09/25/2024 1:04 PM CDT Zachary Harris MD LAB BLOOD ORDERABLES Vero l Result [facility] ([facility]) 1 [facility] Department of Laboratories [place], [place] [id number] * SCAN - RADIOLOGY/IMAGING (09/25/2024) Anatomical Region Laterality Modality Other us Provider Scanning Final Result * Imaging Ultrasound Shoulder, Hip, Knee Joint/Bursa INJ Bilateral () (09/03/2024 3:46 PM CDT) Narrative [facility] - 09/03/2024 3:46 PM CDT The images from this study are not interpreted by Radiology. Please refer to the physician's procedure / OR operative note. us Dmitry Garcia MD IMG PAIN MGMT PROCEDURE S Final Result RAD_PACS_[facility] * POCT lipid panel (09/03/2024 2:10 PM CDT) Cholesterol, POC 100 mg/dL HDL, POC 59 mg/dL Triglycerides, POC 86 mg/dL LDL Cholesterol POC 24 mg/dL Cholesterol Total, POC 100 mg/dL Capillary blood 09/03/2024 2 :10 PM CDT Galo Cisneros MD POINT OF CARE TEST ORDERA BLES Edited Result - Final * (ABNORMAL) eGFR (08/19/2024 9:00 AM CDT) eGFR 53(L) >=60 mL/min/1. 73 m2 Comment: Interpretive Data Reference Interval Normal >/= 90 mL/min/1.73m2 Mildly decreased* 60 - 89 mL/min/1.73m2 Mildly to moderately decreased 45 - 59 mL/min/1.73m2 Moderately to severely decreased 30 - 44 mL/min/1.73m2 Severely decreased 15 - 29 mL/min/1.73m2 Kidney Failure < 15 mL/min/1.73m2 *Relative to young adult level Estimated glomerular filtration rate is determined by the 2020 CKD-EPI equation recommended by the National Kidney Foundation (A Unifying Approach to GFR Estimation: Recommendations of the NKF-ASK Task Force on Reassessing the Inclusion of Race in Diagnosing Kidney Disease, JASN 2020). The CKD-EPI equation should not be used for patients with unstable renal function and has not been validated in children and those over 70. Current interpretive data was last reviewed 2021. Testing performed by: [facility], [address], [place] [address] Blood 08/19/2024 9:00 AM CDT 08/19/2024 9:18 AM CDT Susan Tran MD LAB BLOOD ORDERABLES Vero l Result [facility] [id number] [facility] Department of Laboratories [place], [place] [id number] * (ABNORMAL) Differential, auto (08/19/2024 9:00 AM CDT) Neutrophil abs 5.2 1.5 - 6.5 K/cumm Comment:Testing performed by : [facility], [address] [place] [address] Imm gran abs 0.1 0.0 - 0.1 K/cumm CERNER BJWCH Comment:Testing performed by : [facility], [address] [place] [address] Lymphocyte abs 1.6 0.8 - 3.3 K/cumm CERNER BJWCH Comment:Testing performed by : [facility], [address] [place] [address] Monocyte abs 0.9(H) 0.2 - 0.8 K/cumm CERNER BJWCH Comment:Testing performed by : [facility], [address] [place] [address] Eosinophil abs 0.3 0.0 - 0.5 K/cumm CERNER BJWCH Comment:Testing performed by : [facility], [address] [place] [address] Basophil abs 0.1 0.0 - 0.1 K/cumm CERNER BJWCH Comment:Testing performed by : [facility], [address] [place] [address] Neutrophil pct 64.3 % CERNER BJWCH Comment: Interpretive Data Percent cell count reference ranges are not reported, since discordance with absolute values may lead to misinterpretation of CBC data. Current Interpretive Data was last revised on 2017. Testing performed by: [facility], [address] [place] [address] Imm gran pct 0.7 % CERNER BJWCH Comment: Interpretive Data Percent cell count reference ranges are not reported, since discordance with absolute values may lead to misinterpretation of CBC data. Current Interpretive Data was last revised on 2017. Testing performed by: [facility], [facility], [address] [place] [address] Lymphocyte pct 19.5 % GABI KAMARA Comment: Interpretive Data Percent cell count reference ranges are not reported, since discordance with absolute values may lead to misinterpretation of CBC data. Current Interpretive Data was last revised on 2017. Testing performed by: [facility], [facility], [address] [place] [address] Monocyte pct 10.8 % GABI KAMARA Comment: Interpretive Data Percent cell count reference ranges are not reported, since discordance with absolute values may lead to misinterpretation of CBC data. Current Interpretive Data was last revised on 2017. Testing performed by: [facility], [facility], [address] [place] [address] Eosinophil pct 3.6 % GABI KAMARA Comment: Interpretive Data Percent cell count reference ranges are not reported, since discordance with absolute values may lead to misinterpretation of CBC data. Current Interpretive Data was last revised on 2017. Testing performed by: [facility], [facility], [address] [place] [address] Basophil pct 1.1 % GABI KAMARA Comment: Interpretive Data Percent cell count reference ranges are not reported, since discordance with absolute values may lead to misinterpretation of CBC data. Current Interpretive Data was last revised on 2017. Testing performed by: [facility], [facility], [address] [place] [address] Blood 08/19/2024 9:00 AM CDT 08/19/2024 9:02 AM CDT us Moh'Berhane M Sunny Tran MD LAB BLOOD ORDERABLES Vero l Result [facility] [address] Department of Laboratories [place], [place] [id number] * (ABNORMAL) CBC with auto differential (08/19/2024 9:00 AM CDT) [facility] Signature WBC 8.2 3.8 - 9.9 K/cumm Comment:Testing performed by : [place] [address], [address] [place] [address] Hgb 12.9(L) 13.0 - 17.5 g/dL CERNER BJWCH Comment:Testing performed by : [place] [address], [address] [place] [address] Hct 39.4 38.9 - 50.3 % CERNER BJWCH Comment:Testing performed by : [place] [address] [place] [address] Plt 204 150 - 400 K/cumm CERNER BJWCH Comment:Testing performed by : [address], [place] [address] MPV 9.6 9.1 - 12.3 fL CERNER BJWCH Comment:Testing performed by : [place] [address], [address] [place] [address] RBC 4.13(L) 4.30 - 5.80 M/cumm CERNER BJWCH Comment:Testing performed by : [address] [place] [address] MCV 95 81 - 96 fL CERNER BJWCH Comment:Testing performed by : [place] [address], [address], [place] [address] MCH 31.2 27.1 - 33.3 pg CERNER BJWCH Comment:Testing performed by : [place] [address], [address] [place] [address] MCHC 32.7 32.3 - 35.7 g/dL CERNER BJWCH Comment:Testing performed by : [place] [address], [address] [place] [address] RDW CV 15.2(H) 11.1 - 14.9 % GABI KAMARA Comment:Testing performed by : [facility], [facility], [address] [place] [address] RDW SD 53.4(H) 35.7 - 48.1 fL GABI KAMARA Comment:Testing performed by : [facility], [facility], [address] [place] [address] Blood 08/19/2024 9:00 AM CDT 08/19/2024 9:02 AM CDT Susan Tran MD LAB BLOOD ORDERABLES Vero l Result Performing Organization Address [facility]/ZIP Co de Phone Number [facility] [address] [employer] [facility] [place] [place] [address] * Cancer antigen 19-9 (08/19/2024 9:00 AM CDT) CA 19-9 ag 13.0 0.0 - 35.0 units/mL Comment: Interpretive Data The Jamie CA 19-9 assay procedure was used. Results from different manufacturers or methods may not be comparable. Serial testing should be performed using the same method. Testing performed by: [facility], [address] [place] [address], [place]., [address] Blood 08/19/2024 9:00 AM CDT 08/19/2024 9:57 AM CDT Susan Tran MD LAB BLOOD ORDERABLES Vero l Result [facility] [address] [employer] [facility] [employer] [place], [place] [id number] * (ABNORMAL) Comprehensive metabolic panel (08/19/2024 9:00 AM CDT) Sodium 143 135 - 145 mmol/L Comment:Testing performed by : [facility], [address], [place] [address] Potassium, pl 3.8 3.3 - 4.9 mmol/L CERNER BJWCH Comment:Testing performed by : [facility], [address], [place] [address] Chloride 106 97 - 110 mmol/L CERNER BJWCH Comment:Testing performed by : [facility], [address], [place] [address] CO2 27 22 - 32 mmol/L CERNER BJWCH Comment:Testing performed by : [facility], [address], [place] [address] Anion gap 10 2 - 15 mmol/L CERNER BJWCH Comment:Testing performed by : [facility], [address], [place] [address] BUN 25 6 - 25 mg/dL CERNER BJWCH Comment:Testing performed by : [facility], [address], [place] [address] Creatinine 1.38(H) 0.80 - 1.30 mg/dL CERNER BJWCH Comment:Testing performed by : [facility], [address], [place] [address] Glucose 102 70 - 199 mg/dL CERNER BJWCH Comment: Interpretive Data Fasting glucose >/= 126 mg/dl is diagnostic for diabetes. Fasting is defined as no caloric intake for at least 8 hours. Fasting glucose between 100 mg/dl to 125 mg/dl is diagnostic of prediabetes. In a patient with classic symptoms of hyperglycemia or hyperglycemic crisis, a random glucose >/= 200 mg/dl is diagnostic for diabetes. In the absence of unequivocal hyperglycemia, results should be confirmed by repeat testing. The classification and Diagnosis of Diabetes Diabetes Care 2021; 46: S19-S40. Current interpretive data was last revised 2022. Testing performed by: [facility], [address], [place] [address] Calcium 8.6 8.5 - 10.3 mg/dL CERNER BJWCH Comment:Testing performed by : [facility], [address], [place] [address] Bilirubin, total 0.4 0.1 - 1.2 mg/dL CERNER BJWCH Comment:Testing performed by : [facility], [address], [place] [address] Protein, pl 6.3(L) 6.5 - 8.5 g/dL CERNER BJWCH Comment:Testing performed by : [facility], [address], [place] [address] Albumin 3.8 3.5 - 5.0 g/dL CERNER BJWCH Comment:Testing performed by : [facility], [address], [place] [address] Alk phos 83 40 - 130 Units/L CERNER BJWCH Comment:Testing performed by : [facility], [address], [place] [address] ALT 21 7 - 55 Units/L CERNER BJWCH Comment:Testing performed by : [facility], [address], [place] [address] AST 24 10 - 50 Units/L CERNER BJWCH Comment:Testing performed by : [facility], [address], [place] [address] Blood 08/19/2024 9:00 AM CDT 08/19/2024 9:18 AM CDT [facility]Ber[facility] Tran MD LAB BLOOD ORDERABLES Vero l Result [facility] [address] [place] [address] * Signatera Only Initial Draw (08/19/2024 8:53 AM CDT) Pathologist [facility] SIGNATERA TEST RESULT NEGATIVE 3:51 PM CDT [facility] SIGNATERA MTM READOUT 0 MTM/ml 3:51 PM CDT [facility] Comment: Limitations Signatera is a personalized, tumor-informed test for the longitudinal detection of circulating tumor DNA (ctDNA). Interval testing is recommended for all patients. Studies have demonstrated that when ctDNA is detected (Signatera Positive) following surgery or definitive treatment, the risk for disease relapse is high without further treatment. Conversely, when ctDNA is not detected, the patient may be considered at lower risk for relapse. For those with multiple timepoints, upward trending ctDNA levels are suggestive of increasing tumor burden (1,2). For a single time point in isolation, the absolute MTM/mL value has no known clinical significance and should not be compared across patients. Test results should be interpreted in context of other clinicopathological features. ctDNA detection sensitivity may be limited due to blood collection within two weeks of surgery and while the patient is on therapy. Signatera is a quantitative test and reports in units of mean tumor molecules per ml (MTM/mL), which is comprised of three measured components (plasma volume, cell free DNA (cfDNA) concentration, and Variant Allele Frequency (VAF)). The MTM/mL number will be qualified if any measured component falls outside the analytical measurement range for that component. The analytical sensitivity is 95% at the limit of detection (0.3 MTM/mL). Results obtained are specific to the assessed time point. A negative test result does not definitively indicate the absence of cancer. This test is not designed to detect or report germline variation, nor does it infer hereditary cancer risk for the patient. Each Signatera assay is designed to a single tumor for a given patient. At this time, multiple personalized Signatera assays cannot be developed for the same patient. This test is designed to detect ctDNA from the assayed tumor only; new primary tumors will not be detected. There is a low risk that a new primary may share a variant that could interfere with the Signatera test. Testing cannot be performed in patients who are , have a history of bone marrow transplant, or history of blood transfusion within three months. This test is expected to have limited sensitivity in cancer types such as GIST, renal cell carcinomas, primary brain tumors, and lymphoma due to limited ctDNA shed. 1 Ti JONES, Abebe MARCIALC, John BERUMEN, et al. Personalized circulating tumor DNA analysis as a predictive biomarker in solid tumor patients treated with pembrolizumab. Nature Cancer. 2020;1(9):873-881. 2 Graciela GASTON, Ashley Ryan, et al., Circulating Tumor DNA in Stage III Colorectal Cancer, beyond Minimal Residual Disease Detection, toward Assessment of Adjuvant Therapy Efficacy and Clinical Behavior of Recurrences. Clin Cancer Res. 202; 28(3):507-517. Methodology FFPE samples are assessed by a pathologist to identify tumor margins and percent tumor content. Tumor DNA is extracted using Qiagen AllPrep. Whole genomic DNA is isolated from peripheral blood using QIAamp DNA Blood Mini Kit to provide a baseline DNA sequence. Circulating tumor DNA (ctDNA) is extracted from plasma derived from whole blood samples collected in cell-free DNA blood tubes (PayNearMe) using the QIAInnovative Med Conceptsmphony automated or manual extraction method (Qiagen). Using a proprietary algorithm, putative, clonal variants present in the tumor but absent in the germline DNA are identified to design the customized multiplex PCR assay. Whole-exome sequencing is performed on tumor and peripheral blood DNA using Gurubooksp library kit ([employer]) with a custom [employer] exome capture ([employer]). Using a proprietary algorithm, putative clonal variants present in the tumor but absent in the germline DNA are identified to design the customized multiplex PCR assay. Circulating tumor DNA is extracted from plasma collected in Streck tubes using ClaimIt proprietary methods. The customized PCR assays are run to detect presence or absence of these variants within circulating plasma. A patient's plasma sample is considered ctDNA positive when at least two individual-specific tumor variants are detected. When fewer than two individual-specific tumor variants are observed, a negative result is issued. Tumor variation outside of the individual, tumor specific variants is not assessed. Pathology services and whole exome sequencing are performed at [facility] (CLIA ID# [id number]) [address] [place] [address]. Disclaimer The extraction, library preparation, and sequencing for this test were performed by [employer] [id number] [place] [address] [address], [place] [address] (CLIA ID [id number]). The data analysis and reporting for this test were performed by [facility]., [address] [place] [address], [place] [address] (CLIA ID [id number]). This test was developed and its performance characteristics determined by [facility]. The test has not been cleared or approved by the U.S. Food and Drug Administration (FDA). CAP accredited, ISO 98429 certified, and CLIA certified. Pathology services and whole exome sequencing for this test were performed by [employer] [facility] [address] [place] [address], [place] [address] (CLIA ID [id number]). 2020 [employer]. All Rights Reserved. Blood specimen (specimen) Venous blood specimen / Unknown 08/19/2024 8:53 AM CDT 08/27/2024 3:51 PM CDT [facility] Tran MD LAB GENETIC TESTING Final Result [email or web address] [address] [place] [address], [facility] * SCAN - PATHOLOGY (08/19/2024) us Provider Scanning Final Result * XR Hand Left 3 or More Views (08/16/2024 8:52 AM DAIRY LAB TECHNICIAN) Anatomical Region Laterality Modality Upper Extremities, Hand Left Computed Radiography 08/16/2024 9:40 AM DAIRY LAB TECHNICIAN Impressions 08/16/2024 12:19 PM DAIRY LAB TECHNICIAN Unchanged left trapeziectomy, proximal row carpectomy, and instrumented left wrist arthrodesis. Dictated by: Primo Godfrey M.D. The radiology attending physician has personally reviewed this study, and had reviewed and/or edited this written report and agrees with it. Electronically signed by: Jose Brambila D.O. Narrative 08/16/2024 12:19 PM DAIRY LAB TECHNICIAN EXAMINATION: XR HAND LEFT 3 OR MORE VIEWS HISTORY: Trapeziectomy COMPARISON: 07/05/2024 FINDINGS: Postsurgical changes of left trapeziectomy, proximal row carpectomy, and instrumented left wrist arthrodesis. Instrumentation is intact. Multiple surgical clips are noted overlying the left wrist. Mild soft tissue swelling. No acute fracture dislocation. 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 Procedure Note Jose Brambila DO - 08/16/2024 EXAMINATION: XR HAND LEFT 3 OR MORE VIEWS HISTORY: Trapeziectomy COMPARISON: 07/05/2024 FINDINGS: Postsurgical changes of left trapeziectomy, proximal row carpectomy, and instrumented left wrist arthrodesis. Instrumentation is intact. Multiple surgical clips are noted overlying the left wrist. Mild soft tissue swelling. No acute fracture dislocation. 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 IMPRESSION: Unchanged left trapeziectomy, proximal row carpectomy, and instrumented left wrist arthrodesis. Dictated by: Primo Godfrey M.D. The radiology attending physician has personally reviewed this study, and had reviewed and/or edited this written report and agrees with it. Electronically signed by: Jose Brambila D.O. Carline Rivera MD PhD IMG XR PROCEDURES Final Result * PET/CT FDG Skull to Thigh (08/13/2024 9:53 AM DAIRY LAB TECHNICIAN) Anatomical Region Laterality Modality N/A Positron Emissio n Tomography (PET) 08/13/2024 11:1 7 AM DAIRY LAB TECHNICIAN Impressions 08/13/2024 11:32 AM DAIRY LAB TECHNICIAN 1. Hypermetabolic foci within the rectum and rectosigmoid junction which are indeterminate. Correlate with recent colonoscopy results. No local or distant den metastasis. 2. New groundglass opacity in the superior segment of the right lower lobe with partial resolution of previously seen lingular groundglass and small bilateral pleural effusions. This is favored to be infectious/inflammatory in etiology for which short-term follow-up to resolution is recommended. 3. Numerous small bilateral subcentimeter pulmonary nodules are largely unchanged from 2020 PET/CT. 4. No evidence of local recurrence of other reported previous malignancies with multiple postprocedural changes including thyroidectomy, left lower pole partial nephrectomy, small bowel resection and total gastrectomy with primary anastomosis. Dictated by: Jose Guadalupe Jacques M.D. The radiology attending physician has personally reviewed this study, and had reviewed and/or edited this written report and agrees with it. Electronically signed by: Shubham Mitchell M.D. Narrative 08/13/2024 11:32 AM DAIRY LAB TECHNICIAN EXAMINATION: TUMOR FDG-PET/CT IMAGING DATE OF STUDY: 08/13/2024 SCANNER: RADIOPHARMACEUTICAL: 16.0 mCi F-18 Fluorodeoxyglucose (FDG) i.v. 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 Post polypectomy in 2014, monitoring ctDNA. It was reportedly on 05/01/2020 222 adrenal insufficiency and hypothyroidism. Patient is post renal ablation and total thyroidectomy. Recently underwent colonoscopy which showed to polyps which were resected and sent for biopsy. The study is requested for recurrence. Initial treatment strategy. TECHNIQUE: The patient's fasting blood glucose level, measured by glucometer before injection of FDG, was 106 mg/dL. After intravenous administration of FDG, noncontrast CT images were obtained for attenuation correction and for fusion with emission PET images to allow for anatomical localization of PET findings. Emission PET images were then obtained. The study was interpreted on the [employer] workstation. The mean liver SUV (reported for quality inspector purposes) is 2.8. The total scanned area was skull base to proximal thighs. Images of the body were obtained starting 52 minutes after injection of tracer. All reported SUVs are maximum SUVs, unless otherwise specified. COMPARISON: 05/17/2024 DESCRIPTORS OF LESION FDG AVIDITY: Minimal: <= blood pool Mild: > blood pool and <= liver Moderate: > liver and <= 2x SUVmax liver Moderate to marked: >2x SUVmax liver and <= 3x SUVmax liver Marked: > 3x SUVmax liver FINDINGS: New lesion FDG avid groundglass nodule within the superior segment of the right lower lobe (image 100). Photopenic bilateral small pleural effusions. Passive atelectasis bilaterally, with improving minimally FDG avid groundglass opacity in the left lower lung. Unchanged prevascular lymph nodes without suspicious activity. Minimally FDG avid based on hilar partially calcified nodes are likely sequela of prior granulomatous disease. There are numerous (greater than 5) subcentimeter nodules measuring up to 6 mm in both lungs. Index lesions include sub-6 mm nodules in the lingula (image 113) the right middle lobe (image 109), along the left major fissure (image 110). Unchanged 7 mm solid pleural based nodule in the right upper lobe (image 94). These are too small for PET resolution. In the areas of focal hypermetabolism involving the rectum and sigmoid, for example near the rectosigmoid junction (SUV 11.3, image 40) and the posterior lateral rectal wall at the 5:00 o'clock position (image 264). Then seen are postoperative changes of gastrectomy with end-to-side esophagojejunal anastomosis. 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 Additional CT findings: Left globe prosthesis. Three-vessel coronary artery calcified patient's. Calcified hilar nodes. Stable cardiomegaly. Healed right rib fractures. Cholecystectomy. Granulomas in the spleen and liver. Post ablation changes in the lower pole of the left kidney without suspicious nodularity. Dystrophic calcifications in the prostate. Bilateral morphologically normal but nonenlarged inguinal nodes, likely reactive. Multilevel vertebral spondylosis. Lower lumbar predominant facet osteoarthropathy, moderate. Small bowel resection changes in the left lower quadrant. Procedure Note Shubham Mitchell MD - 08/13/2024 EXAMINATION: TUMOR FDG-PET/CT IMAGING DATE OF STUDY: 08/13/2024 SCANNER: RADIOPHARMACEUTICAL: 16.0 mCi F-18 Fluorodeoxyglucose (FDG) i.v. 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 Post polypectomy in 2014, monitoring ctDNA. It was reportedly on 05/01/2020 222 adrenal insufficiency and hypothyroidism. Patient is post renal ablation and total thyroidectomy. Recently underwent colonoscopy which showed to polyps which were resected and sent for biopsy. The study is requested for recurrence. Initial treatment strategy. TECHNIQUE: The patient's fasting blood glucose level, measured by glucometer before injection of FDG, was 106 mg/dL. After intravenous administration of FDG, noncontrast CT images were obtained for attenuation correction and for fusion with emission PET images to allow for anatomical localization of PET findings. Emission PET images were then obtained. The study was interpreted on the [employer] workstation. The mean liver SUV (reported for quality inspector purposes) is 2.8. The total scanned area was skull base to proximal thighs. Images of the body were obtained starting 52 minutes after injection of tracer. All reported SUVs are maximum SUVs, unless otherwise specified. COMPARISON: 05/17/2024 DESCRIPTORS OF LESION FDG AVIDITY: Minimal: <= blood pool Mild: > blood pool and <= liver Moderate: > liver and <= 2x SUVmax liver Moderate to marked: >2x SUVmax liver and <= 3x SUVmax liver Marked: > 3x SUVmax liver FINDINGS: New lesion FDG avid groundglass nodule within the superior segment of the right lower lobe (image 100). Photopenic bilateral small pleural effusions. Passive atelectasis bilaterally, with improving minimally FDG avid groundglass opacity in the left lower lung. Unchanged prevascular lymph nodes without suspicious activity. Minimally FDG avid based on hilar partially calcified nodes are likely sequela of prior granulomatous disease. There are numerous (greater than 5) subcentimeter nodules measuring up to 6 mm in both lungs. Index lesions include sub-6 mm nodules in the lingula (image 113) the right middle lobe (image 109), along the left major fissure (image 110). Unchanged 7 mm solid pleural based nodule in the right upper lobe (image 94). These are too small for PET resolution. In the areas of focal hypermetabolism involving the rectum and sigmoid, for example near the rectosigmoid junction (SUV 11.3, image 40) and the posterior lateral rectal wall at the 5:00 o'clock position (image 264). Then seen are postoperative changes of gastrectomy with end-to-side esophagojejunal anastomosis. 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 Additional CT findings: Left globe prosthesis. Three-vessel coronary artery calcified patient's. Calcified hilar nodes. Stable cardiomegaly. Healed right rib fractures. Cholecystectomy. Granulomas in the spleen and liver. Post ablation changes in the lower pole of the left kidney without suspicious nodularity. Dystrophic calcifications in the prostate. Bilateral morphologically normal but nonenlarged inguinal nodes, likely reactive. Multilevel vertebral spondylosis. Lower lumbar predominant facet osteoarthropathy, moderate. Small bowel resection changes in the left lower quadrant. IMPRESSION: 1. Hypermetabolic foci within the rectum and rectosigmoid junction which are indeterminate. Correlate with recent colonoscopy results. No local or distant den metastasis. 2. New groundglass opacity in the superior segment of the right lower lobe with partial resolution of previously seen lingular groundglass and small bilateral pleural effusions. This is favored to be infectious/inflammatory in etiology for which short-term follow-up to resolution is recommended. 3. Numerous small bilateral subcentimeter pulmonary nodules are largely unchanged from 2020 PET/CT. 4. No evidence of local recurrence of other reported previous malignancies with multiple postprocedural changes including thyroidectomy, left lower pole partial nephrectomy, small bowel resection and total gastrectomy with primary anastomosis. Dictated by: Jose Guadalupe Jacques M.D. The radiology attending physician has personally reviewed this study, and had reviewed and/or edited this written report and agrees with it. Electronically signed by: Shubham Mitchell M.D. [facility] Sunny Tran MD IMG PET PROCEDURES Final Result * CT Chest Abdomen Pelvis W Contrast (05/17/2024 8:35 AM DAIRY LAB TECHNICIAN) Anatomical Region Laterality Modality Body N/A Computed Tomogra phy 05/17/2024 10:2 0 AM DAIRY LAB TECHNICIAN Impressions 05/17/2024 10:20 AM DAIRY LAB TECHNICIAN 1. New lingular and left lower lobe patchy consolidation and groundglass opacities, likely infectious or inflammatory. 2. Stable small pulmonary nodules. 3. No metastatic disease in the abdomen or pelvis. Electronically signed by: Hernan Peña M.D. Narrative 05/17/2024 10:20 AM DAIRY LAB TECHNICIAN EXAMINATION: Computed tomography of the chest, abdomen and pelvis with intravenous contrast HISTORY: Rivas syndrome, with history of gastric adenocarcinoma, renal cell carcinoma, papillary thyroid carcinoma. TECHNIQUE: Transaxial computed tomographic images of the chest, abdomen and pelvis were obtained with intravenous contrast according to the standard protocol after the uneventful administration of 100 mL Opti-Ray 350 intravenous contrast. COMPARISON: 02/16/2024, 11/13/2023, 08/12/2023, 04/25/2023 FINDINGS: Chest: Scattered small pulmonary nodules are stable, for reference a 5 mm right upper lobe nodule on series 3 image 55, a 2 mm left upper lobe nodule on series 3 image 57, and a 5 mm nodule along the right minor fissure on series 3 image 75. There is new patchy mild consolidation and groundglass opacities in the lingula and left lower lobe, for example on series 3 image 108, likely infectious or inflammatory. Mild bibasilar atelectasis. No pleural effusion, pneumothorax, or pulmonary edema. No supraclavicular, axillary, mediastinal, or hilar lymphadenopathy. Calcified mediastinal and hilar lymph nodes in keeping with old granulomatous disease. Normal heart size without pericardial effusion. No central pulmonary embolism. The thoracic aorta is normal caliber. Abdomen/Pelvis: The esophagojejunal anastomosis is patent. Scattered hepatic and splenic calcified granulomas. No suspicious liver lesions or intrahepatic ductal dilation. The portal and hepatic veins are patent. The gallbladder is surgically absent. The common bile duct is normal caliber. Spleen is normal size. The pancreas, adrenal glands, and right kidney are normal. Postsurgical changes of left lower pole partial nephrectomy without local recurrence. Postsurgical changes of gastrectomy. The duodenal stump and remainder of the duodenum are normal. The urinary bladder, prostate gland and seminal vesicles are normal. No colonic or small bowel obstruction or inflammation. A left jeff-abdominal small bowel anastomosis is patent. No lymphadenopathy, free fluid, or free intraperitoneal air. Mild atherosclerotic calcification without aneurysm. Thoracolumbar spine degenerative changes without suspicious bone lesions. Procedure Note Hernan Peña MD - 05/17/2024 EXAMINATION: Computed tomography of the chest, abdomen and pelvis with intravenous contrast HISTORY: Rivas syndrome, with history of gastric adenocarcinoma, renal cell carcinoma, papillary thyroid carcinoma. TECHNIQUE: Transaxial computed tomographic images of the chest, abdomen and pelvis were obtained with intravenous contrast according to the standard protocol after the uneventful administration of 100 mL Opti-Ray 350 intravenous contrast. COMPARISON: 02/16/2024, 11/13/2023, 08/12/2023, 04/25/2023 FINDINGS: Chest: Scattered small pulmonary nodules are stable, for reference a 5 mm right upper lobe nodule on series 3 image 55, a 2 mm left upper lobe nodule on series 3 image 57, and a 5 mm nodule along the right minor fissure on series 3 image 75. There is new patchy mild consolidation and groundglass opacities in the lingula and left lower lobe, for example on series 3 image 108, likely infectious or inflammatory. Mild bibasilar atelectasis. No pleural effusion, pneumothorax, or pulmonary edema. No supraclavicular, axillary, mediastinal, or hilar lymphadenopathy. Calcified mediastinal and hilar lymph nodes in keeping with old granulomatous disease. Normal heart size without pericardial effusion. No central pulmonary embolism. The thoracic aorta is normal caliber. Abdomen/Pelvis: The esophagojejunal anastomosis is patent. Scattered hepatic and splenic calcified granulomas. No suspicious liver lesions or intrahepatic ductal dilation. The portal and hepatic veins are patent. The gallbladder is surgically absent. The common bile duct is normal caliber. Spleen is normal size. The pancreas, adrenal glands, and right kidney are normal. Postsurgical changes of left lower pole partial nephrectomy without local recurrence. Postsurgical changes of gastrectomy. The duodenal stump and remainder of the duodenum are normal. The urinary bladder, prostate gland and seminal vesicles are normal. No colonic or small bowel obstruction or inflammation. A left jeff-abdominal small bowel anastomosis is patent. No lymphadenopathy, free fluid, or free intraperitoneal air. Mild atherosclerotic calcification without aneurysm. Thoracolumbar spine degenerative changes without suspicious bone lesions. IMPRESSION: 1. New lingular and left lower lobe patchy consolidation and groundglass opacities, likely infectious or inflammatory. 2. Stable small pulmonary nodules. 3. No metastatic disease in the abdomen or pelvis. Electronically signed by: Hernan Peña M.D. [facility] [place]Berhane Tran MD IM CT PROCEDURES Final R esult * Colonoscopy (03/26/2024 9:49 AM CDT) Anatomical Region Laterality Modality Other Narrative Procedure Note Teodoro Aviles MD - 03/26/2024 9:49 AM CDT ENDOSCOPY LAB Patient Name: Kaden Avery Procedure Date: 03/26/2024 9:49 AM Date of : 1950 Admit Type: Outpatient Age: 73 Gender: Male Attending MD: Teodoro Aviles M.D. Room: [facility] ENDOSCOPY ROOM 05 Note Status: Finalized Procedure: Colonoscopy Indications: Rivas Syndrome; h/o Gastric/Small Bowel Cancer s/p Total gastrectomy and small bowel resection. CT/MRI with ?thickening vs peristalsis vs mass in sigmoid colon. Here for evaluation. Providers: Teodroo Aviles M.D. Referring MD: Zachary Harris M.D., Susan Tran M.D. Medicines: Monitored Anesthesia Care Complications: No immediate complications. Estimated blood loss:None. Estimated Blood Loss: Estimated blood loss: none. Procedure: Pre-Anesthesia Assessment: - The risks and benefits of the procedure and the sedation options and risks were discussed with the patient. All questions were answered and informed consent was obtained. - Immediately prior to administration ofmedications, the patient was re-assessed for adequacy to receive sedatives. - The anesthesia plan was to use monitoredanesthesia care (MAC). The benefits, risks and alternatives of theprocedure and sedation were discussed and informed consentwas obtained. All questions were answered. Please referto the signed informed consent document in the medical record. The scope was passed under direct vision.The [id number] was introduced through the anusand advanced to the cecum, identified by appendiceal orifice and ileocecal valve. The colonoscopy was performed without difficulty. The patient tolerated the procedure well. The quality of the bowel preparation was good. The quality of the bowel preparation was evaluated using the BBPS (BostonBowel Preparation Scale) with scores of: Right Colon = 2 (minor amount of residual staining, small fragmentsof stool and/or opaque liquid, but mucosa seen well), Transverse Colon = 3 (entire mucosa seen well withno residual staining, small fragments of stool oropaque liquid) and Left Colon = 3 (entire mucosa seen well with no residual staining, small fragments of stoolor opaque liquid). The total BBPS score equals 8. The quality of the bowel preparation was good. Bowelprep was administered using a split dose. Findings: The perianal and digital rectal examinations were normal. Two semi-sessile polyps were found in the sigmoid colon and ascending colon. The polyps were 5 to 9 mm in size. These polyps were removedwith a cold snare. Resection and retrieval were complete. Multiple small and large-mouthed diverticula were found in thesigmoid colon. Internal hemorrhoids. Impression: - Two 5 to 9 mm polyps in the sigmoid colon and inthe ascending colon, removed with a cold snare.Resected and retrieved. - Diverticulosis in the sigmoid colon. - Internal hemorrhoids. Recommendation: - Observe patient's clinical course followingtoday's Colonoscopy. - No mass identified in the rectosigmoid/sigmoidcolon. - Await pathology results. - Repeat colonoscopy in 1-2 years. Repeatcolonoscopy will need 2 day bowel prep, similar to today with1/2 a prep on Day -2 and full prep on Day -1, split. - Resume home medications and diet. - Return to primary care physician as previously scheduled. - In the unusual situation that you developabdominal pain, bleeding or other significant problems in the days following this procedure please call my officeat [phone] to speak to my nurses. After hours and evenings please call [phone] andspeak to the GI fellow instrumentation tech. Please tell them that Dr. Aviles did your procedure and that your wereinstructed to have the fellow call me or the physiciancovering for me to discuss the management of your condition.If you have an urgent problem, please go to [facility] emergency room and have the ER doctor call becca during the day or the GI Fellow after hours and weekends to arrange admission or transfer to our facility. - Call my nurse Priscilla Mendoza RN in the GI office at [phone] for your final pathology results in 7 days. Attending Participation: I personally performed the entire procedure. Electronically Signed By: Teodoro Aviles, M.D. Teodoro Aviles M.D. 03/26/2024 11:23:26 AM Number of Addenda: 0 Note Initiated On: 03/26/2024 9:49 AM Teodoro Aviles MD ENDOSCOPY PROCEDURES Final Result * (ABNORMAL) Hemoglobin A1c (11/27/2023 8:09 AM CDT) Hgb A1C 5.8(H) 4.0 - 5.6 % Estimated Average Glucose 120 mg/dL [facility] ([place]) Comment: The ADA recommends reporting an estimated Average Glucose (eAG) with all Hemoglobin A1c results using the equation derived from a study of 507 normal and diabetic adults. Minority populations were underrepresented and children were not included. (Diabetes Care 31:9873-9953, 2008). The eAG is not equivalent to a fasting glucose. Blood 11/27/2023 8:09 AM CDT 11/27/2023 11:19 AM CDT Sugar Woods NP LAB BLOOD ORDERABLES Final Result Performing Organization Address City/[facility]/ZIP Co de Phone Number [facility] ([place]) [facility] Department of Laboratories [place] [phone] * Albumin Creatinine Ratio, Urine (06/01/2023 8:45 AM DAIRY LAB TECHNICIAN) Albumin Ur <12.0 mg/L [facility] Comment: Interpretive Data No reference range established. Current interpretive data was last revised 2018. Creatinine Ur 153.8 mg/dL [facility] Comment: Interpretive Data No reference range established. Current interpretive data was last revised 2018. Albumin Creatinine Ratio, Ur <8 1 - 29 mg/g [facility] Urine 06/01/2023 8:45 AM DAIRY LAB TECHNICIAN 06/01/2023 2:59 PM DAIRY LAB TECHNICIAN Sugar Woods NP LAB URINE ORDERABLES Final Result Performing Organization Address City/[facility]/ZIP Co de Phone Number [facility] [id number] Department [place] [address] from Last 3 Months or Most Recently Relevant to Health Maintenance Insurance [facility] [employer] MEDICARE [facility] MEDICARE [facility] MEDICARE ADVANTAGE [facility] MEDICARE ADVANTAGE MEDICARE [facility] OFFICE [facility] CARE [facility] MEDICARE T MEDICARE FOR LIFE Advance Directives For more information, please contact: [phone] Documents on File Type Date Recorded Patient Spot Machine Operator Expl anation ADVANCE DIRECTIVE 07/15/2019 2:42 PM Living Will * Full Code (Latest Code Status on File) Date Activated Date Inactivated Comments 03/26/2024 8:22 AM 03/26/2024 3:33 PM * Full Code Date Activated Date Inactivated Comments 08/24/2021 7:46 AM 08/24/2021 1:42 PM * Full Code Date Activated Date Inactivated Comments 11/11/2020 12:07 PM 11/11/2020 6:54 PM * Full Code Date Activated Date Inactivated Comments 08/27/2020 6:51 AM 08/27/2020 1:21 PM * Full Code Date Activated Date Inactivated Comments 07/16/2020 6:24 AM 07/16/2020 12:54 PM Care Teams Ceo And Founder Relationship Specialty Start Date End Date Zachary Harris MD [address] [place] [address] PCP - General 03/23/17 Jennifer Adame, RN Registered Nurse 09/07/17 Teodoro Aviles MD Lozenge Maker Helper Gastroenterology 07/02/19 Luis M Chinchilla MD PhD Referring Physician Cardiology 07/26/19 Alejandro Aly MD Referring Physician General Surgery 10/16/19 Long Montemayor MD Medical Oncologist/Automated Process Operator Medical Oncology 10/16/19 Susan Tran MD [address] [facility] [address] MED[facility] ONCOLOGY, [address] [place] [address] Consulting Physician Medical Oncology 11/02/23 Tisha Garza, PT Physical Therapist Physical Therapy 12/22/23
--- OUTSIDE RECORDS SUMMARY | 2024-10-15 14:38 | XMS_ITS | Encounter Summary ---
Author Name [facility] [facility] [place] [facility] [place] Address [address] [place] [address] Care Team Providers Care Patternmaker Name Role Phone BRIGITTE SHI Primary Care [...] Alva's Name Patient's Relationship to Policy Alva [facility] ([facility]) Jun 12, 2022 [phone] [id number] [phone] REGAN,IVÁN ID PATIENT [facility] ([facility]) MEDICARE ADVANTAGE MCR ([facility]) Jun 12, 2022 [id number] [phone] [id number] REGAN,IVÁN ID PATIENT Selected Encounter This section includes the information on record at [place] for the Encounter. Date/Time Encounter Type Encounter [...] AM PRIMARY Primary stabbing headache ALONZODINO STONE [facility] October 26, 2023 08:20 AM SECONDARY Other insomnia NIKIDINO GIBSON [facility] Plan of Treatment: Future Appointments (+ 6 months) and Future Tests (+/- 45 days) The Plan of Treatment section includes future care activities for the [facility] [place] [facility]. This section includes future appointments and future orders which are active, pending or scheduled. Future Appointments This section includes appointments that were scheduled to occur 6 months from the date of the Encounter, up to a maximum of 20 appointments. The data comes from all [facility]. Appointment Date/Time Appointment Type Appointme nt Facility Name October 30, 2023 10:00 AM AMBULATORY - MEDICINE [facility] November 07, 2023 01:00 PM AMBULATORY - MEDICINE [facility] Nov 15, 2023 01:00 PM AMBULATORY - MEDICINE [facility] Nov 28, 2023 01:00 PM AMBULATORY - MEDICINE [facility] Dec 19, 2023 03:00 PM AMBULATORY - REHAB MEDICIN E [facility] Encounter Notes: All associated encounter notes This [...] Avery re: insomnia? Thanks! /sarah/ BRIGITTE SHI [facility]- NURSE PRACTITIONER, MARIAMA-PACT Signed: 10/26/2023 10:12 Receipt [...] episode several months ago. He went to [employer] and he kept driving and din't know [...] There is no dyspnea with speaking. Impression: with primary stabbing headache. He has responded [...] Acknowledged By: 10/26/2023 10:11 /es/ BRIGITTE SHI [facility] NURSE PRACTITIONER, BRIGITTE [facility] October 26, 2023 08:00 AM NEUROLOGY OUTPATIENT NOTE: LOCAL TITLE: NEUROLOGY OUTPATIENT FOLLOW UP [facility] STANDARD TITLE: NEUROLOGY OUTPATIENT NOTE DATE OF [...] episode several months ago. He went to [employer] and he kept driving and din't know [...] There is no dyspnea with speaking. Impression: [place] with primary stabbing headache. He has responded [...] Receipt Acknowledged By: 10/26/2023 10:11 /sarah/ [facility], [facility] 10/26/2023 ADDENDUM STATUS: COMPLETED Dr. Hein, Can you please reach out to Mr. Avery re: insomnia? Thanks! /sarah/ BRIGITTE CONCEPCION NURSE PRACTITIONER, MARIAMA-STEPHANIE Signed: 10/26/2023 10:12 Receipt Acknowledged By: * AWAITING SIGNATURE * ANNAMARIA HEIN,DINO Lopez [facility]
--- OUTSIDE RECORDS SUMMARY | 2024-10-15 14:38 | XMS_ITS | Encounter Summary ---
Author Organization [facility] Address [address] [place] [address] Phone Care Team Providers Care Maxillofacial Prosthodontist Name Role Phone Zachary Harris MD Primary Care Provider [phone] Jennifer Adame RN Unavailable Un available Teodoro Aviles MD Unavailable Luis M Chinchilla MD PhD Unavailable [phone] Alejandro Aly MD Unavailable Long Montemayor MD Unavailable [phone] Kristin Marquez MD Unavailable [phone] Rachel Tran MD Unavailable Tisha Garza PT Unavailable Unavailable Encounter Details Date Type Department Care Team (Late st Contact Info) Description 11/04/2022 Telephone [facility] Oncology [address] [place] [address] Shannan Tovar BMarty Social History Tobacco Use Types Packs/Day Years Used Date Smoking Tobacco: Former Cigarettes 0.1 15 1 06/17/1966 - 1982 Smokeless Tobacco: Never Chew Quit: 1983 Alcohol Use Standard Drinks/Week Comments Not Currently 0 (1 standard drink = 0.6 oz pur e alcohol) nothing recently AUDIT-C Answer Date Recorded Q1: How often do you have a drink containing alc ohol? 2-4 times a month 10/12/2022 Q2: How many drinks containi ng alcohol do you have on a typical day when you are drinking? 1 or 2 10/12/2022 Q3: How often do you have si x or more drinks on one occasion? Never 10/12/2022 PHQ-2 Answer Date Recorded PHQ-2 Total Score (If total score is 3 or more points, staff should administer the PHQ-9) 0 10/12/2022 Education Answer Date Recorded What is the highest level of school you have completed or the highest degree you have received? 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 Author <enter goal here> General Yes Jennifer Adame, RN Note: Bending Walking Stooping documented as of this encounter Visit Diagnoses Not on filedocumented in this encounter Additional Health Concerns Infection Onset Date Last Indicated Resolved Time COVID: Suspected 07/20/2023 07/20/2023 07/20/2023 6:17 PM MANAGER TALENT COVID19 07/20/2023 07/20/2023 07/30/2023 3:05 AM MANAGER TALENT COVID: Recovered Comment:Added based on recent COVID infection. 07/30/2023 08/06/2023 10/28/2023 3:05 AM C DT documented as of this encounter Care Teams Maxillofacial Prosthodontist Relationship Specialty Start Date End Date Zachary Harris MD [address] [place] [address] PCP - General 10/12/17 Jennifer Adame, RN Registered Nurse 09/07/17 Teodoro Aviles MD Tensile Tester Gastroenterology 07/02/19 Luis M Chinchilla MD PhD Referring Physician Cardiology 07/26/19 Alejandro Aly MD Referring Physician General Surgery 10/16/19 Long Montemayor MD Medical Oncologist/Tourist Adviser Medical Oncology 10/16/19 Kristin Marquez MD Medical Oncologist/Tourist Adviser Medical Oncology 07/16/20 11/01/23 Rachel Tran MD [address] [facility] MEDICAL [facility]Y, [address] [place] [address] Consulting Physician Medical Oncology 11/02/23 Tisha Garza, PT Physical Therapist Physical Therapy 12/22/23 documented as of this encounter
--- OUTSIDE RECORDS SUMMARY | 2024-10-15 14:38 | XMS_ITS | Encounter Summary ---
Author Organization [facility] Address [address] [place] [address] Phone Care Team Providers Care Marketing Planning Manager Name Role Phone Zachary Harris MD Primary Care Provider [phone] Jennifer Adame RN Unavailable Un available Teodoro Aviles MD Unavailable Luis M Chinchilla MD PhD Unavailable [phone] Alejandro Aly MD Unavailable [phone] Long Montemayor MD Unavailable [phone] Rachel Tran MD Unavailable [phone] Tisha Garza PT Unavailable Unavailable Encounter Details Date Type Department Care Team (Latest Contact Info) Description 11/23/2023 Orders Only [facility] Scanning, Provider [...] points, staff should administer the PHQ-9) 1 06/01/2023 Personal Safety Answer Date Recorded Have you [...] on file Legal Sex Male 3:44 AM VULCANIZED FIBER UNIT OPERATOR Gender Identity Male 07/04/2020 6:23 AM VULCANIZED FIBER UNIT OPERATOR Sexual Orientation Straight 11/12/2018 6: 56 AM CDT 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 Job End Date [employer] T[employer] for [employer] Not on file Not on file 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 Not on file Not [...] Date/Time Associated Diagnosis Comments SCAN - PATHOLOGY 11/23/2023 documented in this encounter Results * SCAN - PATHOLOGY (11/23/2023) us Provider Scanning Final Result documented in this encounter Visit Diagnoses Not on filedocumented in this encounter Care Teams Marketing Planning Manager Relationship Specialty Start Date End Date [place] [address] PCP - General 03/23/17 Jennifer Adame, RN Registered Nurse 09/07/17 Teodoro Aviles MD Studio Musician Gastroenterology 07/02/19 Luis M Chinchilla MD PhD Referring Physician Cardiology 07/26/19 Alejandro Aly MD Referring Physician General Surgery 10/16/19 Long Montemayor MD Medical Oncologist/Baby Sitter Medical Oncology 10/16/19 Rachel Tran MD [address] [facility], [address] [place] [address] Consulting Physician Medical Oncology 11/02/23 Tisha Garza, PT Physical Therapist Physical Therapy 12/22/23 documented as of this encounter
--- OUTSIDE RECORDS SUMMARY | 2024-10-15 14:38 | XMS_ITS | Encounter Summary ---
Author Organization [facility] Address [address] [place] [address] Phone Care Team Providers Care Pesticide Chemist Name Role Phone Zachary Harris MD Primary Care Provider [phone] Jennifer Adame RN Unavailable Un available Teodoro Aviles MD Unavailable [phone] Luis M Chinchilla MD PhD Unavailable [phone] Alejandro Aly MD Unavailable [phone] Long Montemayor MD Unavailable [phone] Kristin Marquez MD Unavailable [phone] Rachel Tran Unavailable Tisha Garza PT Unavailable Unavailable Encounter Details Date Type Department Care Team (Latest Contact Info) Description 07/19/2019 Orders Only [facility] Scanning, Provider Social History Tobacco Use Types Packs/Day Years Used Date Smoking Tobacco: Former Cigarettes 0.5 15 1 7 - 1981 Smokeless Tobacco: Former Chew Quit: 1983 Alcohol Use Standard Drinks/Week Comments Yes 0 (1 standard drink = 0.6 oz pur e alcohol) one drink a month PHQ-2 Answer Date Recorded PHQ-2 Score 0 02/01/2019 Sex and Gender Information Value Date Recorded Sex Assigned at Not on file Legal Sex Male 3:44 AM BIOCHEMISTRY PROFESSOR Gender Identity Male 07/04/2020 6:23 AM BIOCHEMISTRY PROFESSOR Sexual Orientation Straight 11/12/2018 6: 56 AM [...] Date/Time Associated Diagnosis Comments SCAN - PATHOLOGY 07/19/2019 documented in this encounter Results * SCAN - PATHOLOGY (07/19/2019) us Provider Scanning Edited Result - Final documented in this encounter Visit Diagnoses Not on filedocumented in this encounter Additional Health Concerns Infection Onset Date Last Indicated Resolved Time COVID: Suspected 09/20/2019 09/20/2019 09/22/2019 12:10 PM CDT Respiratory Infection (JAYSHREE), contact + droplet Comment:Automatically added due to negative COVID-19 result. 09/22/2019 09/22/2019 10/06/2019 3:0 5 AM CDT COVID: Suspected 07/20/2023 07/20/2023 07/20/2023 6:17 PM BIOCHEMISTRY PROFESSOR COVID19 07/20/2023 07/20/2023 07/30/2023 3:05 AM BIOCHEMISTRY PROFESSOR COVID: Recovered Comment:Added based on recent COVID infection. 07/30/2023 08/06/2023 10/28/2023 3:05 AM C DT documented as of this encounter Care Teams Pesticide Chemist Relationship Specialty Start Date End Date Zachary Harris MD [address] [place] [address] PCP - General 03/23/17 Jennifer Adame, RN Registered Nurse 09/07/17 Teodoro Aviles MD Journeyman Operator Assistant Gastroenterology 07/02/19 Luis M Chinchilla MD PhD Referring Physician Cardiology 07/26/19 Alejandro Aly MD Referring Physician General Surgery 10/16/19 Long Montemayor MD Medical Oncologist/Steel Floor Pan Placing Supervisor Medical Oncology 10/16/19 Kristin Marquez MD Medical Oncologist/Steel Floor Pan Placing Supervisor Medical Oncology 07/16/20 11/01/23 Rachel Tran MD [address] [facility], [address] [place] [address] Consulting Physician Medical Oncology 11/02/23 Tisha Garza, REJI Physical Therapist Physical Therapy 12/22/23 documented as of this encounter
--- OUTSIDE RECORDS SUMMARY | 2024-10-15 14:38 | XMS_ITS | Encounter Summary ---
Author Organization [facility] Address [address] [place] [address] Phone Care Team Providers Care Senior Electrical Estimator Name Role Phone Zachary Harris MD Primary Care Provider [phone] Jennifer Adame RN Unavailable Un available Teodoro Aviles MD Unavailable [phone] Luis M Chinchilla MD PhD Unavailable [phone] Alejandro Aly MD Unavailable [phone] Long Montemayor MD Unavailable [phone] Kristin Marquez MD Unavailable Rachel Tran MD Unavailable [phone] Tisha Garza PT Unavailable Unavailable Encounter Details Date Type Department Care Team (Latest Contact Info) Description 08/04/2023 Orders Only [facility] Scanning, Provider Social History Tobacco Use Types Packs/Day Years Used Date Smoking Tobacco: Former Cigarettes 0.1 15 1 06/17/1966 - 1982 Passive Smoke [...] 1 06/01/2023 Personal Safety Answer Date Recorded Getting School Help Needed Denies 05/22 Education Answer Date Recorded What is the highest level of school you have completed or the highest degree you have received? 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 07/30/2023 08/06/2023 10/28/2023 3:05 AM C DT documented as of this encounter Care Teams Senior Electrical Estimator Relationship Specialty Start Date [place] [address] PCP - General 03/23/17 Jennifer Adame, RN Registered Nurse 09/07/17 Teodoro Aviles MD Counseling Services Director Gastroenterology 07/02/19 Luis M Chinchilla MD PhD Referring Physician Cardiology 07/26/19 Alejandro Aly MD Referring Physician General Surgery 10/16/19 Long Montemayor MD Medical Oncologist/Plumbing And Heating Contractor Medical Oncology 10/16/19 Kristin Marquez MD Medical Oncologist/Plumbing And Heating Contractor Medical Oncology 07/16/20 11/01/23 Rachel Tran MD [address] [facility], [address] [place] [address] Consulting Physician Medical Oncology 11/02/23 Tisha Garza, PT Physical Therapist Physical Therapy 12/22/23 documented as of this encounter
--- OUTSIDE RECORDS SUMMARY | 2024-10-15 14:38 | XMS_ITS | Clinical Summary ---
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 Screening-CT Colonography Discontinued 03/26/2024, 08/24/2021, 08/27/2020, Additional history exists Colon Cancer Screening-DNA Stool Discontinued 03/26/2024, 08/24/2021, 08/27/2020, Additional history exists Colon Cancer Screening-FIT Discontinued 03/26, 08/24/2021, 08/27/2020, Additional history exists Colon Cancer Screening-Sigmoidoscopy Discontinued 03/26/2024, 08/24/2021, 08/27/2020, Additional history exists Influenza Vaccine Completed 04/02/2024, , 06/12/2023, Additional history exists Abdominal Aortic Aneurysm (A AA) Screen Completed 05/17/2024, 11/13/2023, 08/12/2023, Additional history exists Goals Goal Patient Goal Type Associated Problems Recent Progress Patient-Stated? Author <enter goal here> General Yes Jennifer Adame, [place] Note: Bending Walking Stooping Medical Devices Implanted Type Area Medical Program Specialist Device Identifier Shelf Expiration Date Model / Serial / Lot Palacos R [employer] G Radiopaque Bone Cement Implanted:Qty: 1 on 04/23/2018 by Lucho Carrion MD at [facility] Bone Cement Left: Knee Heraeus [employer] Inc C1713 01/09/2021 / / [id number] Arthrex Inc Suture Mclean Knotless Fibertak Resorbable Qa8271-[id number] - S0 - [id number] Implanted:Qty: 1 on 06/06/2024 by Carline Rivera MD PhD at [facility] Other - see comments Left: Hand Arthrex Inc [id number] 02/09/2029 NG3366-TW / 0 / [id number] Arthrex Inc Corkscrew Fiberwire 2.2mm 4mm 17.9mm 2 Needle Wire Foot Ankle 2-0 Ar-1318ft - S0 - [id number] Implanted:Qty: 1 on 06/06/2024 by Carline Rivera MD PhD at [facility] Other - see comments Left: Hand Arthrex Inc [id number] 03/11/2029 AR-1318FT / 0 / [id number] Arthrex Inc Internalbrace Kit Hand Wrist Set Implant Ligament Augmentation Ar-8978-Cp - S0 - [id number] Implanted:Qty: 1 on 06/06/2024 by Carline Rivera MD PhD at [facility] Other - see comments Left: Hand Arthrex Inc [id number] 10/09/2028 AR-8978-CP / 0 / [id number] Bonesupport Inc Filler Bone Void Cerament T0121-64 - S0 - [id number] Implanted:Qty: 1 on 06/06/2024 by Carline Rivera MD PhD at [facility] Other - see comments Left: Hand BONESUPPORT INC 05/04/2027 Q8868-52 / 0 / [id number] Medartis Inc Plate Bone Locking 2.5 Short Bend 16 Hole Wrist Aptus Trilock 110mm Ti A-4760.06 - S0 - [id number] Implanted:Qty: 1 on 06/06/2024 by Carline Rivera MD PhD at [facility] Plate Left: Hand Medartis Inc 06/10/2029 A-4760.06 / 0 / Medartis Inc Aptus 2.5mm 16mm Cortical Screw Bone A-5700.16 - S0 - [id number] Implanted:Qty: 1 on 06/06/2024 by Carline Rivera MD PhD at [facility] Screw Left: Hand Medartis Inc 05/31/2029 A-5700.16 / 0 / Medartis Inc 2.5mm 12mm Lock Cortical Screw Bone A-5750.12 - S0 - [id number] Implanted:Qty: 3 on 06/06/2024 by Carline Rivera MD PhD at [facility] Screw Left: Hand Medartis Inc 05/31/2029 A-5750.12 / 0 / Medartis Inc 2.5mm 20mm Lock Cortical Screw Bone A-5750.20 - S0 - [id number] Implanted:Qty: 3 on 06/06/2024 by Carline Rivera MD PhD at [facility] Screw Left: Hand Medartis Inc 05/31/2029 A-5750.20 / 0 / Medartis Inc Aptus 2.5mm 24mm Lock Cortical Screw Bone A-5750.24 - S0 - [id number] Implanted:Qty: 1 on 06/06/2024 by Carline Rivera MD PhD at [facility] Screw Left: Hand Medartis Inc 05/31/2029 A-5750.24 / 0 / Medartis Inc Aptus 2.5mm 18mm Cortical Screw Bone Titanium A-5700.18 - S0 - [id number] Implanted:Qty: 1 on 06/06/2024 by Carline Rivera MD PhD at [facility] Screw Left: Hand Medartis Inc 05/31/2029 A-5700.18 / 0 / Medartis Inc Aptus 2.5mm 32mm Hexadrive Cortical 7 Screw Bone Titanium A-5700.32/1 - S0 - [id number] Implanted:Qty: 1 on 06/06/2024 by Carline Rivera MD PhD at [facility] Screw Left: Hand Medartis Inc 05/31/2029 A-5700.32/ 1 / 0 / Medartis Inc 2.5mm 18mm Lock Cortical Screw Bone A-5750.18 - S0 - [id number] Implanted:Qty: 2 on 06/06/2024 by Carline Rivera MD PhD at [facility] Screw Left: Hand Medartis Inc [id number] 05/31/2029 A-5750.18 / 0 / [id number] Palacos [employer] G Radiopaque Bone Cement Implanted:Qty: 1 on 04/23/2018 by Lucho Carrion MD at [facility] Left: Knee [employer] Inc C1713 01/09/2021 / / [id number] Depuy Orthopaedics Inc [id number] Attune 38mm Cemented Medialize Knee Dome Patellar Aox Sterile - [id number] Implanted:Qty: 1 on 04/23/2018 by Lucho Carrion MD at [facility] Left: Knee Depuy Orthopaedics Inc 03/11/2023 [id number] / / [id number] Depuy Orthopaedics Inc [id number] Attune Cemented Posterior Stabilize Knee Left 7 Component Femoral - [id number] Implanted:Qty: 1 on 04/23/2018 by Lucho Carrion MD at [facility] Left: Knee Depuy Orthopaedics Inc 05/11/2027 [id number] / / [id number] Depuy Orthopaedics Inc [id number] Attune S+ Cement Fix Bearing Knee 6 Baseplate Tibial - [id number] Implanted:Qty: 1 on 04/23/2018 by Lucho Carrion MD at [facility] Left: Knee Depuy Orthopaedics Inc 10/10/2027 [id number] / / [id number] Depuy Orthopaedics Inc [id number] Attune 8mm Posterior Stabilize Fix Bearing Knee 7 Insert Tibial - [id number] Implanted:Qty: 1 on 04/23/2018 by Lucho Carrion MD at [facility] Left: Knee Depuy Orthopaedics Inc 11/09/2022 [id number] / / [id number] [employer] Micheel 4014 8.5fr 250cm Tube Temporary Rapid Exchange Nasal Stent Biliary - [id number] Implanted:Qty: 1 on 10/11/2019 by Ric Kenney MD at [facility] Left: Jejunum [employer] Michele 08/18/2022 4014 / / [id number] [facility] Michele [id number] Device Closure Angio-Seal Vip Bondek-Plus Polyglyd L70 Cm Od6 Fr Odsec.035 In Vascular - [id number] Implanted:Qty: 1 on 11/11/2020 by Shruti Lai MD at [facility] [id number] / / Explanted Type Area Medical Program Specialist Device Identifier Shelf Expiration Date Model / Serial / Lot [employer] Michele 3204 C-Flex 10fr 5cm Gastrointestine 2 Pigtail Curve Stent Biliary - [id number] Implanted:Qty: 1 on 10/11/2019 by Ric Kenney MD at [facility] Explanted:Qty: 1 on 11/12/2019 by Teodoro Aviles MD at [facility] Left: Jejunum [employer] Michele 08/22/2022 3204 / / [id number] Description:abscess [employer] Michele 3204 C-Flex 10fr 5cm Gastrointestine 2 Pigtail Curve Stent Biliary - [id number] Implanted:Qty: 1 on 10/11/2019 by Ric Kenney MD at [facility] Explanted:Qty: 1 on 11/12/2019 by Teodoro Aviles MD at [facility] Left: Jejunum [employer] Michele 08/22/2022 3204 / / [id number] Procedures Procedure Name Priority Date/Time Associated Diagnosis [...] Read Routine (OP Routine) 08/16/2024 8:52 AM FLASHER ADJUSTER Arthritis of carpometacarpal (CMC) joint of left thumb PET/CT FDG SKULL TO THIGH Schedule Routine, Read Routine (OP Routine) 08/13/2024 9:53 AM FLASHER ADJUSTER Malignant neoplasm of body of stomach (HCC) CT CHEST ABDOMEN PELVIS W CONTRAST Schedule Routine, Read Routine (OP Routine) 05/17/2024 8:35 AM FLASHER ADJUSTER Malignant neoplasm of body of stomach (HCC) COLONOSCOPY 03/26/2024 9:49 AM CDT HEMOGLOBIN A1C Routine 11/27/2023 8:09 AM CDT Type 2 diabetes mellitus with diabetic neuropathy, without long-term current use of insulin (HCC) Mixed hyperlipidemia Essential hypertension ALBUMIN CREATININE RATIO, URINE Routine 06/01/2023 8:45 AM FLASHER ADJUSTER Type 2 diabetes mellitus with diabetic neuropathy, [...] Inferior thinning w/ temporal rafae sign Brina Landaverde OD OPHTH TOMOGRAPHY Final Result * Surgical pathology (10/01/2024 12:00 AM CDT) Tissue (Skin, excision) 10/01/2024 10/02/2024 5:44 AM CDT Narrative [facility] - 10/07/2024 1:06 PM CDT EPIC results best viewed via link to PDF [facility] [address] [place] [address], [address], [place] [address] [email or web address] Note to Patients: This report may contain [...] Submitting Physician Information: Juan David Sifuentes M.D. [facility], [address] [place] [address], [address] [place] [address], [phone] DERMATOPATHOLOGY REPORT RESULTS DIAGNOSIS: SKIN, LEFT UPPER [...] the lesion and confirms the histologic impression. dh/sppopeye By this signature, I attest that the [...] ICD-9 A; ZSD.1387 ZSD.1055 Clerical Data A; 38126, 13635-JL The characteristics of special, immunohistochemical, and immunofluorescence stains and in-situ hybridization tests performed by the [facility] were deemed acceptable in ongoing senior supplier quality engineer measures and in compliance with regulations drawn from the Clinical Laboratory Improvement Act gx8749 (CLIA '88). Control reactions for all stains performed were deemed adequate and appropriate by a pathologist prior to evaluation of patient tissue. Some diagnoses were rendered with the assistance of laboratory-developed tests utilizing analyte-specific reagents; the performance characteristic of these tests were determined by [facility] and are not cleared or approved by the US Food an Drug administration. Laboratory developed test may only be performed in a facility that is certified by the [facility] as a high-complexity laboratory under CLIA '88. These tests are used for clinical purposes and are not investigational. Susy Sifuentes MD LAB PATHOLOGY ORDERABLE S Final Result [facility] [place] [address] * eGFR (09/25/2024 10:34 AM CDT) eGFR [...] of Race in Diagnosing Kidney Disease, JASN 202). The CKD-EPI equation should not be used for patients with unstable renal function and has not been validated in children and those over 70. Current interpretive data was last reviewed 2021. Blood 09/25/2024 10:3 4 AM CDT 09/25/2024 1:04 PM CDT Zachary Harris MD LAB BLOOD ORDERABLES Vero l Result GABI DUBON (TRAM) 1 [facility] Department [place] [address] * (ABNORMAL) Differential, auto (09/25/2024 10:34 AM [...] BLOOD ORDERABLES Vero l Result GABI DUBON (ANOOP) 1 [facility] [place] [address] * Urinalysis reflex to microscopic and culture [...] tendency for uric acid stone formation. Source: [facility] Current Interpretive Data was last revised on [...] MICROBIOLOGY - GENERA L ORDERABLES Final Result GABI DUBON (ANOOP) 1 [facility] Department [place] [address] * (ABNORMAL) CBC with auto differential (09/25/2024 [...] BLOOD ORDERABLES Vero l Result GABI DUBON (ANOOP) 1 [facility] [place] [address] * TSH (09/25/2024 10:34 AM CDT) Thyroid Stimulating Hormone 3.43 0.30 - 4.20 mcIUnit/mL Blood 09/25/2024 10:3 4 AM CDT 09/25/2024 1:04 PM CDT Zachary Harris MD LAB BLOOD ORDERABLES Vero l Result G[facility]I [facility] (ANOOP) [address] Department [place] [address] * T4, free (09/25/2024 10:34 AM CDT) Pathologist [facility] Free T4 1.58 0.90 - 1.70 ng/dL Blood 09/25/2024 10:3 4 AM CDT 09/25/2024 1:04 PM CDT us Zachary Harris MD LAB BLOOD ORDERABLES Vero sarah Result [facility] (ANOOP) 1 [facility] [place] [address] * (ABNORMAL) Comprehensive metabolic panel (09/25/2024 10:34 AM CDT) [facility] Sodium 138 135 - 145 mmol/L Potassium, pl 3.9 3.3 - 4.9 mmol/L [facility] (ANOOP) Chloride 101 97 - 110 mmol/L [facility] (ANOOP) CO2 23 22 - 32 mmol/L [facility] (ANOOP) Anion gap 14 2 - 15 mmol/L [facility] (ANOOP) BUN 20 6 - 25 mg/dL [facility] (ANOOP) Creatinine 1.25 0.80 - 1.30 mg/dL [facility] (ANOOP) Glucose 114 70 - 199 mg/dL [facility] (ANOOP) Comment: Interpretive Data Fasting glucose >/= [...] ORDERABLES Vero l Result Performing Organization Address City/[facility]/ZIP Co de Phone Number GABI DUBON (ANOOP) 1 [facility] Department [place] [address] * SCAN - RADIOLOGY/IMAGING (09/25/2024) Anatomical Region Laterality Modality Other Provider Scanning Final Result * Imaging Ultrasound Shoulder, Hip, Knee Joint/Bursa INJ Bilateral () (09/03/2024 3:46 PM CDT) Narrative RAD_PACS_[facility] - 09/03/2024 3:46 PM CDT The images from this study are not interpreted by Radiology. Please refer to the physician's procedure / OR operative note. Dmitry Garcia MD IMG PAIN MGMT PROCEDURE S Final Result Performing Organization Address City/[facility]/ZIP Co de Phone Number [facility] * POCT lipid panel (09/03/2024 2:10 [...] was last reviewed 2021. Testing performed by: [facility], [address] [place] [address] Blood 08/19/2024 9:00 AM CDT 08/19/2024 9:18 AM CDT Susan Tran MD LAB BLOOD ORDERABLES Vero l Result [facility] [address] [place] [address] * (ABNORMAL) Differential, auto (08/19/2024 9:00 AM CDT) Pathologist [facility] Neutrophil abs 5.2 1.5 - 6.5 K/cumm Comment:Testing performed by : [facility], [facility], [address] [place] [address] Imm gran abs 0.1 0.0 - 0.1 K/cumm [facility] Comment:Testing performed by : [facility], [facility], [address] [place] [address] Lymphocyte abs 1.6 0.8 - 3.3 K/cumm [facility] Comment:Testing performed by : [facility], [facility] 2, [address] [place] [address] Monocyte abs 0.9(H) 0.2 - 0.8 K/cumm C[facility]ER [facility] Comment:Testing performed by : [facility], [facility] 2, [address] [place] [address] Eosinophil abs 0.3 0.0 - 0.5 K/cumm CERNER BJWCH Comment:Testing performed by : [facility], [facility], [address], [place] [address] Basophil abs 0.1 0.0 - 0.1 K/cumm CERNER BJWCH Comment:Testing performed by : [facility], [facility], [address] [place] [address] Neutrophil pct 64.3 % [facility] Comment: Interpretive Data Percent cell count reference ranges are not reported, since discordance with absolute values may lead to misinterpretation of CBC data. Current Interpretive Data was last revised on 2017. Testing performed by: [facility], [facility], [address] [place] [address] Imm gran pct 0.7 % [facility] Comment: Interpretive Data Percent cell count reference ranges are not reported, since discordance with absolute values may lead to misinterpretation of CBC data. Current Interpretive Data was last revised on 2017. Testing performed by: [facility], [facility] 2, [address] [place] [address] Lymphocyte pct 19.5 % [facility] Comment: Interpretive Data Percent cell count reference ranges are not reported, since discordance with absolute values may lead to misinterpretation of CBC data. Current Interpretive Data was last revised on 2017. Testing performed by: [facility], [facility], [address] [place] [address] Monocyte pct 10.8 % GABI KAMARA Comment: Interpretive Data Percent cell count reference ranges are not reported, since discordance with absolute values may lead to misinterpretation of CBC data. Current Interpretive Data was last revised on 2017. Testing performed by: [facility] 2, [address] [place] [address] Eosinophil pct 3.6 % GABI KAMARA Comment: Interpretive Data Percent cell count reference ranges are not reported, since discordance with absolute values may lead to misinterpretation of CBC data. Current Interpretive Data was last revised on 2017. Testing performed by: [place] [address], [address] [place] [address] Basophil pct 1.1 % GABI KAMARA Comment: Interpretive Data Percent cell count reference ranges are not reported, since discordance with absolute values may lead to misinterpretation of CBC data. Current Interpretive Data was last revised on 2017. Testing performed by: [facility] 2, [address] [place] [address] Blood 08/19/2024 9:00 AM CDT 08/19/2024 9:02 AM CDT Moh'Berhane Tran MD LAB BLOOD ORDERABLES Vero l Result [facility] [address] [facility] [place] [address] * (ABNORMAL) CBC with auto differential (08/19/2024 9:00 AM CDT) WBC 8.2 3.8 - 9.9 K/cumm Comment:Testing performed by : [facility] 2, [address] [place] [address] Hgb 12.9(L) 13.0 - 17.5 g/dL GABI KAMARA Comment:Testing performed by : [facility] 2, [address] [place] [address] Hct 39.4 38.9 - 50.3 % [facility]ER [facility] Comment:Testing performed by : [place] [address], [address] [place] [address] Plt 204 150 - 400 K/cumm [facility]ER [facility] Comment:Testing performed by : [place] [address], [place] [address] MPV 9.6 9.1 - 12.3 fL [facility] Comment:Testing performed by : [place] [address] [place] [address] RBC 4.13(L) 4.30 - 5.80 M/cumm [facility]ER [facility] Comment:Testing performed by : [place] [address] [place] [address] MCV 95 81 - 96 fL [facility] Comment:Testing performed by : [place] [address], [place] [address] MCH 31.2 27.1 - 33.3 pg [facility] Comment:Testing performed by : [place] [address], [place] [address] MCHC 32.7 32.3 - 35.7 g/dL [facility] Comment:Testing performed by : [place] [address] [place] [address] RDW CV 15.2(H) 11.1 - 14.9 % [facility] Comment:Testing performed by : [place] [address], [place] [address] RDW SD 53.4(H) 35.7 - 48.1 fL [facility] Comment:Testing performed by : [place] [address], [place] [address] Blood 08/19/2024 9:00 AM CDT 08/19/2024 9:02 AM CDT [facility] Tran MD LAB BLOOD ORDERABLES Vero l Result Performing Organization Address City/[facility] Co de Phone Number GABI GRAHAMCH [address] [address] * Cancer antigen 19-9 (08/19/2024 9:00 AM CDT) CA 19-9 ag 13.0 0.0 - 35.0 units/mL Comment: Interpretive Data The Jamie CA 19-9 assay procedure was used. Results from different manufacturers or methods may not be comparable. Serial testing should be performed using the same method. Testing performed by: [facility], [address] [place] [address]., [address] Blood 08/19/2024 9:00 AM CDT 08/19/2024 9:57 AM CDT [facility] City[facility] Tr[facility] MD LAB BLOOD ORDERABLES Vero l Result Performing Organization Address [facility] Co de Phone Number GABI WANGWCH [address] [place] [address] * (ABNORMAL) Comprehensive metabolic panel (08/19/2024 9:00 AM CDT) Sodium 143 135 - 145 mmol/L Comment:Testing performed by : [facility], [address], [place] [address] Potassium, pl 3.8 3.3 - 4.9 mmol/L [facility] Comment:Testing performed by : [facility], [address] [place] [address] Chloride 106 97 - 110 mmol/L [facility] Comment:Testing performed by : [facility], [address] [place] [address] CO2 27 22 - 32 mmol/L [facility] Comment:Testing performed by : [facility], [address], [place] [address] Anion gap 10 2 - 15 mmol/L [facility] Comment:Testing performed by : [facility], [address], [place] [address] BUN 25 6 - 25 mg/dL [facility] Comment:Testing performed by : [facility], [address], [place] [address] Creatinine 1.38(H) 0.80 - 1.30 mg/dL [facility] Comment:Testing performed by : [facility], [address], [place] [address] Glucose 102 70 - 199 mg/dL CERNER [...] classification and Diagnosis of Diabetes Diabetes Care 202; 46: S19-S40. Current interpretive data was last revised 2022. Testing performed by: [facility], [address], [place] [address] Calcium 8.6 8.5 - 10.3 mg/dL [facility] Comment:Testing performed by : [facility], [address], [place] [address] Bilirubin, total 0.4 0.1 - 1.2 mg/dL [facility] Comment:Testing performed by : [facility], [address], [place] [address] Protein, pl 6.3(L) 6.5 - 8.5 g/dL [facility] Comment:Testing performed by : [facility], [address], [place] [address] Albumin 3.8 3.5 - 5.0 g/dL [facility] Comment:Testing performed by : [facility], [address], [place] [address] Alk phos 83 40 - 130 Units/L GABI KAMARA Comment:Testing performed by : [facility], [address], [place] [address] ALT 21 7 - 55 Units/L GABI KAMARA Comment:Testing performed by : [facility], [address], [place] [address] AST 24 10 - 50 Units/L GABI KAMARA Comment:Testing performed by : [facility], [address], [place], [place] [address] Blood 08/19/2024 9:00 AM CDT 08/19/2024 9:18 AM CDT [facility]'Berhane Tran MD LAB BLOOD ORDERABLES Vero l Result [facility] [address] [place] [address] * Signatera Only Initial Draw (08/19/2024 8:53 AM CDT) SIGNATERA TEST RESULT NEGATIVE 3:51 PM CDT [...] due to limited ctDNA shed. 1 Ti SV, Abebe MARCIALC, John BERUMEN, et al. Personalized circulating tumor DNA analysis as a predictive biomarker in solid tumor patients treated with pembrolizumab. Nature Cancer. 2020;1(9):873-881. 2 Graciela TV, Ashley N, et al., Circulating Tumor DNA in Stage III Colorectal Cancer, beyond Minimal Residual Disease Detection, toward Assessment of Adjuvant Therapy Efficacy and Clinical Behavior of Recurrences. Clin Cancer Res. 2020; 28(3):507-517. Methodology FFPE samples are assessed by a pathologist to identify tumor margins and percent tumor content. Tumor DNA is extracted using Qiagen AllPrep. Whole genomic DNA is isolated from peripheral blood using QIAamp DNA Blood Mini Kit to provide a baseline DNA sequence. Circulating tumor DNA (ctDNA) is extracted from plasma derived from whole blood samples collected in cell-free DNA blood tubes ([employer]) using the QIASMA Informaticsmphony automated or manual extraction method (Qiagen). Using a proprietary algorithm, putative, clonal variants present in the tumor but absent in the germline DNA are identified to design the customized multiplex PCR assay. Whole-exome sequencing is performed on tumor and peripheral blood DNA using DC DevicesA EllipticPrep library kit (Virtify) with a custom [employer] exome capture ([employer]). Using a proprietary algorithm, putative clonal variants present in the tumor but absent in the germline DNA are identified to design the customized multiplex PCR assay. Circulating tumor DNA is extracted from plasma collected in Streck tubes using iRex Technologies proprietary methods. The customized PCR assays are [...] and whole exome sequencing are performed at [facility] (CLIA ID# [id number]) [address] [place] [address]. Disclaimer The extraction, library preparation, and sequencing for this test were performed by [employer] [address] [place] [address] (CLIA ID [id number]). The data analysis and reporting for this test were performed by [facility] [address] [place] [address] (CLIA ID [id number]). This test was developed and its performance characteristics determined by [facility]. The test has not been cleared or approved by the U.S. Food and Drug Administration (FDA). CAP accredited, ISO 89733 certified, and CLIA certified. Pathology services and whole exome sequencing for this test were performed by [facility] [address] [place] [address] (CLIA ID [id number]). 2020 [employer]. All Rights Reserved. Blood specimen (specimen) Venous blood specimen / Unknown 08/19/2024 8:53 AM CDT 08/27/2024 3:51 PM CDT [facility]Berhane Tran MD LAB GENETIC TESTING Final Result [facility] [address] [place] [address], [facility] * SCAN - PATHOLOGY (08/19/2024) us Provider Scanning Final Result * XR Hand Left 3 or More Views (08/16/2024 8:52 AM FLASHER ADJUSTER) Anatomical Region Laterality Modality Upper Extremities, Hand Left Computed Radiography 08/16/2024 9:40 AM FLASHER ADJUSTER Impressions 08/16/2024 12:19 PM FLASHER ADJUSTER Unchanged left trapeziectomy, proximal row carpectomy, and instrumented left wrist arthrodesis. Dictated by: Primo Godfrey M.D. The radiology attending physician has personally reviewed this study, and had reviewed and/or edited this written report and agrees with it. Electronically signed by: Jose Brambila D.O. Narrative 08/16/2024 12:19 PM FLASHER ADJUSTER EXAMINATION: XR HAND LEFT 3 OR MORE VIEWS HISTORY: Trapeziectomy COMPARISON: 07/05/2024 FINDINGS: Postsurgical changes of left trapeziectomy, proximal row carpectomy, and instrumented left wrist arthrodesis. Instrumentation is intact. Multiple surgical clips are noted overlying the left wrist. Mild soft tissue swelling. No acute fracture dislocation. 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 Procedure Note Jose Brambila, - 08/16/2024 EXAMINATION: XR HAND LEFT 3 [...] it. Electronically signed by: Jose Brambila D.O. us Carline Rivera MD PhD IMG XR PROCEDURES Final Result * PET/CT FDG Skull to Thigh (08/13/2024 9:53 AM FLASHER ADJUSTER) Anatomical Region Laterality Modality N/A Positron Emissio n Tomography (PET) 08/13/2024 11:1 7 AM FLASHER ADJUSTER Impressions 08/13/2024 11:32 AM FLASHER ADJUSTER 1. Hypermetabolic foci within the rectum and [...] Shubham Mitchell M.D. Narrative 08/13/2024 11:32 AM FLASHER ADJUSTER EXAMINATION: TUMOR FDG-PET/CT IMAGING DATE OF STUDY: [...] obtained. The study was interpreted on the [employer] workstation. The mean liver SUV (reported for quality analyst purposes) is 2.8. The total scanned area [...] obtained. The study was interpreted on the [employer] workstation. The mean liver SUV (reported for quality analyst purposes) is 2.8. The total scanned area [...] it. Electronically signed by: Shubham Mitchell M.D. [facility]Berhane Tran MD IM PET PROCEDURES Final Result * CT Chest Abdomen Pelvis W Contrast (05/17/2024 8:35 AM FLASHER ADJUSTER) Anatomical Region Laterality Modality Body N/A Computed Tomogra phy 05/17/2024 10:2 0 AM FLASHER ADJUSTER Impressions 05/17/2024 10:20 AM FLASHER ADJUSTER 1. New lingular and left lower lobe patchy consolidation and groundglass opacities, likely infectious or inflammatory. 2. Stable small pulmonary nodules. 3. No metastatic disease in the abdomen or pelvis. Electronically signed by: Hernan Peña M.D. Narrative 05/17/2024 10:20 AM FLASHER ADJUSTER EXAMINATION: Computed tomography of the chest, abdomen [...] pelvis. Electronically signed by: Hernan Peña M.D. Susan Tran MD IMG CT PROCEDURES Final R esult * Colonoscopy (03/26/2024 9:49 AM CDT) Anatomical Region Laterality Modality Other Narrative Procedure Note Teodoro Aviles MD - 03/26/2024 9:49 AM CDT ENDOSCOPY LAB Patient Name: Kaden Avery Procedure Date: 03/26/2024 9:49 AM Date of : 1950 Admit Type: Outpatient Age: 73 Gender: Male Attending MD: Teodoro Aviles M.D. 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 CT/MRI with ?thickening vs peristalsis vs mass in sigmoid colon. Here for evaluation. Providers: Teodoro Aviles M.D. Referring MD: Zachary Harris M.D.Susan M.D. Medicines: Monitored Anesthesia Care Complications: No [...] The scope was passed under direct vision.The [id number] was introduced through the anusand advanced to [...] following this procedure please call my officeat [phone] to speak to my nurses. After hours and evenings please call [phone] andspeak to the GI fellow identification officer. Please tell them that Dr. Aviles did your procedure and that your wereinstructed to have the fellow call me or the physiciancovering for me to discuss the management of your condition.If you have an urgent problem, please go to the [facility] emergency room and have the ER doctor call becca during the day or the GI Fellow after hours and weekends to arrange admission or transfer to our facility. - Call my nurse Priscilla Mendoza RN in the GI office at [phone] for your final pathology results in 7 days. Attending Participation: I personally performed the entire procedure. Electronically Signed By: Teodoro Aviles M.D. Teodoro Aviles M.D. 03/26/2024 11:23:26 AM Number of Addenda: 0 Note Initiated On: 03/26/2024 9:49 AM us Teodoro Aviles MD ENDOSCOPY PROCEDURES Final Result * (ABNORMAL) Hemoglobin A1c (11/27/2023 8:09 AM CDT) Hgb A1C 5.8(H) 4.0 - 5.6 % Estimated Average Glucose 120 mg/dL [facility] (ANOOP) Comment: The ADA recommends reporting an estimated Average Glucose (eAG) with all Hemoglobin A1c results using the equation derived from a study of 507 normal and diabetic adults. Minority populations were underrepresented and children were not included. (Diabetes Care 31:0434-8739, 2008). The eAG is not equivalent to a fasting glucose. Blood 11/27/2023 8:09 AM CDT 11/27/2023 11:19 AM CDT Sugar Woods NP LAB BLOOD ORDERABLES Final Result [facility] (TR[facility]) 1 [facility] Department [place] [address] * Albumin Creatinine Ratio, Urine (06/01/2023 8:45 AM FLASHER ADJUSTER) Albumin Ur <12.0 mg/L [facility] Comment: Interpretive Data No reference range established. Current interpretive data was last revised 2018. Creatinine Ur 153.8 mg/dL [facility] Comment: Interpretive Data No reference range established. Current interpretive data was last revised 2018. Albumin Creatinine Ratio, Ur <8 1 - 29 mg/g [facility] Urine 06/01/2023 8:45 AM FLASHER ADJUSTER 06/01/2023 2:59 PM FLASHER ADJUSTER Sugar Woods NP LAB URINE ORDERABLES Final Result Performing Organization Address City/[facility]/ZIP Co de Phone Number [facility] [address] [place] [address] from Last 3 Months or Most Recently Relevant to Health Maintenance Insurance [employer] MEDICARE PENDING SALE TO [facility] MEDICARE [facility] MEDICARE [facility] Address: [address] [address] [place] [address] [facility] MEDICARE [facility] Address: [address] [address] [place] [address] MEDICARE [facility] OFFICE [facility] CARE PENDING SALE TO [facility] MEDICARE PENDING SALE TO [facility] MEDICARE [facility] Advance Directives For more information, please contact: [phone] Documents on File Type Date Recorded Patient Assistant Basketball Coach Expl anation ADVANCE DIRECTIVE 07/15/2019 2:42 PM [...] 6:24 AM 07/16/2020 12:54 PM Care Teams Cell Phone Repair Technician Relationship Specialty Start Date End Date [place] [address] PCP - General 03/23/17 Jennifer Adame, BEVERLY Registered Nurse 09/07/17 Teodoro Aviles MD Specialty Food Products Supervisor Gastroenterology 07/02/19 Luis M Chinchilla MD PhD Referring Physician Cardiology 07/26/19 Alejandro Aly MD Referring Physician General Surgery 10/16/19 Long Montemayor MD Medical Oncologist/Stretch Press Operator Medical Oncology 10/16/19 Susan Tran MD [address] [facility] MEDICAL ONCOLOGY, [address] [place] [address] Consulting Physician Medical Oncology 11/02/23 Tisha Garza, PT Physical Therapist Physical Therapy 12/22/23
--- OUTSIDE RECORDS SUMMARY | 2024-10-15 14:38 | XMS_ITS | Encounter Summary ---
Author Organization [facility] Healthcare Address [address] [place] [address] Care Team Providers Care Windows Admin Name Role Phone Zachary Harris MD Primary Care Provider [phone] Jennifer Adame RN Unavailable Un available Teodoro Aviles MD Unavailable [phone] Luis M Chinchilla MD PhD Unavailable [phone] Alejandro Aly MD Unavailable Long Montemayor MD Unavailable [phone] Rachel Tran MD Unavailable [phone] Tisha Garza PT Unavailable Unavailable Encounter Details Date Type Department Care Team (Late st Contact Info) Description 03/13/2024 Telephone [facility] [address] [place] [address] Heather Nieto, RN Social History Tobacco Use Types Packs/Day Years [...] on file Legal Sex Male 3:44 AM OFFICE ASST Gender Identity Male 07/04/2020 6:23 AM OFFICE ASST Sexual Orientation Straight 11/12/2018 6: 56 AM CDT 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 Job End Date [employer] Not on file 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 MEDICAL ONCOLOGY, [address] [place] [address] Consulting Physician Medical Oncology 11/02/23 Tisha Garza, PT Physical Therapist Physical Therapy 12/22/23 documented as of this encounter
--- OUTSIDE RECORDS SUMMARY | 2024-10-15 14:38 | XMS_ITS | Encounter Summary ---
Author Organization [facility] Address [address] [place] [address] Phone Care Team Providers Care It Architecture Consultant Name Role Phone Zachary Harris MD Primary Care Provider [phone] Jennifer Adame RN Unavailable Un available Teodoro Aviles MD Unavailable Luis M Chinchilla MD PhD Unavailable [phone] Alejandro Aly MD Unavailable Long Montemayor MD Unavailable [phone] Kristin Marquez MD Unavailable Rachel Tran MD Unavailable [phone] Tisha Garza PT Unavailable Unavailable Encounter Details Date Type Department Care Team (Late st Contact Info) Description 11/04/2022 Telephone [facility] Oncology [address] 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 07/30/2023 08/06/2023 10/28/2023 3:05 AM C DT documented as of this encounter Care Teams It Architecture Consultant Relationship Specialty Start Date End Date Zachary Harris MD [address] [place] [address] PCP - General 10/12/17 Jennifer Adame, RN Registered Nurse 09/07/17 Teodoro Aviles MD Film Sound Coordinator Gastroenterology 07/02/19 Luis M Chinchilla MD PhD Referring Physician Cardiology 07/26/19 Alejandro Aly MD Referring Physician General Surgery 10/16/19 Long Montemayor MD Medical Oncologist/Client Relationship Manager Medical Oncology 10/16/19 Kristin Marquez MD Medical Oncologist/Client Relationship Manager Medical Oncology 07/16/20 11/01/23 Rachel Tran MD [address] [facility] MEDICAL ONCOLOGY, [address] [place] [address] Consulting Physician Medical Oncology 11/02/23 Tisha Garza, PT Physical Therapist Physical Therapy 12/22/23 documented as of this encounter
--- OUTSIDE RECORDS SUMMARY | 2024-10-15 14:39 | XMS_ITS | Encounter Summary ---
Author Name [facility] [place] Organization [facility] [place] Address [address] [place] [address] Care Team Providers Care Assistant Loan Processor Name Role Phone BRIGITTE SHI Primary Care [...] Alva's Name Patient's Relationship to Policy Alva [facility] (R) MEDICARE ADVANTAGE MCR ([facility]) Jun 12, 2022 [id number] REGAN,IVÁN ID [facility]IENT [facility]IC[facility] ADVANTAGE MCR ([facility]) Jun 12, 2022 [phone] [id number] REGAN,IVÁN ID PATIENT Selected Encounter This section includes the information on record at [place] for the Encounter. Date/Time Encounter Type Encounter Description Reason Provider Source Dec 19, 2023 03:00 PM OFFICE O/P EST MOD 30 MIN GERIPACT ICD-10-CM M54.2 Cervicalgia BRIGITTE SHI IHKishore Encounter Template Text not used by [place] Assessments - Encounter Diagnoses This section includes the primary and secondary diagnoses documented for the Encounter. 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 BRIGITTE SHI [facility] Dec 19, 2023 12:13 PM SECONDARY Depression, unspecified BRIGITTE SHI [facility] Dec 19, 2023 12:13 PM SECONDARY Emphysema, unspecified BRIGITTE SHI [facility] Dec 19, 2023 12:13 PM SECONDARY Essential (primary) hypertension BRIGITTE SHI [facility] Dec 19, 2023 12:13 PM SECONDARY Gastro-esophageal reflux disease without esophagitis BRIGITTE SHI [facility] Dec 19, 2023 12:13 PM SECONDARY Hypothyroidism, unspecified BRIGITTE SHI [facility] Dec 19, 2023 12:13 PM SECONDARY Idiopathic gout, multiple sites BRIGITTE SHI [facility] Dec 19, 2023 12:13 PM SECONDARY Low back pain, unspecified BRIGITTE SHI [facility] Dec 19, 2023 12:13 PM SECONDARY Mild persistent asthma, uncomplicated BRIGITTE SHI [facility] Dec 19, 2023 12:13 PM SECONDARY Other insomnia BRIGITTE SHI [facility] Dec 19, 2023 12:13 PM SECONDARY Personal history of malignant carcinoid tumor of kidney BRIGITTE SHI [facility] Dec 19, 2023 12:13 PM SECONDARY Primary stabbing headache BRIGITTE SHI [facility] Dec 19, 2023 12:13 PM SECONDARY Radiculopathy, cervical region BRIGITTE SHI [facility] Dec 19, 2023 12:13 PM SECONDARY Type 2 diabetes mellitus with diabetic neuropathy, unsp BRIGITTE SHI [facility] Dec 19, 2023 12:13 PM SECONDARY Vitamin D deficiency, unspecified BRIGITTE SHI E [facility] Social History: Smoking Status (Most current) and Tobacco Use (All prior to encounter date) This section includes the most current, and the historical, smoking and tobacco- related health factors from the [place] facility where the Encounter took place. Current Smoking Status This section includes the most current smoking, or tobacco-related health factor, from the [place] facility where the Encounter took place. Date/Time Current Smoking Status Comment Atul styles Aug 04, 2023 09:00 AM VA-TOBACCO FORMER USER [facility] Tobacco Use History This section includes a history of the smoking, or tobacco-related health factors, that were collected on or before the date of the Encounter. The data comes from the [place] facility where the Encounter took place. Date/Time Smoking Status/Tobacco Use Comment Gyale nelson Aug 04, 2023 09:00 AM VA-TOBACCO QUIT 15 YRS OR MORE [facility] Feb 01, 2022 09:00 AM VA-TOBACCO FORMER USER [facility] Feb 01, 2022 09:00 AM VA-TOBACCO QUIT 15 YRS OR MORE [facility] Jan 29, 2021 09:00 AM VA-TOBACCO FORMER USER [facility] Jan 29, 2021 09:00 AM VA-TOBACCO QUIT 15 YRS OR MORE [facility] October 29, 2019 03:20 PM VA-TOBACCO FORMER USER [facility] October 29, 2019 03:20 PM VA-TOBACCO QUIT 15 YRS OR MORE [facility] Mar 12, 2018 01:47 PM VA-TOBACCO FORMER USER [facility] Mar 12, 2018 01:47 PM VA-TOBACCO QUIT 15 YRS OR MORE [facility] Feb 02, 2018 11:02 AM QUIT TOBACCO >7 YEARS AGO [facility] Aug 03, 2017 09:58 AM TOBACCO REFUSED SCREEN V15 [facility] Jan 27, 2017 09:01 AM QUIT TOBACCO >7 YEARS AGO [facility] Jan 21, 2016 09:13 AM QUIT TOBACCO >7 YEARS AGO [facility] Encounter Notes: All associated encounter notes [...] to follow routinely with his community pcp, liner machine operator helper, GI/oncologist, cutter and paster press clippings, miner pick, safety glass installer & tassel maker. [facility]. [...] and has been referred to a local pain coordinator. ROS: BP running 110s/50s, denies recio/dizziness/cp/sob/palpitations , [...] him to continue support group w/ his baptism -cont mirtazapine 15mg bedtime along w/ melatonin 3.Left shoulder pain -managed by [facility] ortho 4.Cough/Asthma/emphysema/pulm nodules/allergies -cont singulair, Breo & prn albuterol, zyrtec -fu osh pulm Dr. 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 Zhu -h/o gastric CA, [...] agrees to contact this provider or Katy-Pact caser up with any problems prior to next visit. [...] template v1.5 Visit conducted by synchronous telehealth. Location/emergency number confirmed. Environment surveyed and all [...] appropriate to conduct a VVC appointment. *Confirmed Craig's Non-VA location for this appointment: '[place] [address] [place] [address] Address and phone number verified with Craig. Address: Phone: does not have an emergency contact. *Craig was notified of right to decline Telehealth services and eligibility for other options. Craig consented to be seen via VVC. EMERGENCY PLAN In the event of an emergency, the Craig or family will call emergency services, if capable. The Teleprovider will remain in the virtual medical room until emergency response arrives and handoff to emergency services is complete. If is unable to make emergency call, the Teleprovider is to call the national E911 service at [phone] and ask to be connected to emergency services for the Craig's location. 's Crisis Line: Dial 988 then press 1, or text [phone] Office of Connected Care Helpdesk (OCC): [phone] or [phone] Verified Provider's location and contact information for this appointment: [address] [phone] [id number] Cystatin C with eGFR Screen: The patient [...] reason Mobility was not addressed: Other Comment: [facility] appt /es/ BRIGITTE SHI [facility]- NURSE PRACTITIONER, KATY-PACT Signed: 12/19/2023 12:15 BRIGITTE SHI [facility]
== END 2024-10-15 14:30 | disposition home or self-care (01) ==
LOC: CHSLAB 14:30
PROVIDERS: PCP Family Medicine; Visit Provider Specialist
DX: C44.622 Squamous cell carcinoma of skin of right upper limb, including shoulder (principal)
CPT/HCPCS: 88305

== ENCOUNTER 2024-11-12 15:27 | Outpatient (CLI) | payer MEDICARE, SELFPAY ==
--- NOTE | 2024-11-12 | S_PTH ---
PATIENT: Drew Avery LOC: [facility] U#:[id number] AGE/SX: 74/M ROOM: RE11/12/[address]: Tristan Fernandez M.D. : 1950 BED: DIS: 11/12/2024 SPEC #: [id number] RECD: 11/13/24 12:02 STATUS: DOUG REQ #: [id number] FAYE: 11/12/24 00:[address]: Tristan Fernandez DEPT: [facility] Surgical RECD BY: Brittnee Pascual MLT, ([facility]) ENTERED: 11/13/24 12:03 SP TYPE: Surgical OTHR DR: Zachary Quinn*Timoteo Tissues: A - Skin Bx B - Skin Bx C - Skin Bx Procedures: Hematoxylin and Eosin Stain Gross and Microscopic Level 4
--- OUTSIDE RECORDS SUMMARY | 2024-11-12 15:31 | XMS_ITS | Encounter Summary ---
Author Organization [facility] Address [address] [place] [address] Phone Care Team Providers Care Mgmt Analyst Name Role Phone Zachary Harris MD Primary Care Provider [phone] Jennifer Adame RN Unavailable Un available Teodoro Aviles MD Unavailable Luis M Chinchilla MD PhD Unavailable [phone] Alejandro Aly MD Unavailable Long Montemayor MD Unavailable [phone] Rachel Tran MD Unavailable [phone] Tisha Garza PT Unavailable Unavailable Encounter Details Date Type Department Care Team (Late st Contact Info) Description 10/07/2024 Results Follow-Up [facility] Dermatology [address] [place] [address] [address] [place] [id number] Maria, Susy Jackson MD [address] [place] [address] [address] [place] [address] Surgical pathology Social History Tobacco Use Types Packs/Day Years [...] on file Legal Sex Male 3:44 AM [employer]ATH[employer] Gender Identity Male 07/04/2020 6:23 AM [employer] Sexual Orientation Straight 11/12/2018 6: 56 AM CDT 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 Job End Date [employer] Not on file Not on file 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 Author <enter goal here> General Yes Jennifer Adame, BEVERLY Note: Bending Walking Stooping documented as of this encounter Visit Diagnoses Not on filedocumented in this encounter Care Teams Mgmt Analyst Relationship Specialty Start Date End Date Zachary Harris MD [address] [place] [address] PCP - General 03/23/17 Jennifer Adame, RN Registered Nurse 09/07/17 Teodoro Aviles MD Reconnaissance Crewmember Gastroenterology 07/02/19 Luis M Chinchilla MD PhD Referring Physician Cardiology 07/26/19 Alejandro Aly MD Referring Physician General Surgery 10/16/19 Long Montemayor MD Medical Oncologist/Master Carpenter Medical Oncology 10/16/19 Rachel Tran MD [address] [facility] MEDICAL ONCOLOGY, [address] [place] [address] Consulting Physician Medical Oncology 11/02/23 Tisha Garza, PT Physical Therapist Physical Therapy 12/22/23 documented as of this encounter
--- OUTSIDE RECORDS SUMMARY | 2024-11-12 15:31 | XMS_ITS | Clinical Summary ---
Author Organization [facility] Address [address], [place] [address] Phone Care Team Providers Care Bookbinder Apprentice Name Role Phone Zachary Harris MD Primary Care Provider [phone] Allergies Active Allergy Reactions Criticality Noted Date [...] 8:56 AM CDT Height 177.8 cm (5' 10) 02/04/2016 8:56 AM CDT Body Mass Index [...] measures to stabilize the patient. Care Teams Bookbinder Apprentice Relationship Specialty Start Date End Date Zachary Harris [place] [address] PCP - General Internal Medicine 07/23/19
--- OUTSIDE RECORDS SUMMARY | 2024-11-12 15:31 | XMS_ITS | Continuity of Care Document ---
Author Name [facility] Organization [facility] Care Team Providers Care Building Supervisor Name Role Phone [facility] Unavailable Unavailable Problems Combined list of problems from Department of Defense and Veterans Affairs facilities. It does not include entries that were removed or entered in error. Problem Status Onset Date Problem Type Date of Resolution Comments Source Avulsion of eye (SNOMED CT 03412712) Active Condition [facility] Benign essential hypertension Active Condition [facility] Benign prostatic hyperplasia Active Condition [facility] Bilateral hearing loss Active Condition [facility] Chronic back pain Active Condition [facility] Chronic pain Active Condition [facility] Depression Active Condition [facility] Emphysema of lung Active Condition [facility] Erectile dysfunction (SNOMED CT 607423329) Active Condition [facility] Exposure to potentially hazardous substance Active Condition [facility] Gastroesophageal reflux disease without esophagitis Active Condition [facility] Gout Active Condition [facility] History of eye enucleation Active Condition [facility] Hypothyroidism Active Condition [facility] Idiopathic stabbing headache Active Condition [facility] Insomnia Active Condition [facility] Mild persistent allergic asthma controlled Active Condition [facility] Multiple nodules of lung Active Condition [facility] Pancreatic cyst Active Condition Mar 12, 2018 Entered By: CAREY AN Comment: see [facility] for report [facility] Papillary thyroid carcinoma Active Condition Mar 13, 2018 Entered By: CAREY AN Comment: s/p thyroidectomy [facility] Renal cell carcinoma Active Condition [facility] Type 2 diabetes mellitus without complication Active Condition [facility] Vitamin D Deficiency ([facility] [id number]) Active Condition [facility] Malignant neoplasms of independent Inactive Condition 10/31/2022 [facility] Diagnosis: ICD-10-CM R00.1 Bradycardia, unspecified Active Diagnosis [facility] Diagnosis: ICD-10-CM M54.2 Cervicalgia Active Diagnosis [facility] Diagnosis: ICD-10-CM G47.09 Other insomnia Active Diagnosis [facility] Diagnosis: ICD-10-CM G44.85 Primary stabbing headache Active Diagnosis [facility] Diagnosis: ICD-10-CM F32.A Depression, unspecified Active Diagnosis [facility] Diagnosis: ICD-10-CM H40.1212 Low-tension glaucoma, right eye, moderate stage Active Diagnosis [facility] Medications Combined list of outpatient medications from Department of Defense and [facility] Affairs facilities.Medications provided include 1) outpatient medications from the last 15 months, and 2) patient-reported medications. Medication Details Route Status Patient Instructions Prescription Expires Prescription Number Last Dispense Date Ordering Provider Order Date Order Qty Source Acetylcyste ine 200mg/mL, Solution, Inhalation INSTILL 1 DROP IN AFFECTED EYE(S) FOUR TIMES A DAY FOR DRY EYE(S) Active 11/17/2024 [id number] CALLY MCKEE 2023 45 [facility] ALBUTEROL SO4 90MCG/ACTUA T (CFC-F) INHL,ORAL,8 .5GM INHALE 2 PUFFS BY ORAL INHALATI ON FOUR TIMES A DAY NEEDED FOR BREATHIN G. SHAKE WELL. RINSE MOUTHPIE CE FREQUENT LY TO PREVENT CLOGGING . RESPIR ATORY (INHAL ATION) ACTIVE 08/23/2025 [id number] 5 Shira SHI E 2024 3 [facility] ALBUTEROL SO4 90MCG/ACTUA T (CFC-F) INHL,ORAL,8 .5GM INHALE 2 PUFFS BY ORAL INHALATI ON FOUR TIMES A DAY NEEDED FOR BREATHIN G. SHAKE WELL. RINSE MOUTHPIE CE FREQUENT LY TO PREVENT CLOGGING . RESPIR ATORY (INHAL ATION) DISCONT INUED 12/19/2024 [id number] 5 Shira SHI E 2023 1 [facility] ALBUTEROL SO4 90MCG/ACTUA T (CFC-F) INHL,ORAL,8 .5GM INHALE 2 PUFFS BY ORAL INHALATI ON FOUR TIMES A DAY NEEDED FOR BREATHIN G. SHAKE WELL. RINSE MOUTHPIE CE FREQUENT LY TO PREVENT CLOGGING . RESPIR ATORY (INHAL ATION) DISCONT INUED 11/01/2023 [id number] 4 Shira SHI E 2022 1 [facility] Allopurinol (Alloprim) Tablet 100 mg Oral TAKE ONE TABLET BY MOUTH ONCE A DAY FOR GOUT. TAKE WITH PLENTY OF WATER. Active 11/17/2024 [id number] 4 CALLY MCKEE M 2023 90 [facility] Allopurinol (Alloprim) Tablet 100 mg Oral TAKE ONE TABLET BY MOUTH ONCE A DAY FOR GOUT. TAKE WITH PLENTY OF WATER. Active 11/17/2024 [id number] 4 CALLY MCKEE M 2023 90 [facility] ALLOPURINOL 100MG TAB TAKE ONE TABLET BY MOUTH ONCE A DAY FOR GOUT. TAKE WITH PLENTY OF WATER. ORAL ACTIVE 08/23/2025 [id number] 5 Shira SHI E 2024 90 [facility] ALLOPURINOL 100MG TAB TAKE ONE TABLET BY MOUTH ONCE A DAY FOR GOUT. TAKE WITH PLENTY OF WATER. ORAL DISCONT INUED 11/17/2024 [id number] 5 ZURI MCKEE ACE M 2023 90 [facility] ALLOPURINOL 100MG TAB TAKE ONE TABLET BY MOUTH ONCE A DAY FOR GOUT. TAKE WITH PLENTY OF WATER. ORAL DISCONT INUED 11/01/2023 [id number] 4 Shira SHI 2022 90 [facility] amLODIPine 2.5 MG ORAL TAB TAKE ONE TABLET BY MOUTH ONCE A DAY 08/04/2024 [id number] 4 BRIGITTE SHI 2023 90 [facility] AMLODIPINE BESYLATE 2.5MG TAB TAKE ONE TABLET BY MOUTH ONCE A DAY ORAL ACTIVE 08/23/2025 [id number] 5 Shira SHI 2024 90 [facility] AMLODIPINE BESYLATE 2.5MG TAB TAKE ONE TABLET BY MOUTH ONCE A DAY ORAL DISCONT INUED 07/03/2025 [id number] 5 Shira SHI 2024 90 [facility] AMLODIPINE BESYLATE 2.5MG TAB TAKE ONE TABLET BY MOUTH ONCE A DAY ORAL DISCONT INUED 08/04/2024 [id number] 4 Shira SHI 2023 90 [facility] AMYLASE 180,000UNIT /LIPASE 36,000UNIT/ PROTEAS 114,000UNIT CAP,EC TAKE 2 CAPSULES BY MOUTH THREE TIMES A DAY BEFORE MEALS AND TAKE 1 CAPSULE THREE TIMES A DAY NEEDED FOR PANCREAT IC ENZYME REPLACEM ENT. TAKE WITH FOOD DIRECTED . ORAL DISCONT INUED BY PROVIDE R 12/19/2024 [id number] 4 Shira SHI 2023 800 [facility] ASPIRIN 81MG TAB,EC TAKE ONE TABLET BY MOUTH ONCE A DAY FOR HEART OR CIRCULAT ION. TAKE WITH FOOD. ORAL ACTIVE 08/23/2025 [id number] 5 Shira SHI 2024 120 [facility] ASPIRIN 81MG TAB,EC TAKE ONE TABLET BY MOUTH ONCE A DAY FOR HEART OR CIRCULAT ION. TAKE WITH FOOD. ORAL DISCONT INUED 11/17/2024 [id number] 4 ZURI MCKEE ACE M 2023 120 [facility] ASPIRIN 81MG TAB,EC TAKE ONE TABLET BY MOUTH ONCE A DAY FOR HEART OR CIRCULAT ION. TAKE WITH FOOD. ORAL DISCONT INUED 11/01/2023 [id number] 4 Shira SHI E 2022 120 [facility] ASPIRIN EC (U/D) 81 MG ORAL TBEC TAKE ONE TABLET BY MOUTH ONCE A DAY FOR HEART OR CIRCULAT ION. TAKE WITH FOOD. Active 11/17/2024 [id number] CALLY MCKEE 2023 120 [facility] atorvastati n (U/D) 10 MG ORAL TAB TAKE ONE TABLET BY MOUTH EVERY EVENING TO LOWER CHOLESTE ROL Active 11/16/2024 [id number] 4 CALLY MCKEE 2023 90 [facility] ATORVASTATI N CA 10MG TAB TAKE ONE TABLET BY MOUTH EVERY EVENING TO LOWER CHOLESTE ROL ORAL ACTIVE 08/23/2025 [id number] 5 Shira SHI 2024 90 [facility] ATORVASTATI N CA 10MG TAB TAKE ONE TABLET BY MOUTH EVERY EVENING TO LOWER CHOLESTE ROL ORAL DISCONT INUED 11/16/2024 [id number] 5 ZURI MCKEE ACE M 2023 90 [facility] ATORVASTATI N CA 10MG TAB TAKE ONE TABLET BY MOUTH EVERY EVENING TO LOWER CHOLESTE ROL ORAL DISCONT INUED 11/01/2023 [id number] 4 Shira SHI 2022 90 [facility] AZELASTINE 0.1 % HERBERT SPRP [30 ML] SPRAY 2 SPRAYS IN NOSTRIL( S) TWICE DAILY NEEDED FOR ALLERGIC RHINITIS . *PRIME BEFORE USE* Active 11/17/2024 [id number] CALLY MCKEE M 2023 3 [facility] AZELASTINE HCL 137MCG/SPRA Y INHL,NASAL, 30ML SPRAY 2 SPRAYS IN NOSTRIL( S) TWICE DAILY NEEDED FOR ALLERGIC RHINITIS . *PRIME BEFORE USE* NASAL PROVIDE R HOLD 11/17/2024 [id number] 5 ZURI MCKEE ACE M 2023 3 [facility] AZELASTINE HCL 137MCG/SPRA Y INHL,NASAL, 30ML SPRAY 2 SPRAYS IN NOSTRIL( S) TWICE DAILY NEEDED FOR ALLERGIC RHINITIS . *PRIME BEFORE USE* NASAL DISCONT INUED 11/01/2023 [id number] 4 Shira SHI 2022 3 [facility] Brimonidine 0.2% + Brinzolamid e 1% Suspension, Ophthalmic INSTILL 1 DROP IN BOTH EYES THREE TIMES A DAY FOR GLAUCOMA 02/25/2024 [id number] 4 NORAH SCOTT 2023 32 [facility] BRIMONIDINE 0.2%/BRINZO LAMIDE 1% SUSP,OPH INSTILL 1 DROP IN BOTH EYES THREE TIMES A DAY FOR GLAUCOMA OPHTHA LMIC DISCONT INUED BY PROVIDE R 02/25/2024 [id number] 4 Tay SCOTT 2022 32 [facility] Carboxymeth ylcellulose 1% Gel/Jelly, Ophthalmic INSTILL 1 DROP INTO LEFT EYE FOUR TIMES A DAY NEEDED Active 11/17/2024 [id number] 4 CALLY MCKEE M 2023 90 [facility] Carboxymeth ylcellulose 1% Gel/Jelly, Ophthalmic INSTILL 1 DROP INTO BOTH EYES FOUR TIMES A DAY NEEDED FOR DRY EYES Active 11/17/2024 [id number] 4 RYLEECALLY M 2023 45 [facility] Carboxymeth ylcellulose 1% Gel/Jelly, Ophthalmic INSTILL 1 DROP INTO LEFT EYE FOUR TIMES A DAY NEEDED Active 11/17/2024 [id number] RYLEE, CALLY M 2023 90 [facility] CARBOXYMETH YLCELLULOSE NA 0.5% (PF) SOLN,OPH,UD INSTILL 2 DROPS IN BOTH EYES FOUR TIMES A DAY NEEDED FOR DRY EYE(S) OPHTHA LMIC ACTIVE 07/03/2025 [id number] 5 Shira SHI 2024 150 [facility] CARBOXYMETH YLCELLULOSE NA 0.5% (PF) SOLN,OPH,UD INSTILL 1 DROP IN RIGHT EYE FOUR TIMES A DAY NEEDED FOR DRY EYE(S) OPHTHA LMIC DISCONT INUED (EDIT) 02/02/2025 [id number] 4 Shira SHI 2023 90 [facility] CARBOXYMETH YLCELLULOSE NA 1% GEL,OPH INSTILL 1 DROP INTO BOTH EYES FOUR TIMES A DAY NEEDED FOR DRY EYES OPHTHA LMIC DISCONT INUED BY PROVIDE R 11/17/2024 [id number] 4 RYLEEZURI CARLYN M 2023 45 [facility] CARBOXYMETH YLCELLULOSE NA 1% GEL,OPH INSTILL 1 DROP INTO BOTH EYES FOUR TIMES A DAY NEEDED FOR DRY EYES OPHTHA LMIC DISCONT INUED 11/01/2023 [id number] 4 Shira SHI 2022 45 [facility] CARBOXYMETH YLCELLULOSE NA 1% GEL,OPH 0.4ML INSTILL 1 DROP INTO LEFT EYE FOUR TIMES A DAY NEEDED OPHTHA LMIC DISCONT INUED BY PROVIDE R 11/17/2024 [id number] 4 ZURI MCKEE ACE [address] [place] [address] DIVISIO N CARBOXYMETH YLCELLULOSE NA 1% GEL,OPH 0.4ML INSTILL 1 DROP INTO LEFT EYE FOUR TIMES A DAY NEEDED OPHTHA LMIC DISCONT INUED 11/01/2023 [id number] 4 Shira SHI [address] [place] [address] DIVISIO N CETIRIZINE (U/D) 10 MG ORAL TAB TAKE ONE TABLET BY MOUTH ONCE A DAY FOR ALLERGY SYMPTOMS . Active 11/17/2024 [id number] CALLY MCKEE [address] [place] [address] Divisio n CETIRIZINE (U/D) 10 MG ORAL TAB TAKE ONE TABLET BY MOUTH ONCE A DAY FOR ALLERGY SYMPTOMS . Active 11/17/2024 [id number] 4 CALLY MCKEE [address] [place] [address] Divisio n CETIRIZINE HCL 10MG TAB TAKE ONE TABLET BY MOUTH ONCE A DAY FOR ALLERGY SYMPTOMS . ORAL ACTIVE 08/23/2025 [id number] 5 Shira SHI [address] [place] [address] DIVISIO N CETIRIZINE HCL 10MG TAB TAKE ONE TABLET BY MOUTH ONCE A DAY FOR ALLERGY SYMPTOMS . ORAL DISCONT INUED 11/17/2024 [id number] 5 ZURI MCKEE ACE [address] [place] [address] DIVISIO N CETIRIZINE HCL 10MG TAB TAKE ONE TABLET BY MOUTH ONCE A DAY FOR ALLERGY SYMPTOMS . ORAL DISCONT INUED 11/01/2023 [id number] 4 Shira SHI [address] [place] [address] DIVISIO N CHOLECALCIF NIXON 50MCG (2,000UNIT) TAB TAKE TWO TABLETS BY MOUTH ONCE A DAY FOR VITAMIN D DEFICIEN CY. ORAL ACTIVE 08/23/2025 [id number] 5 Shira SHI 2024 200 [facility] CHOLECALCIF NIXON 50MCG (2,000UNIT) TAB TAKE TWO TABLETS BY MOUTH ONCE A DAY FOR VITAMIN D DEFICIEN CY. ORAL DISCONT INUED 12/19/2024 [id number] 5 Shira SHI 2023 200 [facility] N CHOLECALCIF NIXON 50MCG (2,000UNIT) TAB TAKE TWO TABLETS BY MOUTH ONCE A DAY FOR VITAMIN D DEFICIEN CY. ORAL DISCONT INUED 11/01/2023 [id number] 4 Shira SHI 2022 200 [facility] CYANOCOBALA MIN 1000MCG/ML INJ INJECT 1000MCG/ 1ML INTRAMUS CULARLY EVERY MONTH FOR B12 SUPPLEME NTATION INTRAM USCULA R ACTIVE 08/23/2025 [id number] 5 Shira SHI 2024 3 [facility] CYANOCOBALA MIN 1000MCG/ML INJ INJECT 1000MCG/ 1ML INTRAMUS CULARLY EVERY MONTH FOR B12 SUPPLEME NTATION INTRAM USCULA R DISCONT INUED 11/27/2024 [id number] 5 Shira SHI 2023 3 [facility] CYANOCOBALA MIN 1000MCG/ML INJ INJECT 1000MCG/ 1ML INTRAMUS CULARLY EVERY MONTH FOR B12 SUPPLEME NTATION INTRAM USCULA R DISCONT INUED 11/01/2023 [id number] 4 Shira SHI 2022 3 [facility] Cyanocobala min 1mg/mL Solution, Intravenous INJECT 1000MCG/ 1ML INTRAMUS CULARLY EVERY MONTH FOR B12 SUPPLEME NTATION Active 11/27/2024 [id number] 4 BRIGITTE SHI 2023 3 [facility] DICLOFENAC NA 75MG TAB,EC TAKE ONE TABLET BY MOUTH EVERY MORNING AND EVENING NEEDED FOR PAIN - TAKE WITH FOOD ORAL ACTIVE 08/23/2025 [id number] 5 Shira SHI 2024 180 [facility] DICLOFENAC NA 75MG TAB,EC TAKE ONE TABLET BY MOUTH EVERY MORNING AND EVENING NEEDED FOR PAIN - TAKE WITH FOOD ORAL DISCONT INUED 12/19/2024 [id number] 5 Shira SHI E 2023 180 [facility] DICLOFENAC NA 75MG TAB,EC TAKE ONE TABLET BY MOUTH EVERY MORNING AND EVENING NEEDED FOR PAIN - TAKE WITH FOOD ORAL DISCONT INUED 11/01/2023 [id number] 4 Shira SHI 2022 180 [facility] FLOMAX (BRAND) 0.4 MG ORAL CAP TAKE TWO CAPSULES BY MOUTH EVERY EVENING APPROXIM ATELY 30 MINUTES AFTER THE SAME MEAL EACH DAY (FOR PROSTATE ) 11/01/2023 [id number] 4 BRIGITTE SHI 2023 180 [facility] FLOMAX (BRAND) 0.4 MG ORAL CAP TAKE TWO CAPSULES BY MOUTH EVERY EVENING APPROXIM ATELY 30 MINUTES AFTER THE SAME MEAL EACH DAY (FOR PROSTATE ) 11/01/2023 [id number] 4 BRIGITTE SHI 2023 180 [facility] FLOMAX (BRAND) 0.4 MG ORAL CAP TAKE TWO CAPSULES BY MOUTH EVERY EVENING APPROXIM ATELY 30 MINUTES AFTER THE SAME MEAL EACH DAY (FOR PROSTATE ) 11/01/2023 [id number] 4 BRIGITTE SHI 2023 60 [facility] FLUTICASONE 200MCG/TAMERA NTEROL 25MCG INHL,ORAL,3 0D INHALE 1 PUFF ORAL INHL ONCE A DAY FOR BREATHIN G. RINSE MOUTH WITH WATER AND SPIT AFTER USE. USE AT SAME TIME EACH DAY. MAX OF 1 PUFF PER 24 HOURS. RESPIR ATORY (INHAL ATION) ACTIVE 08/23/2025 [id number] 5 Shira SHI 2024 3 [facility] FLUTICASONE 200MCG/TAMERA NTEROL 25MCG INHL,ORAL,3 0D INHALE 1 PUFF ORAL INHL ONCE A DAY FOR BREATHIN G. RINSE MOUTH WITH WATER AND SPIT AFTER USE. USE AT SAME TIME EACH DAY. MAX OF 1 PUFF PER 24 HOURS. RESPIR ATORY (INHAL ATION) DISCONT INUED 12/19/2024 [id number] 5 Shira SHI 2023 3 [facility] FLUTICASONE 200MCG/TAMERA NTEROL 25MCG INHL,ORAL,3 0D INHALE 1 PUFF ORAL INHL ONCE A DAY FOR BREATHIN G. RINSE MOUTH WITH WATER AND SPIT AFTER USE. USE AT SAME TIME EACH DAY. MAX OF 1 PUFF PER 24 HOURS. RESPIR ATORY (INHAL ATION) DISCONT INUED 11/01/2023 [id number] 4 Shira SHI 2022 3 [facility] HYDROCHLORO THIAZIDE 50MG/TRIAMT ERENE 75MG TAB TAKE ONE-HALF TABLET BY MOUTH EVERY MORNING FOR BLOOD PRESSURE ORAL ACTIVE 08/23/2025 [id number] 5 Shira SHI 2024 45 [facility] HYDROCHLORO THIAZIDE 50MG/TRIAMT ERENE 75MG TAB TAKE ONE-HALF TABLET BY MOUTH EVERY MORNING FOR BLOOD PRESSURE ORAL DISCONT INUED 12/19/2024 [id number] 4 Shira SHI 2023 45 [facility] HYDROCHLORO THIAZIDE 50MG/TRIAMT ERENE 75MG TAB TAKE ONE-HALF TABLET BY MOUTH EVERY MORNING FOR BLOOD PRESSURE ORAL DISCONT INUED 11/01/2023 [id number] 4 Shira SHI 2022 45 [facility] HYDROCORTIS ONE 10MG TAB TAKE ONE TABLET BY MOUTH TWICE A DAY ORAL ACTIVE 08/23/2025 [id number] 5 Shira SHI E 2024 180 [facility] HYDROCORTIS ONE 10MG TAB TAKE ONE TABLET BY MOUTH TWICE A DAY ORAL DISCONT INUED 12/19/2024 [id number] 5 Shira SHI E 2023 180 [facility] HYDROCORTIS ONE 10MG TAB TAKE ONE TABLET BY MOUTH TWICE A DAY ORAL DISCONT INUED 11/01/2023 [id number] 4 Shira SHI 2022 180 [facility] IRX: Sildenafil 100 mg/Placebo Tablet Oral TAKE ONE TABLET BY MOUTH EVERY WEEK NEEDED FOR ERECTILE DYSFUNCT ION (TAKE 60 MINUTES PRIOR TO SEXUAL ACTIVITY ) - LIMIT 4 DOSES PER 30 DAYS Active 11/17/2024 [id number] 4 CALLY MCKEE 2023 18 [facility] Latanoprost (Xalatan Eq.) Solution 0.005% Optical INSTILL 1 DROP IN RIGHT EYE EVERY EVENING KEEP REFRIGER ATED UNTIL READY TO USE, THEN STORE AT ROOM TEMPERAT URE FOR MAXIMUM OF 42 DAYS. 10/09/2024 [id number] 4 CESAR SCHNEIDER 2023 10 [facility] Latanoprost (Xalatan Eq.) Solution 0.005% Optical INSTILL 1 DROP IN RIGHT EYE EVERY EVENING KEEP REFRIGER ATED UNTIL READY TO USE, THEN STORE AT ROOM TEMPERAT URE FOR MAXIMUM OF 42 DAYS. 10/09/2024 [id number] 4 CESAR SCHNEIDER 2023 10 [facility] LATANOPROST 0.005% SOLN,OPH INSTILL 1 DROP IN RIGHT EYE EVERY EVENING KEEP REFRIGER ATED UNTIL READY TO USE, THEN STORE AT ROOM TEMPERAT URE FOR MAXIMUM OF 42 DAYS. OPHTHA LMIC ACTIVE 08/23/2025 [id number] 5 Shira SHI 2024 10 [facility] LATANOPROST 0.005% SOLN,OPH INSTILL 1 DROP IN RIGHT EYE EVERY EVENING KEEP REFRIGER ATED UNTIL READY TO USE, THEN STORE AT ROOM TEMPERAT URE FOR MAXIMUM OF 42 DAYS. OPHTHA LMIC DISCONT INUED 10/09/2024 [id number] 5 Winifred SCHNEIDER C 2023 10 [facility] N LEVOTHYROXI NE NA 112MCG TAB TAKE ONE TABLET BY MOUTH EVERY MORNING BEFORE A MEAL FOR HYPOTHYR OIDISM TAKE 30 MINUTES BEFORE FOOD. TAKE SEPARATE LY FROM ALL OTHER MEDICATI ONS. ORAL ACTIVE 08/23/2025 [id number] 5 Shira SHI 2024 90 [facility] LEVOTHYROXI NE NA 112MCG TAB TAKE ONE TABLET BY MOUTH EVERY MORNING BEFORE A MEAL FOR HYPOTHYR OIDISM TAKE 30 MINUTES BEFORE FOOD. TAKE SEPARATE LY FROM ALL OTHER MEDICATI ONS. ORAL DISCONT INUED 09/08/2024 [id number] 4 Shira SHI 2023 90 [facility] Lidocaine (Lidoderm Eq.) Transdermal System 5% Topical APPLY 1 PATCH TO SKIN SITE ONCE A DAY APPLY PATCH AND PRESS FIRMLY FOR 10-15 SECONDS. KEEP ON FOR 12 HOURS THEN REMOVE PATCH FOR 12 HOURS. 09/08/2024 [id number] 4 BRIGITTE SHI 2023 30 [facility] LIDOCAINE 5% PATCH APPLY 1 PATCH TO SKIN SITE ONCE A DAY APPLY PATCH AND PRESS FIRMLY FOR 10-15 SECONDS. KEEP ON FOR 12 HOURS THEN REMOVE PATCH FOR 12 HOURS. TRANSD ERMAL ACTIVE 08/23/2025 [id number] 5 Shira SHI 2024 30 [facility] LIDOCAINE 5% PATCH APPLY 1 PATCH TO SKIN SITE ONCE A DAY APPLY PATCH AND PRESS FIRMLY FOR 10-15 SECONDS. KEEP ON FOR 12 HOURS THEN REMOVE PATCH FOR 12 HOURS. TRANSD ERMAL DISCONT INUED 09/08/2024 [id number] 4 Shira SHI 2023 30 [facility] MAGNESIUM OXIDE 400MG TAB TAKE ONE TABLET BY MOUTH ONCE A DAY ORAL ACTIVE Shira SHI 2022 [facility] MELATONIN 5MG CAP/TAB TAKE TWO CAP/TAB BY MOUTH AT BEDTIME ORAL ACTIVE 08/23/2025 [id number] 5 Shira SHI 2024 180 [facility] MELATONIN 5MG CAP/TAB TAKE TWO CAP/TAB BY MOUTH AT BEDTIME ORAL 2024 [id number] 4 JOSE JARQUIN 2023 180 [facility] Mirtazapine (Remeron Eq.) Tablet 15mg Oral TAKE ONE TABLET BY MOUTH AT BEDTIME FOR MOOD AND SLEEP 09/08/2024 [id number] 4 BRIGITTE SHI 2023 90 [facility] Mirtazapine (Remeron Eq.) Tablet 15mg Oral TAKE ONE TABLET BY MOUTH AT BEDTIME FOR MOOD AND SLEEP 09/08/2024 [id number] 4 BRIGITTE SHI 2023 90 [facility] Mirtazapine (Remeron Eq.) Tablet 15mg Oral TAKE ONE-HALF TABLET BY MOUTH AT BEDTIME Discont inued 08/04/2024 [id number] BRIGITTE SHI 2023 15 [facility] MIRTAZAPINE 15MG TAB TAKE ONE TABLET BY MOUTH AT BEDTIME FOR MOOD AND SLEEP ORAL ACTIVE 08/23/2025 [id number] 5 Shira SHI 2024 90 [facility] MIRTAZAPINE 15MG TAB TAKE ONE TABLET BY MOUTH AT BEDTIME FOR MOOD AND SLEEP ORAL DISCONT INUED 09/08/2024 [id number] 4 Shira SHI 2023 90 [facility] N MIRTAZAPINE 15MG TAB TAKE ONE-HALF TABLET BY MOUTH AT BEDTIME ORAL DISCONT INUED (EDIT) 08/04/2024 [id number] 4 Shira SHI 2023 15 [facility] N MONTELUKAST (U/D) 10 MG ORAL TAB TAKE ONE TABLET BY MOUTH EVERY EVENING Active 11/17/2024 [id number] CALLY MCKEE M [address] [place] [address] Divisio n MONTELUKAST (U/D) 10 MG ORAL TAB TAKE ONE TABLET BY MOUTH EVERY EVENING Active 11/17/2024 [id number] CALLY MCKEE M 2023 90 [facility] Div[facility] n MONTELUKAST NA 10MG TAB TAKE ONE TABLET BY MOUTH EVERY EVENING ORAL ACTIVE 08/23/2025 [id number] 5 Shira SHI [address] [place] [address] DIVISIO N MONTELUKAST NA 10MG TAB TAKE ONE TABLET BY MOUTH EVERY EVENING ORAL DISCONT INUED 11/17/2024 [id number] 5 ZURI MCKEE ACE M [address] [place] [address] DIVISIO N MONTELUKAST NA 10MG TAB TAKE ONE TABLET BY MOUTH EVERY EVENING ORAL DISCONT INUED 11/01/2023 [id number] 4 Shira SHI 2022 90 [facility] DIV[facility] N MULTIVITAMI NS W/MINERALS CAP/TAB TAKE 1 CAP/TAB BY MOUTH ONCE A DAY FOR SUPPLEME NTATION. ORAL ACTIVE 08/23/2025 [id number] 5 Shira SHI E 2024 100 [facility] DIVISIO N MULTIVITAMI NS W/MINERALS CAP/TAB TAKE 1 CAP/TAB BY MOUTH ONCE A DAY FOR SUPPLEME NTATION. ORAL DISCONT INUED 11/17/2024 [id number] 5 ZURI MCKEE ACE M 2023 100 [facility] DIVISIO N MULTIVITAMI NS W/MINERALS CAP/TAB TAKE 1 CAP/TAB BY MOUTH ONCE A DAY FOR SUPPLEME NTATION. ORAL DISCONT INUED 11/01/2023 [id number] 4 Shira SHI 2022 130 [facility] DIVISIO N NEBIVOLOL 10MG TAB TAKE ONE TABLET BY MOUTH ONCE A DAY ORAL ACTIVE Shira SHI 2022 [facility] DIVISIO N Omeprazole (Prilosec Eq.) Capsule Conventiona l 40 mg Oral TAKE ONE CAPSULE BY MOUTH EVERY MORNING BEFORE A MEAL TAKE 30 MINUTES PRIOR TO FOOD. Active 11/17/2024 [id number] CALLY MCKEE M 2023 90 [facility] Divisio n OMEPRAZOLE 40MG CAP,EC TAKE ONE CAPSULE BY MOUTH TWO TIMES A DAY BEFORE MEALS TAKE 30 MINUTES PRIOR TO FOOD. ORAL SUSPEND ED 08/23/2025 [id number] 5 Shira SHI 2024 180 [facility] DIVISIO N OMEPRAZOLE 40MG CAP,EC TAKE ONE CAPSULE BY MOUTH TWO TIMES A DAY BEFORE MEALS TAKE 30 MINUTES PRIOR TO FOOD. ORAL DISCONT INUED 12/19/2024 [id number] 5 Shira SHI 2023 180 [facility] DIVISIO N OMEPRAZOLE 40MG CAP,EC TAKE ONE CAPSULE BY MOUTH EVERY MORNING BEFORE A MEAL TAKE 30 MINUTES PRIOR TO FOOD. ORAL DISCONT INUED (EDIT) 11/17/2024 [id number] 4 RYLEEZURI CARLYN M 2023 90 [facility] DIVISIO N PEG-400 0.4%/PROPYL IBIS GLYCOL 0.3% SOLN,OPH INSTILL 1 DROP IN AFFECTED EYE(S) FOUR TIMES A DAY FOR DRY EYE(S) OPHTHA LMIC DISCONT INUED BY FORREST Mittal 11/17/2024 [id number] 4 RYLEEZURI RAWLS CARLYN M 2023 45 [facility] DIVISIO N PEG-400 0.4%/PROPYL IBIS GLYCOL 0.3% SOLN,OPH INSTILL 1 DROP IN AFFECTED EYE(S) FOUR TIMES A DAY FOR DRY EYE(S) OPHTHA LMIC DISCONT INUED 12/24/2023 [id number] Tay SCOTT 2022 45 [facility] DIVISIO N POTASSIUM CHLORIDE 20MEQ TAB,SA (DISPERSIBL E) TAKE ONE TABLET BY MOUTH ONCE A DAY FOR POTASSIU M SUPPLEME NTATION TAKE WITH FOOD ORAL ACTIVE 08/23/2025 [id number] 5 Shira SHI 2024 90 [facility] POTASSIUM CHLORIDE 20MEQ TAB,SA (DISPERSIBL E) TAKE ONE TABLET BY MOUTH ONCE A DAY FOR POTASSIU M SUPPLEME NTATION TAKE WITH FOOD ORAL DISCONT INUED 11/17/2024 [id number] 5 RYLEEZURI CARLYN M 2023 90 [facility] POTASSIUM CHLORIDE 20MEQ TAB,SA (DISPERSIBL E) TAKE ONE TABLET BY MOUTH ONCE A DAY FOR POTASSIU M SUPPLEME NTATION TAKE WITH FOOD ORAL DISCONT INUED 11/01/2023 [id number] 4 Shira SHI 2022 90 [facility] Potassium Chloride, Microencaps ulated (K-Dur Eq.) Tablet Controlled Release 20 mEq Oral TAKE ONE TABLET BY MOUTH ONCE A DAY FOR ABBIE Vitale SUPPLEME NTATION TAKE WITH FOOD Active 11/17/2024 [id number] CALLY MCKEE M 2023 90 [facility] Potassium Chloride, Microencaps ulated (K-Dur Eq.) Tablet Controlled Release 20 mEq Oral TAKE ONE TABLET BY MOUTH ONCE A DAY FOR ABBIE Vitale SUPPLEME NTATION TAKE WITH FOOD Active 11/17/2024 [id number] CALLY MCKEE M 2023 90 [facility] PROBIOTIC COMBINATION CAP/TAB TAKE 1 CAPSULE BY MOUTH ONCE A DAY ORAL ACTIVE Shira SHI 2021 [facility] SILDENAFIL CITRATE 100MG TAB TAKE ONE TABLET BY MOUTH ONE HOUR PRIOR TO SEXUAL ACTIVITY - LIMIT 6 DOSES PER 30 DAYS ORAL ACTIVE 08/23/2025 [id number] 5 Shira SHI 2024 18 [facility] SILDENAFIL CITRATE 100MG TAB TAKE ONE TABLET BY MOUTH EVERY WEEK NEEDED FOR ERECTILE DYSFUNCT ION (TAKE 60 MINUTES PRIOR TO SEXUAL ACTIVITY ) - LIMIT 4 DOSES PER 30 DAYS ORAL DISCONT INUED (EDIT) 08/23/2025 [id number] 5 Shira SHI 2024 18 [facility] SILDENAFIL CITRATE 100MG TAB TAKE ONE TABLET BY MOUTH EVERY WEEK NEEDED FOR ERECTILE DYSFUNCT ION (TAKE 60 MINUTES PRIOR TO SEXUAL ACTIVITY ) - LIMIT 4 DOSES PER 30 DAYS ORAL DISCONT INUED 11/17/2024 [id number] ZURI MCKEE ACE M 2023 18 [facility] SILDENAFIL CITRATE 100MG TAB TAKE ONE TABLET BY MOUTH EVERY WEEK NEEDED FOR ERECTILE DYSFUNCT ION (TAKE 60 MINUTES PRIOR TO SEXUAL ACTIVITY ) - LIMIT 4 DOSES PER 30 DAYS ORAL DISCONT INUED 11/01/2023 [id number] 4 Shira SHI 2022 18 [facility] TAMSULOSIN HCL 0.4MG CAP TAKE TWO CAPSULES BY MOUTH EVERY EVENING APPROXIM ATELY 30 MINUTES AFTER THE SAME MEAL EACH DAY (FOR PROSTATE ) ORAL ACTIVE 08/23/2025 [id number] 5 Shira SHI ARRY E 2024 180 [facility] TAMSULOSIN HCL 0.4MG CAP TAKE TWO CAPSULES BY MOUTH EVERY EVENING APPROXIM ATELY 30 MINUTES AFTER THE SAME MEAL EACH DAY (FOR PROSTATE ) ORAL DISCONT INUED 12/19/2024 [id number] 5 Shira SHI E 2023 180 [facility] TAMSULOSIN HCL 0.4MG CAP TAKE TWO CAPSULES BY MOUTH EVERY EVENING APPROXIM ATELY 30 MINUTES AFTER THE SAME MEAL EACH DAY (FOR PROSTATE ) ORAL DISCONT INUED 11/01/2023 [id number] 4 Shira SHI E 2023 180 [facility] TAMSULOSIN HCL 0.4MG CAP TAKE TWO CAPSULES BY MOUTH EVERY EVENING APPROXIM ATELY 30 MINUTES AFTER THE SAME MEAL EACH DAY (FOR PROSTATE ) ORAL DISCONT INUED 11/01/2023 [id number] 4 Shira SHI 2022 60 [facility] VITAMIN B COMPLEX CAP TAKE 1 CAPSULE BY MOUTH EVERY MORNING FOR VITAMIN SUPPLEME NTATION. ORAL ACTIVE 08/23/2025 [id number] 5 Shira SHI E 2024 100 [facility] VITAMIN B COMPLEX CAP TAKE 1 CAPSULE BY MOUTH EVERY MORNING FOR VITAMIN SUPPLEME NTATION. ORAL DISCONT INUED 12/19/2024 [id number] 5 Shira SHIY E 2023 100 [facility] VITAMIN B COMPLEX CAP TAKE 1 CAPSULE BY MOUTH EVERY MORNING FOR VITAMIN SUPPLEME NTATION. ORAL DISCONT INUED 11/01/2023 [id number] 4 Shira SHI [place] E 2022 100 [facility] Allergies, Adverse Reactions, Alerts Combined list of allergies from Department of Defense and Veterans Affairs facilities. It does not include entries that were removed or entered in error. Substance Category Reaction Severity Reaction type Status Date Reported Comments Source CARLYN INHIBITORS Propensity to adverse reactions to drug (finding) Cough active 6 [facility] FINASTERIDE Propensity to adverse reactions to drug (finding) Gynecomasti a active 3 [facility] Immunizations Combined list of available immunizations from the Department of Defense and Veterans Affairs facilities. Immunization Series Date Given Administered By Site Reaction Lot Number CVX Code Drug Scada Operator Status Comments Source INFLUENZA, UNSPECIFIED FORMULATION 2023 88 complet ed HISTORICA L INFORMATI ON - SOURCE UNSPECIFI ED, [facility] INFLUENZA, UNSPECIFIED FORMULATION 2023 88 complet ed HISTORICA L INFORMATI ON - FROM PATIENT'S RECALL, [facility] INFLUENZA, UNSPECIFIED FORMULATION 2022 88 complet ed HISTORICA L INFORMATI ON - FROM PATIENT'S RECALL, [facility] INFLUENZA, UNSPECIFIED FORMULATION 2021 88 complet ed HISTORICA L INFORMATI ON - SOURCE UNSPECIFI ED, [facility] COVID-19 ([employer]), MRNA, LNP-S, PF, 30 MCG/0.3 ML DOSE 2020 208 complet ed Booster for Series, [facility] INFLUENZA, UNSPECIFIED FORMULATION 2020 88 complet ed [facility] COVID-19 ([employer]), MRNA, LNP-S, PF, 30 MCG/0.3 ML DOSE 2 2020 208 complet ed PFR; [id number]; 1 [facility] COVID-19 ([employer]), MRNA, LNP-S, PF, 30 MCG/0.3 ML DOSE 1 2020 208 complet ed PFR; [id number]; [facility] INFLUENZA, UNSPECIFIED FORMULATION 2019 88 complet ed [facility] ZOSTER RECOMBINANT 2 2019 187 complet ed PER PT REPORT [facility] INFLUENZA, UNSPECIFIED FORMULATION 2018 88 complet ed high dose [facility] ZOSTER RECOMBINANT 1 2018 187 complet ed [facility] INFLUENZA, UNSPECIFIED FORMULATION 2018 88 complet ed [facility] PNEUMOCOCCAL CONJUGATE PCV 13 2 2018 133 complet ed HISTORICA L INFORMATI ON - FROM OTHER REGISTRY, [facility] INFLUENZA, INJECTABLE, QUADRIVALENT, PRESERVATIVE FREE 2017 150 complet ed [facility] INFLUENZA, UNSPECIFIED FORMULATION 1 2016 88 complet ed HISTORICA L INFORMATI ON - FROM OTHER REGISTRY, [facility] INFLUENZA, INJECTABLE, QUADRIVALENT, PRESERVATIVE FREE 2016 150 complet ed [facility] PNEUMOCOCCAL POLYSACCHARID E PPV23 2016 33 complet ed [facility] INFLUENZA, UNSPECIFIED FORMULATION 2015 88 complet ed [facility] TDAP 2015 115 complet ed Right Deltoid [facility] ZOSTER LIVE 2015 121 complet ed [facility] TDAP 1 2015 115 complet ed HISTORICA L INFORMATI ON - FROM OTHER REGISTRY, [facility] PNEUMOCOCCAL POLYSACCHARID E PPV23 1 2014 33 complet ed HISTORICA L INFORMATI ON - FROM OTHER REGISTRY, [facility] INFLUENZA, UNSPECIFIED FORMULATION 2014 88 complet ed [facility] PNEUMOCOCCAL CONJUGATE PCV 13 2014 133 complet ed VERBAL [facility] Results Combined list of recent chemistry, hematology and other laboratory results from Department of Defense and Veterans Affairs, ranging from 15 months to all on record, depending upon the facility. Order Name Results Value Reference Range Date Interpretation Specimen Comments Source PROST. SPECIFIC AG.(PB-ST L) PROSTATE SPECIFIC AG [...] Jul 02, 2024 03:35 PM Reporting Lab: [facility] [place] [address] Performing Lab: [facility] DIVISION HGA1C HEMOGLOBIN A1C/HEMOGLO BIN.TOTAL IN BLOOD 5.8 4.0 - 6.0 08/22 Specimen Type: BLOOD No comment entered. Ordering Provider: SHAN SHI Report Released Date/Time: Jul 02, 2024 03:35 PM Reporting Lab: [facility] [place] [address] Performing Lab: [facility] DIVISION TSH (MA-PB) THYROTROPIN [UNITS/VOLU ME] IN SERUM [...] Jul 02, 2024 03:35 PM Reporting Lab: [facility] [place] [address] Performing Lab: [facility] LIPID PANEL (STL) CHOLESTEROL [MASS/VOLUM E] IN SERUM OR PLASMA 113 mg/dL 0 - 200 08/22 Specimen Type: PLASMA Comment: No hemolysis noted. Ordering Provider: SHAN SHI Report Released Date/Time: Jul 02, 2024 03:35 PM Reporting Lab: [facility] [place] [address] Performing Lab: [facility] LIPID PANEL (STL) TRIGLYCERID E [MASS/VOLUM E] IN SERUM OR PLASMA 72 mg/dL 0 - 150 08/22 Specimen Type: PLASMA Comment: No hemolysis noted. Ordering Provider: SHAN SHI Report Released Date/Time: Jul 02, 2024 03:35 PM Reporting Lab: [facility] [place] [address] Performing Lab: [facility] LIPID PANEL (STL) CHOLESTEROL IN LDL [MASS/VOLUM E] IN SERUM OR PLASMA BY CALCULATION 48 mg/dL 08/22 Specimen Type: PLASMA Comment: No hemolysis noted. Ordering Provider: SHAN SHI Report Released Date/Time: Jul 02, 2024 03:35 PM Reporting Lab: [facility] [place] [address] Performing Lab: [facility] LIPID PANEL (STL) CHOLESTEROL IN HDL [MASS/VOLUM E] IN SERUM OR PLASMA 51 mg/dL 40 08/22 Specimen Type: PLASMA Comment: No hemolysis noted. Ordering Provider: SHAN SHI Report Released Date/Time: Jul 02, 2024 03:35 PM Reporting Lab: [facility] [place] [address] Performing Lab: [facility] [id number] DIVISION MAGNESIUM MAGNESIUM [MASS/VOLUM E] IN SERUM OR PLASMA 2.1 mg/dL 1.6 - 2.6 08/22 Specimen Type: PLASMA Comment: No hemolysis noted. Ordering Provider: SHAN SHI Report Released Date/Time: Jul 02, 2024 03:35 PM Reporting Lab: [facility] [place] [address] Performing Lab: [facility] URIC ACID URATE [MASS/VOLUM E] IN SERUM OR PLASMA 6.7 mg/dL 3.5 - 7.2 08/22 Specimen Type: PLASMA Comment: No hemolysis noted. Ordering Provider: SHAN SHI Report Released Date/Time: Jul 02, 2024 03:35 PM Reporting Lab: [facility] [place] [address] Performing Lab: [facility] B12 COBALAMIN (VITAMIN B12) [MASS/VOLUM E] [...] Jul 02, 2024 03:35 PM Reporting Lab: [facility] [place] [address] Performing Lab: [facility] DIVISION COMPREHEN SIVE METABOLIC PANEL CREATININE [MASS/VOLUM E] IN SERUM OR PLASMA 1.38 mg/dL 0.70 - 1.30 08/22 H Specimen Type: PLASMA Comment: No hemolysis noted. Ordering Provider: SHAN SHI Report Released Date/Time: Jul 02, 2024 03:35 PM Reporting Lab: [facility] [place] [address] Performing Lab: [facility] DIVISION COMPREHEN SIVE METABOLIC PANEL UREA NITROGEN [MASS/VOLUM E] IN SERUM OR PLASMA 30.2 mg/dL 9.0 - 25.0 08/22 H Specimen Type: PLASMA Comment: No hemolysis noted. Ordering Provider: SHAN SHI Report Released Date/Time: Jul 02, 2024 03:35 PM Reporting Lab: [facility] [place] [address] Performing Lab: [facility] DIVISION COMPREHEN SIVE METABOLIC PANEL GLUCOSE [MASS/VOLUM E] IN SERUM OR PLASMA 133 mg/dL 72 - 99 08/22 H Specimen Type: PLASMA Comment: No hemolysis noted. Ordering Provider: SHAN SHI Report Released Date/Time: Jul 02, 2024 03:35 PM Reporting Lab: [facility] [place] [address] Performing Lab: [facility] DIVISION COMPREHEN SIVE METABOLIC PANEL SODIUM [MOLES/VOLU ME] IN SERUM OR PLASMA 141 meq/L 136 - 145 08/22 Specimen Type: PLASMA Comment: No hemolysis noted. Ordering Provider: SHAN SHI Report Released Date/Time: Jul 02, 2024 03:35 PM Reporting Lab: [facility] [place] [address] Performing Lab: [facility] DIVISION COMPREHEN SIVE METABOLIC PANEL POTASSIUM [MOLES/VOLU ME] IN SERUM OR PLASMA 3.9 meq/L 3.5 - 5.0 08/22 Specimen Type: PLASMA Comment: No hemolysis noted. Ordering Provider: SHAN SHI Report Released Date/Time: Jul 02, 2024 03:35 PM Reporting Lab: [facility] [place] [address] Performing Lab: [facility] COMPREHEN SIVE METABOLIC PANEL CHLORIDE [MOLES/VOLU ME] IN SERUM OR PLASMA 103 meq/L 98 - 107 08/22 Specimen Type: PLASMA Comment: No hemolysis noted. Ordering Provider: SHAN SHI Report Released Date/Time: Jul 02, 2024 03:35 PM Reporting Lab: [facility] [place] [address] Performing Lab: [facility] DIVISION COMPREHEN SIVE METABOLIC PANEL CARBON DIOXIDE, TOTAL [MOLES/VOLU ME] IN SERUM OR PLASMA 29 meq/L 22 - 31 08/22 Specimen Type: PLASMA Comment: No hemolysis noted. Ordering Provider: SHAN SHI Report Released Date/Time: Jul 02, 2024 03:35 PM Reporting Lab: [facility] [place] [address] Performing Lab: [facility] DIVISION COMPREHEN SIVE METABOLIC PANEL CALCIUM [MASS/VOLUM E] IN SERUM OR PLASMA 9.2 mg/dL 8.4 - 10.4 08/22 Specimen Type: PLASMA Comment: No hemolysis noted. Ordering Provider: SHAN SHI Report Released Date/Time: Jul 02, 2024 03:35 PM Reporting Lab: [facility] [place] [address] Performing Lab: [facility] DIVISION COMPREHEN SIVE METABOLIC PANEL PROTEIN [MASS/VOLUM E] IN SERUM OR PLASMA 7.2 g/dL 6.0 - 8.6 08/22 Specimen Type: PLASMA Comment: No hemolysis noted. Ordering Provider: SHAN SHI Report Released Date/Time: Jul 02, 2024 03:35 PM Reporting Lab: [facility] [place] [address] Performing Lab: [facility] COMPREHEN SIVE METABOLIC PANEL ALBUMIN [MASS/VOLUM E] IN SERUM OR PLASMA 4.1 g/dL 3.4 - 5.0 08/22 Specimen Type: PLASMA Comment: No hemolysis noted. Ordering Provider: SHAN SHI Report Released Date/Time: Jul 02, 2024 03:35 PM Reporting Lab: [facility] [place] [address] Performing Lab: [facility] COMPREHEN SIVE METABOLIC PANEL BILIRUBIN.T OTAL [MASS/VOLUM E] IN SERUM OR PLASMA 0.5 mg/dL 0.2 - 1.2 08/22 Specimen Type: PLASMA Comment: No hemolysis noted. Ordering Provider: SHAN SHI Report Released Date/Time: Jul 02, 2024 03:35 PM Reporting Lab: [facility] [place] [address] Performing Lab: [facility] COMPREHEN SIVE METABOLIC PANEL ALKALINE PHOSPHATASE [ENZYMATIC ACTIVITY/VO LUME] IN SERUM OR PLASMA 89 U/L 40 - 150 08/22 Specimen Type: PLASMA Comment: No hemolysis noted. Ordering Provider: SHAN SHI Report Released Date/Time: Jul 02, 2024 03:35 PM Reporting Lab: [facility] [place] [address] Performing Lab: [facility] DIVISION COMPREHEN SIVE METABOLIC PANEL ASPARTATE AMINOTRANSF ERASE [ENZYMATIC ACTIVITY/VO LUME] IN SERUM OR PLASMA 29 U/L 5 - 34 08/22 Specimen Type: PLASMA Comment: No hemolysis noted. Ordering Provider: SHAN SHI Report Released Date/Time: Jul 02, 2024 03:35 PM Reporting Lab: [facility] [place] [address] Performing Lab: [facility] DIVISION COMPREHEN SIVE METABOLIC PANEL ALANINE AMINOTRANSF ERASE [ENZYMATIC ACTIVITY/VO LUME] IN SERUM OR PLASMA 21 U/L 8 - 40 08/22 Specimen Type: PLASMA Comment: No hemolysis noted. Ordering Provider: SHAN SHI Report Released Date/Time: Jul 02, 2024 03:35 PM Reporting Lab: [facility] [place] [address] Performing Lab: [facility] DIVISION COMPREHEN SIVE METABOLIC PANEL GLOMERULAR FILTRATION RATE/1.73 SQ M.PREDICTED [VOLUME RATE/AREA] IN SERUM, PLASMA OR BLOOD BY CREATININE- BASED FORMULA (CKD-EPI 2020) 53.33 60 08/22 Specimen Type: PLASMA Comment: No hemolysis noted. Ordering Provider: SHAN SHI Report Released Date/Time: Jul 02, 2024 03:35 PM Reporting Lab: [facility] [place] [address] Performing Lab: [facility] [place] [facility] VITAMIN D, 25-HYDROX Y 25-HYDROXYV ITAMIN D3 [...] Jul 02, 2024 03:35 PM Reporting Lab: [facility] [place] [address] Performing Lab: [facility] CBC LEUKOCYTES [#/VOLUME] IN BLOOD BY AUTOMATED COUNT 9.4 10*3/u L 3.6 - 11.2 08/22 Specimen Type: BLOOD No comment entered. Ordering Provider: SHAN SHI Report Released Date/Time: Jul 02, 2024 03:35 PM Reporting Lab: [facility] [place] [address] Performing Lab: [facility] CBC ERYTHROCYTE S [#/VOLUME] IN BLOOD BY AUTOMATED COUNT 4.52 10*6/u L 4.10 - 5.70 08/22 Specimen Type: BLOOD No comment entered. Ordering Provider: SHAN SHI Report Released Date/Time: Jul 02, 2024 03:35 PM Reporting Lab: [facility] [place] [address] Performing Lab: [facility] CBC HEMOGLOBIN [MASS/VOLUM E] IN BLOOD 14.1 g/dL 13.1 - 16.8 08/22 Specimen Type: BLOOD No comment entered. Ordering Provider: SHAN SHI Report Released Date/Time: Jul 02, 2024 03:35 PM Reporting Lab: [facility] [place] [address] Performing Lab: [facility] DIVISION CBC HEMATOCRIT [VOLUME FRACTION] OF BLOOD 42.5 38.2 - 48.4 08/22 Specimen Type: BLOOD No comment entered. Ordering Provider: SHAN SHI Report Released Date/Time: Jul 02, 2024 03:35 PM Reporting Lab: [facility] [place] [address] Performing Lab: [facility] DIVISION CBC MCV [ENTITIC VOLUME] BY AUTOMATED COUNT 94.0 fL 80.0 - 100.0 08/22 Specimen Type: BLOOD No comment entered. Ordering Provider: SHAN SHI Report Released Date/Time: Jul 02, 2024 03:35 PM Reporting Lab: [facility] [place] [address] Performing Lab: [facility] DIVISION CBC MCH [ENTITIC MASS] BY AUTOMATED COUNT 31.2 pg 27.0 - 34.0 08/22 Specimen Type: BLOOD No comment entered. Ordering Provider: SHAN SHI Report Released Date/Time: Jul 02, 2024 03:35 PM Reporting Lab: [facility] [place] [address] Performing Lab: [facility] DIVISION CBC MCHC [MASS/VOLUM E] BY AUTOMATED COUNT 33.2 g/dL 33.0 - 36.0 08/22 Specimen Type: BLOOD No comment entered. Ordering Provider: SHAN SHI Report Released Date/Time: Jul 02, 2024 03:35 PM Reporting Lab: [facility] [place] [address] Performing Lab: [facility] DIVISION CBC PLATELETS [#/VOLUME] IN BLOOD BY AUTOMATED COUNT 227 10*3/u L 150 - 400 08/22 Specimen Type: BLOOD No comment entered. Ordering Provider: SHAN SHI Report Released Date/Time: Jul 02, 2024 03:35 PM Reporting Lab: [facility] [place] [address] Performing Lab: [facility] CBC PLATELET MEAN VOLUME [ENTITIC VOLUME] IN BLOOD BY AUTOMATED COUNT 11.1 fL 7.5 - 11.2 08/22 Specimen Type: BLOOD No comment entered. Ordering Provider: SHAN SHI Report Released Date/Time: Jul 02, 2024 03:35 PM Reporting Lab: [facility] [place] [address] Performing Lab: [facility] CBC ERYTHROCYTE DISTRIBUTIO N WIDTH [RATIO] BY AUTOMATED COUNT 14.9 11.8 - 15.1 08/22 Specimen Type: BLOOD No comment entered. Ordering Provider: SHAN SHI Report Released Date/Time: Jul 02, 2024 03:35 PM Reporting Lab: [facility] [place] [address] Performing Lab: [facility] CBC LYMPHOCYTES /100 LEUKOCYTES IN BLOOD BY AUTOMATED COUNT 14 08/22 Specimen Type: BLOOD No comment entered. Ordering Provider: SHAN SHI Report Released Date/Time: Jul 02, 2024 03:35 PM Reporting Lab: [facility] [place] [address] Performing Lab: [facility] DIVISION CBC MONOCYTES/1 00 LEUKOCYTES IN BLOOD BY AUTOMATED COUNT 8 08/22 Specimen Type: BLOOD No comment entered. Ordering Provider: SHAN SHI Report Released Date/Time: Jul 02, 2024 03:35 PM Reporting Lab: [facility] [place] [address] Performing Lab: [facility] DIVISION CBC NEUTROPHILS /100 LEUKOCYTES IN BLOOD BY AUTOMATED COUNT 75 08/22 Specimen Type: BLOOD No comment entered. Ordering Provider: SHAN SHI Report Released Date/Time: Jul 02, 2024 03:35 PM Reporting Lab: [facility] [place] [address] Performing Lab: [facility] DIVISION CBC EOSINOPHILS /100 LEUKOCYTES IN BLOOD BY AUTOMATED COUNT 2 08/22 Specimen Type: BLOOD No comment entered. Ordering Provider: SHAN SHI Report Released Date/Time: Jul 02, 2024 03:35 PM Reporting Lab: [facility] [place] [address] Performing Lab: [facility] DIVISION CBC BASOPHILS/1 00 LEUKOCYTES IN BLOOD BY AUTOMATED COUNT 1 08/22 Specimen Type: BLOOD No comment entered. Ordering Provider: SHAN SHI Report Released Date/Time: Jul 02, 2024 03:35 PM Reporting Lab: [facility] [place] [address] Performing Lab: [facility] [id number] DIVISION CBC LYMPHOCYTES [#/VOLUME] IN BLOOD BY AUTOMATED COUNT 1.34 10*3/u L 0.77 - 4.50 08/22 Specimen Type: BLOOD No comment entered. Ordering Provider: SHAN SHI Report Released Date/Time: Jul 02, 2024 03:35 PM Reporting Lab: [facility] [place] [address] Performing Lab: [facility] CBC MONOCYTES [#/VOLUME] IN BLOOD BY AUTOMATED COUNT 0.78 10*3/u L 0.19 - 0.80 08/22 Specimen Type: BLOOD No comment entered. Ordering Provider: SHAN SHI Report Released Date/Time: Jul 02, 2024 03:35 PM Reporting Lab: [facility] [place] [address] Performing Lab: [facility] [place] NEUTROPHILS [#/VOLUME] IN BLOOD BY AUTOMATED COUNT 7.04 10*3/u L 2.10 - 8.00 08/22 Specimen Type: BLOOD No comment entered. Ordering Provider: SHAN SHI Report Released Date/Time: Jul 02, 2024 03:35 PM Reporting Lab: [facility] [place] [address] Performing Lab: [facility] [place] EOSINOPHILS [#/VOLUME] IN BLOOD BY AUTOMATED COUNT 0.14 10*3/u L 0.00 - 0.60 08/22 Specimen Type: BLOOD No comment entered. Ordering Provider: SHAN SHI Report Released Date/Time: Jul 02, 2024 03:35 PM Reporting Lab: [facility] [id number] Performing Lab[facility] [id number] [facility] [place] BASOPHILS [#/VOLUME] IN BLOOD BY AUTOMATED COUNT 0.08 10*3/u L 0.00 - 0.20 08/22 Specimen Type: BLOOD No comment entered. Ordering Provider: SHAN SHI Report Released Date/Time: Jul 02, 2024 03:35 PM Reporting Lab: [facility] [id number] Performing Lab: [facility] [id number] [place] [address] Vital Signs Combined list of inpatient and outpatient Vital Signs from Department of Defense and Veterans Affairs, ranging from 12 months to all on record, depending upon the facility. Vital Sign Value Date Comments Source SYSTOLIC BLOOD PRESSURE 181 08/22/2024 09:09:07 [facility] DIASTOLIC BLOOD PRESSURE 85 08/22/2024 09:09:07 [facility] PULSE OXIMETRY 98 08/22/2024 09:09:07 [facility] WEIGHT 201.1 08/22/2024 09:09:07 [facility] BMI 28 kg/m2 08/22/2024 09:09:07 [facility] PAIN 0 08/22/2024 09:09:07 [facility] HEIGHT 71 08/22/2024 09:09:07 [facility] TEMPERATURE 98 08/22/2024 09:09:07 [facility] PULSE 45 08/22/2024 09:09:07 [facility] RESPIRATION 18 08/22/2024 09:09:07 [facility] Encounters Combined list of: 1) Encounters from Department of Veterans Affairs facilities going backup to the last 18 months, not all [place] inpatient encounters are included; 2) Encounters from the Department of Defense facilities going backup to 280 months. Location Location Details Encounter Type Encounter Number Reason For Visit Attending Provider ADM Date DC Date Status Disposition Source [facility] Outpatient Encounter [id number] 06/12 [facility] Outpatient Encounter [id number] ALAN ORTEZ 08/02 [facility] Outpatient Encounter [id number] 08/04 [facility] OFFICE O/P EST MOD 30 MIN [id number] Diagnos is: ICD-10- CM F32.A Depress ion, unspeci fied SAM SHI E 08/04 [facility] Outpatient Encounter [id number] 08/07 [facility] Outpatient Encounter [id number] Tori BRUNER A 08/13 [facility] Outpatient Encounter [id number] Tori BRUNER A 08/13 [facility] Outpatient Encounter [id number] 08/15 [facility] Outpatient Encounter [id number] DELLA DENISE 08/16 [facility] Outpatient Encounter [id number] CANDACE FIGUEROA 08/21 [facility] OFFICE O/P EST MOD 30 MIN [id number] Diagnos is: ICD-10- CM 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, right eye, moderat e stage JAVY SCHNEIDER TTHEW C 09/05 [facility] Outpatient Encounter [id number] ALAN ORTEZ D 09/05 [facility] Outpatient Encounter [id number] ELPIDIO FORREST 09/07 [facility] OFFICE O/P EST LOW 20 MIN [id number] Diagnos is: ICD-10- CM F32.A Depress ion, unspeci SAM Welsh E 09/07 [facility] Outpatient Encounter [id number] CANDACE FIGUEROA 09/07 [facility] Outpatient Encounter [id number] 09/10 [facility] Outpatient Encounter [id number] ELPIDIO FORREST 09/14 [facility] Outpatient Encounter [id number] CANDACE FIGUEROA 09/19 [facility] Outpatient Encounter [id number] CANDACE FIGUEROA 09/28 [facility] Out[facility] Encounter [id number] ELPIDIO FORREST 10/08 [facility] Outpatient Encounter [id number] ELPIDIO FORREST 10/08 [facility] OFFICE O/P EST MOD 30 MIN [id number] Diagnos is: ICD-10- CM G44.85 Primary JOSE Hutchins 10/25 [facility] PSYTX W PT 30 MINUTES [id number] Diagnos is: ICD-10- CM G47.09 Other insomni a LINDQUIST,GRA NT 10/29 [facility] PSYTX W PT 30 MINUTES [id number] Diagnos is: ICD-10- CM G47.09 Other insomni a LINDQUIST,GRA NT 11/06 [facility] PSYTX W PT 30 MINUTES [id number] Diagnos is: ICD-10- CM G47.09 Other insomni a LINDQUIST,GRA NT 11/14 [facility] Outpatient Encounter [id number] [facility]EROA 11[facility] [id number] CANDACE FIGUEROA 11/26 [facility] PSYTX W PT 30 MINUTES [id number] Diagnos is: ICD-10- CM G47.09 Other insomni a ELBA LINDQUIST 11/27 [facility] Outpatient Encounter [id number] DAVID JACKSON 12/17 [facility] Outpatient Encounter [id number] ALAN ORTEZ 12/17 [facility] OFFICE O/P EST MOD 30 MIN [id number] Diagnos is: ICD-10- CM M54.2 Cervica SAM Orozco E 12/18 [facility] Outpatient Encounter [id number] JIAGR MCCURDY 02/01 [facility] Outpatient Encounter [id number] 02/01 [facility] Outpatient Encounter [id number] 02/10 [facility] Outpatient Encounter [id number] ELPIDIO FORREST 04/16 [facility] Outpatient Encounter [id number] ELPIDIO FORREST 04/29 [facility] Encounter [id number] Tay GUIDRY 05/08 [facility] Outpatient Encounter [id number] CADNACE FIGUEROA 05/23 [facility] Outpatient Encounter [id number] RAMOS,Lisandra S[place] 06/06 [facility] Outpatient Encounter [id number] 06/10 [facility] Outpatient Encounter [id number] 06/12 [facility] Outpatient Encounter [id number] SHANA COATES 06/17 [facility] Outpatient Encounter [id number] CANDACE FIGUEROA 07/02 [facility] Outpatient Encounter [id number] JIGAR MCCURDY 07/04 [facility] Outpatient Encounter [id number] JIGAR MCCURDY 07/04 [facility] Outpatient Encounter [id number] LAAN ORTEZ 08/15 [facility]/P EST HI 40 MIN [id number] Diagnos is: ICD-10- CM R00.1 Bradyca rdia, unspeci fied SAM SHI RRY E 08/22 [facility] Outpatient Encounter [id number] SAM SHI RRY E 08/22 [facility] Social History Combined list of available smoking, tobacco, and other social history from Department of Defense and [facility] facilities. Social History Type Response Date Comment [facility] e Tobacco smoking status NHIS VA-TOBACCO USE FORMER CIGARETTES 08/22/2024 [facility] History of tobacco use VA-TOBACCO NEVER USED OTHER TYPE 08/22/2024 [facility] History of tobacco use NE-TOBACCO FORMER USER 08/04/2023 [facility] History of tobacco use VA-TOBACCO QUIT 15 YRS OR MORE 02/01/2022 [facility] History of tobacco use VA-TOBACCO FORMER USER 01/29/2021 [facility] History of tobacco use VA-TOBACCO FORMER USER 10/29/2019 [facility] History of tobacco use VA-TOBACCO FORMER USER 03/12/2018 [facility] History of tobacco use QUIT TOBACCO >7 YEARS AGO 02/02/2018 [facility] History of tobacco use TOBACCO REFUSED SCREEN V15 08/03/2017 [facility] History of tobacco use QUIT TOBACCO >7 YEARS AGO 01/27/2017 [facility] History of tobacco use QUIT TOBACCO >7 YEARS AGO 01/21/2016 [facility] This section is an empty social history section. DoD Plan of Care List of future care activities from Department [facility] facilities. Additional future care activities may be listed in the Assessment and Plan section. Date/Time Care Activity Care Activity Detail Facili ty 02/21/2025 AMBULATORY - REHAB MEDICINE AMBULATORY - REHAB MEDICINE [facility]
--- OUTSIDE RECORDS SUMMARY | 2024-11-12 15:32 | XMS_ITS | Encounter Summary ---
Author Organization [facility] Healthcare Address [address] [place] [address] Care Team Providers Care Bowling Ball Patcher Name Role Phone Zachary Harris MD Primary Care Provider [phone] Jennifer Adame RN Unavailable Un available Teodoro Aviles MD Unavailable [phone] Luis M Chinchilla MD PhD Unavailable [phone] Alejandro Aly MD Unavailable Long Montemayor MD Unavailable [phone] Rachel Tran MD Unavailable [phone] Tisha Garza PT Unavailable Unavailable Encounter Details Date Type Department Care Team (Late st Contact Info) Description 03/13/2024 Telephone [facility] [address] [place] [address] Heather Nieto, RN Social History Tobacco Use [...] on file Legal Sex Male 3:44 AM ORDER TRACER Gender Identity Male 07/04/2020 6:23 AM ORDER TRACER Sexual Orientation Straight 11/12/2018 6: 56 AM CDT 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 End 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 Not on file Not on file 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 on 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[employer] Not on file Not on file Not [...] on filedocumented in this encounter Care Teams Bowling Ball Patcher Relationship Specialty Start Date End Date Zachary Harris MD [address] [place] [address] PCP - General 03/23/17 Jennifer Adame, RN Registered Nurse 09/07/17 Teodoro Aviles MD Planner Scheduler Gastroenterology 07/02/19 Luis M Chinchilla MD PhD Referring Physician Cardiology 07/26/19 Alejandro Aly MD Referring Physician General Surgery 10/16/19 Long Montemayor MD Medical Oncologist/Account Executive [facility] Medical Oncology 10/16/19 Rachel Tran MD [address] [facility], [address] [place] [address] Consulting Physician Medical Oncology 11/02/23 Tisha Garza, PT Physical Therapist Physical Therapy 12/22/23 documented as of this encounter
--- OUTSIDE RECORDS SUMMARY | 2024-11-12 15:32 | XMS_ITS | Clinical Summary ---
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 05/31/2029 A-5750.20 / 0 / [employer] Aptus 2.5mm 24mm Lock Cortical Screw Bone A-5750.24 - S0 - [id number] Implanted:Qty: 1 on 06/06/2024 by Carline iRvera MD PhD at [facility] Screw Left: Hand [employer] Inc 05/31/2029 A-5750.24 / 0 / [employer] Inc Aptus 2.5mm 18mm Cortical Screw Bone Titanium A-5700.18 - S0 - [id number] Implanted:Qty: 1 on 06/06/2024 by Carline Rivera MD PhD at [facility] Screw Left: Hand [employer] Inc 05/31/2029 A-5700.18 / 0 / [employer] Aptus 2.5mm 32mm Hexadrive Cortical 7 Screw Bone Titanium A-5700.32/1 - S0 - [id number] Implanted:Qty: 1 on 06/06/2024 by Carline Rivera MD PhD at [facility] Screw Left: Hand [employer] Inc 05/31/2029 A-5700.32/ 1 / 0 / Medart[employer] Inc 2.5mm 18mm Lock Cortical Screw Bone A-5750.18 - S0 - [id number] Implanted:Qty: 2 on 06/06/2024 by Carline Rivera MD PhD at [facility] Screw Left: Hand [employer] Inc [id number] 05/31/2029 A-5750.18 / 0 / [id number] Palacos [employer] Radiopaque Bone Cement Implanted:Qty: 1 on 04/23/2018 by Lucho Carrion MD at [facility] Left: Knee [employer] Inc [id number] 01/09/2021 / / [id number] Depuy Orthopaedics Inc [id number] Attune 38mm Cemented Medialize Knee Dome Patellar Aox Sterile - [id number] Implanted:Qty: 1 on 04/23/2018 by Lucho Carrion MD at [facility] Left: Knee [employer]uy Orthopaed[employer] Inc 03/11/2023 [id number] / / [id number] Depuy Orthopaedics Inc [id number] Attune Cemented Posterior Stabilize Knee Left 7 Component Femoral - [id number] Implanted:Qty: 1 on 04/23/2018 by Lucho Carrion MD at [facility] Left: Knee [employer]uy Orth[employer]ed[employer] Inc 05/11/2027 [id number] / / [id number] Depuy Orthopaedics Inc [id number] Attune S+ Cement Fix Bearing Knee 6 Baseplate Tibial - [id number] Implanted:Qty: 1 on 04/23/2018 by Lucho Carrion MD at [facility] Left: Knee [employer] Orth[employer]ed[employer] Inc 10/10/2027 [id number] / / [id number] Depuy Orthopaed[employer] Inc [id number] Attune 8mm Posterior Stabilize Fix Bearing Knee 7 Insert Tibial - [id number] Implanted:Qty: 1 on 04/23/2018 by Lucho Carrion MD at [facility] Left: Knee [employer] Orthopaed[employer] Inc 11/09/2022 [id number] / / [id number] Ipswich [employer] Michele 4014 8.5fr 250cm Tube Temporary Rapid Exchange Nasal Stent Biliary - [id number] Implanted:Qty: 1 on 10/11/2019 by Ric Kenney MD at [facility] Left: Jejunum [employer] Michele 08/18/2022 4014 / / [id number] Meican Michele [id number] Device Closure Angio-Seal Vip Bondek-Plus Polyglyd L70 Cm Od6 Fr Odsec.035 In Vascular - [id number] Implanted:Qty: 1 on 11/11/2020 [id number] / / Explanted Type Area Maintenance Aide Device Identifier Shelf Expiration Date Model / Serial / Lot Ipswich [employer] Michele 3204 C-Flex 10fr 5cm Gastrointestine 2 Pigtail Curve Stent Biliary - [id number] Implanted:Qty: 1 on 10/11/2019 by Ric Kenney MD at [facility] Explanted:Qty: 1 on 11/12/2019 by Teodoro Aviles MD at [facility] Left: Jejunum [employer] Michele 08/22/2022 3204 / / [id number] Description:abscess [employer] Michele 3204 C-Flex 10fr 5cm Gastrointestine 2 Pigtail Curve Stent Biliary - [id number] Implanted:Qty: 1 on 10/11/2019 by Ric Kenney MD at [facility] Explanted:Qty: 1 on 11/12/2019 by Teodoro Aviles MD at [facility] Left: Jejunum [employer] Michele 08/22/2022 3204 / / [id number] Procedures Procedure Name Priority Date/Time Associated Diagnosis Comments SCAN - RADIOLOGY/IMAGING 10/18/2024 DIFFERENTIAL AUTO Routine 10/16/2024 10:48 AM CDT Night sweats ERYTHROCYTE SEDIMENTATION RATE Routine 10/16/2024 10:48 AM CDT Night sweats LACTATE DEHYDROGENASE Routine 10/16/2024 10:48 AM CDT Night sweats CBC WITH AUTO DIFFERENTIAL Routine 10/16/2024 10:48 AM CDT Night sweats TESTOSTERONE, TOTAL AND FREE, SERUM Routine 10/16/2024 10:48 AM CDT Night sweats OCT, OPTIC NERVE - OD - RIGHT [...] Read Routine (OP Routine) 08/16/2024 8:52 AM HEEL BUILDER MACHINE Arthritis of carpometacarpal (CMC) joint of left thumb PET/CT FDG SKULL TO THIGH Schedule Routine, Read Routine (OP Routine) 08/13/2024 9:53 AM HEEL BUILDER MACHINE Malignant neoplasm of body of stomach (HCC) CT CHEST ABDOMEN PELVIS W CONTRAST Schedule Routine, Read Routine (OP Routine) 05/17/2024 8:35 AM HEEL BUILDER MACHINE Malignant neoplasm of body of stomach (HCC) COLONOSCOPY 03/26/2024 9:49 AM CDT HEMOGLOBIN A1C Routine 11/27/2023 8:09 AM CDT Type 2 diabetes mellitus with diabetic neuropathy, without long-term current use of insulin (HCC) Mixed hyperlipidemia Essential hypertension ALBUMIN CREATININE RATIO, URINE Routine 06/01/2023 8:45 AM HEEL BUILDER MACHINE Type 2 diabetes mellitus with diabetic neuropathy, without long-term current use of insulin (HCC) from Last 3 Months or Most Recently Relevant to Health Maintenance Results * SCAN - RADIOLOGY/IMAGING (10/18/2024) Anatomical Region Laterality Modality Other us Provider Scanning Final Result * (ABNORMAL) Differential, auto (10/16/2024 10:48 AM CDT) Neutrophil abs 7.61(H) 1.50 - 6.50 K/cumm Imm gran abs 0.09 0.00 - 0.10 K/cumm [facility] Lymphocyte abs 0.99 0.80 - 3.30 K/cumm [facility] Monocyte abs 0.65 0.20 - 0.80 K/cumm [facility] Eosinophil abs 0.09 0.00 - 0.50 K/cumm [facility] Basophil abs 0.07 0.00 - 0.10 K/cumm [facility] Neutrophil pct 80.3 % [facility] Comment: Interpretive Data Percent cell count reference ranges are not reported, since discordance with absolute values may lead to misinterpretation of CBC data. Current Interpretive Data was last revised on 2017. Imm gran pct 0.9 % [facility] Comment: Interpretive Data Percent cell count reference ranges are not reported, since discordance with absolute values may lead to misinterpretation of CBC data. Current Interpretive Data was last revised on 2017. Lymphocyte pct 10.4 % [facility] Comment: Interpretive Data Percent cell count reference ranges are not reported, since discordance with absolute values may lead to misinterpretation of CBC data. Current Interpretive Data was last revised on 2017. Monocyte pct 6.8 % [facility] Comment: Interpretive Data Percent cell count reference ranges are not reported, since discordance with absolute values may lead to misinterpretation of CBC data. Current Interpretive Data was last revised on 2017. Eosinophil pct 0.9 % [facility] Comment: Interpretive Data Percent cell count reference ranges are not reported, since discordance with absolute values may lead to misinterpretation of CBC data. Current Interpretive Data was last revised on 2017. Basophil pct 0.7 % [facility] Comment: Interpretive Data Percent cell count reference ranges are not reported, since discordance with absolute values may lead to misinterpretation of CBC data. Current Interpretive Data was last revised on 2017. Blood 10/16/2024 10:4 8 AM CDT 10/16/2024 1:52 PM CDT Phyllis Holguin MD LAB BLOOD ORDERABLES Final Resu lt Performing Organization Address [facility] Co de Phone Number [facility] Department [place] [address] * (ABNORMAL) CBC with auto differential (10/16/2024 10:48 AM CDT) WBC 9.50 3.80 - 9.90 K/cumm Hgb 12.7(L) 13.0 - 17.5 g/dL [facility] Hct 38.1(L) 38.9 - 50.3 % [facility] Plt 213 150 - 400 K/cumm [facility] MPV 10.8 9.1 - 12.[address] [facility] RBC 4.01(L) 4.30 - 5.80 M/cumm [facility] MCV 95.0 81.3 - 96.[address] [facility] MCH 31.7 27.1 - 33.[address] [facility] MCHC 33.3 32.3 - 35.7 g/dL [facility] RDW CV 16.2(H) 11.1 - 14.9 % [facility] RDW SD 57.1(H) 35.7 - 48.[address] [facility] NRBC abs 0.00 0.00 - 0.01 K/cumm [facility] Blood 10/16/2024 10:4 8 AM CDT 10/16/2024 1:52 PM CDT Phyllis Holguin MD LAB BLOOD ORDERABLES Final Resu lt Performing Organization Address City/[facility]/ZIP Co de Phone Number GABI WANG [facility] [place] [address] * Erythrocyte sedimentation rate (10/16/2024 10:48 AM CDT) Erythrocyte sedimentation rate 19 1 - 20 mm/hr Blood 10/16/2024 10:4 8 AM CDT 10/16/2024 1:52 PM CDT us Phyllis Holguin MD LAB BLOOD ORDERABLES Final Resu lt Performing Organization Address [facility] de Phone [place] [address] * Testosterone, Total and Free, Serum (10/16/2024 10:48 AM CDT) Pathologist [facility] Testosterone 384 240 - 950 ng/dL [facility] Comment: ADDITIONAL INFORMATION Testing performed by Liquid Chromatography-Tandem Mass Spectrometry (LC-MS/MS). This test was developed and its performance characteristics determined by [facility] in a manner consistent with CLIA requirements. This test has not been cleared or approved by the U.S. Food and Drug Administration. Test Performed by: [facility] [place] [address] Customer Service Administrator: Bear Humphrey Ph.D.; CLIA# [id number] Testosterone, free 4.84 3.08 - 11.3 ng/dL [facility] Comment: ADDITIONAL INFORMATION This test was developed and its performance characteristics determined by [facility] in a manner consistent with CLIA requirements. This test has not been cleared or approved by the U.S. Food and Drug Administration. Blood 10/16/2024 10:4 8 AM CDT 10/16/2024 2:10 PM CDT Phyllis Holguin MD LAB BLOOD ORDERABLES Final Resu lt Performing Organization Address City/[facility]/ZIP Co de Phone Number [facility] [place] [address] [facility] ref Lab * (ABNORMAL) Lactate dehydrogenase (LD) (10/16/2024 10:48 AM CDT) Lactate dehydrogenase (LDH) 277(H) 100 - 250 Units/L Blood 10/16/2024 10:4 8 AM CDT 10/16/2024 1:50 PM CDT Phyllis Holguin MD LAB BLOOD ORDERABLES Final Resu lt Performing Organization Address [facility] Co de Phone Number [facility] [place] [address] * OCT, Optic Nerve - OD - [...] results best viewed via link to PDF [facility], [address] [address] [email or web address] Note to Patients: This report may contain [...] RECEIVED: 10/02/2024 REPORTED: 10/07/2024 Submitting Physician Information: [facility], [address] [place] [address] [address] [place] [address], [phone] DERMATOPATHOLOGY REPORT RESULTS DIAGNOSIS: SKIN, LEFT UPPER [...] ICD-9 A; ZSD.1387 ZSD.1055 Clerical Data A; 04607, 59936-KN The characteristics of special, immunohistochemical, and immunofluorescence stains and in-situ hybridization tests performed by the [facility] were deemed acceptable in ongoing air quality chemist measures and in compliance with regulations drawn from the Clinical Laboratory Improvement Act hm1167 (CLIA '88). Control reactions for all stains performed were deemed adequate and appropriate by a pathologist prior to evaluation of patient tissue. Some diagnoses were rendered with the assistance of laboratory-developed tests utilizing analyte-specific reagents; the performance characteristic of these tests were determined by [facility] and are not cleared or approved by the [place] Food an Drug administration. Laboratory developed test may only be performed in a facility that is certified by the [facility] as a high-complexity laboratory under CLIA '88. These tests are used for clinical purposes and are not investigational. Susy Sifuentes MD LAB PATHOLOGY ORDERABLE S Final Result [facility] [address] [place] [address] * eGFR (09/25/2024 10:34 AM CDT) eGFR [...] MD LAB BLOOD ORDERABLES Vero l Result [facility] ([place]) 1 [facility] [place] [address] * (ABNORMAL) Differential, auto (09/25/2024 10:34 AM [...] revised on 2017. Monocyte pct 6.8 % [facility] ([place]) Comment: Interpretive Data Percent cell [...] revised on 2017. Basophil pct 0.4 % [facility] ([place]) Comment: Interpretive Data Percent cell count reference ranges are not reported, since discordance with absolute values may lead to misinterpretation of CBC data. Current Interpretive Data was last revised on 2017. Blood 09/25/2024 10:3 4 AM CDT 09/25/2024 1:04 PM CDT Zachary Harris MD LAB BLOOD ORDERABLES Vero smith Result GABI [facility] ([place]) 1 [facility] [place] [address] * Urinalysis reflex to microscopic and culture Urine (09/25/2024 10:34 AM CDT) Color, ur Yellow Yellow Clarity, ur Clear Clear GABI Arana ([place]) Specific gravity, ur 1.018 1.003 - 1.030 G[facility]I DUBON ([place]) pH, urine 5.5 [facility]I [facility] ([place]) Comment: Interpretive Data U rine pH is affected by diet, medications, systemic acid-base disturbances, and renal tubular function. pH may affect urinary stone formation. For example, urine pH below 6.0 may help reduce the tendency for calcium phosphate stones and pH greater than 6.0 may reduce the tendency for uric acid stone formation. Source: [facility] Current Interpretive Data was last revised on [...] MICROBIOLOGY - GENERA L ORDERABLES Final Result [facility] ([place]) 1 [facility] [place] [address] * (ABNORMAL) CBC with auto differential (09/25/2024 [...] RDW SD 58.4(H) 35.7 - 48.1 fL [facility] ([place]) NRBC abs 0.00 0.00 - 0.01 K/cumm GABI [facility] ([place]) Blood 09/25/2024 10:3 4 AM CDT 09/25/2024 1:04 PM CDT us Zachary Harris MD LAB BLOOD ORDERABLES Vero l Result GABI DUBON ([place]) 1 [facility] [place] [address] * TSH (09/25/2024 10:34 AM CDT) Thyroid Stimulating Hormone 3.43 0.30 - 4.20 mcIUnit/mL Blood 09/25/2024 10:3 4 AM CDT 09/25/2024 1:04 PM CDT us Zachary Harris MD LAB BLOOD ORDERABLES Vero l Result Performing Organization Address City/[facility]/ZIP Co de Phone Number GABI DUBON ([place]) 1 [facility] [place] [address] * T4, free (09/25/2024 10:34 AM CDT) Free T4 1.58 0.90 - 1.70 ng/dL Blood 09/25/2024 10:3 4 AM CDT 09/25/2024 1:04 PM CDT Zachary Harris MD LAB BLOOD ORDERABLES Vero l Result GABI [facility]UBON ([place]) 1 [facility] [place] [address] * (ABNORMAL) Comprehensive metabolic panel (09/25/2024 10:34 AM CDT) Sodium 138 135 - 145 mmol/L Potassium, pl 3.9 3.3 - 4.9 mmol/L [facility] ([place]) Chloride 101 97 - 110 mmol/L [facility] ([place]) CO2 23 22 - 32 mmol/L [facility] ([place]) Anion gap 14 2 - 15 mmol/L [facility] ([place]) BUN 20 6 - 25 mg/dL [facility] ([place]) Creatinine 1.25 0.80 - 1.30 mg/dL [facility] ([place]) Glucose 114 70 - 199 mg/dL [facility] ([place]) Comment: Interpretive Data Fasting glucose [...] MD LAB BLOOD ORDERABLES Vero smith Result [facility] ([place]) 1 [facility] [place] [address] * SCAN - RADIOLOGY/IMAGING (09/25/2024) Anatomical Region [...] was last reviewed 2021. Testing performed by: [facility], [address] [place] [address] Blood 08/19/2024 9:00 AM CDT 08/19/2024 9:18 AM CDT Eloy'Berhane Tran MD LAB BLOOD ORDERABLES Vero smith Result [facility] [address] [address] [place] [address] * (ABNORMAL) Differential, auto (08/19/2024 9:00 AM CDT) Neutrophil abs 5.2 1.5 - 6.5 K/cumm Comment:Testing performed by : [facility], [facility], [address] [place] [address] Imm gran abs 0.1 0.0 - 0.1 K/cumm GABI WANGWALEX Comment:Testing performed by : [facility], [facility], [address] [place] [address] Lymphocyte abs 1.6 0.8 - 3.3 K/cumm GABI KAMARA Comment:Testing performed by : [facility], [address] [place] [address] Monocyte abs 0.9(H) 0.2 - 0.8 K/cumm GAIB KAMARA Comment:Testing performed by : [facility], [address] [place] [address] Eosinophil abs 0.3 0.0 - 0.5 K/cumm GABI KAMARA Comment:Testing performed by : [facility], [address] [place] [address] Basophil abs 0.1 0.0 - 0.1 K/cumm [facility]ER[facility]EL [facility] Comment:Testing performed by : [facility], [facility], [address] [place] [address] Neutrophil pct 64.3 % [facility] Comment: Interpretive Data Percent cell count reference ranges are not reported, since discordance with absolute values may lead to misinterpretation of CBC data. Current Interpretive Data was last revised on 2017. Testing performed by: [facility], [facility], [address] [place] [address] Imm gran pct 0.7 % [facility] Comment: Interpretive Data Percent cell count reference ranges are not reported, since discordance with absolute values may lead to misinterpretation of CBC data. Current Interpretive Data was last revised on 2017. Testing performed by: [facility], [facility], [address] [place] [address] Lymphocyte pct 19.5 % [facility] Comment: Interpretive Data Percent cell count reference ranges are not reported, since discordance with absolute values may lead to misinterpretation of CBC data. Current Interpretive Data was last revised on 2017. Testing performed by: [facility], [facility], [address] [place] [address] Monocyte pct 10.8 % [facility] Comment: Interpretive Data Percent cell count reference ranges are not reported, since discordance with absolute values may lead to misinterpretation of CBC data. Current Interpretive Data was last revised on 2017. Testing performed by: [facility], [facility], [address] [place] [address] Eosinophil pct 3.6 % [facility] Comment: Interpretive Data Percent cell count reference ranges are not reported, since discordance with absolute values may lead to misinterpretation of CBC data. Current Interpretive Data was last revised on 2017. Testing performed by: [facility], [facility], [address] [place] [address] Basophil pct 1.1 % [facility] Comment: Interpretive Data Percent cell count reference ranges are not reported, since discordance with absolute values may lead to misinterpretation of CBC data. Current Interpretive Data was last revised on 2017. Testing performed by: [facility], [address] [place] [address] Blood 08/19/2024 9:00 AM CDT 08/19/2024 9:02 AM CDT [facility]'eBrhane Tran MD LAB BLOOD ORDERABLES Vero l Result [facility] [address] [facility]. [place] [address] * (ABNORMAL) CBC with auto differential (08/19/2024 9:00 AM CDT) Pathologist [facility] WBC 8.2 3.8 - 9.9 K/cumm Comment:Testing performed by : [facility], [address] [place] [address] Hgb 12.9(L) 13.0 - 17.5 g/dL GABI WANGW Comment:Testing performed by : [facility], [address] [place] [address] Hct 39.4 38.9 - 50.3 % GABI WANGWCH Comment:Testing performed by : [place] [address], [address] [place] [address] Plt 204 150 - 400 K/cumm GABI WANGWCH Comment:Testing performed by : [facility], [address] [place] [address] MPV 9.6 9.1 - 12.3 fL GABI WANGWCH Comment:Testing performed by : [facility], [address] [place] [address] RBC 4.13(L) 4.30 - 5.80 M/cumm GABI [facility]JWCH Comment:Testing performed by : [facility], [address] [place] [address] MCV 95 81 - 96 fL GABI KAMARA Comment:Testing performed by : [facility], [facility], [address] [place] [address] MCH 31.2 27.1 - 33.3 pg GABI KAMARA Comment:Testing performed by : [facility], [facility], [address] [place] [address] MCHC 32.7 32.3 - 35.7 g/dL GABI KAMARA Comment:Testing performed by : [facility], [facility], [address] [place] [address] RDW CV 15.2(H) 11.1 - 14.9 % GABI KAMARA Comment:Testing performed by : [facility], [facility], [address] [place] [address] RDW SD 53.4(H) 35.7 - 48.1 fL GABI KAMARA Comment:Testing performed by : [facility], [facility], [address] [place] [address] Blood 08/19/2024 9:00 AM CDT 08/19/2024 9:02 AM CDT Eloy'Berhane Tran MD LAB BLOOD ORDERABLES Vero l Result [facility] [address] [facility] Department of Laboratories [place], [place] [id number] * Cancer antigen 19-9 (08/19/2024 9:00 AM CDT) CA 19-9 ag 13.0 0.0 - 35.0 units/mL Comment: Interpretive Data The Jamie CA 19-9 assay procedure was used. Results from different manufacturers or methods may not be comparable. Serial testing should be performed using the same method. Testing performed by: [facility], [facility], [place]., [address] Blood 08/19/2024 9:00 AM CDT 08/19/2024 9:57 AM CDT us MohEdison Tran MD LAB BLOOD ORDERABLES Vero smith Result GABI WANGWCH [address] [address] [place] [address] * (ABNORMAL) Comprehensive metabolic panel (08/19/2024 9:00 AM CDT) Sodium 143 135 - 145 mmol/L Comment:Testing performed by : [facility], [address] [address], [place] [address] Potassium, pl 3.8 3.3 - 4.9 mmol/L CERMAIKEL KAMARA Comment:Testing performed by : [facility], [address], [place] [address] Chloride 106 97 - 110 mmol/L GABI KAMARA Comment:Testing performed by : [facility], [address], [place] [address] CO2 27 22 - 32 mmol/L CERMAIKEL KAMARA Comment:Testing performed by : [facility], [address], [place] [address] Anion gap 10 2 - 15 mmol/L GABI KAMARA Comment:Testing performed by : [facility], [address], [place] [address] BUN 25 6 - 25 mg/dL GABI WANGWALEX Comment:Testing performed by : [facility], [address], [place] [address] Creatinine 1.38(H) 0.80 - 1.30 mg/dL GBAI BJWCH Comment:Testing performed by : [facility], [address], [place] [address] Glucose 102 70 - 199 mg/dL GABI WANGWCH Comment: Interpretive Data Fasting glucose >/= 126 [...] was last revised 2022. Testing performed by: [facility], [address], [place] [address] Calcium 8.6 8.5 - 10.3 mg/dL CERNER BJWCH Comment:Testing performed by : [facility], [address], [place] [address] Bilirubin, total 0.4 0.1 - 1.2 mg/dL CERNER BJWCH Comment:Testing performed by : [facility], [address], [place] [address] Protein, pl 6.3(L) 6.5 - 8.5 g/dL CERNER BJWCH Comment:Testing performed by : [facility], [address], [place] [address] Albumin 3.8 3.5 - 5.0 g/dL CERNER BJWCH Comment:Testing performed by : [facility], [address], [place] [address] Alk phos 83 40 - 130 Units/L CERNER BJWCH Comment:Testing performed by : [facility], [address], [place] [address] ALT 21 7 - 55 Units/L CERNER BJWCH Comment:Testing performed by : [facility], [address], [place] [address] AST 24 10 - 50 Units/L CERNER BJWCH Comment:Testing performed by : [facility], [address], [place] [address] Blood 08/19/2024 9:00 AM CDT 08/19/2024 9:18 AM CDT us Moh'Berhane Tran MD LAB BLOOD ORDERABLES Vero l Result GABI BJW[facility] [id number] [place] [address] * Signatera Only Initial Draw (08/19/2024 8:53 AM CDT) Pathologist [facility] SIGNATERA TEST RESULT NEGATIVE 3:51 PM CDT [...] Nature Cancer. 2020;1(9):873-881. 2 Graciela TV, Ashley Ryan, et al., Circulating Tumor DNA [...] samples collected in cell-free DNA blood tubes (Streck) using the QIAsymphony automated or manual extraction method (Qiagen). Using a proprietary algorithm, putative, clonal variants present in the tumor but absent in the germline DNA are identified to design the customized multiplex PCR assay. Whole-exome sequencing is performed on tumor and peripheral blood DNA using WonderflowA MobiClubPrep library kit ([employer]) with a custom SECU4 exome capture ([employer]). Using a proprietary algorithm, putative clonal variants present in the tumor but absent in the germline DNA are identified to design the customized multiplex PCR assay. Circulating tumor DNA is extracted from plasma collected in Streck tubes using tvCompass proprietary methods. The customized PCR assays are [...] and whole exome sequencing are performed at [facility] (CLIA ID# [id number]) [address] [place] [address]. Disclaimer The extraction, library preparation, and sequencing for this test were performed by [facility] [address], [place] [address] (CLIA ID [id number]). The data analysis and reporting for this test were performed by [facility] [address], [place] [address] (CLIA ID [id number]). This test was developed and its performance characteristics determined by [facility]. The test has not been cleared or approved by the U.S. Food and Drug Administration (FDA). CAP accredited, ISO 96081 certified, and CLIA certified. Pathology services and whole exome sequencing for this test were performed by [facility] [employer] [address] [place] [address] (CLIA ID [id number]). 2020 [employer]. All Rights Reserved. Blood specimen (specimen) Venous blood specimen / Unknown 08/19/2024 8:53 AM CDT 08/27/2024 3:51 PM CDT [facility] LAB GENETIC TESTING Final Result [facility] [address] [place] [address], [facility] * SCAN - PATHOLOGY (08/19/2024) us Provider Scanning Final Result * XR Hand Left 3 or More Views (08/16/2024 8:52 AM HEEL BUILDER MACHINE) Anatomical Region Laterality Modality Upper Extremities, Hand Left Computed Radiography 08/16/2024 9:40 AM HEEL BUILDER MACHINE Impressions 08/16/2024 12:19 PM HEEL BUILDER MACHINE Unchanged left trapeziectomy, proximal row carpectomy, and instrumented left wrist arthrodesis. Dictated by: Primo Godfrey M.D. The radiology attending physician has personally reviewed this study, and had reviewed and/or edited this written report and agrees with it. Electronically signed by: Jose Brambila D.O. Narrative 08/16/2024 12:19 PM HEEL BUILDER MACHINE EXAMINATION: XR HAND LEFT 3 OR MORE VIEWS HISTORY: Trapeziectomy COMPARISON: 07/05/2024 FINDINGS: Postsurgical changes of left trapeziectomy, proximal row carpectomy, and instrumented left wrist arthrodesis. Instrumentation is intact. Multiple surgical clips are noted overlying the left wrist. Mild soft tissue swelling. No acute fracture dislocation. 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 Procedure Note Jose Brambila, DO - 08/16/2024 EXAMINATION: XR HAND LEFT [...] FDG Skull to Thigh (08/13/2024 9:53 AM HEEL BUILDER MACHINE) Anatomical Region Laterality Modality N/A Positron Emissio n Tomography (PET) 08/13/2024 11:1 7 AM HEEL BUILDER MACHINE Impressions 08/13/2024 11:32 AM HEEL BUILDER MACHINE 1. Hypermetabolic foci within the rectum and [...] Shubham Mitchell M.D. Narrative 08/13/2024 11:32 AM HEEL BUILDER MACHINE EXAMINATION: TUMOR FDG-PET/CT IMAGING DATE OF STUDY: [...] obtained. The study was interpreted on the plista workstation. The mean liver SUV (reported for air quality chemist purposes) is 2.8. The total scanned area [...] obtained. The study was interpreted on the plista workstation. The mean liver SUV (reported for air quality chemist purposes) is 2.8. The total scanned area [...] it. Electronically signed by: Shubham Mitchell M.D. [facility] Sunny Tran MD IMG PET PROCEDURES Final Result * CT Chest Abdomen Pelvis W Contrast (05/17/2024 8:35 AM HEEL BUILDER MACHINE) Anatomical Region Laterality Modality Body N/A Computed Tomogra phy 05/17/2024 10:2 0 AM HEEL BUILDER MACHINE Impressions 05/17/2024 10:20 AM HEEL BUILDER MACHINE 1. New lingular and left lower lobe patchy consolidation and groundglass opacities, likely infectious or inflammatory. 2. Stable small pulmonary nodules. 3. No metastatic disease in the abdomen or pelvis. Electronically signed by: Hernan Peña M.D. Narrative 05/17/2024 10:20 AM HEEL BUILDER MACHINE EXAMINATION: Computed tomography of the chest, abdomen [...] changes without suspicious bone lesions. Procedure Note Henran Peña MD - 05/17/2024 EXAMINATION: Computed tomography [...] pelvis. Electronically signed by: Hernan Peña M.D. [facility]'Berhane Tran MD IM CT PROCEDURES Final R esult * Colonoscopy (03/26/2024 9:49 AM CDT) Anatomical Region Laterality Modality Other Narrative Procedure Note Teodoro Aviles MD - 03/26/2024 9:49 AM CDT ENDOSCOPY LAB Patient Name: Kaden Avery Procedure Date: 03/26/2024 9:49 AM Date of : 1950 Admit Type: Outpatient Age: 73 Gender: Male Attending MD: Teodoro Aviles M.D. 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 CT/MRI with ?thickening vs peristalsis vs mass in sigmoid colon. Here for evaluation. Providers: Teodoro Aviles M.D. Referring MD: Zachary Harris M.D., [...] The scope was passed under direct vision.The [id number] was introduced through the anusand advanced to [...] following this procedure please call my officeat [phone] to speak to my nurses. After hours and evenings please call [phone] andspeak to the GI fellow employer relations representative. Please tell them that Dr. Aviles did your procedure and that your wereinstructed to have the fellow call me or the physiciancovering for me to discuss the management of your condition.If you have an urgent problem, please go to [facility] and have the ER doctor call myoffice during the day or the GI Fellow after hours and weekends to arrange admission or transfer to our facility. - Call my nurse Priscilla Mendoza RN in the GI office at [phone] for your final pathology results in 7 [...] and children were not included. (Diabetes Care 31:[id number], 2008). The eAG is not equivalent to a fasting glucose. Blood 11/27/2023 8:09 AM CDT 11/27/2023 11:19 AM CDT Sugar Woods NP LAB BLOOD ORDERABLES Final Result GABI DUBON (ANOOP) [facility] Department of Laboratories [place], [place] [id number] * Albumin Creatinine Ratio, Urine (06/01/2023 8:45 AM HEEL BUILDER MACHINE) Pathologist [facility] Albumin Ur <12.0 mg/L GABI JOHNSON Comment: Interpretive Data No reference range established. Current interpretive data was last revised 2018. Creatinine Ur 153.8 mg/dL GABI Comment: Interpretive Data No reference range established. Current interpretive data was last revised 2018. Albumin Creatinine Ratio, Ur <8 1 - 29 mg/g GABI JOHNSON Urine 06/01/2023 8:45 AM HEEL BUILDER MACHINE 06/01/2023 2:59 PM HEEL BUILDER MACHINE Sugar Woods NP LAB URINE ORDERABLES Final Result GABI [id number] [place] [address] from Last 3 Months or Most Recently Relevant to Health Maintenance Insurance [facility] MEDICARE T MEDICARE [facility] MEDICARE ADVANTAGE [facility] MEDICARE ADVANTAGE MEDICARE [facility] CARE [facility] MEDICARE [facility] MEDICARE Advance Directives For more information, please contact: [phone] Documents on File Type Date Recorded 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 Expl 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 ADVANCE DIRECTIVE 07/15/2019 2:42 PM [...] 6:24 AM 07/16/2020 12:54 PM Care Teams Minister Assistant Relationship Specialty Start Date End Date Zachary Harris MD [address] [place] [address] PCP - General 03/23/17 Jennifer Adame, RN Registered Nurse 09/07/17 Teodoro Aviles MD [employer] Gastroenterology 07/02/19 Luis M Chinchilla MD PhD Referring Physician Cardiology 07/26/19 Alejandro Aly MD Referring Physician General Surgery 10/16/19 Long Montemayor MD Medical Oncologist/Director Patient Medical Oncology 10/16/19 Susan Tran MD [address] [facility] [address] [place] [address] Consulting Physician Medical Oncology 11/02/23 Tisha Garza, PT Physical Therapist Physical Therapy 12/22/23
--- OUTSIDE RECORDS SUMMARY | 2024-11-12 15:32 | XMS_ITS | Encounter Summary ---
Author Organization [facility] Address [address] [place] [address] Phone Care Team Providers Care Location And Measurement Technician Name Role Phone Zachary Harris MD Primary Care Provider [phone] Jennifer Adame RN Unavailable Un available Teodoro Aviles MD Unavailable [phone] Luis M Chinchilla MD PhD Unavailable [phone] Alejandro Aly MD Unavailable Long Montemayor MD Unavailable [phone] Kristin Marquez MD Unavailable [phone] Rachel Tran MD Unavailable [phone] Tisha Garza PT Unavailable Unavailable Encounter Details Date Type Department Care Team (Late st Contact Info) Description 11/04/2022 Telephone [facility] [address] 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 07/30/2023 08/06/2023 10/28/2023 3:05 AM C DT documented as of this encounter Care Teams Location And Measurement Technician Relationship Specialty Start Date End Date Zachary Harris MD [address] [place] [address] PCP - General 10/12/17 Jennifer Adame, RN Registered Nurse 09/07/17 Teodoro Aviles MD [facility] Gastroenterology 07/02/19 Luis M Chinchilla MD PhD Referring Physician Cardiology 07/26/19 Alejandro Aly MD Referring Physician General Surgery 10/16/19 Long Montemayor MD Medical Oncologist/[employer] Teacher Medical Oncology 10/16/19 Kristin Marquez MD Medical Oncologist/[employer] Teacher Medical Oncology 07/16/20 11/01/23 Rachel Tran MD [address] [facility] [address] [place] [address] Consulting Physician Medical Oncology 11/02/23 Tisha Garza, PT Physical Therapist Physical Therapy 12/22/23 documented as of this encounter
--- OUTSIDE RECORDS SUMMARY | 2024-11-12 15:32 | XMS_ITS | Referral Summary ---
Author Organization [facility] Address [address] [place] [address] Care Team Providers Care Income Tax Preparer Name Role Phone Zachary Harris MD Primary Care Provider [phone] Jennifer Adame RN Unavailable Un available Teodoro Aviles MD Unavailable Luis M Chinchilla MD PhD Unavailable [phone] Alejandro Aly MD Unavailable Long Montemayor MD Unavailable [phone] Susan Tran MD Unavailable Tisha Garza PT Unavailable Unavailable Encounters Date Type Department Care Team Description 10/28/2024 Telephone [facility] Dermatology [address] [facility] [address] [place] [address] Bonita Castillo MD follow-up from [facility] 10/28/2024 Results Follow-Up [facility] Endocrinology Metabolism and Lipid [address] [facility] [address] 13th [place] [address] [place] [address] Phyllis Holguin MD Testosterone, Total and Free, Serum, CBC with auto differential, Lactate dehydrogenase (LD), Additional followed-up results: 2 10/18/2024 Orders Only [facility] Health Information Management [address] [place] [address] Scanning, Provider 10/16/2024 10:50 AM CDT Lab [facility] [address] [facility] [address] [place] [address] Night sweats 10/16/2024 9:20 AM CDT Office Visit [facility] Endocrinology Metabolism and Lipid [address] [facility] 2nd [address] [place] [address] Phyllis Holguin MD Night sweats (Primary Dx); Hypothyroidism, unspecified type; Pancreatic insufficiency; Adrenal insufficiency; Essential (primary) hypertension 10/15/2024 10:30 AM CDT Procedure visit [facility] Dermatology [address] [place] [address] [address] [place] [phone] Melanoma of left upper arm (HCC) (Primary Dx) 10/08/2024 4:00 PM CDT Office Visit [facility] Surgery [address] [facility] 6th [place] [address] [place] [phone] Carline Rivera MD PhD Arthritis of left wrist (Primary Dx); Arthritis of carpometacarpal (CMC) joint of left thumb 10/07/2024 Results Follow-Up [address] [place] [address] Susy Sifuentes MD Surgical pathology 10/04/2024 2:00 PM CDT Office Visit [facility] Ophthalmology [address] [facility] 2nd [address] [place] [address] Brina Landaverde, OD Primary open angle glaucoma (POAG) of right eye, moderate stage (Primary Dx); History of eye enucleation; Pseudophakia of right eye; Type 2 diabetes mellitus without complication, without long-term current use of insulin (HCC); Choroidal nevus of right eye; Posterior vitreous detachment of right eye 10/02/2024 Orders Only [facility] [address] [place] [address] Susy Sifuentes MD Melanoma of left upper arm (HCC) 10/01/2024 12:30 PM CDT Procedure visit [facility] Dermatology [address] [place] [address] [address] [place] [address] Susy Sifuentes MD Melanoma of left upper arm (HCC) (Primary Dx) 09/27/2024 9:15 AM CDT Therapy [facility] Occupational Therapy [address] [place] [address] Ava Arroyo OT Arthritis of carpometacarpal (CMC) joint of left thumb (Primary Dx) 09/25/2024 Orders Only [facility] Health Information Management [address] [place] [address] Scanning, Provider 09/25/2024 10:35 AM CDT Lab [address] Night sweats 09/25/2024 1:07 PM CDT - 09/25/2024 11:59 PM CDT Hospital Encounter [facility] [address] [facility] [address] [place] [place] [address] Dmitry Garcia MD Greater trochanteric bursitis of both hips (Primary Dx) Discharge Disposition: Discharge to home or self care 09/20/2024 Orders Only [facility] [address] [address] Zachary Harris MD Night sweats (Primary Dx) 09/20/2024 9:15 AM CDT Therapy [facility] Occupational Therapy [address] [place] [address] Jackeline Irvin OT Arthritis of carpometacarpal (CMC) joint of left thumb (Primary Dx); Left wrist pain; Arthritis of left wrist 09/13/2024 9:15 AM CDT Therapy [facility] Occupational Therapy [address] [place] [address] Jackeline Irvin OT Arthritis of carpometacarpal (CMC) joint of left thumb (Primary Dx); Left wrist pain; Arthritis of left wrist 09/10/2024 [facility] [address] [place] [address] Shannan Haney 09/06/2024 8:30 AM CDT Therapy [facility] Occupational Therapy [address] [place] [address] Jackeline Irvin OT Arthritis of carpometacarpal (CMC) joint of left thumb (Primary Dx); Left wrist pain; Arthritis of left wrist 09/03/2024 3:46 PM CDT - 09/03/2024 11:59 PM CDT Hospital Encounter [facility] [address] [facility], [place] [address] Dmitry Garcia MD Sacroiliitis (Primary Dx); Greater trochanteric bursitis of both hips Discharge Disposition: Discharge to home or self care 09/03/2024 2:30 PM CDT Office Visit [facility] Cardiology [address] [place] [address] [place] [phone] Galo Cisneros MD Lipid screening (Primary Dx); Coronary artery calcification seen on CAT scan; Essential (primary) hypertension; Mixed hyperlipidemia; PVC's (premature ventricular contractions); Palpitations 08/30/2024 8:30 AM CDT Therapy [facility] Occupational Therapy [address] [place] [address] Jackeline Irvin OT Arthritis of carpometacarpal (CMC) joint of left thumb (Primary Dx); Left wrist pain; Arthritis of left wrist 08/27/2024 8:45 AM CDT - 08/27/2024 11:59 PM CDT Hospital Encounter [facility] [address] [facility] [place] [address] Dmitry Garcia MD Greater trochanteric bursitis of both hips (Primary Dx) Discharge Disposition: Discharge to home or self care 08/19/2024 Orders Only [facility] Scanning, Provider 08/19/2024 10:00 AM CDT Office Visit [facility] Oncology [address] [place] [address] [address] [place] [phone] Susan Tran MD Malignant neoplasm of body of stomach (HCC) (Primary Dx); Bradycardia 08/19/2024 8:45 AM CDT Lab [facility] [address] Malignant neoplasm of body of stomach (HCC) 08/16/2024 Telephone [facility] Imaging Center [address] [place] [address] Heather Nieto, BEVERLY 08/16/2024 9:50 AM PLATE GLASS INSTALLER Therapy [facility] Occupational Therapy [address] [facility] 6th [place] [address] [place] [address] Carmela Mckenna, OT Arthritis of carpometacarpal (CMC) joint of left thumb (Primary Dx) 08/16/2024 8:23 AM PLATE GLASS INSTALLER - 08/16/2024 11:59 PM PLATE GLASS INSTALLER Hospital Encounter [facility] [address] [place] [address] Carline Rivera MD PhD Arthritis of carpometacarpal (CMC) joint of left thumb Discharge Disposition: Discharge to home or self care 08/16/2024 8:45 AM PLATE GLASS INSTALLER Office Visit [facility] Surgery [address] [place] [address] [facility] 6th [place] [address] [place] [address] Carline Rivera MD PhD Arthritis of carpometacarpal (CMC) joint of left thumb (Primary Dx); Arthritis of left wrist 08/14/2024 10:15 AM PLATE GLASS INSTALLER Therapy [facility] Occupational Therapy [address] [place] [address] Nancy Ricci OT Arthritis of carpometacarpal (CMC) joint of left thumb (Primary Dx); Left wrist pain; Arthritis of left wrist 08/13/2024 8:22 AM PLATE GLASS INSTALLER - 08/13/2024 11:59 PM PLATE GLASS INSTALLER Hospital Encounter [facility] [address] [facility] 2 [place] [address] Malignant neoplasm of body of stomach (HCC) Discharge Disposition: Discharge to home or self care 08/12/2024 Telephone [facility] Cardiology [address] [place] [address] Galo Cisneros MD from Last 3 Months Allergies Active Allergy [...] 07/31/2024 Assessment & Plan (07/31/2024 10:32 AM PLATE GLASS INSTALLER): Encourage 150min/week aerobic exercise. Heatlhy food choices. Arthritis of carpometacarpal (CMC) joint of left thumb 05/24/2024 Arthritis of left wrist 05/24/2024 Palpitations 04/30/2024 Adenocarcinoma of small bowel 02/29/2024 Depression 12/20/2023 Open-angle glaucoma of right eye, moderate stage 10/06/2023 Overview (10/04/2024): -Previously treated at the [facility] [address]; here for a second opinion -IOP 17 [...] Assessment & Plan (10/04/2024 2:31 PM CDT): Joey, discussed monocular precautions FTW polycarb. Currently wears [...] 06/01 Assessment & Plan (05/16/2024 9:40 AM PLATE GLASS INSTALLER): In regard to health maintenance, Colonoscopy- declined [...] healthier, we can set up appointment with maritime officer/tack picker. Have an active lifestyle, strive for 30 [...] man. Assessment & Plan (06/01/2023 9:23 AM PLATE GLASS INSTALLER): Visit preventive in nature. We reviewed medications, chronic conditions, risk factors, lifestyle recommendations. Reviewed immunization recommendations. Follow-up in 6 months for chronic conditions and 1 year for annual wellness. Asthma due to seasonal allergies 06/01/2023 Assessment & Plan (06/01/2023 9:24 AM PLATE GLASS INSTALLER): Currently stable without exacerbation. Will place referral to process engineering intern. Appreciate their expertise. Mixed hyperlipidemia 06/01/2023 Assessment & Plan (05/16/2024 9:38 AM PLATE GLASS INSTALLER): Lipid panel ordered. Stable and well controlled. Will continue to monitor. Will continue on Atorvastatin. Assessment & Plan (12/04/2023 9:01 AM CDT): Well controlled on atorvastatin. No changes. Will continue to monitor. Assessment & Plan (06/01/2023 9:24 AM PLATE GLASS INSTALLER): Recent lipid panel reviewed. Will continue atorvastatin. Tolerating without side effects. BMI 28.0-28.9,adult 06/01/2023 Assessment & Plan (06/01/2023 9:24 AM PLATE GLASS INSTALLER): His weight is good. Avulsion of eye 03/28/2023 Benign prostatic hyperplasia 03/28/2023 Assessment & Plan (05/16/2024 9:37 AM PLATE GLASS INSTALLER): Stable and well controlled. Will continue on [...] 03/28/2023 Assessment & Plan (07/31/2024 10:32 AM PLATE GLASS INSTALLER): COntinues on prn albuterol and breo ellipta. Reviewed pulmonary toilet. Assessment & Plan (05/16/2024 9:37 AM PLATE GLASS INSTALLER): Stable and well controlled. No recent exacerbations [...] DFE. Assessment & Plan (05/16/2024 9:38 AM PLATE GLASS INSTALLER): Lab Results Component Value Date HGBA1C 5.8 [...] 08/01/2022 Assessment & Plan (08/01/2022 2:00 PM PLATE GLASS INSTALLER): - Likely due to finasteride - He [...] treatable. 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 Assessment & Plan (08/08/2022 10:49 AM PLATE GLASS INSTALLER): Likely due to immunotherapy. Gained weight on [...] months. Assessment & Plan (08/01/2022 1:56 PM PLATE GLASS INSTALLER): He held his pancreatic enzymes due to [...] (08/19/2021): Added automatically from request for surgery [id number] Assessment & Plan (09/14/2021 3:41 PM CDT): [...] 08/09/2021 Assessment & Plan (07/31/2024 10:31 AM PLATE GLASS INSTALLER): No increaed palpitations. No shortness of breath, no increaed work of breathing. Assessment & Plan (05/16/2024 9:36 AM PLATE GLASS INSTALLER): HR stable and normal. Will continue on Metoprolol and ASA. Will continue to follow with Cardiology. Adrenal insufficiency 07/17/2021 Assessment & Plan (11/13/2022 11:41 AM CDT): - Continue hydrocortisone - Doublet he dose if sick/fever Assessment & Plan (08/01/2022 1:57 PM PLATE GLASS INSTALLER): Due to weight gain, he will decrease [...] routes Assessment & Plan (07/17/2021 1:42 PM PLATE GLASS INSTALLER): Did not stim by >10 on cosyntropin [...] 02/09/20 Assessment & Plan (07/31/2024 10:31 AM PLATE GLASS INSTALLER): As above. Coronary artery calcification seen on CAT scan 0 10/30/2020 Chest pain 10/30/2020 Former smoker 10/30/2020 Elevated CEA 07/07/2020 Overview (07/07/2020): Added automatically from request for surgery [id number] Encounter for follow-up surveillance of gastric cancer 07/07/2020 Overview (07/07/2020): Added automatically from request for surgery [id number] Dysgeusia 02/24/2020 Hypophosphatemia 10/15/2019 Bradycardia 10/02/2019 Small bowel cancer 08/06/2019 Cancer Staging:Pathologic stage from 07/19/2019:Stage IIA(pT3, pN0, cM0) - Signed by Kristin Marquez MD on 12/31/2020 Arrhythmia 07/26/2019 Malignant neoplasm of body of stomach 07/10/2019 Cancer Staging:Pathologic stage from 07/19/2019:Stage IA(pT1a, pN0, cM0) - Signed by Kristin Marquez MD on 12/31/2020 BMI 29.0-29.9,adult 05/17/2019 Assessment & Plan (05/16/2024 9:36 AM PLATE GLASS INSTALLER): Weight appropriate for patient. Assessment & Plan (05/17/2019 3:28 PM PLATE GLASS INSTALLER): Reviewed need to lose weight, reviewed health benefits. Reviewed recommendations for daily intake & activity 20-30 minutes/day. Discussed healthy diet and importance of regular physical activity. Squamous cell carcinoma of foot, right toe 05/13 Gastroesophageal reflux disease 05/02/2019 Assessment & Plan (05/16/2024 9:35 AM PLATE GLASS INSTALLER): Stable and well controlled. Will continue on Omeprazole Encounter for screening colonoscopy 01/22/2019 Overview (01/22/2019): Added automatically from request for surgery [id number] History of colonic polyps 01/22/2019 Overview (01/22/2019): Added automatically from request for surgery [id number] Assessment & Plan (02/06/2023 1:55 PM CDT): He is not interested in further colonoscopy at this time. Had a friend from a screening colon perforation. History of arthroplasty of left knee 10/17/2018 PVC's (premature ventricular contractions) 08/24 Normocytic anemia 07/26/2018 Basal cell carcinoma (BCC) of left side of nose 02/28/2018 Assessment & Plan (07/31/2024 10:31 AM PLATE GLASS INSTALLER): COntinue f/u with dermatology. 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 Assessment & Plan (06/01/2023 9:23 AM PLATE GLASS INSTALLER): History of multiple cancers. He does continue to follow closely with Oncology and will continue to do so. Assessment & Plan (08/08/2022 10:47 AM PLATE GLASS INSTALLER): Multiple malignancies, including recent skin ca. He is not sure he wants to continue colon cancer screening. I discussed that age 74 is when we consider stopping in patients without riavs syndrome. 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 Completely excised. No further treatment is required at this time. Postsurgical hypothyroidism 11/10/2017 Assessment & Plan (05/16/2024 9:35 AM PLATE GLASS INSTALLER): Euthyroid. Will continue on Synthroid and following with specialist. Assessment & Plan (11/13/2022 11:41 AM CDT): - Continue current thyroid hormone replacement -TSH at goal earlier this month - Repeat labs with oncology labs 01/10 to ensure stability Assessment & Plan (08/01/2022 1:58 PM PLATE GLASS INSTALLER): Clinically and biochemically euthyroid Continue current thyroid [...] month Assessment & Plan (07/17/2021 1:40 PM PLATE GLASS INSTALLER): Exacerbated by immunotherapy - Continue 125 mcg [...] is currently under the care of the aviation safety inspector. Thyroid hormone supplementation will be managed and adjusted as needed per Dr. Jauregui. Sacroiliitis 09/08/2017 Assessment & Plan (07/31/2024 10:30 AM PLATE GLASS INSTALLER): Patient with benefit of SI joint injection [...] 06/03/2014 Assessment & Plan (05/16/2024 9:35 AM PLATE GLASS INSTALLER): Blood pressures stable and well controlled. Will continue on Amlodipine and Nebivolol Bronchial asthma 06/03/2014 Resolved Problems Problem Noted Date Diagnosed Date Resolved Date Obesity (BMI 30.0-34.9) 07/31/202409/10 Assessment & Plan (07/31/2024 10:32 AM PLATE GLASS INSTALLER): As above. Left shoulder pain 05/16/2024 Assessment & Plan (05/16/2024 9:41 AM PLATE GLASS INSTALLER): Recent increase in pain. Will do short course of Tramadol and Tizanidine. Neck pain 12/04/2023 09/25/2024 Assessment & Plan (05/16/2024 9:38 AM PLATE GLASS INSTALLER): Tizanidine and Tramadol ordered for pain relief. [...] monitor. Assessment & Plan (06/01/2023 8:34 AM PLATE GLASS INSTALLER): A1C 6.3%. Will continue to monitor. Left [...] 08/03/2020 Assessment & Plan (05/17/2019 3:29 PM PLATE GLASS INSTALLER): Labs ordered; will contact w/results once rec'd. 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 Author <enter goal here> General Yes Jennifer Adame RN Note: Bending Walking Stooping Medical Devices Implanted Type Area Pediatric Intensive Physician Device Identifier Shelf Expiration Date Model / Serial / Lot Palacos R & G Radiopaque Bone Cement Implanted:Qty: 1 on 04/23/2018 by Lucho Carrion MD at [facility] Bone Cement Left: Knee [employer] Inc C1713 01/09/2021 / / [id number] Arthrex Inc Suture [place] Knotless Fibertak Resorbable Ex6244-Sj - S0 - [id number] Implanted:Qty: 1 on 06/06/2024 by Carline Rivera MD PhD at [facility] Other - see comments Left: Hand Arthrex Inc [id number] 02/09/2029 [id number] / 0 / [id number] Arthrex Inc Corkscrew Fiberwire 2.2mm 4mm 17.9mm 2 Needle Wire Foot Ankle 2-0 Ar-1318ft - S0 - [id number] Implanted:Qty: 1 on 06/06/2024 by Carline Rivera MD PhD at [facility] Advanced Medicine Other - see comments Left: Hand Arth[employer] Inc [id number] 03/11/2029 AR-1318FT / 0 / [id number] Arthrex Inc Internalbrace Kit Hand Wrist Set Implant Ligament Augmentation Ar-8978-Cp - S0 - [id number] Implanted:Qty: 1 on 06/06/2024 by Carline Rivera MD PhD at [facility] Other - see comments Left: Hand Ar[employer] Inc [id number] 10/09/2028 AR-8978-CP / 0 / [id number] Bonesupport Inc Filler Bone Void Cerament Q1571-38 - S0 - [id number] Implanted:Qty: 1 on 06/06/2024 by Carline Rivera MD PhD at [facility] Other - see comments Left: Hand BONESUPPORT INC 05/04/2027 A5884-67 / 0 / [id number] Medartis Inc Plate Bone Locking 2.5 Short Bend 16 Hole Wrist Aptus Trilock 110mm Ti A-4760.06 - S0 - [id number] Implanted:Qty: 1 on 06/06/2024 by Carline Rivera MD PhD at [facility] Plate Left: Hand Medartis Inc 06/10/2029 A-4760.06 / 0 / Medartis Inc Aptus 2.5mm 16mm Cortical Screw Bone A-5700.16 - S0 - [id number] Implanted:Qty: 1 on 06/06/2024 by Carline Rivera MD PhD at [facility] Advanced Medicine Screw Left: Hand Medartis Inc 05/31/2029 A-5700.16 / 0 / Medartis Inc 2.5mm 12mm Lock Cortical Screw Bone A-5750.12 - S0 - [id number] Implanted:Qty: 3 on 06/06/2024 by Carline Rivera MD PhD at [facility] Advanced Medicine Screw Left: Hand Medartis Inc 05/31/2029 A-5750.12 / 0 / Medartis Inc 2.5mm 20mm Lock Cortical Screw Bone A-5750.20 - S0 - [id number] Implanted:Qty: 3 on 06/06/2024 by Carline Rivera MD PhD at [facility] Screw Left: Hand Medartis Inc 05/31/2029 A-5750.20 / 0 / Medartis Inc Aptus 2.5mm 24mm Lock Cortical Screw Bone A-5750.24 - S0 - [id number] Implanted:Qty: 1 on 06/06/2024 by Carline Rivera MD PhD at [facility] Screw Left: Hand Medartis Inc 05/31/2029 A-5750.24 / 0 / Medartis Inc Aptus 2.5mm 18mm Cortical Screw Bone Titanium A-5700.18 - S0 - [id number] Implanted:Qty: 1 on 06/06/2024 by Carline Rivera MD PhD at [facility] Screw Left: Hand Medartis Inc 05/31/2029 A-5700.18 / 0 / Medartis Inc Aptus 2.5mm 32mm Hexadrive Cortical 7 Screw Bone Titanium A-5700.32/1 - S0 - [id number] Implanted:Qty: 1 on 06/06/2024 by Carline Rivera MD PhD at [facility] Screw Left: Hand Medartis Inc 05/31/2029 A-5700.32/ 1 / 0 / Medartis Inc 2.5mm 18mm Lock Cortical Screw Bone A-5750.18 - S0 - [id number] Implanted:Qty: 2 on 06/06/2024 by Carline Rivera MD PhD at [facility] Screw Left: Hand [employer] Inc [id number] 05/31/2029 A-5750.18 / 0 / [id number] Palacos [employer] Radiopaque Bone Cement Implanted:Qty: 1 on 04/23/2018 by Lucho Carrion MD at [facility] Left: Knee [employer] C1713 01/09/2021 / / [id number] Depuy Orthopaedics Inc [id number] Attune 38mm Cemented Medialize Knee Dome Patellar Aox Sterile - [id number] Implanted:Qty: 1 on 04/23/2018 by Lucho Carrion MD at [facility] Left: Knee Depuy Orthopaedics Inc 03/11/2023 [id number] / / [id number] Depuy Orthopaed[employer] Inc [id number] Attune Cemented Posterior Stabilize Knee Left 7 Component Femoral - [id number] Implanted:Qty: 1 on 04/23/2018 by Lucho Carrion MD at [facility] Left: Knee [employer]uy Orth[employer]ed[employer] Inc 05/11/2027 [id number] / / [id number] Depuy Orthopaed[employer] Inc [id number] Attune S+ Cement Fix Bearing Knee 6 Baseplate Tibial - [id number] Implanted:Qty: 1 on 04/23/2018 by Lucho Carrion MD at [facility] Left: Knee [employer] Inc 10/10/2027 [id number] / / [id number] Depuy Orthopaed[employer] Inc [id number] Attune 8mm Posterior Stabilize Fix Bearing Knee 7 Insert Tibial - [id number] Implanted:Qty: 1 on 04/23/2018 by Lucho Carrion MD at [facility] Left: Knee [employer]uy Orthopaed[employer] Inc 11/09/2022 [id number] / / [id number] [employer] Michele 4014 8.5fr 250cm Tube Temporary Rapid Exchange Nasal Stent Biliary - [id number] Implanted:Qty: 1 on 10/11/2019 by Ric Kenney MD at [facility] Left: Jejunum [employer] Michele 08/18/2022 4014 / / [id number] [facility] [id number] Device Closure Angio-Seal Vip Bondek-Plus Polyglyd L70 Cm Od6 Fr Odsec.035 In Vascular - [id number] Implanted:Qty: 1 on 11/11/2020 by Shruti Lai MD at [facility] [employer] [id number] / / Explanted Type Area Pediatric Intensive Physician Device Identifier Shelf Expiration Date Model / Serial / Lot [employer] Michele 3204 C-Flex 10fr 5cm Gastrointestine 2 Pigtail Curve Stent Biliary - [id number] Implanted:Qty: 1 on 10/11/2019 by Ric Kenney MD at [facility] Explanted:Qty: 1 on 11/12/2019 by Teodoro Aviles MD at [facility] Left: Jejunum [employer] Michele 08/22/2022 3204 / / [id number] Description:abscess [employer] Michele 3204 C-Flex 10fr 5cm Gastrointestine 2 Pigtail Curve Stent Biliary - [id number] Implanted:Qty: 1 on 10/11/2019 by Ric Kenney MD at [facility] Explanted:Qty: 1 on 11/12/2019 by Teodoro Aviles MD at [facility] Left: [employer] Michele 08/22/2022 [id number] / / [id number] Procedures Procedure Name Priority Date/Time Associated Diagnosis [...] Read Routine (OP Routine) 08/16/2024 8:52 AM PLATE GLASS INSTALLER Arthritis of carpometacarpal (CMC) joint of left thumb PET/CT FDG SKULL TO THIGH Schedule Routine, Read Routine (OP Routine) 08/13/2024 9:53 AM PLATE GLASS INSTALLER Malignant neoplasm of body of stomach (HCC) CT CHEST ABDOMEN PELVIS W CONTRAST Schedule Routine, Read Routine (OP Routine) 05/17/2024 8:35 AM PLATE GLASS INSTALLER Malignant neoplasm of body of stomach (HCC) COLONOSCOPY 03/26/2024 9:49 AM CDT HEMOGLOBIN A1C Routine 11/27/2023 8:09 AM CDT Type 2 diabetes mellitus with diabetic neuropathy, without long-term current use of insulin (HCC) Mixed hyperlipidemia Essential hypertension ALBUMIN CREATININE RATIO, URINE Routine 06/01/2023 8:45 AM PLATE GLASS INSTALLER Type 2 diabetes mellitus with diabetic neuropathy, [...] abs 0.07 0.00 - 0.10 K/cumm [facility] Neutrophil pct 80.3 % [facility] Comment: Interpretive Data Percent cell count reference ranges are not reported, since discordance with absolute values may lead to misinterpretation of CBC data. Current Interpretive Data was last revised on 2017. Imm gran pct 0.9 % [facility] Comment: Interpretive Data Percent cell count reference ranges are not reported, since discordance with absolute values may lead to misinterpretation of CBC data. Current Interpretive Data was last revised on 2017. Lymphocyte pct 10.4 % [facility] Comment: Interpretive Data Percent cell count reference ranges are not reported, since discordance with absolute values may lead to misinterpretation of CBC data. Current Interpretive Data was last revised on 2017. Monocyte pct 6.8 % [facility] Comment: Interpretive Data Percent cell count reference ranges are not reported, since discordance with absolute values may lead to misinterpretation of CBC data. Current Interpretive Data was last revised on 2017. Eosinophil pct 0.9 % [facility] Comment: Interpretive Data Percent cell count reference ranges are not reported, since discordance with absolute values may lead to misinterpretation of CBC data. Current Interpretive Data was last revised on 2017. Basophil pct 0.7 % [facility] Comment: Interpretive Data Percent cell count reference ranges are not reported, since discordance with absolute values may lead to misinterpretation of CBC data. Current Interpretive Data was last revised on 2017. Blood 10/16/2024 10:4 8 AM CDT 10/16/2024 1:52 PM CDT us Phyllis Holguin MD LAB BLOOD ORDERABLES Final Resu lt [facility] Department [place] [address] * (ABNORMAL) CBC with auto differential (10/16/2024 10:48 AM CDT) WBC 9.50 3.80 - 9.90 K/cumm Hgb 12.7(L) 13.0 - 17.5 g/dL [facility] Hct 38.1(L) 38.9 - 50.3 % [facility] Plt 213 150 - 400 K/cumm [facility] MPV 10.8 9.1 - 12.3 fL [facility] RBC 4.01(L) 4.30 - 5.80 M/cumm [facility] MCV 95.0 81.3 - 96.4 fL [facility] MCH 31.7 27.1 - 33.3 pg [facility] MCHC 33.3 32.3 - 35.7 g/dL [facility] RDW CV 16.2(H) 11.1 - 14.9 % [facility] RDW SD 57.1(H) 35.7 - 48.1 fL [facility] NRBC abs 0.00 0.00 - 0.01 K/cumm [facility] Blood 10/16/2024 10:4 8 AM CDT 10/16/2024 1:52 PM CDT Phyllis Holguin MD LAB BLOOD ORDERABLES Final Resu lt Performing Organization Address [facility] Co de Phone Number [facility] [place] [address] * Erythrocyte sedimentation rate (10/16/2024 10:48 AM CDT) Pathologist [facility] Erythrocyte sedimentation rate 19 1 - 20 mm/hr Blood 10/16/2024 10:4 8 AM CDT 10/16/2024 1:52 PM CDT Phyllis Holguin MD LAB BLOOD ORDERABLES Final Resu lt Performing Organization Address [facility] Co de Phone Number [facility] [place] [address] * Testosterone, Total and Free, Serum (10/16/2024 10:48 AM CDT) Pathologist [facility] Testosterone 384 240 - 950 ng/dL [facility] Comment: ADDITIONAL INFORMATION Testing performed by Liquid Chromatography-Tandem Mass Spectrometry (LC-MS/MS). This test was developed and its performance characteristics determined by [facility] in a manner consistent with CLIA requirements. This test has not been cleared or approved by the U.S. Food and Drug Administration. Test Performed by: [facility] - [address] [address] Copy Manager: Bear Humphrey Ph.D.; CLIA# [id number] Testosterone, free 4.84 3.08 - 11.3 ng/dL [facility] Comment: ADDITIONAL INFORMATION This test was developed and its performance characteristics determined by [facility] in a manner consistent with CLIA requirements. This test has not been cleared or approved by the U.S. Food and Drug Administration. Blood 10/16/2024 10:4 8 AM CDT 10/16/2024 2:10 PM CDT Phyllis Holguin MD LAB BLOOD ORDERABLES Final Resu lt Performing Organization Address [facility] Co de Phone Number [facility] [place] [address] [place] [facility] * (ABNORMAL) Lactate dehydrogenase (LD) (10/16/2024 10:48 AM CDT) Lactate dehydrogenase (LDH) 277(H) 100 - 250 Units/L Blood 10/16/2024 10:4 8 AM CDT 10/16/2024 1:50 PM CDT Result [facility] Phyllis Holguin MD LAB BLOOD ORDERABLES Final Resu Performing Organization Address [facility] de Phone Number [facility] [place] [address] * OCT, Optic Nerve - OD - [...] (Skin, excision) 10/01/2024 10/02/2024 5:44 AM CDT [facility] - 10/07/2024 1:06 PM CDT EPIC results best viewed via link to PDF [facility] [address] [place] [address], [address], [place] [address] [email or web address] Note to Patients: This report may contain [...] REPORTED: 10/07/2024 Submitting Physician Information: Timoteo López [facility], [address] [place] [address] [address] [place] [id number], [phone] DERMATOPATHOLOGY REPORT RESULTS DIAGNOSIS: SKIN, LEFT UPPER [...] ICD-9 A; ZSD.1387 ZSD.1055 Clerical Data A; 57267, 93047-QM The characteristics of special, immunohistochemical, and immunofluorescence stains and in-situ hybridization tests performed by the [facility] were deemed acceptable in ongoing software quality tester measures and in compliance with regulations drawn from the Clinical Laboratory Improvement Act gr4806 (CLIA '88). Control reactions for all stains performed were deemed adequate and appropriate by a pathologist prior to evaluation of patient tissue. Some diagnoses were rendered with the assistance of laboratory-developed tests utilizing analyte-specific reagents; the performance characteristic of these tests were determined by [facility] and are not cleared or approved by the US Food an Drug administration. Laboratory developed test may only be performed in a facility that is certified by the [facility] as a high-complexity laboratory under CLIA '88. These tests are used for clinical purposes and are not investigational. Susy Sifuentes MD LAB PATHOLOGY ORDERABLE S Final Result [facility] [address] [place] [address] * eGFR (09/25/2024 10:34 AM CDT) eGFR [...] LAB BLOOD ORDERABLES Vero l Result [facility] [address] [facility] Department [place] [address] * (ABNORMAL) Differential, auto (09/25/2024 10:34 AM [...] 2017. Basophil pct 0.4 % [facility] ([place]) Comment: Interpretive Data Percent cell count reference ranges are not reported, since discordance with absolute values may lead to misinterpretation of CBC data. Current Interpretive Data was last revised on 2017. Blood 09/25/2024 10:3 4 AM CDT 09/25/2024 1:04 PM CDT us Zachary Harris MD LAB BLOOD ORDERABLES Vero smith Result [facility] ([place]) [address] [facility] [place] [address] * Urinalysis reflex to microscopic and culture [...] tendency for uric acid stone formation. Source: [facility] Current Interpretive Data was last revised on [...] MICROBIOLOGY - GENERA L ORDERABLES Final Result [facility] ([place]) [address] [facility] Department [place] [address] * (ABNORMAL) CBC with auto differential (09/25/2024 [...] Vero l Result [facility] ([place]) [address] [facility] [place] [address] * TSH (09/25/2024 10:34 AM CDT) Thyroid Stimulating Hormone 3.43 0.30 - 4.20 mcIUnit/mL Blood 09/25/2024 10:3 4 AM CDT 09/25/2024 1:04 PM CDT us Zachary Harris MD LAB BLOOD ORDERABLES Vero l Result [facility] ([place]) [address] [facility] [place] [address] * T4, free (09/25/2024 10:34 AM CDT) Free T4 1.58 0.90 - 1.70 ng/dL Blood 09/25/2024 10:3 4 AM CDT 09/25/2024 1:04 PM CDT Zachary Harris MD LAB BLOOD ORDERABLES Vero sarah Result [facility] ([place] [address] [facility] Department [place] [address] * (ABNORMAL) Comprehensive metabolic panel (09/25/2024 10:34 [...] Vero l Result [facility] ([place]) [address] [facility] Department [place] [address] * SCAN - RADIOLOGY/IMAGING (09/25/2024) Anatomical Region [...] PROCEDURE S Final Result Performing Organization Address [facility]/ZIP Co de Phone Number [email or web address] * POCT [...] was last reviewed 2021. Testing performed by: [facility], [address] [place] [address] Blood 08/19/2024 9:00 AM CDT 08/19/2024 9:18 AM CDT us [facility]Berhane Tran MD LAB BLOOD ORDERABLES Vero l Result [facility] [address] Department of Laboratories [place], [place] [id number] * (ABNORMAL) Differential, auto (08/19/2024 9:00 AM CDT) Neutrophil abs 5.2 1.5 - 6.5 K/cumm Comment:Testing performed by : [facility], [address] [place] [address] Imm gran abs 0.1 0.0 - 0.1 K/cumm [facility] Comment:Testing performed by : [facility], [facility], [address] [place] [address] Lymphocyte abs 1.6 0.8 - 3.3 K/cumm [facility] Comment:Testing performed by : [facility], [facility], [address] [place] [address] Monocyte abs 0.9(H) 0.2 - 0.8 K/cumm [facility] Comment:Testing performed by : [facility], [facility], [address] [place] [address] Eosinophil abs 0.3 0.0 - 0.5 K/cumm [facility] Comment:Testing performed by : [facility], [facility], [address] [place] [address] Basophil abs 0.1 0.0 - 0.1 K/cumm [facility] Comment:Testing performed by : [facility], [facility], [address] [place] [address] Neutrophil pct 64.3 % [facility] Comment: Interpretive Data Percent cell count reference ranges are not reported, since discordance with absolute values may lead to misinterpretation of CBC data. Current Interpretive Data was last revised on 2017. Testing performed by: [facility], [facility], [address] [place] [address] Imm gran pct 0.7 % [facility] Comment: Interpretive Data Percent cell count reference ranges are not reported, since discordance with absolute values may lead to misinterpretation of CBC data. Current Interpretive Data was last revised on 2017. Testing performed by: [facility], [facility], [address] [place] [address] Lymphocyte pct 19.5 % [facility] Comment: Interpretive Data Percent cell count reference ranges are not reported, since discordance with absolute values may lead to misinterpretation of CBC data. Current Interpretive Data was last revised on 2017. Testing performed by: [facility], [facility], [address] [place] [address] Monocyte pct 10.8 % [facility] Comment: Interpretive Data Percent cell count reference ranges are not reported, since discordance with absolute values may lead to misinterpretation of CBC data. Current Interpretive Data was last revised on 2017. Testing performed by: [facility], [facility], [address] [place] [address] Eosinophil pct 3.6 % [facility] Comment: Interpretive Data Percent cell count reference ranges are not reported, since discordance with absolute values may lead to misinterpretation of CBC data. Current Interpretive Data was last revised on 2017. Testing performed by: [facility], [address] [place] [address] Basophil pct 1.1 % [facility] Comment: Interpretive Data Percent cell count reference ranges are not reported, since discordance with absolute values may lead to misinterpretation of CBC data. Current Interpretive Data was last revised on 2017. Testing performed by: [facility], [address] [place] [address] Blood 08/19/2024 9:00 AM CDT 08/19/2024 9:02 AM CDT Susan Tran MD LAB BLOOD ORDERABLES Vero l Result [facility] [address] [facility] Department [place] [address] * (ABNORMAL) CBC with auto differential (08/19/2024 9:00 AM CDT) WBC 8.2 3.8 - 9.9 K/cumm Comment:Testing performed by : [facility], [facility], [address] [place] [address] Hgb 12.9(L) 13.0 - 17.5 g/dL [facility] Comment:Testing performed by : [facility], [address] [place] [address] Hct 39.4 38.9 - 50.3 % [facility] Comment:Testing performed by : [facility], [address] [place] [address] Plt 204 150 - 400 K/cumm [facility] Comment:Testing performed by : [place] [address], [address] [place] [address] MPV 9.6 9.1 - 12.3 fL [facility] Comment:Testing performed by : [place] [address], [address] [place] [address] RBC 4.13(L) 4.30 - 5.80 M/cumm [facility] Comment:Testing performed by : [place] [address], [address] [place] [address] MCV 95 81 - 96 fL [facility] Comment:Testing performed by : [place] [address], [address] [place] [address] MCH 31.2 27.1 - 33.3 pg [facility] Comment:Testing performed by : [place] [address], [address], [place] [address] MCHC 32.7 32.3 - 35.7 g/dL [facility] Comment:Testing performed by : [address] [place] [address] RDW CV 15.2(H) 11.1 - 14.9 % [facility] Comment:Testing performed by : [place] [address] [place] [address] RDW SD 53.4(H) 35.7 - 48.1 fL [facility] Comment:Testing performed by : [address] [place] [address] Blood 08/19/2024 9:00 AM CDT 08/19/2024 9:02 AM CDT us Moh'D M Sunny Tran MD LAB BLOOD ORDERABLES Vero smith Result [facility] [address] [place] [address] * Cancer antigen 19-9 (08/19/2024 9:00 AM CDT) CA 19-9 ag 13.0 0.0 - 35.0 units/mL Comment: Interpretive Data The Jamie CA 19-9 assay procedure was used. Results from different manufacturers or methods may not be comparable. Serial testing should be performed using the same method. Testing performed by: [facility], [address] [place] [address]., [address] Blood 08/19/2024 9:00 AM CDT 08/19/2024 9:57 AM CDT [facility] MD LAB BLOOD ORDERABLES Vero l Result [facility] [address] [place] [address] * (ABNORMAL) Comprehensive metabolic panel (08/19/2024 9:00 AM CDT) Pathologist [facility] Sodium 143 135 - 145 mmol/L Comment:Testing performed by : [facility], [address] [place] [address] Potassium, pl 3.8 3.3 - 4.9 mmol/L [facility] Comment:Testing performed by : [facility], [address] [place] [address] Chloride 106 97 - 110 mmol/L [facility] Comment:Testing performed by : [facility], [address] [place] [address] CO2 27 22 - 32 mmol/L [facility] Comment:Testing performed by : [facility], [address] [place] [address] Anion gap 10 2 - 15 mmol/L [facility] Comment:Testing performed by : [facility], [address] [place] [address] BUN 25 6 - 25 mg/dL [facility] Comment:Testing performed by : [facility], [address], [place] [address] Creatinine 1.38(H) 0.80 - 1.30 mg/dL [facility] Comment:Testing performed by : [facility], [address], [place] [address] Glucose 102 70 - 199 mg/dL CERNER [...] was last revised 2022. Testing performed by: [facility], [address], [place] [address] Calcium 8.6 8.5 - 10.3 mg/dL [facility] Comment:Testing performed by : [facility], [address], [place] [address] Bilirubin, total 0.4 0.1 - 1.2 mg/dL [facility] Comment:Testing performed by : [facility], [address], [place] [address] Protein, pl 6.3(L) 6.5 - 8.5 g/dL [facility] Comment:Testing performed by : [facility], [address], [place] [address] Albumin 3.8 3.5 - 5.0 g/dL [facility] Comment:Testing performed by : [facility], [address], [place] [address] Alk phos 83 40 - 130 Units/L [facility] Comment:Testing performed by : [facility], [address], [place] [address] ALT 21 7 - 55 Units/L [facility] Comment:Testing performed by : [facility], [address] [place] [address] AST 24 10 - 50 Units/L [facility] Comment:Testing performed by : [facility], [address] [place] [address] Blood 08/19/2024 9:00 AM CDT 08/19/2024 9:18 AM CDT [facility]Berh[facility] Tran MD LAB BLOOD ORDERABLES Vero l Result [facility] [address] [place] [address] * Signatera Only Initial Draw (08/19/2024 8:53 [...] samples collected in cell-free DNA blood tubes (Apofore) using the QIAsymphony automated or manual extraction method (Qiagen). Using a proprietary algorithm, putative, clonal variants present in the tumor but absent in the germline DNA are identified to design the customized multiplex PCR assay. Whole-exome sequencing is performed on tumor and peripheral blood DNA using [employer]comp library kit ([employer]) with a custom Enablon exome capture ([employer]). Using a proprietary algorithm, putative clonal variants present in the tumor but absent in the germline DNA are identified to design the customized multiplex PCR assay. Circulating tumor DNA is extracted from plasma collected in Streck tubes using [employer] proprietary methods. The customized PCR assays are [...] and whole exome sequencing are performed at [facility] (CLIA ID# [id number]) [address] [place] [address]. Disclaimer The extraction, library preparation, and sequencing for this test were performed by [employer] [address] [place] [address] A [facility] [address] [address] (CLIA ID [id number]). The data analysis and reporting for this test were performed by [facility] [address] [address] (CLIA ID [id number]). This test was developed and its performance characteristics determined by [facility]. The test has not been cleared or approved by the U.S. Food and Drug Administration (FDA). CAP accredited, ISO 88957 certified, and CLIA certified. Pathology services and whole exome sequencing for this test were performed by [employer] [address] [place] [address] (CLIA ID [id number]). 2020 [employer]. All Rights Reserved. Blood specimen (specimen) Venous blood specimen / Unknown 08/19/2024 8:53 AM CDT 08/27/2024 3:51 PM CDT Susan Tran MD LAB GENETIC TESTING Final Result [facility] [address] [place] [address], [facility] * SCAN - PATHOLOGY (08/19/2024) Provider Scanning Final Result * XR Hand Left 3 or More Views (08/16/2024 8:52 AM PLATE GLASS INSTALLER) Anatomical Region Laterality Modality Upper Extremities, Hand Left Computed Radiography 08/16/2024 9:40 AM PLATE GLASS INSTALLER Impressions 08/16/2024 12:19 PM PLATE GLASS INSTALLER Unchanged left trapeziectomy, proximal row carpectomy, and instrumented left wrist arthrodesis. Dictated by: Primo Godfrey M.D. The radiology attending physician has personally reviewed this study, and had reviewed and/or edited this written report and agrees with it. Electronically signed by: Jose Brambila D.O. Narrative 08/16/2024 12:19 PM PLATE GLASS INSTALLER EXAMINATION: XR HAND LEFT 3 OR MORE [...] FDG Skull to Thigh (08/13/2024 9:53 AM PLATE GLASS INSTALLER) Anatomical Region Laterality Modality N/A Positron Emissio n Tomography (PET) 08/13/2024 11:1 7 AM PLATE GLASS INSTALLER Impressions 08/13/2024 11:32 AM PLATE GLASS INSTALLER 1. Hypermetabolic foci within the rectum and [...] and agrees with it. Electronically signed by: Shubahm Mitchell M.D. Narrative 08/13/2024 11:32 AM PLATE GLASS INSTALLER EXAMINATION: TUMOR FDG-PET/CT IMAGING DATE OF STUDY: [...] obtained. The study was interpreted on the [employer] workstation. The mean liver SUV (reported for quality assistant purposes) is 2.8. The total scanned area [...] obtained. The study was interpreted on the [employer] workstation. The mean liver SUV (reported for quality assistant purposes) is 2.8. The total scanned area [...] it. Electronically signed by: Shubham Mitchell M.D. us [facility]Berhane Tran MD IM PET PROCEDURES Final Result * CT Chest Abdomen Pelvis W Contrast (05/17/2024 8:35 AM PLATE GLASS INSTALLER) Anatomical Region Laterality Modality Body N/A Computed Tomogra phy 05/17/2024 10:2 0 AM PLATE GLASS INSTALLER Impressions 05/17/2024 10:20 AM PLATE GLASS INSTALLER 1. New lingular and left lower lobe patchy consolidation and groundglass opacities, likely infectious or inflammatory. 2. Stable small pulmonary nodules. 3. No metastatic disease in the abdomen or pelvis. Electronically signed by: Hernan Peña M.D. Narrative 05/17/2024 10:20 AM PLATE GLASS INSTALLER EXAMINATION: Computed tomography of the chest, abdomen [...] pelvis. Electronically signed by: Hernan Peña M.D. us Susan Tran MD IMG CT PROCEDURES Final R esult * Colonoscopy (03/26/2024 9:49 AM CDT) Anatomical Region Laterality Modality Other Narrative Procedure Note Teodoro Aviles MD - 03/26/2024 9:49 AM CDT ENDOSCOPY LAB Patient Name: Kaden Avery Procedure Date: 03/26/2024 9:49 AM Date of : 1950 Admit Type: Outpatient Age: 73 Gender: Male Attending MD: Teodoro Aviles M.D. Room: [facility] ENDOSCOPY ROOM 05 Note Status: Finalized Procedure: [...] The scope was passed under direct vision.The [id number] was introduced through the anusand advanced to [...] following this procedure please call my officeat [phone] to speak to my nurses. After hours and evenings please call [phone] andspeak to the GI fellow front end alignment specialist. Please tell them that Dr. Aviles did your procedure and that your wereinstructed to have the fellow call me or the physiciancovering for me to discuss the management of your condition.If you have an urgent problem, please go to [facility] room and have the ER doctor call myoffice during the day or the GI Fellow after hours and weekends to arrange admission or transfer to our facility. - Call my nurse Priscilla Mendoza RN in the GI office at [phone] for your final pathology results in 7 [...] and children were not included. (Diabetes Care 31:6344-2333, 2008). The eAG is not equivalent to a fasting glucose. Blood 11/27/2023 8:09 AM CDT 11/27/2023 11:19 AM CDT Sugar Woods NP LAB BLOOD ORDERABLES Final Result GABI DUBON ([place]) [address] [facility] Department [place] [address] * Albumin Creatinine Ratio, Urine (06/01/2023 8:45 AM PLATE GLASS INSTALLER) Albumin Ur <12.0 mg/L GABI JOHNSON Comment: Interpretive Data No reference range established. Current interpretive data was last revised 2018. Creatinine Ur 153.8 mg/dL GABI JOHNSON Comment: Interpretive Data No reference range established. Current interpretive data was last revised 2018. Albumin Creatinine Ratio, Ur <8 1 - 29 mg/g GABI Urine 06/01/2023 8:45 AM PLATE GLASS INSTALLER 06/01/2023 2:59 PM PLATE GLASS INSTALLER Sugar Woods NP LAB URINE ORDERABLES Final Result Performing Organization Address City/[facility]/ZIP Co de Phone Number GABI JOHNSON [address] Department [place] [address] from Last 3 Months or Most Recently Relevant to Health Maintenance Insurance [facility] MEDICARE UHC MEDICARE ADVANTAGE MEDICAL [facility] MEDICARE Address: [address] [address] [place] [address] UHC MEDICARE ADVANTAGE MEDICARE [facility] OFFICE [facility] CARE [facility] MEDICARE [facility] MEDICARE Advance Directives For more information, please contact: [phone] Documents on File Type Date Recorded Patient Geology Teacher Expl anation ADVANCE DIRECTIVE 07/15/2019 2:42 PM [...] 6:24 AM 07/16/2020 12:54 PM Care Teams Income Tax Preparer Relationship Specialty Start Date End Date Zachary Harris MD [address] [place] [address] PCP - General 03/23/17 Jennifer Adame, RN Registered Nurse 09/07/17 Teodoro Aviles MD Nematology Teacher Gastroenterology 07/02/19 Luis M Chinchilla MD PhD Referring Physician Cardiology 07/26/19 Alejandro Aly MD Referring Physician General Surgery 10/16/19 Long Montemayor MD Medical Oncologist/Supervisor Cloth Winding Medical Oncology 10/16/19 Susan Tran MD [address] [facility] MEDICAL ONCOLOGY, [address], [address] [place] [address] Consulting Physician Medical Oncology 11/02/23 Tisha Garza, PT Physical Therapist Physical Therapy 12/22/23
--- OUTSIDE RECORDS SUMMARY | 2024-11-12 15:32 | XMS_ITS | Encounter Summary ---
Author Organization [facility] Address [address] [place] [address] Phone Care Team Providers Care Director It Name Role Phone Zachary Harris MD Primary Care Provider [phone] Jennifer Adame RN Unavailable Un available Teodoro Aviles MD Unavailable [phone] Luis M Chinchilla MD PhD Unavailable [phone] Alejandro Aly MD Unavailable Long Montemayor MD Unavailable [phone] Rachel Tran MD Unavailable [phone] Tisha Garza PT Unavailable Unavailable Encounter Details [...] on file Legal Sex Male 3:44 AM DEVICE PROCESSING ENGINEER Gender Identity Male 07/04/2020 6:23 AM DEVICE PROCESSING ENGINEER Sexual Orientation Straight 11/12/2018 6: 56 AM CDT 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 End 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 Not on file Not on file 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 on file 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 Not on file Not on file Not [...] on filedocumented in this encounter Care Teams Director It Relationship Specialty Start Date End Date [place] [address] PCP - General 03/23/17 Jennifer Adame, RN Registered Nurse 09/07/17 Teodoro Aviles MD Show Horse Driver Gastroenterology 07/02/19 Luis M Chinchilla MD PhD Referring Physician Cardiology 07/26/19 Alejandro Aly MD Referring Physician General Surgery 10/16/19 Long Montemayor MD Medical Oncologist/Color Weigher Medical Oncology 10/16/19 Rachel Tran MD [address] [facility] MED[facility] ONCOLOGY, [address], [address], [address] [place] [address] Consulting Physician Medical Oncology 11/02/23 Tisha Garza, PT Physical Therapist Physical Therapy 12/22/23 documented as of this encounter
--- OUTSIDE RECORDS SUMMARY | 2024-11-12 15:32 | XMS_ITS | Encounter Summary ---
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 Gender Identity Male 07/04/2020 6:23 AM FARM OPERATIONS TECHNICAL DIRECTOR Sexual Orientation Straight 11/12/2018 6: 56 AM CDT 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 MEDICAL ONCOLOGY, [address], [address], [address] [place] [address] Consulting Physician Medical Oncology 11/02/23 Tisha Garza, PT Physical Therapist Physical Therapy 12/22/23 documented as of this encounter
--- OUTSIDE RECORDS SUMMARY | 2024-11-12 15:32 | XMS_ITS | Encounter Summary ---
Author Organization [facility] Address [address] [place] [address] Phone Care Team Providers Care Roof Foreman Name Role Phone Zachary Harris MD Primary Care Provider [phone] Jennifer Adame RN Unavailable Un available Teodoro Aviles MD Unavailable [phone] Luis M Chinchilla MD PhD Unavailable [phone] Alejandro Aly MD Unavailable Long Montemayor MD Unavailable [phone] Rachel Tran MD Unavailable Tisha Garza PT Unavailable Unavailable Encounter Details Date Type Department Care Team (Latest Contact Info) Description 10/28/2024 Results Follow-Up [facility] Endocrinology Metabolism and Lipid [address] [facility] Advanced Medicine 13th [place] [address] [place] [id number] Phyllis Holguin MD [address] [facility] [address] [place] [address] Testosterone, Total and Free, Serum, CBC with auto differential, Lactate dehydrogenase (LD), Additional followed-up results: 2 Social History Tobacco Use Types Packs/Day Years [...] on file Legal Sex Male 3:44 AM PRODUCTION SUPPORT ANALYST Gender Identity Male 07/04/2020 6:23 AM PRODUCTION SUPPORT ANALYST Sexual Orientation Straight 11/12/2018 6: 56 AM CDT 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 Not on file Not [...] on filedocumented in this encounter Care Teams Roof Foreman Relationship Specialty Start Date End Date Zachary Harris MD [address] [place] [address] PCP - General 03/23/17 Jennifer Adame, RN Registered Nurse 09/07/17 Teodoro Aviles MD Paste Plant Supervisor Gastroenterology 07/02/19 Luis M Chinchilla MD PhD Referring Physician Cardiology 07/26/19 Alejandro Aly MD Referring Physician General Surgery 10/16/19 Long Montemayor MD Medical Oncologist/Switch Adjuster Medical Oncology 10/16/19 Rachel Tran MD [address] [facility] MEDICAL ONCOLOGY, [address], [address], [address] [place] [address] Consulting Physician Medical Oncology 11/02/23 Tisha Garza, PT Physical Therapist Physical Therapy 12/22/23 documented as of this encounter
--- OUTSIDE RECORDS SUMMARY | 2024-11-12 15:32 | XMS_ITS | Encounter Summary ---
Author Organization [facility] Address [address] [place] [address] Phone Care Team Providers Care Senior Procurement Specialist Name Role Phone Zachary Harris MD Primary Care Provider [phone] Jennifer Adame RN Unavailable Un available Teodoro Aviles MD Unavailable Luis M Chinchilla MD PhD Unavailable [phone] Alejandro Aly MD Unavailable Long Montemayor MD Unavailable [phone] Kristin Marquez MD Unavailable [phone] Rachel Tran MD Unavailable [phone] Tisha Garza PT Unavailable Unavailable Encounter Details Date Type Department Care Team (Late st Contact Info) Description 11/04/2022 Telephone 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 07/30/2023 08/06/2023 10/28/2023 3:05 AM C DT documented as of this encounter Care Teams Senior Procurement Specialist Relationship Specialty Start Date End Date Zachary Harris MD [address] [place] [address] PCP - General 10/12/17 Jennifer Adame, RN Registered Nurse 09/07/17 Teodoro Aviles MD Hvac Commercial Salesperson Gastroenterology 07/02/19 Luis M Chinchilla MD PhD Referring Physician Cardiology 07/26/19 Alejandro Aly MD Referring Physician General Surgery 10/16/19 Long Montemayor MD Medical Oncologist/Vice Investigator Medical Oncology 10/16/19 Kristin Marquez MD Medical Oncologist/Vice Investigator Medical Oncology 07/16/20 11/01/23 Rachel Tran MD [address] [facility] MEDICAL ONCOLOGY, [address], [address], [address] [place] [address] Consulting Physician Medical Oncology 11/02/23 Tisha Garza, PT Physical Therapist Physical Therapy 12/22/23 documented as of this encounter
--- OUTSIDE RECORDS SUMMARY | 2024-11-12 15:32 | XMS_ITS | Encounter Summary ---
Author Organization [facility] Address [address] [place] [address] Phone Care Team Providers Care Hand Binder Stripper Name Role Phone Zachary Harris MD Primary Care Provider [phone] Zachary Harris MD Primary Care Provider [phone] Zachary Harris MD Primary Care Provider [phone] Zachary Harris MD Primary Care Provider [phone] Zachary Harris MD Primary Care Provider [phone] Jose Davis MD Primary Care Provider + Zachary Harris MD Primary Care Provider [phone] Jose Davis MD Primary Care Provider + Jose Davis MD Primary Care Provider + Zachary Harris MD Primary Care Provider [phone] Jose Davis MD Primary Care Provider + Zachary Harris MD Primary Care Provider [phone] Jennifer Adame RN Unavailable Un available Teodoro Aviles MD Unavailable [phone] Luis M Chinchilla MD PhD Unavailable [phone] Alejandro Aly MD Unavailable Long Montemayor MD Unavailable [phone] Kristin Marquez MD Unavailable Rachel Tran [...] on file Legal Sex Male 3:44 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 07/30/2023 08/06/2023 10/28/2023 3:05 AM C DT documented as of this encounter Care Teams Hand Binder Stripper Relationship Specialty Start Date End Date Zachary Harris MD [address] [place] [address] PCP - General 09/09/16 09/27/16 Zachary Harris MD [address] [place] [address] PCP - General 07/28/16 09/08/16 Zachary Harris MD [address] [place] [address] PCP - General 06/30/16 07/27/16 Zachary Harris MD [address] [place] [address] PCP - General 06/17/16 06/29/16 Zachary Harris MD [address] [place] [address] PCP - General 03/19/15 06/16/16 Jose Davis MD [address] [facility] [address] [address] [address] PCP - General 09/28/16 09/29/16 Zachary Harris MD [address] [place] [address] PCP - General 09/30/16 10/09/16 Jose Davis MD [address] [facility] [address] [address] PCP - General 10/10/16 10/16/16 Jose Davis MD [address] [facility] [address] [address] PCP - General 10/17/16 10/17/16 Zachary Harris MD [address] [place] [address] PCP - General 10/18/16 03/16/17 Jose Davis MD [address] [facility] [address] [address] [facility] - General 03/17/17 03/22/17 Zachary Harris MD [address] [place] [address] PCP - General 03/23/17 Jennifer Adame, RN Registered Nurse 09/07/17 Teodoro Aviles MD Workday Director Gastroenterology 07/02/19 Luis M hCinchilla MD PhD Referring Physician Cardiology 07/26/19 Alejandro Aly MD Referring Physician General Surgery 10/16/19 Long Montemayor MD Medical Oncologist/Health Administrator Medical Oncology 10/16/19 Kristin Marquez MD Medical Oncologist/Health Administrator Medical Oncology 07/16/20 11/01/23 Rachel Tran MD [address] [facility] MEDICAL ONCOLOGY, [address] [place] [address] Consulting Physician Medical Oncology 11/02/23 Tisha Garza, PT Physical Therapist Physical Therapy 12/22/23 documented as of this encounter
--- OUTSIDE RECORDS SUMMARY | 2024-11-12 15:32 | XMS_ITS | Encounter Summary ---
Author Organization [facility] Address [address] [place] [address] Phone Care Team Providers Care Food Service Aide Name Role Phone Zachary Harris MD Primary Care Provider [phone] Jennifer Adame RN Unavailable Un available Teodoro Aviles MD Unavailable Luis M Chinchilla MD PhD Unavailable [phone] Alejandro Aly MD Unavailable [phone] Long Montemayor MD Unavailable [phone] Kristin Marquez MD Unavailable [phone] Rachel Tran MD Unavailable [phone] Tisha Garza PT Unavailable Unavailable Encounter Details [...] file Legal Sex Male 3: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 07/30/2023 08/06/2023 10/28/2023 3:05 AM C DT documented as of this encounter Care Teams Food Service Aide Relationship Specialty Start Date End Date Zachary Harris MD [address] [place] [place] [address] PCP - General 03/23/17 Jennifer Adame, RN Registered Nurse 09/07/17 Teodoro Aviles MD Linux Network Systems Administrator Gastroenterology 07/02/19 Luis M Chinchilla MD PhD Referring Physician Cardiology 07/26/19 Alejandro Aly MD Referring Physician General Surgery 10/16/19 Long Montemayor MD Medical Oncologist/Blockers Skiver Medical Oncology 10/16/19 Kristin Marquez MD Medical Oncologist/Blockers Skiver Medical Oncology 07/16/20 11/01/23 Rachel Tran MD [address] [facility] MEDICAL ONCOLOGY, [address], [address], [address] [place] [address] Consulting Physician Medical Oncology 11/02/23 Tisha Garza, REJI Physical Therapist Physical Therapy 12/22/23 documented as of this encounter
--- OUTSIDE RECORDS SUMMARY | 2024-11-12 15:32 | XMS_ITS | Encounter Summary ---
Author Organization [facility] Address [address] [place] [address] Phone Care Team Providers Care Assembler Cards And Announcements Name Role Phone Zachary Harris MD Primary Care Provider [phone] Zachary Harris MD Primary Care Provider [phone] Zachary Harris MD Primary Care Provider [phone] Zachary Harris MD Primary Care Provider [phone] Zachary Harris MD Primary Care Provider [phone] Jose Davis MD Primary Care Provider + Zachary Harris MD Primary Care Provider [phone] Jose Davis MD Primary Care Provider + Jose Davis MD Primary Care Provider + Zachary Harris MD Primary Care Provider [phone] Jose Davis MD Primary Care Provider + Zachary Harris MD Primary Care Provider [phone] Jennifer Adame RN Unavailable Un available Teodoro Aviles MD Unavailable [phone] Luis M Chinchilla MD PhD Unavailable [phone] Alejandro Aly MD Unavailable Long Montemayor MD Unavailable [phone] Kristin Marquez MD Unavailable Rachel Tran [...] on file Legal Sex Male 3:44 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 07/30/2023 08/06/2023 10/28/2023 3:05 AM C DT documented as of this encounter Care Teams Assembler Cards And Announcements Relationship Specialty Start Date End Date Zachary Harris MD [address] [place] [address] PCP - General 09/09/16 09/27/16 Zachary Harris MD [address] [place] [address] PCP - General 07/28/16 09/08/16 Zachary Harris MD [address] [place] [address] PCP - General 06/30/16 07/27/16 Zachary Harris MD [address] [place] [address] PCP - General 06/17/16 06/29/16 Zachary Harris MD [address] [place] [address] PCP - General 03/19/15 06/16/16 Jose Davis MD [address] [facility] [address] [address] PCP - General 09/28/16 09/29/16 Zachary Harris MD [address] [place] [address] PCP - General 09/30/16 10/09/16 Jose Davis MD [address] [facility] [address] [address] PCP - General 10/10/16 10/16/16 Jose Davis MD [address] [address] PCP - General 10/17/16 10/17/16 Zachary Harris MD [address] [place] [address] PCP - General 10/18/16 03/16/17 Jose Davis MD [address] [address] [facility] General 03/17/17 03/22/17 Zachary Harris MD [address] [place] [address] [facility] - General 03/23/17 Jennifer Adame, RN Registered Nurse 09/07/17 Teodoro Aviles MD Awning Installer Gastroenterology 07/02/19 Luis M Chinchilla MD PhD Referring Physician Cardiology 07/26/19 Alejandro Aly MD Referring Physician General Surgery 10/16/19 Long Montemayor MD Medical Oncologist/Millinery Copyist Medical Oncology 10/16/19 Kristin Marquez MD Medical Oncologist/Millinery Copyist Medical Oncology 07/16/20 11/01/23 Rachel Tran MD [address] [facility] MEDICAL ONCOLOGY, [facility] 7A, 7B, [address] [place] [address] Consulting Physician Medical Oncology 11/02/23 Tisha Garza, PT Physical Therapist Physical Therapy 12/22/23 documented as of this encounter
--- OUTSIDE RECORDS SUMMARY | 2024-11-12 15:32 | XMS_ITS | Encounter Summary ---
Author Organization [facility] Address [address] [place] [address] Phone Care Team Providers Care Construction Technician Name Role Phone Zachary Harris MD Primary Care Provider [phone] Zachary Harris MD Primary Care Provider [phone] Zachary Harris MD Primary Care Provider [phone] Zachary Harris MD Primary Care Provider [phone] Zachary Harris MD Primary Care Provider [phone] Jose Davis MD Primary Care Provider + Zachary Harris MD Primary Care Provider [phone] Jose Davis MD Primary Care Provider + Jose Davis MD Primary Care Provider + Zachary Harris MD Primary Care Provider [phone] Jose Davis MD Primary Care Provider + Zachary Harris MD Primary Care Provider [phone] Jennifer Adame RN Unavailable Un available Teodoro Aviles MD Unavailable [phone] Luis M Chinchilla MD PhD Unavailable [phone] Alejandro Aly MD Unavailable [phone] Long Montemayor MD Unavailable [phone] Kristin Marquez MD Unavailable Rachel Tran [...] on file Legal 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 07/30/2023 08/06/2023 10/28/2023 3:05 AM C DT documented as of this encounter Care Teams Construction Technician Relationship Specialty Start Date End Date Zachary Harris MD [address] [place] [address] PCP - General 09/09/16 09/27/16 Zachary Harris MD [address] [place] [address] PCP - General 07/28/16 09/08/16 Zachary Harris MD [address] [place] [address] PCP - General 06/30/16 07/27/16 Zachary Harris MD [address] [place] [address] PCP - General 06/17/16 06/29/16 Zachary Harris MD [address] [place] [address] PCP - General 03/19/15 06/16/16 Jose Davis MD [address] [facility] [address] [address] PCP - General 09/28/16 09/29/16 Zachary Harris MD [address] [place] [address] PCP - General 09/30/16 10/09/16 Jose Davis MD [address] [facility] [address] [address] PCP - General 10/10/16 10/16/16 Jose Davis MD [address] [facility] [address] [address] PCP - General 10/17/16 10/17/16 Zachary Harris MD [address] [place] [address] PCP - General 10/18/16 03/16/17 Jose Davis MD [address] [facility] [address] [address] [facility] - General 03/17/17 03/22/17 Zachary Harris MD [address] [place] [address] PCP - General 03/23/17 Jennifer Adame, RN Registered Nurse 09/07/17 Teodoro Aviles MD Sociology Adjunct Instructor Gastroenterology 07/02/19 Luis M Chinchilla MD PhD Referring Physician Cardiology 07/26/19 Alejandro Aly MD Referring Physician General Surgery 10/16/19 Long Montemayor MD Medical Oncologist/Plastic Boat Patcher Medical Oncology 10/16/19 Kristin Marquez MD Medical Oncologist/Plastic Boat Patcher Medical Oncology 07/16/20 11/01/23 Rachel Tran MD [address] [facility] MEDICAL ONCOLOGY, [address], [address] [place] [address] Consulting Physician Medical Oncology 11/02/23 Tisha Garza, PT Physical Therapist Physical Therapy 12/22/23 documented as of this encounter
--- OUTSIDE RECORDS SUMMARY | 2024-11-12 15:32 | XMS_ITS | Encounter Summary ---
Author Organization [facility] Address [address] [place] [address] Phone Care Team Providers Care Property Coordinator Name Role Phone Zachary Harris MD Primary Care Provider [phone] Zachary Harris MD Primary Care Provider [phone] Zachary Harris MD Primary Care Provider [phone] Zachary Harris MD Primary Care Provider [phone] Zachary Harris MD Primary Care Provider [phone] Zachary Harris MD Primary Care Provider [phone] Zachary Harris MD Primary Care Provider [phone] Jose Davis MD Primary Care Provider + Zachary Harris MD Primary Care Provider [phone] Jose Davis MD Primary Care Provider + Jose Davis MD Primary Care Provider + Zachary Harris MD Primary Care Provider [phone] Jose Davis MD Primary Care Provider + Zachary Harris MD Primary Care Provider [phone] Jennifer Adame RN Unavailable Un available Teodoro Aviles MD Unavailable [phone] Luis M Chinchilla MD PhD Unavailable [phone] Alejandro Aly MD Unavailable Long Montemayor MD Unavailable [phone] Kristin Marquez MD Unavailable Rachel Tran MD Unavailable [phone] Tisha Garza PT Unavailable Unavailable Encounter Details Date Type Department Care Team (Latest Contact Info) Description 08/15/2013 Orders Only [facility] Scanning, Provider Social History Tobacco Use Types Packs/Day Years Used Date Smoking Tobacco: Never Assessed Sex and Gender Information Value Date Recorded Sex Assigned at Not on file Legal Sex Male 3:44 AM CANCER REGISTRY COORDINATOR Gender Identity Male 07/04/2020 6:23 AM CANCER REGISTRY COORDINATOR Sexual Orientation Straight 11/12/2018 6: 56 [...] COVID: Suspected 07/20/2023 07/20/2023 07/20/2023 6:17 PM CANCER REGISTRY COORDINATOR COVID19 07/20/2023 07/20/2023 07/30/2023 3:05 AM CANCER REGISTRY COORDINATOR COVID: Recovered Comment:Added based on recent COVID infection. 07/30/2023 08/06/2023 10/28/2023 3:05 AM C DT documented as of this encounter Care Teams Property Coordinator Relationship Specialty Start Date End Date Zachary Harris MD [address] [place] [address] PCP - General 09/09/16 09/27/16 Zachary Harris MD [address] [place] [address] PCP - General 07/28/16 09/08/16 Zachary Harris MD [address] [place] [address] PCP - General 06/30/16 07/27/16 Zachary Harris MD [address] [place] [address] PCP - General 06/17/16 06/29/16 Zachary Harris MD [address] [place] [address] PCP - General 03/19/15 06/16/16 Zachary Harris MD [address] [place] [address] PCP - General 02/18/15 03/18/15 Zachary Harris MD [address] [place] [address] PCP - General 01/20/15 02/17/15 Jose Davis MD [address] [facility] [address] [address] PCP - General 09/28/16 09/29/16 Zachary Harris MD [address] [place] [address] PCP - General 09/30/16 10/09/16 Jose Davis MD [address] [facility] [address] PCP - General 10/10/16 10/16/16 Jose Davis MD [address] [address] PCP - General 10/17/16 10/17/16 Zachary Harris MD [address] [place] [address] PCP - General 10/18/16 03/16/17 Jose Davis MD [address] [facility] [address] PCP - General 03/17/17 03/22/17 Zachary Harris MD [address] [place] [address] PCP - General 03/23/17 Jennifer Adame, BEVERLY Registered Nurse 09/07/17 Teodoro Aviles MD Personal Injury Attorney Gastroenterology 07/02/19 Luis M Chinchilla MD PhD Referring Physician Cardiology 07/26/19 Alejandro Aly MD Referring Physician General Surgery 10/16/19 Long Montemayor MD Medical Oncologist/Environmental Health Nurse Medical Oncology 10/16/19 Kristin Marquez MD Medical Oncologist/Environmental Health Nurse Medical Oncology 07/16/20 11/01/23 Rachel Tran MD [address] [facility] MED[facility]Y, [address] [place] [address] Consulting Physician Medical Oncology 11/02/23 Tisha Garza, PT Physical Therapist Physical Therapy 12/22/23 documented as of this encounter
--- OUTSIDE RECORDS SUMMARY | 2024-11-12 15:32 | XMS_ITS | Encounter Summary ---
Author Organization [facility] Address [address] [place] [address] Phone Care Team Providers Care Firebrick Layer Name Role Phone Zachary Harris MD Primary Care Provider [phone] Jennifer Adame RN Unavailable Un available Teodoro Aviles MD Unavailable Luis M Chinchilla MD PhD Unavailable [phone] Alejandro Aly MD Unavailable Long Montemayor MD Unavailable [phone] Rachel Tran MD Unavailable [phone] Tisha Garza PT Unavailable Unavailable Encounter Details [...] on file Legal Sex Male 3:44 AM KENNEL HAND Gender Identity Male 07/04/2020 6:23 AM KENNEL HAND Sexual Orientation Straight 11/12/2018 6: 56 AM CDT 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 Not on file Not [...] on filedocumented in this encounter Care Teams Firebrick Layer Relationship Specialty Start Date End Date Zachary Harris MD [address] [place] [address] PCP - General 03/23/17 Jennifer Adame, RN Registered Nurse 09/07/17 Teodoro Aviles MD Base Brander Gastroenterology 07/02/19 Luis M Chinchilla MD PhD Referring Physician Cardiology 07/26/19 Alejandro Aly MD Referring Physician General Surgery 10/16/19 Long Montemayor MD Medical Oncologist/Brick Tosser Medical Oncology 10/16/19 Rachel Tran MD [address] [facility] MEDICAL ONCOLOGY, [address] [place] [address] Consulting Physician Medical Oncology 11/02/23 Tisha Garza, PT Physical Therapist Physical Therapy 12/22/23 documented as of this encounter
--- OUTSIDE RECORDS SUMMARY | 2024-11-12 15:32 | XMS_ITS | Encounter Summary ---
Author Organization [facility] Address [address] [place] [address] Phone Care Team Providers Care Stake Setter Name Role Phone Zachary Harris MD Primary Care Provider [phone] Jennifer Adame RN Unavailable Un available Teodoro Aviles MD Unavailable Luis M Chinchilla MD PhD Unavailable [phone] Alejandro Aly MD Unavailable Long Montemayor MD Unavailable [phone] Kristin Marquez MD Unavailable Rachel Tran MD Unavailable [phone] Tisha Garza PT Unavailable Unavailable Encounter Details [...] on file Legal Sex Male 3:44 AM PORTABLE MACHINE SANDER Gender Identity Male 07/04/2020 6:23 AM PORTABLE MACHINE SANDER Sexual Orientation Straight 11/12/2018 6: 56 AM CDT 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 file Not on file 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 Not on file [...] documented as of this encounter Care Teams Stake Setter Relationship Specialty Start Date [place] [address] PCP - General 03/23/17 Jennifer Adame, RN Registered Nurse 09/07/17 Teodoro Aviles MD Education Faculty Member Gastroenterology 07/02/19 Luis M Chinchilla MD PhD Referring Physician Cardiology 07/26/19 Alejandro Aly MD Referring Physician General Surgery 10/16/19 Long Montemayor MD Medical Oncologist/Expressive Music Therapist Medical Oncology 10/16/19 Kristin Marquez MD Medical Oncologist/Expressive Music Therapist Medical Oncology 07/16/20 11/01/23 Rachel Tran MD [address] [facility] MED[facility], [address] [place] [address] Consulting Physician Medical Oncology 11/02/23 Tisha Garza, PT Physical Therapist Physical Therapy 12/22/23 documented as of this encounter
--- OUTSIDE RECORDS SUMMARY | 2024-11-12 15:32 | XMS_ITS ---
Author Organization [facility] Address [address] [place] [address] Care Team Providers Care Pulmonary Specialist Name Role Phone Zachary Harris MD Primary Care Provider [phone] Jennifer Adame RN Unavailable Un available Teodoro Aviles MD Unavailable [phone] Luis M Chinchilla MD PhD Unavailable [phone] Alejandro Aly MD Unavailable [phone] Long Montemayor MD Unavailable [phone] Rachel Tran MD Unavailable Tisha Garza PT Unavailable Unavailable Active Problems Problem Noted Date Diagnosed Date Night sweats 10/16/2024 Greater trochanteric bursitis of both hips 09/25 BMI 30.0-30.9,adult 07/31/2024 Assessment & Plan (07/31/2024 10:32 AM RAIL TECHNICIAN): Encourage 150min/week aerobic exercise. Heatlhy food choices. Arthritis of carpometacarpal (CMC) joint of left thumb 05/24/2024 Arthritis of left wrist 05/24/2024 Palpitations 04/30/2024 Adenocarcinoma of small bowel 02/29/2024 Depression 12/20/2023 Open-angle glaucoma of right eye, moderate stage 10/06/2023 Overview (10/04/2024): -Previously treated at the [facility]; here for a second opinion -IOP [...] 06/01 Assessment & Plan (05/16/2024 9:40 AM RAIL TECHNICIAN): In regard to health maintenance, Colonoscopy- [...] healthier, we can set up appointment with strategic communications manager/community program assistant. Have an active lifestyle, strive for 30 [...] man. Assessment & Plan (06/01/2023 9:23 AM RAIL TECHNICIAN): Visit preventive in nature. We reviewed medications, chronic conditions, risk factors, lifestyle recommendations. Reviewed immunization recommendations. Follow-up in 6 months for chronic conditions and 1 year for annual wellness. Asthma due to seasonal allergies 06/01/2023 Assessment & Plan (06/01/2023 9:24 AM RAIL TECHNICIAN): Currently stable without exacerbation. Will place referral to cone picker. Appreciate their expertise. Mixed hyperlipidemia 06/01/2023 Assessment & Plan (05/16/2024 9:38 AM RAIL TECHNICIAN): Lipid panel ordered. Stable and well controlled. Will continue to monitor. Will continue on Atorvastatin. Assessment & Plan (12/04/2023 9:01 AM CDT): Well controlled on atorvastatin. No changes. Will continue to monitor. Assessment & Plan (06/01/2023 9:24 AM RAIL TECHNICIAN): Recent lipid panel reviewed. Will continue atorvastatin. Tolerating without side effects. BMI 28.0-28.9,adult 06/01/2023 Assessment & Plan (06/01/2023 9:24 AM RAIL TECHNICIAN): His weight is good. Avulsion of eye 03/28/2023 Benign prostatic hyperplasia 03/28/2023 Assessment & Plan (05/16/2024 9:37 AM RAIL TECHNICIAN): Stable and well controlled. Will continue [...] 03/28/2023 Assessment & Plan (07/31/2024 10:32 AM RAIL TECHNICIAN): COntinues on prn albuterol and breo ellipta. Reviewed pulmonary toilet. Assessment & Plan (05/16/2024 9:37 AM RAIL TECHNICIAN): Stable and well controlled. No recent [...] DFE. Assessment & Plan (05/16/2024 9:38 AM RAIL TECHNICIAN): Lab Results Component Value Date HGBA1C [...] 08/01/2022 Assessment & Plan (08/01/2022 2:00 PM RAIL TECHNICIAN): - Likely due to finasteride - [...] treatable. Assessment & Plan (08/07/2023 10:14 AM RAIL TECHNICIAN): 73 yo M with Maddox syndrome c/b [...] Creon. Assessment & Plan (08/08/2022 10:49 AM RAIL TECHNICIAN): Likely due to immunotherapy. Gained weight [...] months. Assessment & Plan (08/01/2022 1:56 PM RAIL TECHNICIAN): He held his pancreatic enzymes due [...] (08/19/2021): Added automatically from request for surgery [id number] Assessment & Plan (09/14/2021 3:41 PM CDT): [...] 08/09/2021 Assessment & Plan (07/31/2024 10:31 AM RAIL TECHNICIAN): No increaed palpitations. No shortness of breath, no increaed work of breathing. Assessment & Plan (05/16/2024 9:36 AM RAIL TECHNICIAN): HR stable and normal. Will continue on Metoprolol and ASA. Will continue to follow with Cardiology. Adrenal insufficiency 07/17/2021 Assessment & Plan (11/13/2022 11:41 AM CDT): - Continue hydrocortisone - Doublet he dose if sick/fever Assessment & Plan (08/01/2022 1:57 PM RAIL TECHNICIAN): Due to weight gain, he will [...] routes Assessment & Plan (07/17/2021 1:42 PM RAIL TECHNICIAN): Did not stim by >10 on [...] 02/09/20 Assessment & Plan (07/31/2024 10:31 AM RAIL TECHNICIAN): As above. Coronary artery calcification seen on CAT scan 0 10/30/2020 Chest pain 10/30/2020 Former smoker 10/30/2020 Elevated CEA 07/07/2020 Overview (07/07/2020): Added automatically from request for surgery [id number] Encounter for follow-up surveillance of gastric cancer 07/07/2020 Overview (07/07/2020): Added automatically from request for surgery [id number] Dysgeusia 02/24/2020 Hypophosphatemia 10/15/2019 Bradycardia 10/02/2019 Small bowel cancer 08/06/2019 Cancer Staging:Pathologic stage from 07/19/2019:Stage IIA(pT3, pN0, cM0) - Signed by Kristin Marquez MD on 12/31/2020 Arrhythmia 07/26/2019 Malignant neoplasm of body of stomach 07/10/2019 Cancer Staging:Pathologic stage from 07/19/2019:Stage IA(pT1a, pN0, cM0) - Signed by Kristin Marquez MD on 12/31/2020 BMI 29.0-29.9,adult 05/17/2019 Assessment & Plan (05/16/2024 9:36 AM RAIL TECHNICIAN): Weight appropriate for patient. Assessment & Plan (05/17/2019 3:28 PM RAIL TECHNICIAN): Reviewed need to lose weight, reviewed health benefits. Reviewed recommendations for daily intake & activity 20-30 minutes/day. Discussed healthy diet and importance of regular physical activity. Squamous cell carcinoma of foot, right toe 05/13 Gastroesophageal reflux disease 05/02/2019 Assessment & Plan (05/16/2024 9:35 AM RAIL TECHNICIAN): Stable and well controlled. Will continue on Omeprazole Encounter for screening colonoscopy 01/22/2019 Overview (01/22/2019): Added automatically from request for surgery [id number] History of colonic polyps 01/22/2019 Overview (01/22/2019): Added automatically from request for surgery [id number] Assessment & Plan (02/06/2023 1:55 PM CDT): He is not interested in further colonoscopy at this time. Had a friend from a screening colon perforation. History of arthroplasty of left knee 10/17/2018 PVC's (premature ventricular contractions) 08/24 Normocytic anemia 07/26/2018 Basal cell carcinoma (BCC) of left side of nose 02/28/2018 Assessment & Plan (07/31/2024 10:31 AM RAIL TECHNICIAN): COntinue f/u with dermatology. Maddox syndrome 01/18/2018 Assessment & Plan (07/31/2024 10:31 AM RAIL TECHNICIAN): Continue f/u with oncology and surveillance as recommended by specialty care. Assessment & Plan (06/01/2023 9:23 AM RAIL TECHNICIAN): History of multiple cancers. He does continue to follow closely with Oncology and will continue to do so. Assessment & Plan (08/08/2022 10:47 AM RAIL TECHNICIAN): Multiple malignancies, including recent skin ca. 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 Completely excised. No further treatment is required at this time. Postsurgical hypothyroidism 11/10/2017 Assessment & Plan (05/16/2024 9:35 AM RAIL TECHNICIAN): Euthyroid. Will continue on Synthroid and following with specialist. Assessment & Plan (11/13/2022 11:41 AM CDT): - Continue current thyroid hormone replacement -TSH at goal earlier this month - Repeat labs with oncology labs 01/10 to ensure stability Assessment & Plan (08/01/2022 1:58 PM RAIL TECHNICIAN): Clinically and biochemically euthyroid Continue current [...] month Assessment & Plan (07/17/2021 1:40 PM RAIL TECHNICIAN): Exacerbated by immunotherapy - Continue 125 [...] is currently under the care of the spring former hand. Thyroid hormone supplementation will be managed and adjusted as needed per Dr. Jauregui. Sacroiliitis 09/08/2017 Assessment & Plan (07/31/2024 10:30 AM RAIL TECHNICIAN): Patient with benefit of SI joint [...] 06/03/2014 Assessment & Plan (05/16/2024 9:35 AM RAIL TECHNICIAN): Blood pressures stable and well controlled. [...] 07/31/202409/10 Assessment & Plan (07/31/2024 10:32 AM RAIL TECHNICIAN): As above. Left shoulder pain 05/16/2024 Assessment & Plan (05/16/2024 9:41 AM RAIL TECHNICIAN): Recent increase in pain. Will do short course of Tramadol and Tizanidine. Neck pain 12/04/2023 09/25/2024 Assessment & Plan (05/16/2024 9:38 AM RAIL TECHNICIAN): Tizanidine and Tramadol ordered for pain [...] monitor. Assessment & Plan (06/01/2023 8:34 AM RAIL TECHNICIAN): A1C 6.3%. Will continue to monitor. [...] 08/03/2020 Assessment & Plan (05/17/2019 3:29 PM RAIL TECHNICIAN): Labs ordered; will contact w/results once [...]
--- OUTSIDE RECORDS SUMMARY | 2024-11-12 15:32 | XMS_ITS | Encounter Summary ---
Author Organization [facility] Address [address] [place] [address] Phone Care Team Providers Care Commercial Lease Administrator Name Role Phone Zachary Harris MD Primary Care Provider [phone] Jennifer Adame RN Unavailable Un available Teodoro Aviles MD Unavailable Luis M Chinchilla MD PhD Unavailable [phone] Alejandro Aly MD Unavailable Long Montemayor MD Unavailable [phone] Rachel Tran MD Unavailable [phone] Tisah Garza PT Unavailable Unavailable Encounter Details Date [...] on file Legal Sex Male 3:44 AM OPERATIONS ASST Gender Identity Male 07/04/2020 6:23 AM OPERATIONS ASST Sexual Orientation Straight 11/12/2018 6: 56 AM CDT 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 MEDICAL ONCOLOGY, [address] [place] [address] Consulting Physician Medical Oncology 11/02/23 Tisha Garza, PT Physical Therapist Physical Therapy 12/22/23 documented as of this encounter
--- OUTSIDE RECORDS SUMMARY | 2024-11-12 15:32 | XMS_ITS | Encounter Summary ---
Author Organization [facility] Address [address] [place] [address] Phone Care Team Providers Care Gambreler Helper Name Role Phone Zachary Harris MD Primary Care Provider [phone] Zachary Harris MD Primary Care Provider [phone] Zachary Harris MD Primary Care Provider [phone] Zachary Harris MD Primary Care Provider [phone] Zachary Harris MD Primary Care Provider [phone] Zachary Harris MD Primary Care Provider [phone] Zachary Harris MD Primary Care Provider [phone] Jose Davis MD Primary Care Provider + Zachary Harris MD Primary Care Provider [phone] Jose Davis MD Primary Care Provider + Jose Davis MD Primary Care Provider + Zachary Harris MD Primary Care Provider [phone] Jose Davis MD Primary Care Provider + Zachary Harris MD Primary Care Provider [phone] Jennifer Adame RN Unavailable Un available Teodoro Aviles MD Unavailable [phone] Luis M Chinchilla MD PhD Unavailable [phone] Alejandro Aly MD Unavailable Long Montemayor MD Unavailable [phone] Kristin Marquez MD Unavailable Rachel Tran MD Unavailable [phone] Tisha Garza PT Unavailable Unavailable Encounter Details Date Type Department Care Team (Latest Contact Info) Description 08/06/2013 Orders Only [facility] Scanning, Provider Social History Tobacco Use Types Packs/Day Years Used Date Smoking Tobacco: Never Assessed Sex and Gender Information Value Date Recorded Sex Assigned at Not on file Legal Sex Male 3:44 AM DATA PROCESSOR Gender Identity Male 07/04/2020 6:23 AM DATA PROCESSOR Sexual Orientation Straight 11/12/2018 6: 56 AM [...] COVID: Suspected 07/20/2023 07/20/2023 07/20/2023 6:17 PM DATA PROCESSOR COVID19 07/20/2023 07/20/2023 07/30/2023 3:05 AM DATA PROCESSOR COVID: Recovered Comment:Added based on recent COVID infection. 07/30/2023 08/06/2023 10/28/2023 3:05 AM C DT documented as of this encounter Care Teams Gambreler Helper Relationship Specialty Start Date End Date Zachary Harris MD [address] [place] [address] PCP - General 09/09/16 09/27/16 Zachary Harris MD [address] [place] [address] PCP - General 07/28/16 09/08/16 Zachary Harris MD [address] [place] [address] PCP - General 06/30/16 07/27/16 Zachary Harris MD [address] [place] [address] PCP - General 06/17/16 06/29/16 Zachary Harris MD [address] [place] [address] PCP - General 03/19/15 06/16/16 Zachary Harris MD [address] [place] [address] PCP - General 02/18/15 03/18/15 Zachary Harris MD [address] [place] [address] PCP - General 01/20/15 02/17/15 Jose Davis MD [address] [facility] [address] [address] PCP - General 09/28/16 09/29/16 Zachary Harris MD [address] [place] [address] PCP - General 09/30/16 10/09/16 Jose Davis MD 2 [facility] [address] PCP - General 10/10/16 10/16/16 Jose Davis MD [address] [address] PCP - General 10/17/16 10/17/16 Zachary Harris MD [address] [place] [address] PCP - General 10/18/16 03/16/17 Jose Davis MD 2 [facility] [address] PCP - General 03/17/17 03/22/17 Zachary Harris MD [address] [place] [address] PCP - General 03/23/17 Jennifer Adame, BEVERLY Registered Nurse 09/07/17 Teodoro Aviles MD Systematic Theology Professor Gastroenterology 07/02/19 Luis M Chinchilla MD PhD Referring Physician Cardiology 07/26/19 Alejandro Aly MD Referring Physician General Surgery 10/16/19 Long Montemayor MD Medical Oncologist/Insulation Worker Interior Surface Medical Oncology 10/16/19 Kristin Marquez MD Medical Oncologist/Insulation Worker Interior Surface Medical Oncology 07/16/20 11/01/23 Rachel Tran MD [address] [facility] MEDICAL ONCOLOGY, [address] [place] [address] Consulting Physician Medical Oncology 11/02/23 Tisha Garza, PT Physical Therapist Physical Therapy 12/22/23 documented as of this encounter
== END 2024-11-12 15:28 | disposition home or self-care (01) ==
LOC: CHSLAB 15:29
PROVIDERS: PCP Family Medicine; Visit Provider Specialist
DX: C44.629 Squamous cell carcinoma of skin of left upper limb, including shoulder (principal); C44.622 Squamous cell carcinoma of skin of right upper limb, including shoulder; C44.729 Squamous cell carcinoma of skin of left lower limb, including hip
CPT/HCPCS: 88305